=== PATIENT | male | born 1945 | race Caucasian/White ===

== ENCOUNTER 2020-07-06 07:15 | Outpatient (REF) | payer MEDICARE, SELFPAY | END 2020-07-06 07:16 | disposition home or self-care (01) | LOC: HO.LAB 07:15 | PROVIDERS: PCP Internal Medicine; Visit Provider Internal Medicine | DX: Z20.828 Contact with and (suspected) exposure to other viral communicable diseases (principal) | CPT/HCPCS: C9803; U0003 ==

== ENCOUNTER 2020-07-09 09:22 | Outpatient (REF) | payer MEDICARE, SELFPAY ==
[2020-07-09 11:37] LABS: Anion Gap 11 (12-20); Blood Urea Nitrogen 18 mg/dL (9-16); Calcium 8.5 mg/dL (8.4-10.2); Carbon Dioxide 31 mmol/L (22-29); Chloride 104 mmol/L (96-108); Estimated Glomerular Filt Rate > 60; Phosphorus 3.4 mg/dL (2.7-4.5); Potassium 4.4 mmol/l (3.3-5.1); Sodium 142 mmol/L (135-145)
[2020-07-09 11:44] LABS: Protein/Creatinine Ratio, Ur 0.06 (<0.2); Total Protein Urine Random 12 mg/dL (<12)
[2020-07-09 11:46] LABS: Creatinine Urine 196.16 mg/dL
[2020-07-09 11:50] LABS: Renal w Reflex Lab Use Only Order verified
== END 2020-07-09 09:23 | disposition home or self-care (01) ==
LOC: HO.HMGCLDS 09:22
PROVIDERS: PCP Internal Medicine; Visit Provider Internal Medicine Nephrology
DX: I10 Essential (primary) hypertension (principal)
CPT/HCPCS: 80051; 82043; 82310; 82565; 84100; 84156; 84520

== ENCOUNTER 2020-07-31 06:59 | Outpatient (REF) | payer MEDICARE, SELFPAY | END 2020-07-31 07:00 | disposition home or self-care (01) | LOC: HO.LAB 06:59 | PROVIDERS: Visit Provider Internal Medicine | DX: Z20.822 Contact with and (suspected) exposure to COVID-19 (principal) | CPT/HCPCS: 36415; C9803; U0003 ==

== ENCOUNTER 2020-08-22 07:02 | Outpatient (REF) | payer MEDICARE, SELFPAY | END 2020-08-22 07:03 | disposition home or self-care (01) | LOC: HO.LAB 07:02 | PROVIDERS: Visit Provider Internal Medicine | DX: Z20.822 Contact with and (suspected) exposure to COVID-19 (principal) | CPT/HCPCS: 36415; C9803; U0003; U0005 ==

== ENCOUNTER 2020-09-15 09:40 | Outpatient (REF) | payer MEDICARE, SELFPAY ==
[2020-09-15 11:18] LABS: MANUAL DIFF FLAG NO
[2020-09-15 11:40] LABS: Basophils Percent Auto 0.4 % (0-2); Eosinophils Percent Auto 0.7 % (0-4); Hematocrit 37.2 % (42-52); Hemoglobin 11.7 g/dl (14.0-18.0); Imm Gran Abs Auto 0.01 X10*3/uL (0.00-0.03); Imm Gran Pct Auto 0.2 % (0.0-0.4); Lymphocytes Absolute Auto 2.2 X10*3/uL (1.2-4.9); Lymphocytes Percent Auto 40.2 % (20-40); Mean Corpuscular HGB Conc 31.5 g/dl (31.0-36.0); Mean Corpuscular Hemoglobin 29.1 pg (27.0-33.0); Mean Corpuscular Volume 92.5 fL (80-98); Mean Platelet Volume 9.2 fL (9.4-12.4); Monocytes Absolute Auto 0.3 X10*3/uL (0.1-1.2); Monocytes Percent Auto 6.3 % (2-11); Neutrophils Absolute Auto 2.8 X10*3/uL (2.0-8.3); Neutrophils Percent Auto 52.2 % (45-73); Platelet Count 133 X10*3/uL (160-400); Red Blood Count 4.02 X10*6/uL (4.60-5.80); Red Cell Distribution Width 13.7 % (11.0-16.0); White Blood Count 5.4 X10*3/uL (4.8-10.8)
[2020-09-15 11:56] LABS: Alanine Aminotransferase 11 U/L (0-40); Albumin Level 3.9 g/dL (3.5-5.0); Alkaline Phosphatase 73 U/L (39-117); Anion Gap 11 (12-20); Aspartate Amino Transferase 13 U/L (5-37); Bilirubin Total 0.8 mg/dL (0.0-1.0); Blood Urea Nitrogen 17 mg/dL (9-16); Calcium 8.2 mg/dL (8.4-10.2); Carbon Dioxide 29 mmol/L (22-29); Chloride 105 mmol/L (96-108); Cholesterol 130 mg/dL; Estimated Glomerular Filt Rate > 60; Glucose Fasting 106 mg/dL (60-99); HDL Cholesterol 30 mg/dL; LDL Cholesterol Calculated 78 mg/dl; Potassium 4.2 mmol/L (3.3-5.1); Sodium 141 mmol/L (135-145); Total Protein 6.5 g/dL (6.5-8.0); Triglycerides 111 mg/dL
[2020-09-15 12:19] LABS: Creatinine Urine 154.57 mg/dL; Microalbum/Creatinine Ratio Ur 4.5 ug/mg cr; T4 Thyroxine 6.6 ug/dL (4.5-12.0); Thyroid Stimulating Hormone 2.42 uIU/mL (0.32-4.0)
[2020-09-15 12:45] LABS: Folate 17.7 ng/mL (> or = 4.0); Vitamin B12 342 pg/mL (200-900)
== END 2020-09-15 09:41 | disposition home or self-care (01) ==
LOC: HO.HMGCLDS 09:40
PROVIDERS: PCP Internal Medicine; Visit Provider Internal Medicine
DX: E11.65 Type 2 diabetes mellitus with hyperglycemia (principal); E66.9 Obesity, unspecified; J45.909 Unspecified asthma, uncomplicated; I10 Essential (primary) hypertension; K21.9 Gastro-esophageal reflux disease without esophagitis; M19.90 Unspecified osteoarthritis, unspecified site; N40.0 Benign prostatic hyperplasia without lower urinary tract symptoms; F41.9 Anxiety disorder, unspecified
CPT/HCPCS: 36415; 80053; 80061; 82043; 82607; 82746; 84436; 84443; 85025

== ENCOUNTER 2020-12-21 08:33 | Outpatient (REF) | payer MEDICARE, SELFPAY ==
[2020-12-21 11:29] LABS: MANUAL DIFF FLAG NO
[2020-12-21 11:37] LABS: Basophils Percent Auto 0.2 % (0-2); Eosinophils Percent Auto 0.8 % (0-4); Hematocrit 36.7 % (42-52); Hemoglobin 11.5 g/dl (14.0-18.0); Imm Gran Abs Auto 0.01 X10*3/uL (0.00-0.03); Imm Gran Pct Auto 0.2 % (0.0-0.4); Immature Retic Fraction 13.3 % (2.3-13.4); Lymphocytes Absolute Auto 2.3 X10*3/uL (1.2-4.9); Mean Corpuscular HGB Conc 31.3 g/dl (31.0-36.0); Mean Corpuscular Hemoglobin 29.6 pg (27.0-33.0); Mean Corpuscular Volume 94.3 fL (80-98); Mean Platelet Volume 9.4 fL (9.4-12.4); Monocytes Absolute Auto 0.4 X10*3/uL (0.1-1.2); Monocytes Percent Auto 7.2 % (2-11); Neutrophils Absolute Auto 2.3 X10*3/uL (2.0-8.3); Neutrophils Percent Auto 46.6 % (45-73); Platelet Count 153 X10*3/uL (160-400); Red Blood Count 3.89 X10*6/uL (4.60-5.80); Red Cell Distribution Width 14.1 % (11.0-16.0); Retic HGB Equivalent 30.5 pg (30.0-35.0); Reticulocyte Percent 1.7 % (0.5-1.8); Reticulocytes Absolute 0.066 X10*6/uL (0.026-0.095)
[2020-12-21 12:19] LABS: Ferritin 52 ng/mL (20-250); Prostate Specific Antigen Scr 0.69 ng/mL (<0.05-4.0)
[2020-12-21 12:25] LABS: Alanine Aminotransferase 12 U/L (0-40); Albumin Level 3.9 g/dL (3.5-5.0); Alkaline Phosphatase 71 U/L (39-117); Anion Gap 11 (12-20); Aspartate Amino Transferase 17 U/L (5-37); Bilirubin Total 0.8 mg/dL (0.0-1.0); Blood Urea Nitrogen 16 mg/dL (9-16); Calcium 8.5 mg/dL (8.4-10.2); Carbon Dioxide 28 mmol/L (22-29); Chloride 106 mmol/L (96-108); Estimated Glomerular Filt Rate > 60; Glucose Random 130 mg/dL (60-115); Iron 45 mcg/dL (45-160); Percent Iron Saturation 17 % (15-50); Potassium 4.2 mmol/L (3.3-5.1); Sodium 141 mmol/L (135-145); Total Iron Binding Capacity 260 mcg/dL (228-428); Total Protein 6.4 g/dL (6.5-8.0); Unsaturated Iron Binding 215 ug/dL
[2020-12-21 12:33] LABS: Folate > 20.0 ng/mL (> or = 4.0); Vitamin B12 375 pg/mL (200-900)
[2020-12-21 13:10] LABS: Estimated Average Glucose 114 mg/dL; Hemoglobin A1c % 5.6 %
== END 2020-12-21 08:34 | disposition home or self-care (01) ==
LOC: HO.HMGCLDS 08:33
PROVIDERS: PCP Internal Medicine; Visit Provider Internal Medicine
DX: E11.65 Type 2 diabetes mellitus with hyperglycemia (principal); N40.1 Benign prostatic hyperplasia with lower urinary tract symptoms; R35.0 Frequency of micturition; Z12.5 Encounter for screening for malignant neoplasm of prostate
CPT/HCPCS: 36415; 80053; 82607; 82728; 82746; 83036; 83540; 84153; 85025; 85045

== ENCOUNTER 2021-03-30 11:12 | Outpatient (REF) | payer MEDICARE, SELFPAY ==
[2021-03-30 14:33] LABS: Prostate Specific Antigen 0.88 ng/mL (<0.05-4.0)
== END 2021-03-30 11:13 | disposition home or self-care (01) ==
LOC: HO.HMGCLDS 11:12
PROVIDERS: PCP Internal Medicine; Visit Provider Nurse Practitioner Family
DX: Z12.5 Encounter for screening for malignant neoplasm of prostate (principal); N40.1 Benign prostatic hyperplasia with lower urinary tract symptoms
CPT/HCPCS: 36415; 84153

== ENCOUNTER 2021-06-28 09:29 | Outpatient (REF) | payer MEDICARE, SELFPAY ==
[2021-06-28 12:11] LABS: Creatinine Urine 184.72 mg/dL; Protein/Creatinine Ratio, Ur 0.08 (<0.2); Total Protein Urine Random 14 mg/dL (<12)
== END 2021-06-28 09:30 | disposition home or self-care (01) ==
LOC: HO.HMGCLDS 09:29
PROVIDERS: PCP Internal Medicine; Visit Provider Internal Medicine Nephrology
DX: I10 Essential (primary) hypertension (principal)
CPT/HCPCS: 84156

== ENCOUNTER 2021-07-02 13:51 | Outpatient (REF) | payer MEDICARE, SELFPAY ==
[2021-07-02 17:11] LABS: Anion Gap 13 (12-20); Blood Urea Nitrogen 17 mg/dL (9-16); Carbon Dioxide 27 mmol/L (22-29); Chloride 105 mmol/L (96-108); Estimated Glomerular Filt Rate > 60; Potassium 4.1 mmol/L (3.3-5.1); Sodium 141 mmol/L (135-145)
== END 2021-07-02 13:52 | disposition home or self-care (01) ==
LOC: HO.HMGCLDS 13:51
PROVIDERS: PCP Internal Medicine; Visit Provider Internal Medicine Nephrology
DX: I10 Essential (primary) hypertension (principal)
CPT/HCPCS: 36415; 80051; 82310; 82565; 84520

== ENCOUNTER 2021-09-21 10:14 | Outpatient (REF) | payer MEDICARE, SELFPAY ==
[2021-09-21 11:22] LABS: MANUAL DIFF FLAG NO
[2021-09-21 11:38] LABS: Basophils Percent Auto 0.6 % (0-2); Eosinophils Absolute Auto 0.1 X10*3/uL (0.0-0.4); Eosinophils Percent Auto 1.1 % (0-4); Hematocrit 38.5 % (42.0-52.0); Hemoglobin 12.3 g/dl (14.0-18.0); Imm Gran Abs Auto 0.02 X10*3/uL (0.00-0.03); Imm Gran Pct Auto 0.4 % (0.0-0.4); Lymphocytes Absolute Auto 2.5 X10*3/uL (1.2-4.9); Lymphocytes Percent Auto 47.7 % (20-40); Mean Corpuscular HGB Conc 31.9 g/dl (31.0-36.0); Mean Corpuscular Hemoglobin 29.3 pg (27.0-33.0); Mean Corpuscular Volume 91.7 fL (80.0-98.0); Mean Platelet Volume 9.6 fL (9.4-12.4); Monocytes Absolute Auto 0.4 X10*3/uL (0.1-1.2); Monocytes Percent Auto 7.5 % (2-11); Neutrophils Absolute Auto 2.2 x10*3/uL (2.0-8.3); Neutrophils Percent Auto 42.7 % (45-73); Platelet Count 135 X10*3/uL (160-400); Red Cell Distribution Width 14.2 % (11.0-16.0); White Blood Count 5.2 X10*3/uL (4.8-10.8)
[2021-09-21 12:25] LABS: Alanine Aminotransferase 14 U/L (0-40); Albumin Level 3.8 g/dL (3.5-5.0); Alkaline Phosphatase 74 U/L (39-117); Anion Gap 12 (12-20); Aspartate Amino Transferase 17 U/L (5-37); Bilirubin Total 0.6 mg/dL (0.0-1.0); Blood Urea Nitrogen 18 mg/dL (9-16); Calcium 8.8 mg/dL (8.4-10.2); Carbon Dioxide 30 mmol/L (22-29); Chloride 105 mmol/L (96-108); Cholesterol 136 mg/dL; Estimated Glomerular Filt Rate > 60; Glucose Random 114 mg/dL (60-115); HDL Cholesterol 29 mg/dL; LDL Cholesterol Calculated 80 mg/dl; Potassium 4.5 mmol/L (3.3-5.1); Sodium 142 mmol/L (135-145); Total Protein 6.6 g/dL (6.5-8.0); Triglycerides 138 mg/dL
[2021-09-21 12:32] LABS: Creatinine Urine 196.61 mg/dL
[2021-09-21 12:37] LABS: Uric Acid 6.2 mg/dL (3.4-7.0)
[2021-09-21 12:41] LABS: Free T4 (Free Thyroxine) 0.95 ng/dL (0.71-1.85); Prostate Specific Antigen Scr 0.79 ng/mL (<0.05-4.0); Thyroid Stimulating Hormone 2.65 uIU/mL (0.32-4.0)
[2021-09-21 12:43] LABS: Folate 17.1 ng/mL (> or = 4.0); Vitamin B12 479 pg/mL (200-900)
== END 2021-09-21 10:15 | disposition home or self-care (01) ==
LOC: HO.HMGCLDS 10:14
PROVIDERS: PCP Internal Medicine; Visit Provider Internal Medicine
DX: Z12.5 Encounter for screening for malignant neoplasm of prostate (principal); K21.9 Gastro-esophageal reflux disease without esophagitis; I10 Essential (primary) hypertension; E78.00 Pure hypercholesterolemia, unspecified; N40.1 Benign prostatic hyperplasia with lower urinary tract symptoms; R35.0 Frequency of micturition; E11.65 Type 2 diabetes mellitus with hyperglycemia
CPT/HCPCS: 36415; 80053; 80061; 82043; 82607; 82746; 84153; 84439; 84443; 84550; 85025

== ENCOUNTER 2021-11-02 12:21 | Outpatient (REF) | payer MEDICARE, SELFPAY ==
[2021-11-02 13:44] LABS: MANUAL DIFF FLAG NO
[2021-11-02 13:59] LABS: Basophils Percent Auto 0.4 % (0-2); Eosinophils Absolute Auto 0.1 X10*3/uL (0.0-0.4); Eosinophils Percent Auto 1.2 % (0-4); Hematocrit 36.5 % (42.0-52.0); Hemoglobin 11.7 g/dl (14.0-18.0); Imm Gran Abs Auto 0.01 X10*3/uL (0.00-0.03); Imm Gran Pct Auto 0.2 % (0.0-0.4); Lymphocytes Absolute Auto 2.2 X10*3/uL (1.2-4.9); Lymphocytes Percent Auto 42.2 % (20-40); Mean Corpuscular HGB Conc 32.1 g/dl (31.0-36.0); Mean Corpuscular Hemoglobin 29.3 pg (27.0-33.0); Mean Corpuscular Volume 91.5 fL (80.0-98.0); Mean Platelet Volume 9.7 fL (9.4-12.4); Monocytes Absolute Auto 0.3 X10*3/uL (0.1-1.2); Monocytes Percent Auto 5.4 % (2-11); Neutrophils Absolute Auto 2.6 x10*3/uL (2.0-8.3); Neutrophils Percent Auto 50.6 % (45-73); Platelet Count 155 X10*3/uL (160-400); Red Blood Count 3.99 X10*6/uL (4.60-5.80); Red Cell Distribution Width 13.8 % (11.0-16.0); White Blood Count 5.2 X10*3/uL (4.8-10.8)
[2021-11-02 14:06] LABS: Estimated Average Glucose 131 mg/dL; Hemoglobin A1c % 6.2 %
[2021-11-02 14:07] LABS: Alanine Aminotransferase 12 U/L (0-40); Albumin Level 3.8 g/dL (3.5-5.0); Alkaline Phosphatase 69 U/L (39-117); Anion Gap 14 (12-20); Aspartate Amino Transferase 17 U/L (5-37); Bilirubin Total 0.6 mg/dL (0.0-1.0); Blood Urea Nitrogen 17 mg/dL (9-16); Calcium 8.6 mg/dL (8.4-10.2); Carbon Dioxide 24 mmol/L (22-29); Chloride 105 mmol/L (96-108); Cholesterol 137 mg/dL; Estimated Glomerular Filt Rate > 60; Glucose Random 149 mg/dL (60-115); HDL Cholesterol 28 mg/dL; LDL Cholesterol Calculated 74 mg/dl; Potassium 4.3 mmol/L (3.3-5.1); Sodium 139 mmol/L (135-145); Total Protein 6.6 g/dL (6.5-8.0); Triglycerides 179 mg/dL
[2021-11-02 14:27] LABS: Creatinine Urine 146.52 mg/dL
[2021-11-02 14:31] LABS: Free T4 (Free Thyroxine) 0.94 ng/dL (0.71-1.85); Thyroid Stimulating Hormone 2.29 uIU/mL (0.32-4.0); Vitamin D 25-OH Total 46.4 ng/mL (>30)
[2021-11-02 14:52] LABS: Folate > 20.0 ng/mL (> or = 4.0); Vitamin B12 361 pg/mL (200-900)
== END 2021-11-02 12:22 | disposition home or self-care (01) ==
LOC: HO.HMGCLDS 12:21
PROVIDERS: PCP Internal Medicine; Visit Provider Internal Medicine
DX: E11.65 Type 2 diabetes mellitus with hyperglycemia (principal); E78.00 Pure hypercholesterolemia, unspecified
CPT/HCPCS: 36415; 80053; 80061; 82306; 82607; 82746; 83036; 84439; 84443; 85025

== ENCOUNTER → 2021-11-12 09:42 | Outpatient (REF) | payer MEDICARE, SELFPAY ==
--- NOTE | 2021-11-12 09:53 | ECG_ITS ---
Test Reason : PREOP Blood Pressure : / mmHG Vent. Rate : 067 BPM Atrial Rate : 067 BPM P-R Int : 186 ms QRS Dur : 096 ms QT Int : 412 ms P-R-T Axes : 064 018 038 degrees QTc Int : 435 ms Normal sinus rhythm Normal ECG When compared with ECG of 21-JAN-2011 07:58, Nonspecific T wave abnormality has replaced inverted T waves in Inferior leads Referred By: Belen Shaw Electronically Signed By:ARPITA WOODWARD
[2021-11-12 10:47] LABS: INTERNATIONAL NORM RATIO 1.1 (0.9-1.1); Prothrombin Time 12.4 SEC (9.9-13.0)
== END ==
LOC: HO.CARD 09:42
PROVIDERS: PCP Internal Medicine; Visit Provider Nurse Practitioner Family
DX: Z01.818 Encounter for other preprocedural examination (principal)
CPT/HCPCS: 36415; 85610; 93005

== ENCOUNTER 2022-05-06 10:02 | Outpatient (REF) | payer MEDICARE, SELFPAY ==
--- NOTE | ~2022-05-06 | US_ITS ---
EXAMINATION: US VENOUS ULTRASOUND WITH DOPPLER LOWER EXTREMITY, LEFT CLINICAL INFORMATION: Acute embolism. COMPARISON: None TECHNIQUE: Ultrasound of the deep veins is performed from the hip to the calf with compression sonography and color and pulse Doppler assessment. Spectral analysis with color-flow imaging is performed. FINDINGS: Limited evaluation of the peroneal and posterior tibial veins due to overlying bandage. There is normal venous compression and respiratory variation and augmented flow of the visualized left lower extremity deep veins. The visualized common femoral vein, superficial femoral vein, profunda femoral vein, popliteal vein, and the trifurcation region otherwise shows no evidence of deep venous thrombosis. No Kaiser's cyst is appreciated. US/US venous duplex LE LT IMPRESSION: No DVT demonstrated in the left lower extremity.
== END 2022-05-06 10:03 | disposition home or self-care (01) ==
LOC: HO.US 10:02
PROVIDERS: Visit Provider Nurse Practitioner Family
DX: I82.402 Acute embolism and thrombosis of unspecified deep veins of left lower extremity (principal)
CPT/HCPCS: 93971

== ENCOUNTER 2022-11-25 07:45 | Outpatient (REF) | payer MEDICARE, SELFPAY ==
[2022-11-25 11:22] LABS: MANUAL DIFF FLAG NO
[2022-11-25 11:31] LABS: Basophils Percent Auto 0.2 % (0-2); Eosinophils Absolute Auto 0.1 X10*3/uL (0.0-0.4); Eosinophils Percent Auto 1.1 % (0-4); Hematocrit 37.1 % (42.0-52.0); Hemoglobin 11.7 g/dl (14.0-18.0); Imm Gran Abs Auto 0.02 X10*3/uL (0.00-0.03); Imm Gran Pct Auto 0.4 % (0.0-0.4); Immature Retic Fraction 17.9 % (2.3-13.4); Lymphocytes Absolute Auto 1.6 X10*3/uL (1.2-4.9); Lymphocytes Percent Auto 35.5 % (20-40); Mean Corpuscular HGB Conc 31.5 g/dl (31.0-36.0); Mean Corpuscular Hemoglobin 29.1 pg (27.0-33.0); Mean Corpuscular Volume 92.3 fL (80.0-98.0); Mean Platelet Volume 9.9 fL (9.4-12.4); Monocytes Absolute Auto 0.3 X10*3/uL (0.1-1.2); Monocytes Percent Auto 6.3 % (2-11); Neutrophils Absolute Auto 2.6 x10*3/uL (2.0-8.3); Neutrophils Percent Auto 56.5 % (45-73); Platelet Count 148 X10*3/uL (160-400); Red Blood Count 4.02 X10*6/uL (4.60-5.80); Red Cell Distribution Width 14.7 % (11.0-16.0); Retic HGB Equivalent 32.3 pg (30.0-35.0); Reticulocyte Percent 1.6 % (0.5-1.8); Reticulocytes Absolute 0.066 X10*6/uL (0.026-0.095); White Blood Count 4.6 X10*3/uL (4.8-10.8)
[2022-11-25 11:47] LABS: Estimated Average Glucose 134 mg/dL; Hemoglobin A1c % 6.3 %
[2022-11-25 11:54] LABS: Creatinine Urine 176.43 mg/dL; Microalbum/Creatinine Ratio Ur 3.4 ug/mg cr
[2022-11-25 12:14] LABS: Alanine Aminotransferase 9 U/L (0-40); Albumin Level 3.9 g/dL (3.5-5.0); Alkaline Phosphatase 76 U/L (39-117); Anion Gap 9 (12-20); Aspartate Amino Transferase 18 U/L (5-37); Bilirubin Total 0.7 mg/dL (0.0-1.0); Blood Urea Nitrogen 17 mg/dL (9-16); Calcium 8.7 mg/dL (8.4-10.2); Carbon Dioxide 28 mmol/L (22-29); Chloride 107 mmol/L (96-108); Cholesterol 127 mg/dL; Estimated Glomerular Filt Rate > 60; Glucose Random 168 mg/dL (60-115); HDL Cholesterol 28 mg/dL; Iron 54 mcg/dL (45-160); LDL Cholesterol Calculated 72 mg/dl; Percent Iron Saturation 24 % (15-50); Potassium 4.3 mmol/L (3.3-5.1); Sodium 140 mmol/L (135-145); Total Iron Binding Capacity 221 mcg/dL (228-428); Total Protein 6.6 g/dL (6.5-8.0); Triglycerides 135 mg/dL; Unsaturated Iron Binding 167 ug/dL
[2022-11-25 12:34] LABS: Ferritin 41 ng/mL (20-250); Folate 19.4 ng/mL (> or = 4.0); Thyroid Stimulating Hormone 2.02 uIU/mL (0.32-4.0); Vitamin B12 546 pg/mL (200-900)
== END 2022-11-25 07:46 | disposition home or self-care (01) ==
LOC: HO.HMGCLDS 07:45
PROVIDERS: PCP Internal Medicine; Visit Provider Internal Medicine
DX: E11.65 Type 2 diabetes mellitus with hyperglycemia (principal); E78.00 Pure hypercholesterolemia, unspecified
CPT/HCPCS: 36415; 80053; 80061; 82043; 82607; 82728; 82746; 83036; 83540; 84439; 84443; 85025; 85045

== ENCOUNTER 2023-02-20 07:03 | Outpatient (REF) | payer MEDICARE, SELFPAY ==
[2023-02-20 12:23] LABS: Anion Gap 14 (12-20); Blood Urea Nitrogen 16 mg/dL (9-16); Carbon Dioxide 23 mmol/L (22-29); Chloride 108 mmol/L (96-108); Estimated Glomerular Filt Rate > 60; Glucose Random 141 mg/dL (60-115); Potassium 4.1 mmol/L (3.3-5.1); Sodium 141 mmol/L (135-145)
[2023-02-20 12:42] LABS: Creatinine Urine 169.04 mg/dL; Protein/Creatinine Ratio, Ur 0.05 (<0.2); Total Protein Urine Random 9 mg/dL (<12)
[2023-02-20 12:43] LABS: Creatinine Urine 167.94 mg/dL
== END 2023-02-20 07:04 | disposition home or self-care (01) ==
LOC: HO.HMGCLDS 07:03
PROVIDERS: Absent Provider Nurse Practitioner Family; PCP Internal Medicine; Referring Provider Internal Medicine Nephrology; Visit Provider Internal Medicine
DX: E11.65 Type 2 diabetes mellitus with hyperglycemia (principal); I10 Essential (primary) hypertension
CPT/HCPCS: 36415; 80051; 82565; 82947; 84156; 84520

== ENCOUNTER 2023-06-06 08:15 | Outpatient (AMB) | payer MEDICARE, SELFPAY ==
[2023-06-06 08:27] VITALS: BP 148/88; PULSE 83; O2SAT 98; BMI 34.4
--- NOTE | 2023-06-06 08:27 | A.OFFPC_ITS ---
Vital Signs 06/06/23 08:27 Height 5 ft 8 in Weight 226 lb BMI 34.4 BP 148/88 H Blood Pressure Location Lt brachial Position Sitting Pulse 83 Pulse Source Pulse Oximeter Pulse Oximetry (%) 98 Oxygen Delivery Method Room Air Intake Visit Reasons: DM Allergies No Known Allergies Allergy (Verified 06/06/23 08:29) Medication List - Last Reconciled 06/06/23 by Lacho Araujo MD albuterol sulfate 90 mcg/actuation (ProAir HFA) 2 puffs inhalation Q4-6H PRN cholecalciferol (vitamin D3) 25 mcg PO DAILY doxazosin 8 mg PO DAILY dutasteride 0.5 mg PO DAILY 90 days [L wrist splint As directed] losartan 50 mg PO DAILY 90 days metoprolol succinate ER 25 mg PO DAILY metoprolol succinate ER 50 mg PO DAILY omeprazole 20 mg PO DAILY spironolactone 50 mg PO DAILY venlafaxine 75 mg PO DAILY Tobacco use date assessed: 08/19/22 Fall risk assessment: No Falls in past year Last assessed Fall Risk: 06/06/23 Dental Screening Dental Screen Date: 06/06/23 Did you have a dental visit in the last 12 months?: Yes Did you have a dental problem in the last 6 months where you did not have access to dental care?: No Was dental information given to patient?: Patient has dentist HPI DM HPI Details 78-year-old obese male with a history of controlled diabetes mellitus asthma hypertension GERD BPH generalized anxiety disorder coming in for follow- up. Last seen in November 2022. Patient has colonoscopy is up-to-date September 2018. Patient follows up with Nephrology for the blood pressure presently at goal with metoprolol 50 mg in the morning 25 in the evening spironolactone 25 mg and losartan 50 mg in the morning and doxazosin 8 mg at night stable renal functions [facility] Medical History (Updated 06/06/23 @ 08:33 by Lacho Araujo MD) Puncture wound of foot, right Cellulitis of left lower extremity Preoperative clearance Allergic contact dermatitis Cataract Retinal detachment Restless leg syndrome Type 2 diabetes mellitus with hyperglycemia BPH (benign prostatic hyperplasia) GERD (gastroesophageal reflux disease) Anemia Anxiety and depression Obesity (BMI 30-39.9) Asthma Hypertension Tubular adenoma of colon Surgical History History of colonoscopy History of arthroplasty of left knee Hx of tonsillectomy H/O vitrectomy Melanoma Family History (Updated 12/02/22 @ 08:28 by Oksana Schafer [facility]) Mother No problems noted. Father Prostate cancer Social History Housing: House Alcohol intake: never Patient Tobacco Use Status: Former Tobacco user Tobacco use type: Cigarette e-Cigarette/Vaping Use: Never Used Second Hand Smoke Exposure: No service: No Current occupational status: retired Cognitive needs: Yes Hearing needs: No Vision needs: Yes Questionnaire PHQ-9 Over the last 2 weeks, how often have you been bothered by any of the following problems? 1. Little interest or pleasure in doing things: not at all 2. Feeling down, depressed, or hopeless: not at all 3. Trouble falling or staying asleep, or sleeping too much: not at all 4. Feeling tired or having little energy: not at all 5. Poor appetite or overeating: not at all 6. Feeling bad about yourself - or that you are a failure or have let yourself or your family down: not at all 7. Trouble concentrating on things, such as reading the newspaper or watching television: not at all 8. Moving or speaking so slowly that other people could have noticed. Or the opposite - being so fidgety or restless that you have been moving around a lot more than usual: not at all 9. Thoughts that you would be better off or of hurting yourself in some way: not at all Total score: 0 Depression Screening Interpretation: Negative Depression Screening Done: Yes Source: Developed by Drs. Nikos Ware, Jennifer Banegas, Daniel Chavez and colleagues, with an educational claritza from [employer]. Thrive Questionnaire Date Thrive assessed: 08/19/22 AUDIT C Alcohol Use Questionnaire (AUDIT-C) 1. How often do you have a drink containing alcohol?: Never 3. How often do you have six or more drinks on one occasion?: Never Total Score: 0 Score Reviewed/Action Taken: No PRETTY-7 AMB Questionnaire PRETTY-7 Date PRETTY - 7 assessed: 08/19/22 Source: Developed by Drs. Nikos Ware, Daniel Pollard and colleagues, with an educational claritza from [employer]. Physical exam (Primary Care) Vital Signs: Last Vital Signs Pulse 83 06/06/23 08:27 BP 148/88 H 06/06/23 08:27 Pulse Ox 98 06/06/23 08:27 Oxygen Delivery Method Room Air 06/06/23 08:27 BMI result Body Mass Index 34.4 Tobacco/Smoking Status: Tobacco use Status Tobacco use date assessed 08/19/22 06/06/23 08:29 Patient Tobacco Use Status Former Tobacco user 06/06/23 08:29 Tobacco use type Cigarette 06/06/23 08:29 e-Cigarette/Vaping Use Never Used 06/06/23 08:29 PHQ-9: PHQ-9 Score PHQ-9: Total score 0 06/06/23 08:35 Depression Screening Interpretation: Negative Thrive Assessment: Date of Thrive Assessment Date Thrive assessed 08/19/22 06/06/23 08:29 Const General: alert; No acute distress Eyes Conjunctivae: conjunctivae normal Resp Auscultation: clear to auscultation bilaterally Cardio Rate: regular rate Rhythm: regular rhythm GI Inspection: Yes normal to inspection Extrem General: Yes normal to inspection and No edema Results AMB Hemoglobin A1c AMB Hemoglobin A1c 6.3 % Last Edit by Oksana Schafer CMA on 06/06/23 08 :42 Assessment and Plan Assessment & Plan (1) Type 2 diabetes mellitus with hyperglycemia: Comment: Dr. 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 Hemoglobin A1c goal of less than 7.0. Patient is on diet control (2) Hypertension: Code(s): I10 - Essential (primary) hypertension Qualifiers: Hypertension type: essential hypertension Qualified Code(s): I10 - Essential (primary) hypertension Plan: Continue with blood pressure medication. Decrease salt intake and exercise continue with doxazosin 8 mg once a day losartan 50 mg once a day metoprolol 50 mg in the morning 25 mg in the evening spironolactone at 50 mg once a day (3) Asthma: Code(s): J45.909 - Unspecified asthma, uncomplicated Plan: Continue with inhaler albuterol as needed (4) Obesity (BMI 30-39.9): Code(s): E66.9 - Obesity, unspecified Plan: Diet and exercise (5) GERD (gastroesophageal reflux disease): Code(s): K21.9 - Gastro-esophageal reflux disease without esophagitis Plan: Avoid the foods that causes that usually spicy foods, tomato products, juices, coffee, soda and foods that your sensitive to. After eating do not lie down, allow 3-4 hours before in lie down. And keep the head of bed above 30 degrees to avoid the acid from going up. Continue with omeprazole (6) BPH (benign prostatic hyperplasia): Comment: Dr. Waite Code(s): N40.0 - Benign prostatic hyperplasia without lower urinary tract symptoms Qualifiers: Lower urinary tract symptom presence: symptoms present Lower urinary tract symptom detail: urinary frequency Qualified Code(s): N40.1 - Benign prostatic hyperplasia with lower urinary tract symptoms; R35.0 - Frequency of micturition Plan: Continue with dutasteride and doxazosin (7) Generalized anxiety disorder: Comment: Decline any referral for counseling Code(s): F41.1 - Generalized anxiety disorder Plan: Continue with venlafaxine. Orders: Orders Complete Blood Count Auto Diff 6 Months E11.65 - Type 2 diabetes mellitus with hyperglycemia Comprehensive Met. Panel 6 Months E11. - Type 2 diabetes mellitus with hyperglycemia Hemoglobin A1c 6 Months E11. - Type 2 diabetes mellitus with hyperglycemia Lipid Panel 6 Months E11.65 - Type 2 diabetes mellitus with hyperglycemia, E7 8.00 - Pure hypercholesterolemia, unspecified Vitamin B12 and Folate 6 Months E11.65 - Type 2 diabetes mellitus with hyperglycemia IRON PROFILE 6 Months E11.65 - Type 2 diabetes mellitus with hyperglycemia AMB Hemoglobin A1c Today Z13.9 - Encounter for screening, unspecified Thyroid Stimulating Hormone 6 Months E11.65 - Type 2 diabetes mellitus with hyperglycemia Free T4 (Free Thyroxine) 6 Months E11.65 - Type 2 diabetes mellitus with hyperglycemia Ferritin 6 Months E11.65 - Type 2 diabetes mellitus with hyperglycemia Reticulocyte Count 6 Months E11.65 - Type 2 diabetes mellitus with hyperglycemia Microalbumin, Random (w Creat) 6 Months E11.65 - Type 2 diabetes mellitus with hyperglycemia Creatinine Urine 6 Months E11.65 - Type 2 diabetes mellitus with hyperglycemia Medications: Refilled albuterol sulfate 90 mcg/actuation (ProAir HFA) 2 puffs inhalation Q4-6H PRN 8.5 grams 0RF shortness of breath or wheezing J45.909 - Unspecified asthma, uncomplicated Coding Level of Care Code Est Pt Level 4 (62941) Diagnoses Type 2 diabetes mellitus with hyperglycemia, without long-term current use of insulin E11.65 Diabetes mellitus group home insulin use: 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
== END 2023-06-06 08:59 | disposition home or self-care (01) ==
PROVIDERS: Visit Provider Internal Medicine
DX: E11.65 Type 2 diabetes mellitus with hyperglycemia (principal)
CPT/HCPCS: 83036; 99214

== ENCOUNTER 2023-08-02 09:21 | Outpatient (REF) | payer MEDICARE, SELFPAY ==
[2023-08-02 14:16] LABS: Creatinine Urine 206.46 mg/dL; Protein/Creatinine Ratio, Ur 0.05 (<0.2); Total Protein Urine Random 11 mg/dL (<12)
[2023-08-02 14:18] LABS: Anion Gap 11 (12-20); Blood Urea Nitrogen 17 mg/dL (9-16); Carbon Dioxide 27 mmol/L (22-29); Chloride 106 mmol/L (96-108); Estimated Glomerular Filt Rate > 60; Potassium 4.1 mmol/L (3.3-5.1); Sodium 140 mmol/L (135-145)
== END 2023-08-02 09:22 | disposition home or self-care (01) ==
LOC: HO.HMGCLDS 09:21
PROVIDERS: PCP Internal Medicine; Visit Provider Internal Medicine Nephrology
DX: I10 Essential (primary) hypertension (principal)
CPT/HCPCS: 36415; 80051; 82565; 82570; 84156; 84520; 99212

== ENCOUNTER 2023-08-02 09:21 | Outpatient (AMB) | payer MEDICARE, SELFPAY ==
[2023-08-02 09:30] VITALS: BP 140/80; PULSE 75; O2SAT 100; BMI 34.7
--- NOTE | 2023-08-02 09:30 | HO.NEPHOV ---
HPI HPI Comments History of Present Illness Details I had the delight of seeing Sunny in follow-up of his hypertension. He has been on metoprolol 50 mg in the morning 25mg in the evening along with spironolactone 100 mg and losartan 50 mg in the morning and doxazosin 8 mg at night stable renal functions. He is not known to have any orthostatic symptoms or proteinuria. He follows up with Urology for his prostate issues. He is compliant with his medications. He denies chest pain, shortness of breath, proximal nocturnal dyspnea, orthopnea, pedal edema. His hemoglobin A1c has been over 6. He had surgery for veins with Dr Snyder. He feels well otherwise. [facility] Medical History (Updated 06/06/23 @ 08:33 by Lacho Araujo MD) Puncture wound of foot, right Cellulitis of left lower extremity Preoperative clearance Allergic contact dermatitis Cataract Retinal detachment Restless leg syndrome Type 2 diabetes mellitus with hyperglycemia BPH (benign prostatic hyperplasia) GERD (gastroesophageal reflux disease) Anemia Anxiety and depression Obesity (BMI 30-39.9) Asthma Hypertension Tubular adenoma of colon Surgical History History of colonoscopy History of arthroplasty of left knee Hx of tonsillectomy H/O vitrectomy Melanoma Family History Mother No problems noted. Father Prostate cancer Social History Housing: House Alcohol intake: never Patient Tobacco Use Status: Former Tobacco user Tobacco use type: Cigarette e-Cigarette/Vaping Use: Never Used Second Hand Smoke Exposure: No service: No Current occupational status: retired Cognitive needs: Yes Hearing needs: No Vision needs: Yes Vital Signs 08/02/23 09:30 08/02/23 10:02 Height 5 ft 8 in Weight 228 lb 2 oz BMI 34.7 BP 140/80 H 120/80 Blood Pressure Location Lt brachial Position Sitting Pulse 75 Pulse Source Pulse Oximeter Pulse Oximetry (%) 100 Oxygen Delivery Method Room Air Physical Exam Vital Signs: Last Vital Signs Pulse 75 08/02/23 09:30 BP 140/80 H 08/02/23 09:30 Pulse Ox 100 08/02/23 09:30 Oxygen Delivery Method Room Air 08/02/23 09:30 BMI result Body Mass Index 34.7 Const General: comfortable and no acute distress Orientation/consciousness: patient oriented x3 HEENT Head: Yes normocephalic Mouth: Normal oral and palatal mucosa present Eyes EOM: EOMs intact bilaterally Neck Neck: Yes supple Resp Auscultation: clear to auscultation bilaterally Cardio Jugular venous distension: no JVD Rate: regular rate GI Palpation (GI): Soft to palpation Auscultation: normal bowel sounds General: Yes no CVA tenderness Back/Spine/Pelvis Back: no CVA tenderness Skin General skin exam: no rashes or lesions noted Neuro General: patient oriented x3 and moves all extremities Extrem General: Yes no pedal edema Assessment & Plan Assessment & Plan (1) Hypertension: Code(s): I10 - Essential (primary) hypertension Qualifiers: Hypertension type: essential hypertension Qualified Code(s): I10 - Essential (primary) hypertension Plan Sunny has longstanding hypertension. Ever since his medications have been adjusted his blood pressure has been at goal. He should continue his current medication regimen. He does not have any hyperkalemia, proteinuria and has normal renal function. He denies any orthostatic symptoms. He avoids nonsteroidal anti-inflammatories and maintain good hydration. He has not had any recent blood work which I ordered . I did not make any medication changes today. I answered all his questions. Follow-up given. Orders: Orders Blood Urea Nitrogen Today I10 - Essential (primary) hypertension Electrolytes Today I10 - Essential (primary) hypertension Protein Creatinine Ratio, Ur Today I10 - Essential (primary) hypertension Creatinine Today I10 - Essential (primary) hypertension Coding Level of Care Code Est Pt Level 3 (26094) Diagnoses Essential hypertension I10 Hypertension type: essential hypertension Results Reviewed Nephrology Results: Hgb 11.7 g/dl (14.0-18.0) L 11/25/22 WBC 4.6 X10*3/uL (4.8-10.8) L 11/25/22 Plt Count 148 X10*3/uL (160-400) L 11/25/22 Sodium 141 mmol/L (135-145) 02/20/23 Potassium 4.1 mmol/L (3.3-5.1) 02/20/23 Chloride 108 mmol/L (96-108) 02/20/23 Carbon Dioxide 23 mmol/L (22-29) 02/20/23 BUN 16 mg/dL (9-16) 02/20/23 Creatinine 0.82 mg/dL (0.5-1.4) 02/20/23 Calcium 8.7 mg/dL (8.4-10.2) 11/25/22 Urine Creatinine 167.94 mg/dL 02/20/23 Protein/Creatinin Ratio 0.05 (<0.2) 02/20/23
[2023-08-02 10:02] VITALS: BP 120/80
== END 2023-08-02 10:06 | disposition home or self-care (01) ==
PROVIDERS: PCP Internal Medicine; Visit Provider Internal Medicine Nephrology
DX: I10 Essential (primary) hypertension (principal)
CPT/HCPCS: 99213

== ENCOUNTER 2023-11-30 06:55 | Outpatient (REF) | payer MEDICARE, SELFPAY ==
[2023-11-30 10:09] LABS: MANUAL DIFF FLAG NO
[2023-11-30 10:23] LABS: Basophils Percent Auto 0.2 % (0-2); Eosinophils Percent Auto 0.9 % (0-4); Hematocrit 35.6 % (42.0-52.0); Hemoglobin 11.4 g/dl (14.0-18.0); Imm Gran Abs Auto 0.02 X10*3/uL (0.00-0.03); Imm Gran Pct Auto 0.4 % (0.0-0.4); Immature Retic Fraction 24.4 % (2.3-13.4); Lymphocytes Percent Auto 42.8 % (20-40); Mean Corpuscular Hemoglobin 29.2 pg (27.0-33.0); Mean Corpuscular Volume 91.3 fL (80.0-98.0); Mean Platelet Volume 10.1 fL (9.4-12.4); Monocytes Absolute Auto 0.3 X10*3/uL (0.1-1.2); Monocytes Percent Auto 7.2 % (2-11); Neutrophils Absolute Auto 2.2 x10*3/uL (2.0-8.3); Neutrophils Percent Auto 48.5 % (45-73); Platelet Count 125 X10*3/uL (160-400); Red Cell Distribution Width 14.6 % (11.0-16.0); Retic HGB Equivalent 30.5 pg (30.0-35.0); Reticulocyte Percent 1.8 % (0.5-1.8); Reticulocytes Absolute 0.071 X10*6/uL (0.026-0.095); White Blood Count 4.6 X10*3/uL (4.8-10.8)
[2023-11-30 10:57] LABS: Alanine Aminotransferase 15 U/L (0-40); Albumin Level 3.8 g/dL (3.5-5.0); Alkaline Phosphatase 65 U/L (39-117); Anion Gap 12 (12-20); Aspartate Amino Transferase 18 U/L (5-37); Bilirubin Total 0.4 mg/dL (0.0-1.0); Blood Urea Nitrogen 17 mg/dL (9-16); Calcium 9.1 mg/dL (8.4-10.2); Carbon Dioxide 24 mmol/L (22-29); Chloride 109 mmol/L (96-108); Cholesterol 110 mg/dL (<200); Estimated Glomerular Filt Rate > 60; Ferritin 46 ng/mL (20-250); Free T4 (Free Thyroxine) 0.85 ng/dL (0.71-1.85); Glucose Random 132 mg/dL (60-115); HDL Cholesterol 26 mg/dL (>40); Iron 47 mcg/dL (45-160); LDL Cholesterol Calculated 52 mg/dL (<100); Percent Iron Saturation 22 % (15-50); Potassium 4.4 mmol/L (3.3-5.1); Sodium 141 mmol/L (135-145); Thyroid Stimulating Hormone 2.81 uIU/mL (0.32-4.0); Total Iron Binding Capacity 214 mcg/dL (228-428); Total Protein 6.9 g/dL (6.5-8.0); Triglycerides 164 mg/dL (<150); Unsaturated Iron Binding 167 ug/dL
[2023-11-30 11:06] LABS: Estimated Average Glucose 137 mg/dL; Hemoglobin A1c % 6.4 % (<6.0)
[2023-11-30 11:19] LABS: Folate 12.2 ng/mL (> or = 4.0); Vitamin B12 481 pg/mL (200-900)
[2023-11-30 11:21] LABS: Creatinine Urine 161.01 mg/dL; Microalbum/Creatinine Ratio Ur 3.7 ug/mg cr (<30)
== END 2023-11-30 06:56 | disposition home or self-care (01) ==
LOC: HO.HMGCLDS 06:55
PROVIDERS: PCP Internal Medicine; Visit Provider Internal Medicine
DX: E11.65 Type 2 diabetes mellitus with hyperglycemia (principal); E78.00 Pure hypercholesterolemia, unspecified
CPT/HCPCS: 36415; 80053; 80061; 82043; 82570; 82607; 82728; 82746; 83036; 83540; 84439; 84443; 85025; 85045

== ENCOUNTER 2023-12-06 09:20 | Outpatient (AMB) | payer MEDICARE, SELFPAY ==
--- NOTE | 2023-12-06 09:33 | HO.NEPHOV ---
Vital Signs 12/06/23 09:35 Height 5 ft 8 in Weight 229 lb BMI 34.8 BP 130/70 Blood Pressure Location Lt brachial Position Sitting Pulse 66 Pulse Source Pulse Oximeter Pulse Oximetry (%) 96 Oxygen Delivery Method Room Air Intake Visit Reasons: HTN May FU/ Conf Ux Visual Designer Required: No Accompanied by: Self / Same As Patient Allergies No Known Allergies Allergy (Verified 12/06/23 09:37) HPI Comments Details: I had the delight of seeing Sunny in follow-up of his hypertension. He has been on metoprolol 50 mg in the morning 25mg in the evening along with spironolactone 100 mg and losartan 50 mg in the morning and doxazosin 8 mg at night stable renal functions. He is not known to have any orthostatic symptoms or proteinuria. He follows up with Urology for his prostate issues. He is compliant with his medications. He denies chest pain, shortness of breath, proximal nocturnal dyspnea, orthopnea, pedal edema. His hemoglobin A1c has been over 6. He has been having carpal tunnel symptoms. He feels well otherwise. [facility] Medical History (Updated 06/06/23 @ 08:33 by Lacho Araujo MD) Puncture wound of foot, right Cellulitis of left lower extremity Preoperative clearance Allergic contact dermatitis Cataract Retinal detachment Restless leg syndrome Type 2 diabetes mellitus with hyperglycemia BPH (benign prostatic hyperplasia) GERD (gastroesophageal reflux disease) Anemia Anxiety and depression Obesity (BMI 30-39.9) Asthma Hypertension Tubular adenoma of colon Surgical History History of colonoscopy History of arthroplasty of left knee Hx of tonsillectomy H/O vitrectomy Melanoma Family History Mother No problems noted. Father Prostate cancer Social History Housing: House Alcohol intake: never Patient Tobacco Use Status: Former Tobacco user Tobacco use type: Cigarette e-Cigarette/Vaping Use: Never Used Second Hand Smoke Exposure: No service: No Current occupational status: retired Cognitive needs: Yes Hearing needs: No Vision needs: Yes Physical Exam Vital Signs: Last Vital Signs Pulse 66 12/06/23 09:35 BP 132/70 12/06/23 09:35 Pulse Ox 96 12/06/23 09:35 Oxygen Delivery Method Room Air 12/06/23 09:35 BMI result Body Mass Index 34.8 Const General: comfortable and no acute distress Orientation/consciousness: patient oriented x3 HEENT Head: Yes normocephalic Mouth: Normal oral and palatal mucosa present Eyes EOM: EOMs intact bilaterally Neck Neck: Yes supple Resp Auscultation: clear to auscultation bilaterally Cardio Jugular venous distension: no JVD Rate: regular rate GI Palpation (GI): Soft to palpation Auscultation: normal bowel sounds General: Yes no CVA tenderness Back/Spine/Pelvis Back: no CVA tenderness Skin General skin exam: no rashes or lesions noted Neuro General: patient oriented x3 and moves all extremities Extrem General: Yes no pedal edema Results Reviewed Nephrology Results: Hgb 11.4 g/dl (14.0-18.0) L 11/30/23 WBC 4.6 X10*3/uL (4.8-10.8) L 11/30/23 Plt Count 125 X10*3/uL (160-400) L 11/30/23 Sodium 141 mmol/L (135-145) 11/30/23 Potassium 4.4 mmol/L (3.3-5.1) 11/30/23 Chloride 109 mmol/L (96-108) H 11/30/23 Carbon Dioxide 24 mmol/L (22-29) 11/30/23 BUN 17 mg/dL (9-16) H 11/30/23 Creatinine 0.99 mg/dL (0.5-1.4) 11/30/23 Calcium 9.1 mg/dL (8.4-10.2) 11/30/23 Urine Creatinine 161.01 mg/dL 11/30/23 Protein/Creatinin Ratio 0.05 (<0.2) 08/02/23 Assessment & Plan Assessment & Plan (1) Hypertension: Code(s): I10 - Essential (primary) hypertension Category: Medical Qualifiers: Hypertension type: essential hypertension Qualified Code(s): I10 - Essential (primary) hypertension Plan Sunny has longstanding hypertension. Ever since his medications have been adjusted his blood pressure has been at goal. He should continue his current medication regimen. He does not have any hyperkalemia, proteinuria and has normal renal function. He denies any orthostatic symptoms. He avoids nonsteroidal anti-inflammatories and maintain good hydration. I did not make any medication changes today. I answered all his questions. Follow-up given. Orders: Orders Creatinine Today I10 - Essential (primary) hypertension Blood Urea Nitrogen Today I10 - Essential (primary) hypertension Electrolytes Today I10 - Essential (primary) hypertension Coding Level of Care Code Est Pt Level 4 (82092) Diagnoses Essential hypertension I10 Hypertension type: essential hypertension
[2023-12-06 09:35] VITALS: BP 130/70; PULSE 66; O2SAT 96; BMI 34.8
== END 2023-12-06 09:54 | disposition home or self-care (01) ==
PROVIDERS: PCP Internal Medicine; Visit Provider Internal Medicine Nephrology
DX: I10 Essential (primary) hypertension (principal)
CPT/HCPCS: 99214

== ENCOUNTER → 2023-12-06 09:20 | Outpatient (BNVA) | payer MEDICARE, SELFPAY | PROVIDERS: PCP Internal Medicine; Visit Provider Internal Medicine Nephrology | DX: I10 Essential (primary) hypertension (principal) | CPT/HCPCS: 99212 ==

== ENCOUNTER 2023-12-07 08:56 | Outpatient (AMB) | payer MEDICARE, SELFPAY ==
[2023-12-07 08:58] VITALS: BP 140/78; PULSE 81; O2SAT 98; BMI 35.0
--- NOTE | 2023-12-07 08:58 | AM.OFFVISMDC ---
Intake Vital Signs 12/07/23 08:58 Height 5 ft 8 in Weight 230 lb BMI 35.0 BP 140/78 H Blood Pressure Location Lt brachial Position Sitting Pulse 81 Pulse Source Pulse Oximeter Pulse Oximetry (%) 98 Oxygen Delivery Method Room Air Intake Visit Reasons: SWV, DM Allergies No Known Allergies Allergy (Verified 12/07/23 08:58) Medication List - Last Reconciled 12/07/23 by Lacho Araujo MD albuterol sulfate 90 mcg/actuation (ProAir HFA) 2 puffs inhalation Q4-6H PRN cholecalciferol (vitamin D3) 25 mcg PO DAILY docosahexaenoic acid-epa 120-180 mg (Fish Oil) 1 cap PO DAILY doxazosin 8 mg PO DAILY dutasteride 0.5 mg PO DAILY 90 days [L wrist splint As directed] losartan 50 mg PO DAILY 90 days metoprolol succinate ER 75 mg PO DAILY multivitamin 1 tab PO DAILY omeprazole 20 mg PO DAILY spironolactone 50 mg PO DAILY 90 days venlafaxine 75 mg PO DAILY HPI SWV, DM HPI Details 78-year-old obese male with controlled diabetes mellitus hypertension asthma, GERD BPH and generalized anxiety disorder last seen in May 2023. Patient is due for colonoscopy September 2018 having tubular adenoma with elevated blood pressure patient follows up with Nephrology continuing with metoprolol 50 mg in the morning 25 mg in the evening with spironolactone 100 mg once a day doxazosin 8 mg at night and losartan 50 mg once a day. Patient is here for annual well visit. [facility] Medical History (Updated 12/07/23 @ 19:23 by Lacho Araujo MD) Puncture wound of foot, right Cellulitis of left lower extremity Preoperative clearance Allergic contact dermatitis Cataract Retinal detachment Restless leg syndrome Type 2 diabetes mellitus with hyperglycemia BPH (benign prostatic hyperplasia) GERD (gastroesophageal reflux disease) Anemia Anxiety and depression Obesity (BMI 30-39.9) Asthma Hypertension Tubular adenoma of colon Surgical History History of colonoscopy History of arthroplasty of left knee Hx of tonsillectomy H/O vitrectomy Melanoma Family History Mother No problems noted. Father Prostate cancer Social History (Updated 12/07/23 @ 09:25 by Lacho Araujo MD) Housing: House Alcohol intake: never Patient Tobacco Use Status: Former Tobacco user Tobacco use type: Cigarette Years Smoked: 1970 quit e-Cigarette/Vaping Use: Never Used Second Hand Smoke Exposure: No service: No Current occupational status: retired Cognitive needs: Yes Hearing needs: No Vision needs: Yes Questionnaire Medicare Wellness Checkup [age] What gender do you identify with?: male During the past 4 weeks, how much have you been bothered by emotional problems such as feeling anxious, depressed, irritable, sad or downhearted, and blue?: not at all During the past 4 weeks, has your physical & emotional health limited your social activities with family, friends, neighbors, or groups?: not at all During the past 4 weeks, how much bodily pain have you generally had?: very mild pain During the past 4 weeks, was someone available to help you if you needed & wanted help?: yes, some During the past 4 weeks, what was the hardest physical activity you could do for at least 2 minutes?: very heavy Can you get to places out of walking distance without help? (For eg., can you travel alone on buses, taxis or drive your car?): Yes Can you go shopping for groceries or clothes without someone's help?: Yes Can you prepare your own meals?: Yes Can you do your housework without help?: Yes Because of any health problems, do you need the help of another person with your personal care needs such as eating, bathing, dressing or getting around the house?: No Can you handle your own money without help?: Yes During the past 4 weeks, how would you rate your health in general?: very good During the past 4 weeks how have things been going for you?: pretty well Are you having difficulties driving your car?: no Do you always fasten your seat belt when you are in a car?: yes, usually During past 4 weeks, have you been bothered by the following: never: Falling or dizzy when standing up, Sexual problems?, Trouble eating well? and Problems using the telephone? and sometimes: Teeth or denture problems? and Tiredness or fatigue? Have you fallen 2 or more times in the past year?: No Are you afraid of falling?: No Are you a smoker?: no During the past 4 weeks, how many drinks of wine, beer, or other alcoholic beverages did you have?: no alcohol at all Do you exercise for about 20 minutes 3 or more times a week?: yes, some of the time Have you been given information to help with the following?: yes: Keeping track of your medications? and no: Hazards in your house that might hurt you? How often do you have trouble taking medicines the way you have been told to take them?: I always take medicine as prescribed How confident are you that you can control & manage most of your health problems?: very confident What is your race?: White PHQ-9 Over the last 2 weeks, how often have you been bothered by any of the following problems? 1. Little interest or pleasure in doing things: not at all 2. Feeling down, depressed, or hopeless: not at all 3. Trouble falling or staying asleep, or sleeping too much: not at all 4. Feeling tired or having little energy: not at all 5. Poor appetite or overeating: not at all 6. Feeling bad about yourself - or that you are a failure or have let yourself or your family down: not at all 7. Trouble concentrating on things, such as reading the newspaper or watching television: not at all 8. Moving or speaking so slowly that other people could have noticed. Or the opposite - being so fidgety or restless that you have been moving around a lot more than usual: not at all 9. Thoughts that you would be better off or of hurting yourself in some way: not at all Total score: 0 Depression Screening Interpretation: Negative Depression Screening Done: Yes Source: Developed by Drs. Nikos Ware, Jennifer Banegas, Daniel Chavez and colleagues, with an educational claritza from [employer]. Thrive Questionnaire Date Thrive assessed: 12/07/23 I am a: Patient What is your living situation today?: I have a steady place to live Within the past 12 months, did the food you bought not last and you didn't have the money to get more?: Never true Within the past 12 months, did you worry whether your food would run out before you got money to buy more?: Never true Do you have trouble paying for medicines?: No Do you have trouble getting transportation to medical appointments?: No Do you have trouble paying your heating and electricity bill?: No Do you have trouble taking care of your child, family member or friend?: No Do you have trouble with day-to-day activities such as bathing, preparing meals, shopping, managing finances, etc.?: No Are you currently unemployed and looking for a job?: No Are you interested in more education?: No Currently or been in a relationship where the following occur: no concerns reported THRIVE Score: 0 PRETTY-7 AMB Questionnaire PRETTY-7 Date PRETTY - 7 assessed: 12/07/23 Feeling nervous, anxious, or on edge: 0 = Not at all Not being able to stop or control worryin = Not at all Worrying too much about different things: 0 = Not at all Trouble relaxin = Not at all Being so restless that it is hard to sit still: 0 = Not at all Becoming easily annoyed or irritable: 0 = Not at all Feeling afraid as if something awful might happen: 0 = Not at all Total PRETTY-7 score (0-4 normal; 5-9 mild; 10-14 moderate; 15-21 severe): 0 Source: Developed by Drs. Nikos Ware, Jennifer Banegas, Daniel Chavez and colleagues, with an educational claritza from [employer]. Review of Systems Const Denies poor appetite and Denies weakness Eyes Denies no additional complaints ENT Reports Normal hearing present, Denies dizziness, Denies nasal congestion, Denies tinnitus and Denies sore throat Card Denies chest pain, Denies syncope, Denies rapid heart rate and Denies dyspnea Resp Denies cough and Denies dyspnea GI Denies change in stool character, Reports constipation, Denies diarrhea, Denies nausea and Denies vomiting Denies dysuria and Denies urinary frequency Neuro Reports Normal hearing present, Denies confusion, Denies dizziness, Denies syncope and Denies weakness Psych Denies confusion Physical Exam Vital Signs: Last Vital Signs Pulse 81 12/07/23 08:58 BP 140/78 H 12/07/23 08:58 Pulse Ox 98 12/07/23 08:58 Oxygen Delivery Method Room Air 12/07/23 08:58 BMI result Body Mass Index 35.0 Const General: No confusion Orientation/consciousness: No confusion HEENT Head: Yes normocephalic Ears: external ears normal and TM's normal bilaterally Face and sinus: Yes normal facial exam Mouth: moist mucous membranes Throat: Yes tonsils normal Eyes Conjunctivae: conjunctivae normal Pupils: Equal, round and reactive pupils present and Pupil accommodation reflex normal Direct Ophthalmoscopy: normal light reflex Neck Neck: No lymphadenopathy Thyroid: Thyroid normal Chest Chest palpation & inspection: normal inspection of the chest Resp Effort & Inspection: normal respiratory effort and no audible wheezes Auscultation: clear to auscultation bilaterally, no crackles, no wheezes and lung sounds not diminished Cardio Rate: regular rate Rhythm: regular rhythm Peripheral pulses: radial pulses present and dorsalis pedis present GI Other: colon test 02/2024 Palpation (GI): no masses Auscultation: normal bowel sounds and normoactive bowel sounds Rectal Exam - Male: Yes deferred Skin General skin exam: no rashes or lesions noted Rashes: no rashes Neuro Other: pedal puolses weak but pin prick good General: No confusion Cranial nerves: Yes Equal, round and reactive pupils present and Yes Normal hearing present Cognition (Neuro): normal cognition Gait exam (Neuro): Normal gait present Motor exam (neuro): 5/5 motor strength present throughout Deep tendon reflexes (DTR's): Right brachioradialis reflex intensity grade: 2+, Left brachioradialis reflex intensity grade: 2+, Right patellar reflex intensity grade: 2+ and Left patellar reflex intensity grade: 2+ Extrem Other: 2+ edema General: Yes edema Assessment & Plan Assessment & Plan (1) Medicare annual wellness visit, subsequent: Code(s): Z00.00 - Encounter for general adult medical examination without abnormal findings Plan: Patient is advised to eat healthy, keep well hydrated, keep active and have adequate sleep. (2) Type 2 diabetes mellitus with hyperglycemia: Comment: Dr. Vargas Code(s): E11.65 - Type 2 diabetes mellitus with hyperglycemia Qualifiers: Diabetes mellitus concessions manager insulin use: without long-term use Qualified Code(s): E11.65 - Type 2 diabetes mellitus with hyperglycemia Plan: Decrease the amount of carbohydrate intake, pasta, bread, rice and potatoes are all sugar and that is aside from all the sweet stuff, remember that fruits are good but they are Sweet also. Hemoglobin A1c goal of less than 7.0 patient has diet control (3) Hypertension: Code(s): I10 - Essential (primary) hypertension Qualifiers: Hypertension type: essential hypertension Qualified Code(s): I10 - Essential (primary) hypertension Plan: Continue with blood pressure medication. Decrease salt intake and exercise losartan 50 mg once a day metoprolol 75 mg daily doxazosin 8 mg once a day and spironolactone 50 mg once a day (4) Obesity (BMI 30-39.9): Code(s): E66.9 - Obesity, unspecified Plan: Diet and exercise (5) Asthma: Code(s): J45.909 - Unspecified asthma, uncomplicated Qualifiers: Asthma severity: mild Asthma persistence: intermittent Asthma complication type: uncomplicated Qualified Code(s): J45.20 - Mild intermittent asthma, uncomplicated Plan: Continue with albuterol as needed (6) GERD (gastroesophageal reflux disease): Code(s): K21.9 - Gastro-esophageal reflux disease without esophagitis Qualifiers: Esophagitis presence: without esophagitis Qualified Code(s): K21.9 - Gastro-esophageal reflux disease without esophagitis Plan: Avoid the foods that causes that usually spicy foods, tomato products, juices, coffee, soda and foods that your sensitive to. After eating do not lie down, allow 3-4 hours before in lie down. And keep the head of bed above 30 degrees to avoid the acid from going up. (7) BPH (benign prostatic hyperplasia): Comment: Dr. Waite Code(s): N40.0 - Benign prostatic hyperplasia without lower urinary tract symptoms Qualifiers: Lower urinary tract symptom detail: urinary frequency Lower urinary tract symptom presence: symptoms present Qualified Code(s): N40.1 - Benign prostatic hyperplasia with lower urinary tract symptoms; R35.0 - Frequency of micturition Plan: Continue with doxazosin and dutasteride (8) Generalized anxiety disorder: Comment: Decline any referral for counseling Code(s): F41.1 - Generalized anxiety disorder Plan: Continue with venlafaxine 75 mg once a day (9) Anemia: Code(s): D64.9 - Anemia, unspecified Qualifiers: Anemia type: other cause Other causes of anemia: chronic disease, other Qualified Code(s): D63.8 - Anemia in other chronic diseases classified elsewhere Plan: Patient will be advised to take iron and vitamin-C (10) Tubular adenoma of colon: Comment: September 2018 Code(s): D12.6 - Benign neoplasm of colon, unspecified Plan: Patient is reminded about colonoscopy (11) Numbness of left hand: Code(s): R20.0 - Anesthesia of skin Plan: Advised to wear wrist splints at night and nerve conduction test requested Orders: Orders NE electromyogram (EMG) Today R20.0 - Anesthesia of skin NE nerve conduction velocity Today R20.0 - Anesthesia of skin Medications: New ferrous sulfate (Feosol) 325 mg PO DAILY 90 tabs 2RF D64.9 - Anemia, unspecified ascorbate calcium (vitamin C) 500 mg PO DAILY 30 tabs 4RF D50.9 - Iron deficiency anemia, unspecified, D64.9 - Anemia, unspecified Quality Reporting (2019) Depression/Bipolar (159/160/161/177) PHQ-9: Total score: 0 Coding Level of Care Code Medicare Subsequent (G0439) Diagnoses Medicare annual wellness visit, subsequent Z00.00 Type 2 diabetes mellitus with hyperglycemia, without long-term current use of insulin E11.65 Diabetes mellitus concessions manager insulin use: without concessions manager use Essential hypertension I10 Hypertension type: essential hypertension Obesity (BMI 30-39.9) E66.9 Mild intermittent asthma without complication J45.20 Asthma severity: mild Asthma persistence: intermittent Asthma complication type: uncomplicated Gastroesophageal reflux disease without esophagitis K21.9 Esophagitis presence: without esophagitis Benign prostatic hyperplasia with urinary frequency N40.1; R35.0 Lower urinary tract symptom detail: urinary frequency Lower urinary tract symptom presence: symptoms present Generalized anxiety disorder F41.1 Anemia in other chronic diseases classified elsewhere D63.8 Anemia type: other cause Other causes of anemia: chronic disease, other Tubular adenoma of colon D12.6 Numbness of left hand R20.0
== END 2023-12-07 09:52 | disposition home or self-care (01) ==
PROVIDERS: PCP Internal Medicine; Visit Provider Internal Medicine
DX: Z00.00 Encounter for general adult medical examination without abnormal findings (principal); E11.65 Type 2 diabetes mellitus with hyperglycemia; I10 Essential (primary) hypertension; J45.20 Mild intermittent asthma, uncomplicated; K21.9 Gastro-esophageal reflux disease without esophagitis; N40.1 Benign prostatic hyperplasia with lower urinary tract symptoms; R35.0 Frequency of micturition; F41.1 Generalized anxiety disorder; D63.8 Anemia in other chronic diseases classified elsewhere; D12.6 Benign neoplasm of colon, unspecified; R20.0 Anesthesia of skin
CPT/HCPCS: G0439

== ENCOUNTER 2023-12-22 09:06 | Outpatient (REF) | payer MEDICARE, SELFPAY ==
--- NOTE | 2023-12-22 09:14 | EMG_ITS ---
Chief complaint: Left hand numbness Reason for referral: Evaluate for Carpal Tunnel Syndrome Referred by: Dr. Araujo Procedure done: Left upper extremity NCS/EMG Precautions and/or limitations: None The limb temperature was monitored continuously and remained between 32-36 degrees C during the performance of the NCS. Nerve Conduction Studies Anti Sensory Summary Table ?Stim Site NR Onset (ms) Norm Onset (ms) Peak (ms) Norm Peak (ms) O-P Amp (?V) Norm O-P Amp Site1 Site2 Delta-0 (ms) Dist (cm) Art (m/s) Norm Art (m/s) Left Median Anti Sensory (2nd Digit) Wrist ? 6.1 9.0 <3.6 16.5 >10 Wrist 2nd Digit 6.1 14.0 23 Left Radial Anti Sensory (Thumb) Forearm ? 0.9 2.4 <3.1 22.9 Forearm Thumb 0.9 0.0 Left Ulnar Anti Sensory (5th Digit) Wrist ? 0.8 3.4 <3.7 16.6 >15.0 Wrist 5th Digit 0.8 14.0 175 Motor Summary Table ?Stim Site NR Onset (ms) Norm Onset (ms) O-P Amp (mV) Norm O-P Amp iAmp (mV) Amp (1st) (%) Site1 Site2 Delta-0 (ms) Dist (cm) Art (m/s) Norm Art (m/s) Left Median Motor (Abd Poll Brev) Wrist ? 6.1 <3.9 7.0 >4.5 8.8 100.0 Elbow Wrist 5.3 22.5 42 >45 Elbow ? 11.4 5.5 6.9 78.6 Left Ulnar Motor (Abd Dig Minimi) Wrist ? 3.0 <3.0 7.6 >5 9.3 100.0 B Elbow Wrist 4.0 21.5 54 >45 B Elbow ? 7.0 5.8 7.3 76.3 A Elbow B Elbow 1.7 10.0 59 >45 A Elbow ? 8.7 6.0 7.7 78.9 EMG ?Side Muscle Nerve Root Ins Act Fibs Psw Amp Dur Poly Recrt Int Pat Comment Left 1stDorInt Ulnar C8-T1 Nml Nml Nml Nml Nml 0 Nml Complete Left FlexCarRad Median C6-7 Nml Nml Nml Nml Nml 0 Nml Complete Left Biceps Musculocut C5-6 Nml Nml Nml Nml Nml 0 Nml Complete Left Triceps Radial C6-7-8 Nml Nml Nml Nml Nml 0 Nml Complete Left Deltoid Axillary C5-6 Nml Nml Nml Nml Nml 0 Nml Complete FINDINGS: Left median motor nerve showed prolonged distal latency, normal amplitude and slowconduction velocity. Left median sensory nerve showed prolonged peak latency. All other nerves tested were within normal. Concentric needle EMG was performed in selected muscles of the left upper extremity. Study did not reveal signs of electric abnormalities as shown in the table below. IMPRESSION: 1. This is an abnormal study. 2. There is electrodiagnostic evidence for left moderate-severe median neuropathy at the wrist, consistent with carpal tunnel syndrome. 3. There is no electrodiagnostic evidence for ulnar neuropathy, brachial plexopathy, or cervical radiculopathy. Thank you for your kind referral. Vanessa Couch MD, JITENDRA Board Certified, [place] Board [employer] and Rehabilitation (ABPMR) Board Certified, [place] Board of Electrodiagnostic Medicine (ABEM) [place] [id number] [facility]
== END 2023-12-22 09:07 | disposition home or self-care (01) ==
LOC: HO.NEURO 09:06
PROVIDERS: PCP Internal Medicine; Visit Provider Internal Medicine
DX: R20.0 Anesthesia of skin (principal)
CPT/HCPCS: 95886; 95909

== ENCOUNTER → 2023-12-22 09:14 | Outpatient (BNV) | payer MEDICARE, SELFPAY | PROVIDERS: PCP Internal Medicine; Visit Provider Physical Medicine & Rehabilitation | DX: G56.02 Carpal tunnel syndrome, left upper limb (principal) | CPT/HCPCS: 95886; 95909 ==

== ENCOUNTER 2024-01-19 11:16 | Outpatient (AMB) | payer MEDICARE, SELFPAY ==
--- NOTE | 2024-01-19 11:32 | MHC.OFFVIS ---
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 Intake Note: Sunny is a 78 year old right hand dominant male who presents today as a new patient for a evaluation of his left hand numbness and tingling. EMG done 12/22/23. He states having ongoing numbness and tingling 3 - 4 months. Patient is considering surgery. 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 : Details: Patient is a 78-year-old [id number] male who presents for evaluation of numbness and tingling in the median nerve distribution of the left hand, ongoing for 3-4 months. Patient reports that he is densely numb this area. Patient does not currently experience pain. EMG was previously ordered by Dr. Araujo, and revealed moderate to severe carpal tunnel on the left side. Patient inquires about surgery as a definitive treatment for this issue. [facility] Medical History (Updated 12/22/23 @ 18:30 by Lacho Araujo MD) Numbness of left hand Puncture wound of foot, right Cellulitis of left lower extremity Preoperative clearance Allergic contact dermatitis Cataract Retinal detachment Restless leg syndrome Type 2 diabetes mellitus with hyperglycemia BPH (benign prostatic hyperplasia) GERD (gastroesophageal reflux disease) Anemia Anxiety and depression Obesity (BMI 30-39.9) Asthma Hypertension Tubular adenoma of colon Surgical History History of colonoscopy History of arthroplasty of left knee Hx of tonsillectomy H/O vitrectomy Melanoma Family History Mother No problems noted. Father Prostate cancer Social History (Updated 01/19/24 @ 11:39 by Lori Amin) Housing: House Alcohol intake: never Patient Tobacco Use Status: Former Tobacco user Tobacco use type: Cigarette Years Smoked: 1970 quit e-Cigarette/Vaping Use: Never Used Second Hand Smoke Exposure: No service: No Current occupational status: retired Current occupation: right hand dominant Cognitive needs: Yes Hearing needs: No Vision needs: Yes Review of Systems Const All systems reviewed & are unremarkable except as noted in HPI and below Physical Exam Const Other: Patient is alert, oriented, cooperative, and in no acute distress HEENT Head: Yes normocephalic and Yes atraumatic Resp Effort & Inspection: normal respiratory effort and able to speak in complete sentences Cardio Jugular venous distension: no JVD Neuro General: gait normal Cognition (Neuro): normal cognition Extrem Other: Neuro: Decreased sensation in the median nerve distribution of the left hand. Normal sensation to all other digits in the left hand today. Normal sensation in the tips of all digits of the right hand today. No thenar or intrinsic wasting. Good APB muscle firing and good finger cross. Vascular: Capillary refill brisk. ROM: Patient can make a fist and extend all their digits. Skin: No lacerations or abrasions noted. General: No ecchymosis. No erythema or evidence of infection. Positive Tinel's test at the left wrist Psych Appearance: grossly normal Mental Status: mental status grossly normal Results Reviewed Results Reviewed: Nerve conduction study, per Dr. Horton: IMPRESSION: 1. This is an abnormal study. 2. There is electrodiagnostic evidence for left moderate-severe median neuropathy at the wrist, consistent with carpal tunnel syndrome. 3. There is no electrodiagnostic evidence for ulnar neuropathy, brachial plexopathy, or cervical radiculopathy. Assessment & Plan Assessment & Plan (1) Carpal tunnel syndrome of left wrist: Comment: 01/04/2024his is an abnormal study. 2. There is electrodiagnostic evidence for left moderate-severe median neuropathy at the wrist, consistent with carpal tunnel syndrome. 3. There is no electrodiagnostic evidence for ulnar neuropathy, brachial plexopathy, or cervical radiculopathy. Code(s): G56.02 - Carpal tunnel syndrome, left upper limb Category: Medical Plan 1. Carpal tunnel syndrome, left Patient reports dense numbness I educated the patient about the condition. I discussed both operative and nonoperative treatment options. The patient would like to proceed with surgery. Patient is educated that, due to the dense nature of his symptoms, there is a chance that he will not regain normal sensation median nerve distribution of the left hand, but we will still perform surgery in order to prevent thenar muscle mass wasting. The risks and benefits of operative treatment were discussed with the patient and the patient wishes to proceed with surgery. These risks include, but are not limited to, risk of damage to blood vessels, nerves, tendons, infection, recurrence, incomplete relief of preoperative symptoms, persistent pain, possible need for further surgery, and the risks associated with regional blocks and/or anesthesia. Plan is to take the patient to the operating room at some point in the next few weeks for the following procedures: 1. Left carpal tunnel release under local anesthesia All of the preoperative paperwork including the consent was discussed today. All of the patient's questions were answered in the clinic today. The patient understands that they will be in contact with our nursing surgical services director to discuss scheduling their procedure. Patient expresses concern about local anesthesia versus general anesthesia, but when patient is educated on risks and benefits of local versus general anesthesia, patient is amenable to having the procedure done under local. Patient reports diabetes, but last A1c done in November of 2023 is 6.4. Denies blood thinners, asthma, heart issues, lung issues, kidney issues, or current smoking. Coding Level of Care Code New Pt Level 4 (25880) Diagnoses Carpal tunnel syndrome of left wrist G56.02 Time Spent (min) 25
== END 2024-01-19 12:10 | disposition home or self-care (01) ==
LOC: HO.HOS 11:16
PROVIDERS: PCP Internal Medicine
DX: G56.02 Carpal tunnel syndrome, left upper limb (principal)
CPT/HCPCS: 99204

== ENCOUNTER → 2024-01-19 11:16 | Outpatient (BNVA) | payer MEDICARE, SELFPAY | PROVIDERS: PCP Internal Medicine | DX: G56.02 Carpal tunnel syndrome, left upper limb (principal) | CPT/HCPCS: 99202 ==

== ENCOUNTER 2024-03-15 08:17 | Day surgery (SDC) | payer MEDICARE, SELFPAY ==
--- NOTE | 2024-03-13 14:11 | P.CONAN_ITS ---
Documented by User: Ca Logan NP 03/13/24 14:12 HPI - Anesthesia Eval Consult details Narrative: 79yo M for Colonoscopy PMFSH Active Problems Active Problems: All Active Problems Tubular adenoma of colon (Acute) Anemia (Acute) Medicare annual wellness visit, subsequent (Acute) Carpal tunnel syndrome of left wrist (Acute) Venous stasis dermatitis (Acute) Peripheral vascular disease (Acute) Osteoarthritis (Acute) Generalized anxiety disorder (Acute) Type 2 diabetes mellitus with hyperglycemia (Acute) BPH (benign prostatic hyperplasia) (Acute) GERD (gastroesophageal reflux disease) (Acute) Obesity (BMI 30-39.9) (Acute) Asthma (Acute) Hypertension (Acute) Past Medical History Medical History Bronchitis Numbness of left hand Puncture wound of foot, right Cellulitis of left lower extremity Preoperative clearance Allergic contact dermatitis Cataract Retinal detachment Restless leg syndrome Type 2 diabetes mellitus with hyperglycemia BPH (benign prostatic hyperplasia) GERD (gastroesophageal reflux disease) Anemia Anxiety and depression Obesity (BMI 30-39.9) Asthma Hypertension Tubular adenoma of colon Family History Family History Mother No problems noted. Father Prostate cancer Surgical History Surgical History History of bilateral knee replacement Hx of eye surgery Hx of detached retina repair History of colonoscopy History of arthroplasty of left knee Hx of tonsillectomy H/O vitrectomy Melanoma Social History Social History Housing: House Alcohol intake: never Patient Tobacco Use Status: Former Tobacco user Tobacco use type: Cigarette Years Smoked: 1969 quit e-Cigarette/Vaping Use: Never Used Second Hand Smoke Exposure: No Use of substances other than those prescribed or required for medical reasons: No Have you been hit, kicked, punched, or otherwise hurt by someone within the past year? If so, by whom?: No Are you DNR?: No Advance Directives: No Advance Directives Information Provided: Yes Recently lost weight without trying: No Nutrition Risks: No Nutritional Risk Poor oral hygiene: No service: No Current occupational status: retired Current occupation: right hand dominant Cognitive needs: Yes Hearing needs: No Vision needs: Yes Meds Allergies Allergy/AdvReac Type Severity Reaction Status Date / Time No Known Allergies Allergy Verified 01/19/24 11:38 Home Medications ?Medication ?Instructions ?Recorded ?Confirmed ?Last Taken ?Type cholecalciferol (vitamin D3) 25 25 mcg PO DAILY 09/24/20 03/14/24 Unknown History mcg (1,000 unit) capsule metoprolol succinate 50 mg 75 mg PO DAILY 08/02/23 03/14/24 03/15/24 History tablet,extended release 24 hr calcium carbonate 600 mg-vitamin 1 tab PO DAILY 03/14/24 03/14/24 Unknown History D3 5 mcg (200 unit) tablet Exam Pertinent Lab Results Pertinent Lab Results: Laboratory Tests 11/30/23 07:00 WBC 4.6 L Hgb 11.4 L Hct 35.6 L Plt Count 125 L Sodium 141 Potassium 4.4 Chloride 109 H Carbon Dioxide 24 BUN 17 H Creatinine 0.99 Assessment and Plan Assessment Anesthesia Assessment: Chart Reviewed Documented by User: Ester Van MD 03/15/24 09:24 [facility] Past Medical History Medical History Bronchitis Numbness of left hand Puncture wound of foot, right Cellulitis of left lower extremity Preoperative clearance Allergic contact dermatitis Cataract Retinal detachment Restless leg syndrome Type 2 diabetes mellitus with hyperglycemia BPH (benign prostatic hyperplasia) GERD (gastroesophageal reflux disease) Anemia Anxiety and depression Obesity (BMI 30-39.9) Asthma Hypertension Tubular adenoma of colon Family History Family History Mother No problems noted. Father Prostate cancer Family history of problems with anesthesia: No Surgical History Surgical History History of bilateral knee replacement Hx of eye surgery Hx of detached retina repair History of colonoscopy History of arthroplasty of left knee Hx of tonsillectomy H/O vitrectomy Melanoma History of Problems with Anesthesia: No Social History Social History Housing: House Alcohol intake: never Patient Tobacco Use Status: Former Tobacco user Tobacco use type: Cigarette Years Smoked: 1969 quit e-Cigarette/Vaping Use: Never Used Second Hand Smoke Exposure: No Use of substances other than those prescribed or required for medical reasons: No Have you been hit, kicked, punched, or otherwise hurt by someone within the past year? If so, by whom?: No Are you DNR?: No Advance Directives: No Advance Directives Information Provided: Yes Recently lost weight without trying: No Nutrition Risks: No Nutritional Risk Poor oral hygiene: No service: No Current occupational status: retired Current occupation: right hand dominant Cognitive needs: Yes Hearing needs: No Vision needs: Yes Meds Allergies Allergy/AdvReac Type Severity Reaction Status Date / Time No Known Allergies Allergy Verified 01/19/24 11:38 Home Medications ?Medication ?Instructions ?Recorded ?Confirmed ?Last Taken ?Type cholecalciferol (vitamin D3) 25 25 mcg PO DAILY 09/24/20 03/14/24 Unknown History mcg (1,000 unit) capsule metoprolol succinate 50 mg 75 mg PO DAILY 08/02/23 03/14/24 03/15/24 History tablet,extended release 24 hr calcium carbonate 600 mg-vitamin 1 tab PO DAILY 03/14/24 03/14/24 Unknown History D3 5 mcg (200 unit) tablet Exam Airway Mallampati Class: II TM Dist: >3cm Neck ROM: Full Heart: rrr Lungs: cta Assessment and Plan Assessment Anesthesia Assessment: Anesthesia Plan Discussed Final Anesthetic Review Family History of Problems with Anesthesia: No History of Problems with Anesthesia: No NPO: Yes ASA Class: III Final Preanesthetic Review: No Changes in Pt Med Stat, Meds/Allgs Chart Reviewed, Consent Obtained/Reviewed and Anes Risks/Benef Reviewed Patient Risk: Intermediate Procedure Risk: Low Anesthetic Plan Anesthetic Plan: MAC: Disposition: Standard PACU
[2024-03-14 07:09] VITALS: BMI 36.5
[2024-03-15 09:10] VITALS: BMI 30.4
[2024-03-15 09:31] VITALS: BP 155/85; PULSE 86; RESP 16; TEMP 36.1; O2SAT 98
[2024-03-15] MEDS: Lactated Ringers 1,000 ML 100 ML IVCONT (09:34)
[2024-03-15 10:38] VITALS: BP 101/60; PULSE 66; RESP 16; TEMP 36.1; O2SAT 97
--- NOTE | 2024-03-15 10:40 | P.BOP_ITS ---
Brief Operative Note Date of Service: 03/15/24 Pre-op diagnosis: Screening Post-op diagnosis: other (Polyps) Procedure: Colonoscopy to the cecum and TI with hot snare polypectomy at 50cm, and bx/removal of polyps Surgeon: Nikos Gordon MD Anesthesia: MAC Was an Rn Outpatient Surgery used for this Procedure?: No Estimated blood loss (mL): 2.0 Pathology: other (A. Polyp at 60cm B. Polyp at 50cm C. Rectal polyp) Condition: stable Disposition: PACU
--- NOTE | 2024-03-15 10:52 | OP_ITS ---
DATE OF SERVICE: 03/15/2024 SURGEON: Nikos Gordon MD INDICATIONS: The patient presents for evaluation of colorectal cancer screening and personal history of tubular adenoma of the colon. Full consent has been obtained from him for this, including risks of bleeding and perforation. PREOPERATIVE DIAGNOSIS: POSTOPERATIVE DIAGNOSIS: PROCEDURE PERFORMED: Colonoscopy to the cecum and terminal ileum with hot snare polypectomy x1, and biopsy and removal of polyps. ESTIMATED BLOOD LOSS: COMPLICATIONS: ANESTHESIA: Monitored anesthesia care. ASSISTANTS: SPECIMENS: PREOPERATIVE DIAGNOSES: Colorectal cancer screening and personal history of tubular adenoma of the colon. POSTOPERATIVE DIAGNOSES: Colorectal cancer screening, personal history of tubular adenoma of the colon, colon polyps, diverticulosis, and internal hemorrhoids. DESCRIPTION OF PROCEDURE: The patient was placed in the left lateral decubitus position. The digital rectal exam revealed no abnormalities. The [employer] video pediatric colonoscope was then entered into the rectum and advanced to the cecum with the assistance of abdominal wall pressure. Once in the cecum, I did visualize a normal-appearing cecal pouch with appendiceal orifice and a normal-appearing ileocecal valve. The terminal ileum was cannulated and appeared normal. Scope was withdrawn back in the colon. The entire cecum and ileocecal valve appeared normal. The scope was then slowly withdrawn assessing all mucosal surfaces carefully. Preparation was excellent. At 60 cm, was an approximately 4 mm polyp, which was biopsied and completely removed with the cold biopsy forceps. At 50 cm, was an approximately 10 mm polyp, which was removed by hot snare polypectomy and recovered by suction. The polypectomy site appeared clean, without any sign of residual polyp nor bleeding. In the rectum, was an approximately 4 mm polyp, which was biopsied and completely removed with the cold biopsy forceps. I did not visualize any other polyps, colitis, or angiodysplasias. There was a moderate amount of sigmoid diverticulosis and some scattered diverticula in the ascending colon. In the rectum, scope was retroflexed, visualizing internal hemorrhoids, but no other pathology. The rectal mucosa appeared normal. The scope was straightened and withdrawn from the patient. He tolerated the procedure well and was returned to the recovery area in stable condition. IMPRESSION: 1. Colon polyps. 2. Diverticulosis. 3. Internal hemorrhoids. PLAN: The results of the pathology will be checked. Given his age and relatively minimal findings, I advised him that I do not think he will need any further screening colonoscopies. He was advised not to use any aspirin and NSAIDs for 1 week. He will see me on a p.r.n. basis. MD KARAN Watson/MARCO / [phone]
[2024-03-15 10:53] VITALS: BP 124/74; PULSE 72; RESP 16; TEMP 36.1; O2SAT 95
== END 2024-03-15 11:45 | disposition home or self-care (01) ==
PROVIDERS: PCP Internal Medicine; Visit Provider Internal Medicine
PROC: 0DJD8ZZ Inspection of Lower Intestinal Tract, Via Natural or Artificial Opening Endoscopic (ICD-10-PCS; CPT 45378; principal; 2024-03-15 09:30)
DX: Z12.11 Encounter for screening for malignant neoplasm of colon (principal); Z86.010 Personal history of colon polyps; D12.4 Benign neoplasm of descending colon; D12.5 Benign neoplasm of sigmoid colon; K62.1 Rectal polyp; K57.30 Diverticulosis of large intestine without perforation or abscess without bleeding; K64.8 Other hemorrhoids; I10 Essential (primary) hypertension; E11.9 Type 2 diabetes mellitus without complications; Z79.899 Other long term (current) drug therapy; Z87.891 Personal history of nicotine dependence
CPT/HCPCS: 45385; 45380; 88305; J2704

== ENCOUNTER 2024-04-01 10:46 | Day surgery (SDC) | payer MEDICARE, SELFPAY ==
--- NOTE | 2024-04-01 11:03 | P.OP_ITS ---
Operative Note Operative Note Date of Service: 04/17/24 Narrative: Preop diagnosis: 1. Left Carpal tunnel syndrome Postop diagnosis: same Procedure: 1. Left Carpal tunnel release Surgeon: Alexandra St MD Release Of Information Specialist: None Anesthesia: local block using 1% lidocaine with epinephrine Findings: Thickened transverse carpal ligament. EBL: Less than 5 mL Specimens: None Complications: None Disposition: Brought to recovery room in stable condition Plan: Follow-up for 10-14 days for wound check and suture removal Indications: The patient is 79 years old, with left carpal tunnel syndrome that has been unresponsive to nonoperative management. The risks and benefits of operative treatment including but not limited to risk of damage to blood vessels, nerves, tendons, infection, persistent pain, persistent symptoms, or possible need for additional surgery were discussed with the patient and the patient wishes to proceed with surgery. Procedure: Once consent was obtained a local block was performed using a combination of 1% lidocaine with epinephrine. The patient was then brought back to the operating suite and placed on the operative table in supine position. The left upper extremity was prepped and draped in a standard surgical fashion. Once assured that we had a good block, a 2.0 cm longitudinal incision was made centered over the carpal tunnel. The incision was made through the skin to the subcutaneous tissues using a #15 blade. Dissection was made down to the level of the transverse carpal ligament with care being taken to protect the palmar cutaneous nerve. Once the transverse carpal ligament was clearly visualized, a longitudinal incision was made in the transverse carpal ligament 1st using a #15 blade, then using tenotomy scissors under direct visualization. Care was taken to look for and protect the motor branch of the median nerve when seen in this area. Once satisfied with our carpal tunnel release the wound was copiously irrigated with normal saline and hemostasis was obtained with a brief period of local pressure. The skin edges were reapproximated with some 5.0 nylon suture material and a sterile dressing was applied. The patient appears to have tolerated the procedure well and with no complicatio ns. All digits were well vascularized at the conclusion of the case.
[2024-04-01 11:46] VITALS: BP 148/83; PULSE 67; RESP 16; TEMP 36.1; O2SAT 98
[2024-04-01 11:47] VITALS: BMI 33.4
--- NOTE | 2024-04-01 13:27 | MHC.SHP ---
Pre-Procedural Eval Section A - 24 Hr Update-Section A only Date of Service: 04/01/24 The patient is an INPATIENT: No Changes since office visit: No Cold of Flu in the past 2 weeks, No New Medical Problems, No Changes in Medication and No Patient answered all questions The patient has been examined within 24 hours of the surgical procedure. The History & Physical has been completed within 30 days and I have reviewed it.: Yes Section B - Complete if H&P > 30 days Chief Complaint: Carpal tunnel syndrome, left upper limb Allergies: Allergies Allergy/AdvReac Type Severity Reaction Status Date / Time No Known Allergies Allergy Verified 04/01/24 11:06 Plan Diagnosis/Plan: Unchanged I have reviewed the history and physical and performed a pertinent physical examination on my patient. No changes have occurred unless specified. Time Spent With Patient Time: Total time managing care of this patient today ____ minutes.
[2024-04-01 14:48] VITALS: BP 130/62; PULSE 60; RESP 16; O2SAT 98
== END 2024-04-01 14:49 | disposition home or self-care (01) ==
PROVIDERS: PCP Internal Medicine; Visit Provider Orthopaedic Surgery
PROC: (CPT 64721; principal; 2024-04-01 12:00)
DX: G56.02 Carpal tunnel syndrome, left upper limb (principal); R20.0 Anesthesia of skin; R20.2 Paresthesia of skin; I10 Essential (primary) hypertension; E11.65 Type 2 diabetes mellitus with hyperglycemia; D64.9 Anemia, unspecified; J45.909 Unspecified asthma, uncomplicated; F41.8 Other specified anxiety disorders; K21.9 Gastro-esophageal reflux disease without esophagitis; Z85.820 Personal history of malignant melanoma of skin; Z87.891 Personal history of nicotine dependence; Z98.890 Other specified postprocedural states
CPT/HCPCS: 64721; J0171

== ENCOUNTER → 2024-04-01 10:46 | Outpatient (BNV) | payer MEDICARE, SELFPAY | PROVIDERS: PCP Internal Medicine; Visit Provider Orthopaedic Surgery | DX: G56.02 Carpal tunnel syndrome, left upper limb (principal) | CPT/HCPCS: 64721 ==

== ENCOUNTER 2024-04-16 10:31 | Outpatient (AMB) | payer MEDICARE, SELFPAY ==
[2024-04-16 10:32] VITALS: BMI 33.4
--- NOTE | 2024-04-16 10:32 | A.OFFVIS_ITS ---
Vital Signs 04/16/24 10:32 Height 5 ft 8 in Weight 220 lb BMI 33.4 Intake Visit Reasons: Lt CTR 04/01/24 Intake Note: Sunny is a 79 yo right hand dominant male who presents today post operatively s/p left CTR done 04/01/[address] Patient reports left thumb, index finger, and middle finger numbness and tingling. Denies finger locking. Patient stated he removed his stitched on his own or Monday last week. Allergies No Known Allergies Allergy (Verified 04/16/24 10:33) HPI HPI Lt CTR 04/01/24: Details: Sunny is a 79 year old right hand dominant man who returns S/P left carpal tunnel release, DOS: 04/01/24. He says he is doing okay, and his sensation has improved somewhat in the thumb & ring fingers, but he continues to have dense numbness in the index & middle fingers. He says he removed his own sutures ~5 days ago at home. He reports intermittent numbness in his right hand. He says he is unsure exactly how frequently it goes numb, but the numbness is not constant. [facility] Medical History Bronchitis Numbness of left hand Puncture wound of foot, right Cellulitis of left lower extremity Preoperative clearance Allergic contact dermatitis Cataract Retinal detachment Restless leg syndrome Type 2 diabetes mellitus with hyperglycemia BPH (benign prostatic hyperplasia) GERD (gastroesophageal reflux disease) Anemia Anxiety and depression Obesity (BMI 30-39.9) Asthma Hypertension Tubular adenoma of colon Surgical History History of bilateral knee replacement Hx of eye surgery Hx of detached retina repair History of colonoscopy History of arthroplasty of left knee Hx of tonsillectomy H/O vitrectomy Melanoma Family History Mother No problems noted. Father Prostate cancer Social History Housing: House Alcohol intake: never Patient Tobacco Use Status: Former Tobacco user Tobacco use type: Cigarette Years Smoked: 1970 quit e-Cigarette/Vaping Use: Never Used Second Hand Smoke Exposure: No service: No Current occupational status: retired Current occupation: right hand dominant Cognitive needs: Yes Hearing needs: No Vision needs: Yes Review of Systems Const All systems reviewed & are unremarkable except as noted in HPI and below Physical Exam Vital Signs: BMI result Body Mass Index 33.4 Const General: no acute distress and alert Orientation/consciousness: patient oriented x3 Neuro General: patient oriented x3 Extrem Other: The patient was alert oriented and in no acute distress The incision is healing well with no erythema drainage or evidence of infection. There is an area of dryness ~2cm in diameter, the skin is somewhat pink & there is a scab in the middle, over his incision site. No drainage. He can make a fist and extend all his digits Sensation is improved somewhat to the thumb & ring finger, but still with dense numbness in the index & middle finger Cap refill is brisk Nerve Conduction study: Left-side only IMPRESSION: 1. This is an abnormal study. 2. There is electrodiagnostic evidence for left moderate-severe median neuropa thy at the wrist, consistent with carpal tunnel syndrome. 3. There is no electrodiagnostic evidence for ulnar neuropathy, brachial plexopathy, or cervical radiculopathy. Vanessa Couch MD, JITENDRA 12/22/23 Psych Appearance: grossly normal Affect: normal affect Attitude: cooperative Assessment & Plan Assessment & Plan (1) Carpal tunnel syndrome of left wrist: Comment: 01/04/2024his is an abnormal study. 2. There is electrodiagnostic evidence for left moderate-severe median neuropathy at the wrist, consistent with carpal tunnel syndrome. 3. There is no electrodiagnostic evidence for ulnar neuropathy, brachial plexopathy, or cervical radiculopathy. Code(s): G56.02 - Carpal tunnel syndrome, left upper limb Category: Medical (2) Type 2 diabetes mellitus with hyperglycemia: Comment: Dr. 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 Left carpal tunnel syndrome, S/P release DOS: 04/01/24 Pre-operatively with dense numbness Now with improved sensation to the thumb & ring finger, but still with dense numbness in the index & middle finger The patient appears to be doing well post-operatively I educated him about the post-operative course I explained that it may take up to 9 months post-operatively for any sensation to return. I explained the signs and symptoms of infection, if the patient develops any new or worsening erythema, drainage, pain, or warmth they should contact the clinic or attend the ED. I discussed activity modifications, he is to lift nothing heavier than a cellphone for the next two weeks He will perform gentle ROM exercises at home He should avoid any underwater activities for the next 5 days I talked to him about wound care. Sometime next week he should start gently massaging about the incision site to reduce the risk of hypersensitivity 2. Right hand numbness Symptoms intermittent, but daily I ordered a NCS to assess for peripheral nerve compression He will follow up when completed for review. Scribed for Alexandra St MD by Malcolm Gore, emergency medical technician, on 04/16/24 at 11:10 AM, EST. Orders: Orders NE nerve conduction velocity Today R20.0 - Anesthesia of skin, R20.2 - Paresthesia of skin Coding Level of Care Code Global (53327) Diagnoses Carpal tunnel syndrome of left wrist G56.02 Type 2 diabetes mellitus with hyperglycemia, without long-term current use of insulin E11.65 Diabetes mellitus chcf insulin use: without chcf use Numbness and tingling in right hand R20.0; R20.2
== END 2024-04-16 11:18 | disposition home or self-care (01) ==
PROVIDERS: PCP Internal Medicine; Visit Provider Orthopaedic Surgery
DX: G56.02 Carpal tunnel syndrome, left upper limb (principal); E11.65 Type 2 diabetes mellitus with hyperglycemia; R20.0 Anesthesia of skin; R20.2 Paresthesia of skin
CPT/HCPCS: 99024

== ENCOUNTER → 2024-04-16 10:31 | Outpatient (BNVA) | payer MEDICARE, SELFPAY | PROVIDERS: PCP Internal Medicine; Visit Provider Orthopaedic Surgery | DX: R20.0 Anesthesia of skin (principal); R20.2 Paresthesia of skin; E11.65 Type 2 diabetes mellitus with hyperglycemia; Z48.811 Encounter for surgical aftercare following surgery on the nervous system; Z98.890 Other specified postprocedural states; Z86.69 Personal history of other diseases of the nervous system and sense organs | CPT/HCPCS: 99212 ==

== ENCOUNTER 2024-05-03 10:49 | Outpatient (REF) | payer MEDICARE, SELFPAY ==
--- NOTE | 2024-05-03 10:52 | EMG_ITS ---
Chief complaint: Right hand numbness EMG of left upper extremity last December showed Carpal Tunnel Syndrome, status post CTR March. Reason for referral: Evaluate for Carpal Tunnel Syndrome Referred by: Dr. St Procedure done: Right upper extremity NCS/EMG Precautions and/or limitations: None The limb temperature was monitored continuously and remained between 32-36 degrees C during the performance of the NCS. Ulnar motor NCS was performed with moderate elbow flexion between 70-90 degrees, with across-elbow distance of 10 cm. Nerve Conduction Studies Anti Sensory Summary Table ?Stim Site NR Onset (ms) Norm Onset (ms) Peak (ms) Norm Peak (ms) O-P Amp (?V) Norm O-P Amp Site1 Site2 Delta-0 (ms) Dist (cm) Art (m/s) Norm Art (m/s) Right Median Anti Sensory (2nd Digit) Wrist ? 5.3 5.9 <3.6 2.1 >10 Wrist 2nd Digit 5.3 14.0 26 Right Radial Anti Sensory (Thumb) Forearm ? 1.3 2.3 <3.1 21.2 Forearm Thumb 1.3 0.0 Right Ulnar Anti Sensory (5th Digit) Wrist ? 1.9 2.8 <3.7 2.9 >15.0 Wrist 5th Digit 1.9 14.0 74 Motor Summary Table ?Stim Site NR Onset (ms) Norm Onset (ms) O-P Amp (mV) Norm O-P Amp iAmp (mV) Amp (1st) (%) Site1 Site2 Delta-0 (ms) Dist (cm) Art (m/s) Norm Art (m/s) Right Median Motor (Abd Poll Brev) Wrist ? 6.7 <3.9 4.9 >4.5 6.1 100.0 Elbow Wrist 4.8 21.0 44 >45 Elbow ? 11.5 4.2 5.3 85.7 Right Ulnar Motor (Abd Dig Minimi) Wrist ? 2.6 <3.0 8.1 >5 12.5 100.0 B Elbow Wrist 4.4 21.0 48 >45 B Elbow ? 7.0 6.4 10.5 79.0 A Elbow B Elbow 0.8 10.0 125 >45 A Elbow ? 7.8 7.2 11.9 88.9 EMG ?Side Muscle Nerve Root Ins Act Fibs Psw Amp Dur Poly Recrt Int Pat Comment Right 1stDorInt Ulnar C8-T1 Nml Nml Nml Nml Nml 0 Nml Complete Right FlexCarRad Median C6-7 Nml Nml Nml Nml Nml 0 Nml Complete Right Biceps Musculocut C5-6 Nml Nml Nml Nml Nml 0 Nml Complete Right Triceps Radial C6-7-8 Nml Nml Nml Nml Nml 0 Nml Complete Right Deltoid Axillary C5-6 Nml Nml Nml Nml Nml 0 Nml Complete FINDINGS: Right median motor nerve showed prolonged distal latency, normal amplitude and normal conduction velocity. Right median sensory nerve showed prolonged peak latencies and small amplitude. Note small amplitude on right ulnar sensory nerve, but ulnar motor nerve within normal. All other nerves tested were within normal. Concentric needle EMG was performed in selected muscles of the right upper extremity. Study did not reveal signs of electric abnormalities as shown in the table above. IMPRESSION: 1. This is an abnormal study. 2. There is electrodiagnostic evidence for right moderate-severe median neuropathy at the wrist, consistent with carpal tunnel syndrome. 3. Note small amplitude on right ulnar sensory nerve, but ulnar motor nerve within normal. Cannot completely rule out a chronic ulnar neuropathy. 4. There is no electrodiagnostic evidence for brachial plexopathy, or cervical radiculopathy. Thank you for your kind referral. Vanessa Couch MD, JITENDRA Board Certified, [employer] Board [employer] and Rehabilitation (ABPMR) Board Certified, [employer] Board of Electrodiagnostic Medicine (ABEM) CODIN 19759 MTDD
== END 2024-05-03 10:50 | disposition home or self-care (01) ==
LOC: HO.NEURO 10:49
PROVIDERS: PCP Internal Medicine; Visit Provider Orthopaedic Surgery
DX: R20.0 Anesthesia of skin (principal); R20.2 Paresthesia of skin
CPT/HCPCS: 95886; 95909

== ENCOUNTER → 2024-05-03 10:52 | Outpatient (BNV) | payer MEDICARE, SELFPAY | PROVIDERS: PCP Internal Medicine; Visit Provider Physical Medicine & Rehabilitation | DX: G56.01 Carpal tunnel syndrome, right upper limb (principal) | CPT/HCPCS: 95886; 95909 ==

== ENCOUNTER 2024-06-03 07:29 | Outpatient (REF) | payer MEDICARE, SELFPAY ==
[2024-06-03 10:30] LABS: Anion Gap 12 (12-20); Blood Urea Nitrogen 18 mg/dL (9-16); Carbon Dioxide 25 mmol/L (22-29); Chloride 107 mmol/L (96-108); Estimated Glomerular Filt Rate > 60; Potassium 4.7 mmol/L (3.3-5.1); Sodium 139 mmol/L (135-145)
[2024-06-03 11:06] LABS: Creatinine Urine 79.73 mg/dL
== END 2024-06-03 07:30 | disposition home or self-care (01) ==
LOC: HO.HMGCLDS 07:29
PROVIDERS: PCP Internal Medicine; Visit Provider Internal Medicine Nephrology
DX: E11.65 Type 2 diabetes mellitus with hyperglycemia (principal); I10 Essential (primary) hypertension
CPT/HCPCS: 36415; 80051; 82565; 82570; 84520

== ENCOUNTER 2024-06-04 09:35 | Outpatient (AMB) | payer MEDICARE, SELFPAY ==
[2024-06-04 09:47] VITALS: BMI 33.4
--- NOTE | 2024-06-04 09:47 | A.OFFVIS_ITS ---
Vital Signs 06/04/24 09:47 Height 5 ft 8 in Weight 220 lb BMI 33.4 Intake Visit Reasons: OV- Right hand EMG review Intake Note: Sunny is a 79 yo right hand dominant male who presents today to review EMG results for the right hand. Patient reports numbness and tingling that occurs some days, on and off, making it difficult to benefit specialist and squeeze. Denies finger locking. Denies any prior injuries or surgeries to the RIGHT hand. S/P left CTR done 04/01/[address] Allergies No Known Allergies Allergy (Verified 04/16/24 10:33) HPI HPI OV- Right hand EMG review: Details: Sunny is a 79 year old right hand dominant man who returns for a NCS review of his right hand numbness. He is S/P left carpal tunnel release, DOS: 04/01/24. He complains of numbness in his right thumb, index, and middle fingers. Symptoms intermittent and occasional throughout the week. He also complains of weakness in benefit specialist strength and says he occasionally drops objects. In regards to his left hand; he says his sensation has improved somewhat in the thumb & ring fingers, but he continues to have dense numbness in the index & middle fingers. [facility] Medical History Bronchitis Numbness of left hand Puncture wound of foot, right Cellulitis of left lower extremity Preoperative clearance Allergic contact dermatitis Cataract Retinal detachment Restless leg syndrome Type 2 diabetes mellitus with hyperglycemia BPH (benign prostatic hyperplasia) GERD (gastroesophageal reflux disease) Anemia Anxiety and depression Obesity (BMI 30-39.9) Asthma Hypertension Tubular adenoma of colon Surgical History History of bilateral knee replacement Hx of eye surgery Hx of detached retina repair History of colonoscopy History of arthroplasty of left knee Hx of tonsillectomy H/O vitrectomy Melanoma Family History Mother No problems noted. Father Prostate cancer Social History Housing: House Alcohol intake: never Patient Tobacco Use Status: Former Tobacco user Tobacco use type: Cigarette Years Smoked: 1970 quit e-Cigarette/Vaping Use: Never Used Second Hand Smoke Exposure: No service: No Current occupational status: retired Current occupation: right hand dominant Cognitive needs: Yes Hearing needs: No Vision needs: Yes Review of Systems Const All systems reviewed & are unremarkable except as noted in HPI and below Physical Exam Vital Signs: BMI result Body Mass Index 33.4 Const General: no acute distress and alert Orientation/consciousness: patient oriented x3 Neuro General: patient oriented x3 Extrem Other: Evaluation of Right Upper Extremity: The patient is alert, oriented, and in no acute distress Neuro: Median, Ulnar, Radial nerves motor and sensory intact and sensation is normal to the tips of all digits today in clinic No thenar or intrinsic wasting Good APB muscle belly firing and good finger cross Left hand: dense numbness in the index & middle fingers, normal sensation to all other digits Vascular: Cap refill brisk ROM: He can make a fist and extend all his digits No locking or catching Some generalized arthritic changes to the IP joints of both hands Nerve Conduction Study: IMPRESSION: 1. This is an abnormal study. 2. There is electrodiagnostic evidence for right moderate-severe median neuropathy at the wrist, consistent with carpal tunnel syndrome. 3. Note small amplitude on right ulnar sensory nerve, but ulnar motor nerve within normal. Cannot completely rule out a chronic ulnar neuropathy. 4. There is no electrodiagnostic evidence for brachial plexopathy, or cervical radiculopathy. Vanessa Couch MD, JITENDRA 05/03/24 Psych Appearance: grossly normal Affect: normal affect Attitude: cooperative Assessment & Plan Assessment & Plan (1) Carpal tunnel syndrome of right wrist: Code(s): G56.01 - Carpal tunnel syndrome, right upper limb Category: Medical (2) Type 2 diabetes mellitus with hyperglycemia: Comment: Dr. Vargas Code(s): E11.65 - Type 2 diabetes mellitus with hyperglycemia Category: Medical Qualifiers: Diabetes mellitus [facility] insulin use: without buttermaker continuous churn use Qualifi ed Code(s): E11.65 - Type 2 diabetes mellitus with hyperglycemia Plan Assessment & Plan: 1. Right carpal tunnel syndrome, moderate-severe Symptoms intermittent and occasional, worse at night I educated him about this condition I discussed operative and non-operative treatment options The patient would like to proceed with surgery The risks and benefits of operative treatment were discussed with the patient and the patient wishes to proceed with surgery. These risks include, but are not limited to risk of damage to blood vessels, nerves, tendons, infection, recurrence, incomplete relief of preoperative symptoms, persistent pain, possible need for further surgery and the risks associated with regional blocks and anesthesia. The plan is to take the patient to the operating room sometime in the next few weeks for the following procedures: 1. Right carpal tunnel release, under local All of the preoperative paperwork including the consent was reviewed today. All the patient's questions were answered. The patient understands that they will be contacted by our oral surgery technician soon to schedule this procedure He denies blood thinners, asthma, heart, lung, kidney issues He is a Diabetic, and says this is well-controlled They will need an updated HgA1c that is <8.1% in order to proceed with surgery, and they expressed understanding 2. Left carpal tunnel syndrome, S/P release DOS: 04/01/24 Pre-operatively with dense numbness Now with improved sensation to the thumb & ring finger, but still with dense numbness in the index & middle finger I explained that it may take up to 9 months post-operatively for any sensation to return, and he expressed understanding Scribed for Alexandra St MD by viridiana Sutton scribe, on 06/04/24 at 10:10 AM, EST. Scribe Plan - Not visible on output: Scribed for Alexandra St MD by Malcolm Gore medical reimbursement specialist, on [ ] at [ ], EST. Coding Level of Care Code Est Pt Level 4 (16845) Diagnoses Carpal tunnel syndrome of right wrist G56.01 Type 2 diabetes mellitus with hyperglycemia, without long-term current use of insulin E11.65 Diabetes mellitus [facility] insulin use: without [facility] use
== END 2024-06-04 10:17 | disposition home or self-care (01) ==
PROVIDERS: PCP Internal Medicine; Visit Provider Orthopaedic Surgery
DX: G56.01 Carpal tunnel syndrome, right upper limb (principal); E11.65 Type 2 diabetes mellitus with hyperglycemia
CPT/HCPCS: 99214

== ENCOUNTER → 2024-06-04 09:35 | Outpatient (BNVA) | payer MEDICARE, SELFPAY | PROVIDERS: PCP Internal Medicine; Visit Provider Orthopaedic Surgery | DX: G56.01 Carpal tunnel syndrome, right upper limb (principal); E11.65 Type 2 diabetes mellitus with hyperglycemia | CPT/HCPCS: 99212 ==

== ENCOUNTER 2024-06-05 09:23 | Outpatient (AMB) | payer MEDICARE, SELFPAY ==
[2024-06-05 09:41] VITALS: BP 126/70; PULSE 60; O2SAT 97; BMI 33.6
--- NOTE | 2024-06-05 09:41 | HO.NEPHOV_ITS ---
Vital Signs 06/05/24 09:41 Height 5 ft 8 in Weight 221 lb BMI 33.6 BP 126/70 Blood Pressure Location Lt brachial Position Sitting Pulse 60 Pulse Source Pulse Oximeter Pulse Oximetry (%) 97 Oxygen Delivery Method Room Air Intake Visit Reasons: HTN / 6 MO FU-LVM Science Intern Required: No Accompanied by: Self / Same As Patient Allergies No Known Allergies Allergy (Verified 06/05/24 09:46) HPI Comments Details: Sunny was seen in follow-up of his hypertension. He has been on metoprolol 50 mg in the morning 25mg in the evening along with spironolactone 100 mg and losartan 50 mg in the morning and doxazosin 8 mg at night stable renal functions. He is not known to have any orthostatic symptoms or proteinuria. He follows up with Urology for his prostate issues. He is compliant with his medications. He denies chest pain, shortness of breath, proximal nocturnal dys pnea, orthopnea, pedal edema. His hemoglobin A1c has been over 6. He has been having carpal tunnel symptoms. He feels well otherwise. [facility] Medical History Bronchitis Numbness of left hand Puncture wound of foot, right Cellulitis of left lower extremity Preoperative clearance Allergic contact dermatitis Cataract Retinal detachment Restless leg syndrome Type 2 diabetes mellitus with hyperglycemia BPH (benign prostatic hyperplasia) GERD (gastroesophageal reflux disease) Anemia Anxiety and depression Obesity (BMI 30-39.9) Asthma Hypertension Tubular adenoma of colon Surgical History History of bilateral knee replacement Hx of eye surgery Hx of detached retina repair History of colonoscopy History of arthroplasty of left knee Hx of tonsillectomy H/O vitrectomy Melanoma Family History Mother No problems noted. Father Prostate cancer Social History Housing: House Alcohol intake: never Patient Tobacco Use Status: Former Tobacco user Tobacco use type: Cigarette Years Smoked: 1969 quit e-Cigarette/Vaping Use: Never Used Second Hand Smoke Exposure: No service: No Current occupational status: retired Current occupation: right hand dominant Cognitive needs: Yes Hearing needs: No Vision needs: Yes Review of Systems Const All systems reviewed & are unremarkable except as noted in HPI and below Physical Exam Vital Signs: Last Vital Signs Pulse 60 06/05/24 09:41 BP 126/70 06/05/24 09:41 Pulse Ox 97 06/05/24 09:41 Oxygen Delivery Method Room Air 06/05/24 09:41 BMI result Body Mass Index 33.6 Const General: comfortable and no acute distress Orientation/consciousness: patient oriented x3 HEENT Head: Yes normocephalic Mouth: Normal oral and palatal mucosa present Eyes EOM: EOMs intact bilaterally Neck Neck: Yes supple Resp Auscultation: clear to auscultation bilaterally Cardio Jugular venous distension: no JVD Rate: regular rate GI Palpation (GI): Soft to palpation Auscultation: normal bowel sounds General: Yes no CVA tenderness Back/Spine/Pelvis Back: no CVA tenderness Skin General skin exam: no rashes or lesions noted Neuro General: patient oriented x3 and moves all extremities Extrem General: Yes no pedal edema Results Reviewed Nephrology Results: Sodium 139 mmol/L (135-145) 06/03/24 Potassium 4.7 mmol/L (3.3-5.1) 06/03/24 Chloride 107 mmol/L (96-108) 06/03/24 Carbon Dioxide 25 mmol/L (22-29) 06/03/24 BUN 18 mg/dL (9-16) H 06/03/24 Creatinine 0.94 mg/dL (0.5-1.4) 06/03/24 Urine Creatinine 79.73 mg/dL 06/03/24 Assessment & Plan Assessment & Plan (1) Hypertension: Code(s): I10 - Essential (primary) hypertension Category: Medical Qualifiers: Hypertension type: essential hypertension Qualified Code(s): I10 - Essential (primary) hypertension Plan Sunny has longstanding hypertension. Ever since his medications have been adjusted his blood pressure has been at goal. He should continue his current medication regimen. He does not have any hyperkalemia, proteinuria and has normal renal function. He denies any orthostatic symptoms. He avoids nonsteroidal anti-inflammatories and maintain good hydration. I did not make any medication changes today. I answered all his questions. Follow-up given. Orders: Orders Creatinine 6 Months I10 - Essential (primary) hypertension Protein Creatinine Ratio, Ur 6 Months I10 - Essential (primary) hypertension Blood Urea Nitrogen 6 Months I10 - Essential (primary) hypertension Electrolytes 6 Months I10 - Essential (primary) hypertension Coding Level of Care Code Est Pt Level 4 (96733) Diagnoses Essential hypertension I10 Hypertension type: essential hypertension
== END 2024-06-05 10:05 | disposition home or self-care (01) ==
PROVIDERS: PCP Internal Medicine; Visit Provider Internal Medicine Nephrology
DX: I10 Essential (primary) hypertension (principal)
CPT/HCPCS: 99214

== ENCOUNTER → 2024-06-05 09:23 | Outpatient (BNVA) | payer MEDICARE, SELFPAY | PROVIDERS: PCP Internal Medicine; Visit Provider Internal Medicine Nephrology | DX: I10 Essential (primary) hypertension (principal) | CPT/HCPCS: 99212 ==

== ENCOUNTER 2024-06-11 08:16 | Outpatient (AMB) | payer MEDICARE, SELFPAY ==
[2024-06-11 08:22] VITALS: BP 128/62; PULSE 69; O2SAT 98; BMI 33.8
--- NOTE | 2024-06-11 08:22 | MHC.PC.OV ---
Vital Signs 06/11/24 08:22 Height 5 ft 8 in Weight 222 lb BMI 33.8 BP 128/62 Blood Pressure Location Lt brachial Position Sitting Pulse 69 Pulse Source Pulse Oximeter Pulse Oximetry (%) 98 Oxygen Delivery Method Room Air Intake Visit Reasons: dm,thyroid,chf Allergies No Known Allergies Allergy (Verified 06/11/24 08:22) Tobacco use date assessed: 06/11/24 Fall risk assessment: No Falls in past year Last assessed Fall Risk: 06/11/24 Dental Screening Dental Screen Date: 06/11/24 Did you have a dental visit in the last 12 months?: No Did you have a dental problem in the last 6 months where you did not have access to dental care?: No Was dental information given to patient?: No HPI dm,thyroid,chf HPI Details 79-year-old obese male with diabetes mellitus hypertension asthma GERD BPH generalized anxiety disorder coming in for follow-up. Last seen in November 2023. Patient did have colonoscopy done in February 2024 revealing tubular adenoma. Review of the notes patient has seen Nephrology June 05 for the blood pressure. This has been controlled with present medication. Patient was also sent to orthopedics June 04 for the bilateral carpal tunnel syndrome with left carpal tunnel syndrome release March 2024 and a right pending. [facility] Medical History (Updated 06/11/24 @ 08:40 by Lacho Araujo MD) Bronchitis Numbness of left hand Puncture wound of foot, right Cellulitis of left lower extremity Preoperative clearance Allergic contact dermatitis Cataract Retinal detachment Restless leg syndrome Type 2 diabetes mellitus with hyperglycemia BPH (benign prostatic hyperplasia) GERD (gastroesophageal reflux disease) Anemia Anxiety and depression Obesity (BMI 30-39.9) Asthma Hypertension Tubular adenoma of colon Surgical History History of bilateral knee replacement Hx of eye surgery Hx of detached retina repair History of colonoscopy History of arthroplasty of left knee Hx of tonsillectomy H/O vitrectomy Melanoma Family History Mother No problems noted. Father Prostate cancer Social History Housing: House Alcohol intake: never Patient Tobacco Use Status: Former Tobacco user Tobacco use type: Cigarette Years Smoked: 1970 quit e-Cigarette/Vaping Use: Never Used Second Hand Smoke Exposure: No service: No Current occupational status: retired Current occupation: right hand dominant Cognitive needs: Yes Hearing needs: No Vision needs: Yes Questionnaire PHQ-9 Over the last 2 weeks, how often have you been bothered by any of the following problems? 1. Little interest or pleasure in doing things: not at all 2. Feeling down, depressed, or hopeless: not at all 3. Trouble falling or staying asleep, or sleeping too much: not at all 4. Feeling tired or having little energy: not at all 5. Poor appetite or overeating: not at all 6. Feeling bad about yourself - or that you are a failure or have let yourself or your family down: not at all 7. Trouble concentrating on things, such as reading the newspaper or watching television: not at all 8. Moving or speaking so slowly that other people could have noticed. Or the opposite - being so fidgety or restless that you have been moving around a lot more than usual: not at all 9. Thoughts that you would be better off or of hurting yourself in some way: not at all Total score: 0 Depression Screening Interpretation: Negative Depression Screening Done: Yes Source: Developed by Drs. Nikos Ware, Daniel Pollard and colleagues, with an educational claritza from [employer]. Thrive Questionnaire Date Thrive assessed: 12/07/23 AUDIT C Alcohol Use Questionnaire (AUDIT-C) 1. How often do you have a drink containing alcohol?: Never 3. How often do you have six or more drinks on one occasion?: Never Total Score: 0 Score Reviewed/Action Taken: No PRETTY-7 AMB Questionnaire PRETTY-7 Date PRETTY - 7 assessed: 12/07/23 Source: Developed by Drs. Nikos Ware, Daniel Pollard and colleagues, with an educational claritza from [employer]. Physical exam (Primary Care) Vital Signs: Last Vital Signs Pulse 69 06/11/24 08:22 BP 128/62 06/11/24 08:22 Pulse Ox 98 06/11/24 08:22 Oxygen Delivery Method Room Air 06/11/24 08:22 BMI result Body Mass Index 33.8 Tobacco/Smoking Status: Tobacco use Status Tobacco use date assessed 06/11/24 06/11/24 08:23 Patient Tobacco Use Status Former Tobacco user 06/11/24 08:23 Tobacco use type Cigarette 06/11/24 08:23 e-Cigarette/Vaping Use Never Used 06/11/24 08:23 PHQ-9: PHQ-9 Score PHQ-9: Total score 0 06/11/24 08:38 Depression Screening Interpretation: Negative Thrive Assessment: Date of Thrive Assessment Date Thrive assessed 12/07/23 06/11/24 08:23 Const General: alert; No acute distress Eyes Conjunctivae: conjunctivae normal Resp Auscultation: clear to auscultation bilaterally Cardio Rate: regular rate Rhythm: regular rhythm GI Inspection: Yes normal to inspection Extrem General: Yes normal to inspection and No edema Results AMB Hemoglobin A1c AMB Hemoglobin A1c 6.5 % Last Edit by Oksana Schafer CMA on 06/11/24 08:39 Results Reviewed Results Reviewed: Laboratory Last Values Hgb A1c (Clinic) 6.5 % (4.0-6.0) H 06/11/24 08:24 Coding Level of Care Code Est Pt Level 4 (81491) Complex EM visit Add On G2211 Diagnoses Carpal tunnel syndrome of right wrist G56.01 Carpal tunnel syndrome of left wrist G56.02 Type 2 diabetes mellitus with hyperglycemia, without long-term current use of insulin E11.65 Diabetes mellitus intermediate insulin use: without intermediate use Essential hypertension I10 Hypertension type: essential hypertension Mild intermittent asthma without complication J45.20 Asthma complication type: uncomplicated Asthma persistence: intermittent Asthma severity: mild Obesity (BMI 30-39.9) E66.9 Gastroesophageal reflux disease without esophagitis K21.9 Esophagitis presence: without esophagitis Benign prostatic hyperplasia with urinary frequency N40.1; R35.0 Lower urinary tract symptom detail: urinary frequency Lower urinary tract symptom presence: symptoms present Generalized anxiety disorder F41.1 Assessment & Plan Assessment & Plan (1) Carpal tunnel syndrome of right wrist: Code(s): G56.01 - Carpal tunnel syndrome, right upper limb Category: Medical Plan: Patient has a planned carpal tunnel release with orthopedics. (2) Carpal tunnel syndrome of left wrist: Comment: 01/04/2024his is an abnormal study. 2. There is electrodiagnostic evidence for left moderate-severe median neuropathy at the wrist, consistent with carpal tunnel syndrome. 3. There is no electrodiagnostic evidence for ulnar neuropathy, brachial plexopathy, or cervical radiculopathy. Status post repair left carpal tunnel syndrome March 2024 Code(s): G56.02 - Carpal tunnel syndrome, left upper limb Category: Medical Plan: Status post release March 2024 (3) Type 2 diabetes mellitus with hyperglycemia: Comment: Dr. Vargas Code(s): E11.65 - Type 2 diabetes mellitus with hyperglycemia Category: Medical Qualifiers: Diabetes mellitus intermediate insulin use: without long term care pharmacist use Qualified Code(s): E11.65 - Type 2 diabetes mellitus with hyperglycemia Plan: Decrease the amount of carbohydrate intake, pasta, bread, rice and potatoes are all sugar and that is aside from all the sweet stuff, remember that fruits are good but they are Sweet also. Hemoglobin A1c goal of less than 7.0 presently diet controlled (4) Hypertension: Code(s): I10 - Essential (primary) hypertension Category: Medical Qualifiers: Hypertension type: essential hypertension Qualified Code(s): I10 - Essential (primary) hypertension Plan: Continue with blood pressure medication. Decrease salt intake and exercise patient follows up with Nephrology on spironolactone, metoprolol, losartan (5) Asthma: Code(s): J45.909 - Unspecified asthma, uncomplicated Category: Medical Qualifiers: Asthma complication type: uncomplicated Asthma persistence: intermittent Asthma severity: mild Qualified Code(s): J45.20 - Mild intermittent asthma, uncomplicated Plan: Continuing with albuterol only as needed. (6) Obesity (BMI 30-39.9): Code(s): E66.9 - Obesity, unspecified Category: Medical Plan: Diet and exercise (7) GERD (gastroesophageal reflux disease): Code(s): K21.9 - Gastro-esophageal reflux disease without esophagitis Category: Medical Qualifiers: Esophagitis presence: without esophagitis Qualified Code(s): K21.9 - Gastro-esophageal reflux disease without esophagitis Plan: Avoid the foods that causes that usually spicy foods, tomato products, juices, coffee, soda and foods that your sensitive to. After eating do not lie down, allow 3-4 hours before in lie down. And keep the head of bed above 30 degrees to avoid the acid from going up. (8) BPH (benign prostatic hyperplasia): Comment: Dr. Waite Code(s): N40.0 - Benign prostatic hyperplasia without lower urinary tract symptoms Category: Medical Qualifiers: Lower urinary tract symptom detail: urinary frequency Lower urinary tract symptom presence: symptoms present Qualified Code(s): N40.1 - Benign prostatic hyperplasia with lower urinary tract symptoms; R35.0 - Frequency of micturition Plan: Patient on doxazosin and dutasteride. (9) Generalized anxiety disorder: Comment: Decline any referral for counseling Code(s): F41.1 - Generalized anxiety disorder Category: Medical Plan: Continuing with venlafaxine Orders: Orders AMB Hemoglobin A1c Today Z13.9 - Encounter for screening, unspecified Complete Blood Count Auto Diff 5 Months E11.65 - Type 2 diabetes mellitus with hyperglycemia Hemoglobin A1c 5 Months E11.65 - Type 2 diabetes mellitus with hyperglycemia Free T4 (Free Thyroxine) 5 Months E11.65 - Type 2 diabetes mellitus with hyperglycemia Vitamin B12 and Folate 5 Months E11.65 - Type 2 diabetes mellitus with hyperglycemia Reticulocyte Count 5 Months E11.65 - Type 2 diabetes mellitus with hyperglycemia Creatinine Urine 5 Months E11.65 - Type 2 diabetes mellitus with hyperglycemia Microalbumin, Random (w Creat) 5 Months E11.65 - Type 2 diabetes mellitus with hyperglycemia Prostate Specific Antigen Scr 5 Months E11.65 - Type 2 diabetes mellitus with hyperglycemia Comprehensive Met. Panel 5 Months E11.65 - Type 2 diabetes mellitus with hyperglycemia Thyroid Stimulating Hormone 5 Months E11.65 - Type 2 diabetes mellitus with hyperglycemia Lipid Panel 5 Months E11.65 - Type 2 diabetes mellitus with hyperglycemia, E78.00 - Pure hypercholesterolemia, unspecified Ferritin 5 Months E11.65 - Type 2 diabetes mellitus with hyperglycemia IRON PROFILE 5 Months E11.65 - Type 2 diabetes mellitus with hyperglycemia
== END 2024-06-11 09:01 | disposition home or self-care (01) ==
PROVIDERS: PCP Internal Medicine; Visit Provider Internal Medicine
DX: G56.03 Carpal tunnel syndrome, bilateral upper limbs (principal); E11.65 Type 2 diabetes mellitus with hyperglycemia; I10 Essential (primary) hypertension; J45.20 Mild intermittent asthma, uncomplicated; E66.9 Obesity, unspecified; K21.9 Gastro-esophageal reflux disease without esophagitis; N40.1 Benign prostatic hyperplasia with lower urinary tract symptoms; R35.0 Frequency of micturition; F41.1 Generalized anxiety disorder; Z13.9 Encounter for screening, unspecified

== ENCOUNTER → 2024-06-11 08:16 | Outpatient (BNVA) | payer MEDICARE, SELFPAY | PROVIDERS: PCP Internal Medicine; Visit Provider Internal Medicine | DX: G56.03 Carpal tunnel syndrome, bilateral upper limbs (principal); E11.65 Type 2 diabetes mellitus with hyperglycemia; I10 Essential (primary) hypertension; J45.20 Mild intermittent asthma, uncomplicated; E66.9 Obesity, unspecified; K21.9 Gastro-esophageal reflux disease without esophagitis; N40.1 Benign prostatic hyperplasia with lower urinary tract symptoms; R35.0 Frequency of micturition; F41.1 Generalized anxiety disorder | CPT/HCPCS: 83036; 96127; 99212 ==

== ENCOUNTER → 2024-07-25 11:22 | Day surgery (SDC) | payer MEDICARE, SELFPAY ==
[2024-07-25 11:40] VITALS: BMI 33.8
[2024-07-25 11:42] VITALS: BP 131/74; PULSE 73; RESP 18; TEMP 36.8; O2SAT 96
--- OUTSIDE RECORDS SUMMARY | 2024-07-25 12:12 | XMS_ITS | Data Portability ---
Author Organization [facility], [address] Address [address] [place] [address] Assessment No assessment recorded. Plan of Treatment Reminders Order Date Submit Date Provider Last Modified By Organization Details Last Modified Time Details Appointments None recorded. Lab None recorded. Referral None recorded. Procedures None recorded. Surgeries None recorded. Imaging None recorded. Medication Orders cephalexin 500 mg capsule 2022 023 [facility][id number], [address], [place], [id number], 3 09:31:11 triamcinolo ne acetonide 0.1 % topical cream 2022 023 [facility] #[id number], [address], [place], [id number], 3 09:31:11 Patient TargetsNo targets recorded. Patient Instructions Encounter Date Encounter Id Patient Instructions Last Modified By Organization Details Last Modified Time 02/07/2023 [id number] insect stings an d bites: care instructions [email or web address] Not available 02/07/2023 09:31:41 Reason for Referral None Reported. Problems Name Problem SNOMED Code Status Onset Date Resolution Date Notes Provider Name and Address Organization Details Recorded Time Hypertensiv e disorder 84501192 Active 2022 [facility] 3 14:23:10 Diabetes mellitus 52535621 Active 2022 [facility] 3 14:23:20 History of hay fever 873970397 Completed 202211/23/2022 Dottie sandoval [facility] 3 14:23:35 Retinal detachment 22709167 Completed 202211/23/2022 Dottie sandoval [facility] 3 14:24:59 Problem Notes None recorded. Procedures Surgical History Date Name Laterality Status Provider Name and Address Organization Details Recorded Time total knee replacement completed Dottie Salmon [facility] 11/23/2022 14:23:50 Imaging Results None recorded. Procedure Notes None recorded. Medical Equipment None Reported. Allergies Allergen ID Allergen Name Allergen Category Reaction Reaction Severity Criticality Documentation Date Start Date Code Code System Note Provider Name and Address Organization Details Recorded Time 081437 grass pollen environme nt,medica tion Not available Not available Not available 11/23/2022 Dottie sandoval [facility] MD [facility] 3 08:56:00 Medications Name Sig Start Date Stop Date Status Note LastModified by Organization Details LastModified Time losartan 50 mg tablet active Not Available Not Available No t Available venlafaxine 75 mg tablet active Not Available Not Available Not Available metoprolol succinate ER 50 mg tablet,exte nded release 24 hr active Not Available Not Available Not Available betamethaso ne, augmented 0.05 % topical cream 02/07 completed Not Available Not Available Not Available triamcinolo ne acetonide 0.1 % topical cream Apply 1 applicati on twice a day by topical route for 7 days. 2022 active Not Available Not Available Not Avai lable ketorolac 0.5 % eye drops INSTILL 1 DROP IN LEFT EYE DAILY 02/07 completed Not Available Not Available Not Available doxazosin 8 mg tablet active Not Available Not Available No t Available prednisolon e acetate 1 % eye drops,suspe nsion INSTILL 1 DROP TO THE LEFT EYE DAILY 02/07 completed Not Available Not Available Not Available doxycycline monohydrate 100 mg capsule 02/07 completed Not Available Not Available Not Available cephalexin 500 mg capsule Take 1 capsule 3 times a day by oral route for 7 days. 2022 active Not Available Not Available Not Avai lable dexamethaso ne 0.75 mg tablet 02/07 completed Not Available Not Available Not Available omeprazole 20 mg capsule,del ayed release active Not Available Not Available Not Available metoprolol succinate ER 25 mg tablet,exte nded release 24 hr active Not Available Not Available Not Available lorazepam 1 mg tablet TAKE 1 TABLET BY MOUTH 2 HOURS PRIOR TO PROCEDURE active Not Available Not Available No t Available spironolact one 50 mg tablet active Not Available Not Available Not Available amoxicillin 875 mg-potassiu m clavulanate 125 mg tablet TAKE 1 TABLET BY MOUTH TWICE DAILY 02/07 completed Not Available Not Available Not Available amoxicillin 500 mg-potassiu m clavulanate 125 mg tablet TAKE 1 TABLET BY MOUTH TWICE DAILY 02/07 completed Not Available Not Available Not Available dutasteride 0.5 mg capsule active Not Available Not Available Not Available magnesium 02/07 completed Not Available Not Available Not Available clonidine active Not Available Not Gladys ilable Not Available doxazosin 02/07 completed Not Available Not Available Not Available omeprazole 02/07 completed Not Available Not Available Not Available Fish Oil active Not Available Not Avai lable Not Available venlafaxine active Not Available Not A vailable Not Available spironolact one 02/07 completed Not Available Not Available Not Available losartan 02/07 completed Not Available Not Available Not Available metoprolol succinate 02/07 completed Not Available Not Available Not Available Vitamin D3 active Not Available Not Av ailable Not Available dutasteride 02/07 completed Not Available Not Available Not Available Caltrate active Not Available Not Avai lable Not Available Vitals Date Recorded Body height Body mass index (BMI) Body weight Oxygen saturation Oxygen saturation in Arterial blood by Pulse oximetry Heart rate Respiratory rate Body temperature Systolic blood pressure Diastolic blood pressure Provider Name and Address Organization Details Last Updated DateTime 3 172.72 cm 35 kg/m2 978180. 25 g 98 % 98 % 81 /min 18 /min 98.4 [degF] 147 mm[Hg] 99 mm[Hg] Dottie BETANCOURT - [facility] 3 14:28:04 Date Recorded Body height Body mass index (BMI) Body weight Respiratory rate Oxygen saturation Oxygen saturation in Arterial blood by Pulse oximetry Heart rate Body temperature Systolic blood pressure Diastolic blood pressure Provider Name and Address Organization Details Last Updated DateTime 3 172.72 cm 33.5 kg/m2 95551.3 2 g 18 /min 97 % 97 % 70 /min 97.5 [degF] 130 mm[Hg] 77 mm[Hg] Dottie Salmon PA - [facility] 3 09:02:24 Social History Question Answer Notes LastModified by Organizat ion Details LastModified Time Tobacco Smoking Status Former Smoker Dottie sandoval PA - [facility] 11/23/2022 14:25:34 What Is Your Level Of Alcohol Consumption? None Information not available 11/23/2022 When Did You Quit Smoking? 16+yearssin celolga sotote Information not available 11/23/2022 Do You Use Any Illicit Or Recreational Drugs? No Information not available 11/23/2022 Have You Recently Traveled Abroad? No Information not available 11/23/2022 Do You Or Have You Ever Used Any Other Forms Of Tobacco Or Nicotine? No Information not available 11/23/2022 Sex: Unknown Functional Status None recorded. Mental Status None recorded. Family History Relationship Description Onset Age of this Age Resolved Age Notes LastModified by Organization Details LastModified Time Sister Alzheimer's disease [email or web address] Not available 2022 14:25:15 Medical History No medical history recorded. Immunizations Vaccine Type Date Status Note Provider Nam e and Address Organization Details Recorded Time Influenza, adjuvanted, trivalent, PF 7 completed Dottie sandoval PA - [facility] 11/23/2022 14:19:22 Influenza, adjuvanted, trivalent, PF 6 completed Dottie sandoval PA - [facility] 11/23/2022 14:19:22 Influenza, high-dose, quadrivalent, PF 1 completed Dottie sandoval PA - [facility] 11/23/2022 14:19:22 COVID-19, mRNA, LNP-S, PF, 30 mcg/0.3 mL dose 1 completed Dottie Monfette null, PA - [facility] 11/23/2022 14:19:22 COVID-19, mRNA, LNP-S, PF, 30 mcg/0.3 mL dose 1 completed Dottie Monfette null, PA - [facility] 11/23/2022 14:19:22 COVID-19, mRNA, LNP-S, PF, 30 mcg/0.3 mL dose 1 completed Dottie Monfette null, PA - [facility] 11/23/2022 14:19:22 COVID-19, mRNA, LNP-S, PF, 30 mcg/0.3 mL dose, elham-sucrose 2 completed Dottie Suazofette null, PA - [facility] 11/23/2022 14:19:22 COVID-19, mRNA, LNP-S, bivalent, PF, 30 mcg/0.3 mL dose 2 completed Dottie Suazofette null, PA - [facility] 11/23/2022 14:19:22 pneumococcal polysaccharide PPV23 7 completed Dottie Monfette null, PA - [facility] 11/23/2022 14:19:22 pneumococcal polysaccharide PPV23 7 completed Dottie Monfette null, PA - [facility] 11/23/2022 14:19:22 Pneumococcal conjugate PCV 13 6 completed Dottie Suazofette null, PA - [facility] 11/23/2022 14:19:22 Pneumococcal conjugate PCV 13 5 completed Dottie Suazofette null, PA - [facility] 11/23/2022 14:19:22 zoster live 3 completed Dottie Griffine null, PA - [facility] 11/23/2022 14:19:22 zoster live 5 completed Dottie Suazofette null, PA - [facility] 11/23/2022 14:19:22 Influenza, high-dose, trivalent, PF 8 completed Dottie Suazofette null, PA - [facility] 11/23/2022 14:19:22 Influenza, high-dose, trivalent, PF 5 completed Dottie Wilsontte null, PA - [facility] 11/23/2022 14:19:22 Influenza, high-dose, trivalent, PF 9 completed Dottie Gabrielefette null, PA - [facility] 11/23/2022 14:19:22 Influenza, split virus, quadrivalent, PF 2 completed Dottie Monfette null, PA - [facility] 11/23/2022 14:19:22 Tdap 3 completed Dottie Monfette null, PA - [facility] 02/07/2023 08:55:48 Past Encounters Encounter ID Performer Location Encounter Start Date Encounter Closed Date Diagnosis/Indication Diagnosis SNOMED-CT Code Diagnosis ICD10 Code Diagnosis Note [id number] [facility] [address] [place] [phone] 0 02/04/2017 10:29:09 02/04/2017 11:14:31 [id number] [facility] [address] [place] [address] 0 09/26/2015 08:41:39 09/26/2015 09:38:27 [id number] [facility] [address] [place] [phone] 0 12/12/2016 10:43:48 12/12/2016 11:26:08 [id number] [place]os [place] [facility] Tricia riaAnastasiyar [address] [place] [phone] 0 11/23/2022 13:44:59 11/23/2022 14:47:01 Left without being seen [id number] 9102 Z53.21 Patient brought to room but I never saw patient. He didn't want to wait and left prior to my Assessment [id number] [place] Ceballos [place] [facility] T[facility] Lir [address] [place] [address] [id number] 0 02/07/2023 08:37:54 02/07/2023 09:32:27 Infected insect bite 880290765 L08.9 Bite of insect 702268836 W57.XXXA Apply Cool compresses .Can take a Non-drowsy Antihistam ine such as Claritin Please follow up with PCP or Urgent Care in 3-5 days if no improvemen t or if any new symptoms occur that are concerning .Call 911 or go to nearest ER if you develop any shortness of breath, chest pain, severe headache, dizziness, or other concerning symptoms Health Concerns Section Related Observation LastModified by Organization Detai ls LastModified Time None Recorded Concern Status LastModified by Organization Details LastModified Time None Recorded Advance Directives Directive None Recorded Payers Encounter Date Sequence Insurance Name Policy Number Policy Vance Covered Member ID Vance Member ID Guarantor Name 09/26/2015 1 [place] [employer] [place] Sunny Mccloud [id number] Sunny Mccloud 09/26/2015 2 [place] [id number] Sunny Mccloud [id number] Sunny Mccloud 12/12/2016 1 [place] Sunny Mccloud [id number] Sunny Mccloud 12/12/2016 2 [place] [id number] Sunny Mccloud [id number] Sunny Mccloud 02/04/2017 1 [place] Sunny Mccloud [id number] Sunny Mccloud 02/04/2017 2 [place] [id number] Sunny Mccloud [id number] Sunny Mccloud 11/23/2022 1 [place] Sunny Mccloud [id number] Sunny Mccloud 11/23/2022 2 [place] [id number] Sunny Mccloud [id number] Sunny Mccloud 02/07/2023 1 [place] Sunny Mccloud [id number] Sunny Mccloud 02/07/2023 2 [place] [id number] Sunny Mccloud [id number] Sunny Cline Rogers Notes Date Note Type Note Provider Name and Address Organization Details Recorded Time 02/07/2023 text/html Rash / Skin LesionReported bypatient.Location:[facility]; hands Quality:itchy;painfu l;red;swollen Severity:mild Duration:2 days Alleviating Factors:nothing gives relief Associated Symptoms:no fever; no fatigueNotes:swellin g has increased today which is day 3 Glenis Ceballos MD [address] [place], [place] [address], [address], PA - [facility] 02/07/2023 17:23:06
--- OUTSIDE RECORDS SUMMARY | 2024-07-25 12:12 | XMS_ITS ---
Author Organization [facility] Address [address] [place] [address] Care Team Providers Care Credit Relationship Manager Name Role Phone Lacho Araujo MD Primary Care Provider Nikos Payne [phone] ALLERGIES No Known Allergies REASON FOR VISIT Patient presents today for a screening colon MEDICATIONS Medication SIG (Take, Route, Frequency, Duration) Notes Start Date End Date Status Fish Oil 500 MG 1 capsule Orally Twi ce a day for 30 day(s) Active Calcium + D 600-200 MG-UNIT 1 tablet Orally once a day Active Losartan Potassium 50 MG 1 tablet Orally Once a day for 30 day(s) Active ProAir HFA 108 (90 Base) MCG/ACT 2 puffs as needed Inhalation every 6 hrs Not-Tenzin cardenas Vitamin D (Cholecalciferol) 1000 UNIT 1 capsule Orally Once a day Active Dutasteride 0.5 MG 1 capsule Orally Onc e a day for 30 day(s) Active Spironolactone 50 MG 1 tablet with food Orally Once a day for 30 day(s) Active Omeprazole 20 MG 1 capsule Orally Onc e a day for 30 day(s) Active Metoprolol Succinate 50 MG 1 1/2 capsule Orally daily Active Venlafaxine HCl 75 MG 1 tablet with food Orally Once a day Active Doxazosin Mesylate 8 MG 1 tablet Orally Once a day for 30 day(s) Active VITAL SIGNS BMI 36.49 kg/m2 11/30/2023 Blood pressure systolic 00 mm Hg 11/30/19 24 Blood pressure diastolic 00 mm Hg 024 Height 67 in 11/30/2023 Weight 233 lbs 11/30/2023 Encounters Encounter Location Date Provider Diagnosis [facility] [address] [place] [address] 11/30/2023 Nikos Gordon History of adenomato us polyp of colon Z86.010 ; Gastroesophageal reflux disease, esophagitis presence not specified K21.9 ; Encounter for screening for malignant neoplasm of colon Z12.11 and Preprocedural examination Z01.818 ASSESSMENTS Encounter Date Diagnosis Assessment Notes Treatment Notes Treatment Clinical Notes 11/30/2023 History of adenomato us polyp of colon (ICD-10 - Z86.010) Stop fish oil for 1 week before the colonoscopy Do not use the Aldactone(Spirono lactone) the day before nor on the day of the colonoscopy 11/30/2023 Gastroesophageal reflux disease, esophagitis presence not specified (ICD-10 - K21.9) 11/30/2023 Encounter for screening for malignant neoplasm of colon (ICD-10 - Z12.11) 11/30/2023 Preprocedural examination (ICD-10 - Z01.818) PLAN OF TREATMENT Treatment Notes Assessment Notes History of adenomatous polyp of colon Stop fish oil for 1 week before the colonoscopy Do not use the Aldactone(Spironolactone) the day before nor on the day of the colonoscopy Future Test Test Name Order Date COLONOSCOPY 11/30/2023 Next Appt Details Follow Up: prn, Reason: Progress Notes * Examination Category Sub-Category Detail Notes General Examination GENERAL APPEARANCE: pleasant , well nourished, well developed, in no acute distress EYES: sclera non-icteric NECK/THYROID: no cervical lymphade nopathy, neck supple HEART: S1, S2 normal LUNGS: clear to auscultatio n bilaterally ABDOMEN: normal bowel sounds, no guarding or rigidity, no hepatosplenomegaly, no masses palpable, soft, nontender, nondistended. NEUROLOGIC: alert and oriented SKIN: nonjaundiced, no spi juan david angiomata. EXTREMITIES: no edema ORAL CAVITY: mucosa moist
--- OUTSIDE RECORDS SUMMARY | 2024-07-25 12:12 | XMS_ITS ---
Author Organization [facility] Address [address] [place] [address] Care Team Providers Care Cycle Director Name Role Phone Po Lacho SANDRA Primary Care Provider Nikos Payne [phone] REASON FOR VISIT screening colon PROBLEMS Problem Type ICD Code Onset Dates Problem Status W/U Status Risk SNOMED Code Notes Problem Diverticulosis of large intestine without perforation or abscess without bleeding (K57.30) Active confirmed Diverticul ar disease of colon (235687171) Encounters Encounter Location Date Provider Diagnosis [facility] [place] Outpatient [address] [place] [id number] 03/15/2024 Nikos Gordon Encounter for scre ening colonoscopy Z12.11 ; Colon polyps K63.5 ; Diverticulosis of large intestine without perforation or abscess without bleeding K57.30 and Other hemorrhoids K64.8 ASSESSMENTS Encounter Date Diagnosis Assessment Notes Treatment Notes Treatment Clinical Notes 03/15/2024 Encounter for screening colonoscopy (ICD-10 - Z12.11) 03/15/2024 Colon polyps (ICD-10 - K63.5) 03/15/2024 Diverticulosis of large intestine without perforation or abscess without bleeding (ICD-10 - K57.30) 03/15/2024 Other hemorrhoids (ICD-10 - K64.8) PLAN OF TREATMENT No Information
--- OUTSIDE RECORDS SUMMARY | 2024-07-25 12:12 | XMS_ITS | Data Portability ---
Author Organization [place] [facility] James Duarte AONE [place] Address [address] [place] [address] Care Team Providers Care Labor Relations Worker Name Role Phone ANITADANIEL Primary Care Provider Assessment No assessment recorded. Plan of Treatment Reminders Order Date Submit Date Provider Last Modified By Organization Details Last Modified Time Details Appointments None record ed. Lab None record ed. Referral None record ed. Procedures None record ed. Surgeries None record ed. Imaging XR, knee, 3 view 023 11/05/19 23 [email or web address] [facility], [address], [place], [address], 3 12:02:05 Medication Orders None record ed. Patient TargetsNo targets recorded. Patient Instructions Encounter Date Encounter Id Patient Instructions Last Modified By Organization Details Last Modified Time 11/04/2022 [id number] AP, lateral, and patellar views of the right knee taken today demonstrate satisfactory position and alignment of components following right total knee replacement. [email or web address] Not available 11/04/2022 08:46:01 Reason for Referral None Reported. Medical Equipment None Reported. Medications Name Sig Start Date Stop Date Status Note LastModified by Organization Details LastModified Time losartan 50 mg tablet active Not Available Not Available No t Available venlafaxine 75 mg tablet active Not Available Not Available Not Available metoprolol succinate ER 50 mg tablet,extend ed release 24 hr active Not Available Not Available Not Available meloxicam 15 mg tablet active Not Available Not Available No t Available betamethasone , augmented 0.05 % topical cream active Not Available Not Availabl e Not Available sulfamethoxaz ole 800 mg-trimethopr im 160 mg tablet TAKE 1 TABLET BY MOUTH TWICE DAILY FOR 10 DAYS active Not Available Not Available No t Available acetaminophen 500 mg tablet active Not Available Not Availabl e Not Available ondansetron 8 mg disintegratin g tablet active Not Available Not Available Not Available ketorolac 0.5 % eye drops INSTILL 1 DROP IN LEFT EYE DAILY active Not Available Not Available No t Available doxazosin 8 mg tablet active Not Available Not Available No t Available prednisolone acetate 1 % eye drops,suspens ion INSTILL 1 DROP TO THE LEFT EYE DAILY active Not Available Not Available No t Available methocarbamol 750 mg tablet active Not Available Not Availabl e Not Available pantoprazole 40 mg tablet,delaye d release active Not Available Not Available No t Available dexamethasone 0.75 mg tablet active Not Available Not Available Not Available betamethasone , augmented 0.05 % topical ointment active Not Available Not Available Not Available omeprazole 20 mg capsule,delay ed release active Not Available Not Available N ot Available metoprolol succinate ER 25 mg tablet,extend ed release 24 hr active Not Available Not Available Not Available triamcinolone acetonide 0.1 % lotion APPLY SPARINGLY TOPICALLY TO ITCHY RASH TWICE DAILY NEEDED active Not Available Not Available No t Available albuterol sulfate HFA 90 mcg/actuation aerosol inhaler INHALE 2 PUFFS BY MOUTH EVERY 4 TO 6 HOURS NEEDED FOR SHORTNESS OF BREATH OR WHEEZING active Not Available Not Available No t Available spironolacton e 50 mg tablet active Not Available Not Available Not Available amoxicillin 875 mg-potassium clavulanate 125 mg tablet TAKE 1 TABLET BY MOUTH TWICE DAILY active Not Available Not Available No t Available oxycodone 5 mg tablet active Not Available Not Available No t Available dutasteride 0.5 mg capsule active Not Available Not Available Not Available [place] Aspirin 81 mg tablet,delaye d release active Not Available Not Available No t Available Vitals None Recorded Social History None recorded. Functional Status None recorded. Mental Status None recorded. Family History Nothing Reported. Medical History No medical history recorded. Past Encounters Encounter ID Performer Location Encounter Start Date Encounter Closed Date Diagnosis/Indication Diagnosis SNOMED-CT Code Diagnosis ICD10 Code Diagnosis Note [id number] MD MARCELA Diop [address] [address] 11/04/2022 08:17:03 11/04/2022 08:46:10 History of right total knee replacement 6121233943 124730 Z96.651 Aftercare [id number] Z47. 1 Health Concerns Section Related Observation LastModified by Organization Detai ls LastModified Time None Recorded Concern Status LastModified by Organization Details LastModified Time None Recorded Advance Directives Directive None Recorded Payers Encounter Date Sequence Insurance Name Policy Number Policy Vance Covered Member ID Vance Member ID Guarantor Name 11/04/2022 1 [place] [employer] Sunny Mccloud [id number] Sunny Mccloud 11/04/2022 2 [place] [id number] Sunny Mccloud [id number] Sunny Mccloud Notes Date Note Type Note Provider Name and Address Organization Details Recorded Time 11/04/2022 text/html HPI: Patient is here for {{1* 2 3 4 6 8 12}} {{week(s) month(s) year*}} follow-up for a {{LEFT RIGHT* BILAT ERAL}} total knee replacement.? ? he is recovering very well. He walks without an assistive device. He has minimal pain at baseline. He is back to all his activities. He does not kneel, but otherwise he feels like he has good function with it. He has a history of a left total knee replacement in 2013, and he states that his right knee functions better. Overall, patient reports good pain relief in the knee and satisfactory denominational of function in terms of activities of daily living. Physical Exam: Patient is well nourished, well-developed, in no acute distress, with appropriate mood and affect. The patient is oriented to time, place, and person. Respirations are even and unlabored. There is no inguinal adenopathy. Examination of the contralateral knee shows normal range of motion, strength, no tenderness, and well-healed skin incision The affected limb is well-perfused, with well healed skin incision. The patient demonstrates good knee motion, stability, and strength. The knee moves from 0-125{{}} degrees. The alignment of the knee is {{varus valgus neut ral*}}. Muscle strength is normal. Pedal pulses are palpable. Hip examination, including flexion and internal rotation, was negative in that groin pain was not produced. Assessment/Plan: This patient is functioning well {{1* 2 3 4 6 8 12}} {{week(s) month(s) year*}} after {{LEFT RIGHT* BILAT ERAL}} total knee arthroplasty. Continue knee conditioning exercises. Lyui-mdu-pvgemsd medications as needed. Ultimate failure may occur due to mechanical wear, loosening or breakage. Follow-up is recommended to assess for the possibility of failure. Patient will follow-up at 1 year from surgery unless there are issues before then. Chad Donnelly MD [address] [place] [address], [id number], [place] [facility], P 11/04/2022 08:46:18
--- OUTSIDE RECORDS SUMMARY | 2024-07-25 12:12 | XMS_ITS | Patient Health Record ---
Author Organization [facility] Address [address] [place] [address] Care Team Providers Care Building Components Designer Name Role Phone Lacho Araujo MD Primary Care Provider Nikos Payne [phone] ALLERGIES No Known Allergies RESULTS Component Value Reference Range Notes Pathology (Not yet reviewed by provider) Interpretation: Performing Lab:[facility], [address] [place] [id number] Notes/Report: REASON FOR REFERRAL No Information MEDICATIONS Medication SIG (Take, Route, Frequency, Duration) Notes Start Date End Date Status Losartan Potassium 50 MG 1 tablet Orally Once a day for 30 day(s) Active Omeprazole 20 MG 1 capsule Orally Onc e a day for 30 day(s) Active Metoprolol Succinate 50 MG 1 1/2 capsule Orally daily Active Venlafaxine HCl 75 MG 1 tablet with food Orally Once a day Active Fish Oil 500 MG 1 capsule Orally Twi ce a day for 30 day(s) Active ProAir HFA 108 (90 Base) MCG/ACT 2 puffs as needed Inhalation every 6 hrs Not-Tenzin g Vitamin D (Cholecalciferol) 1000 UNIT 1 capsule Orally Once a day Active Dutasteride 0.5 MG 1 capsule Orally Onc e a day for 30 day(s) Active Spironolactone 50 MG 1 tablet with food Orally Once a day for 30 day(s) Active Doxazosin Mesylate 8 MG 1 tablet Orally Once a day for 30 day(s) Active Calcium + D 600-200 MG-UNIT 1 tablet Orally once a day Active IMMUNIZATIONS Vaccine Route Administration Date Status Comme nts Influenza Unknown 03/17/2018 Administered SOCIAL HISTORY Sex Assigned At : Social History Observation Description Sex Assigned At Unknown PROBLEMS Problem Type ICD Code Onset Dates Problem Status W/U Status Risk SNOMED Code Notes Problem Encounter for screening for malignant neoplasm of colon (Z12.11) Active confirmed 187317772 Problem History of adenomatous polyp of colon (Z86.010) Active confirmed 911195697 Problem Diverticulosis of large intestine without perforation or abscess without bleeding (K57.30) Active confirmed Diverticul ar disease of colon (295526173) Problem Preprocedural examination (Z01.818) Active confirmed 193226599461762 Problem Gastroesophageal reflux disease, esophagitis presence not specified (K21.9) Active confirmed 934553985 Problem Long-term use of aspirin therapy (Z79.82) Active confirmed 182102250 VITAL SIGNS Blood pressure diastolic 00 mm Hg 11/30/2023 Height 67 in 11/30/2023 Blood pressure systolic 00 mm Hg 11/30/2023 Weight 233 lbs 11/30/2023 BMI 36.49 kg/m2 11/30/2023 Encounters Encounter Location Date Provider Diagnosis [facility] Outpatient [address] [place] [address] [id number] 03/15/2024 Nikos Gordon Encounter for screen ing colonoscopy Z12.11 ; Colon polyps K63.5 ; Diverticulosis of large intestine without perforation or abscess without bleeding K57.30 and Other hemorrhoids K64.8 [facility] [address] [place] [address] 11/30/2023 Nikos Gordon History of adenomato us polyp of colon Z86.010 ; Gastroesophageal reflux disease, esophagitis presence not specified K21.9 ; Encounter for screening for malignant neoplasm of colon Z12.11 and Preprocedural examination Z01.818 ASSESSMENTS Encounter Date Diagnosis Assessment Notes Treatment Notes Treatment Clinical Notes 03/15/2024 Encounter for screening colonoscopy (ICD-10 - Z12.11) 03/15/2024 Colon polyps (ICD-10 - K63.5) 11/30/2023 History of adenomato us polyp of colon (ICD-10 - Z86.010) Stop fish oil for 1 week before the colonoscopy Do not use the Aldactone(Spirono lactone) the day before nor on the day of the colonoscopy 11/30/2023 Gastroesophageal reflux disease, esophagitis presence not specified (ICD-10 - K21.9) 03/15/2024 Diverticulosis of large intestine without perforation or abscess without bleeding (ICD-10 - K57.30) 11/30/2023 Encounter for screening for malignant neoplasm of colon (ICD-10 - Z12.11) 03/15/2024 Other hemorrhoids (ICD-10 - K64.8) 11/30/2023 Preprocedural examination (ICD-10 - Z01.818) PLAN OF TREATMENT Pending Test Test Name Order Date Pathology 03/15/2024 Future Test Test Name Order Date COLONOSCOPY 04/09/2013 COLONOSCOPY 08/10/2018 COLONOSCOPY 11/30/2023 Insurance Providers Payer Name Payer Address Payer Phone Subscriber Number Group Number Insured Name Patient Relationship to Insured Coverage Start Date Coverage End Date MEDICARE OF [place] [address] [place] [address] [phone] [id number] KALPESH KOHLI Self - patient is the insured MEDEX ATTN CLAIMS [address] [place] [phone] [id number] KALPESH KOHLI Self - patient is the insured MEDICAL (GENERAL) HISTORY Medical History History ICD Code > 1CM tubular adenoma remove d in 2003, a neg. colonoscopy in 11/2007, colonoscopy in 05/2013 with a small tubular adenoma removed Denies OR,CVA,renal disease HTN Diet-controlled diabetes Detached retina left eye-had laser surge ry Anxiety Hx of bronchitis/asthma GERD--started on omeprazole approx. 2016 Colonoscopy 09/2018 with one tubular tiffany elias removed Surgical History Surgery Date(Month/Year) Skin cancer on back Laser eye surgery-detached retina Left knee replacement--approx 2014 Right knee replacement -approx 2021
--- OUTSIDE RECORDS SUMMARY | 2024-07-25 12:12 | XMS_ITS | Continuity of Care Document ---
Author Organization [facility] Address [address] [place] [address] Phone Care Team Providers Care Plant Physiologist Name Role Phone Claudio SANDRA FACS RVT [...] Providers Copied on Encounter [facility], [address] [place] [address] Dr [address], [place], [id number], [place] tel:[phone] [facility] - [facility] No Information 3 Claudio SANDRA FACS T GUIDO [employer]. [address] [address], [place], [address], [place]. tel:[phone] Referring Provider: Lacho Araujo MD, [address] [place] [address] Dr [address] [facility] [place], [address]. tel:[phone] Office/Outpt E&M Established 15 Mins [facility], [address] [place] [address] Dr [address] [address]Sally [place], [id number], [place] tel:[phone] [facility] - [facility] Chronic venous htn w oth comp of bilateral low extrmLymphede ma, not elsewhere classified 3 Claudio SANDRA FACS RVT SONNY [facility]. [address] [address], [place], [address], [place]. tel:[phone] Referring Provider: Lacho Araujo MD, [address] [facility] [place], [address]. tel:[phone] [facility], [address] [place] [address] Dr [address] [address]ally [place], [id number], [place] tel:[phone] [facility] - [facility] Encntr for f/u exam aft trtmt for cond oth than malig neoplmVaricos e veins of right lower extremities with pain 3 Claudio Gilbert. [address] [place] [address], Suite [facility], [place], [address], [place]. [phone] Referring Provider: Lacho Araujo MD, [address] [place] [address] [place], [address]. tel:[phone] [facility], [address] [place] [address] Dr [address]ally [place], [id number], [place] tel:[phone] [facility] - [place] [facility] Chronic venous hypertension w inflammation of r low extrem 3 Claudio [facility]. [address] [place] [address], [address] [address], [place], [address], [place]. [phone] Referring Provider: Lacho Araujo MD, [address] [place] [address] [place], [address]. 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 [address] [place] [address], Suite [facility], [place], [address], [place]. [phone] Referring Provider: Lcaho Araujo MD, [address] [facility] [place], [address]. tel:[phone] [facility], [address] [place] [address] Dr [address]Sally [place], [id number], [place] tel:[phone] [facility] [place] [facility] Encntr for f/u exam aft trtmt for cond oth than malig neoplmChronic venous hypertension w oth comp of l low extrem 3 Claudio MD FACS RVT SONNY [facility]. [address], [address], [place], [address], [place]. tel:[phone] Referring Provider: Lacho Araujo MD, [address] [facility] [place], [address]. tel:[phone] [facility], [address] [place] [address] Dr [address]Sally [place], [id number], [place] tel:[phone] [facility] Varicose veins of left lower extremity with inflammation 3 Claudio SANDRA FACS RVT RPVI [facility]. [address] [facility], [address] [facility], [place], [address], [place]. tel:[phone] Referring Provider: Lacho Araujo MD, [address] [place] [address], [address]. tel:[phone] [facility], [address] [place] [address] Dr [address], [place], [id number], [place] tel:[phone] [facility] - [facility] Chronic venous hypertension w inflammation of l low extrem 3 Claudio SANDRA FACS RVT RPGUIDO [facility]. [address], [address], [place], [address], [place]. tel:[phone] Referring Provider: Lacho Araujo MD, [address] [place] [address], [address]. tel:[phone] [facility], [address] [place] [address] Dr [address]Sally [place], [id number], [place] tel:[phone] [facility] - [facility] No Information 3 Claudio SANDRA FACS RVT RPVI [facility]. [address] [facility], [address], [place], [address], [place]. tel:[phone] Referring Provider: Lacho Araujo MD, [address] [place] [address] [place], [address]. tel:[phone] Office/Outpt E&M Established 15 Mins [facility], [address] [place] [address] [address]Sally [place], [id number], [place] tel:[phone] CV[facility] - [place] [facility] Venous insufficiency (chronic) (peripheral) 3 Claudio SANDRA FACS T SONNY [facility]. [address] [place] [address], [place], [address], [place]. tel: [phone] Referring Provider: Lacho Araujo MD, [address] [place] [address], [address]. tel:[phone] Office/Outpt E&M Established 10 Mins [facility], [address] [place] [address] Dr [address]Sally [place], [id number], [place] tel:[phone] [facility] - [place] [facility] Xerosis cutisVenous insufficiency (chronic) (peripheral) 3 Claudio SANDRA FACS T SONNY [facility]. [address] [place] [address], [place], [address], [place]. tel: [phone] Referring Provider: Lacho Araujo MD, [address] [place] [address], [address]. tel:[phone] Office/Outpt E&M Established 25 Mins [facility], [address] [place] [address] [address] [place] Altamirano [place], [id number], [place] tel:[phone] [facility] - [place] [facility] Cellulitis of left lower limb 3 Claudio SANDRA FACS T SONNY [facility]. [address] [place] [address], [place], [address], [place]. tel:[phone] Referring Provider: Lacho Aarujo MD, [address] [place] [address], [address]. tel:[phone] Offic/outpt E&m Estab 5 Min Trial - Telemedicine [facility], [address] [place] [address] [address]Sally [place], [id number], [place] tel:[phone] [facility] - [facility] Chronic venous hypertension w/o comp of bilateral low extrm 3 Claudio SANDRA FACS Nicole [facility]. [address] [place] [address], [address], . tel:[phone] Referring Provider: Lacho Araujo MD, [address] [facility] [place], [address]. tel:[phone] Office/Outpt E&M Established 15 Mins [facility], [address] [place] [address] [address]Sally [place], [id number], [place] tel:[phone] [facility] Chronic venous hypertension w/o comp of bilateral low extrm 3 Claudio SANDRA FACS [facility]. [address] [place] [address], [address], [place]. tel:[phone] Referring Provider: Lacho Araujo MD, [address] [facility] [place], [address]. tel:[phone] [facility], [address] [place] [address] [address]Sally [place], [id number], [place] tel:[phone] [facility] (peripheral) Sep-3 3 Claudio SANDRA FACS Nicole [facility]. [address] [place] [address], [place], [address], [place]. tel:[phone] Referring Provider: Augustine Snyder MD, FACS Nicole [facility], [address] [place] [address], [address]. tel:[phone] Office/Oupt E&M New Pt 30 Mins [facility], [address] [place] [address] [address]Sally [place], [id number], [place] tel:[phone] [facility] - [facility] Chronic venous hypertension w/o comp of bilateral low extrmLocalize d edemaEssentia l (primary) hypertensionD isorder of pigmentation, unspecifiedFl ail joint, unspecified joint 3 Claudio SANDRA FACS RVT SONNY Gilbert. [address] [facility], [address], [place], [address], [place]. [phone] Referring Provider: Lacho Araujo MD, [address] [place] [address] [address] [facility], [place], [address]. tel:[phone] Family History Family Member Type Diagnosis Age At Onset No Information Payers Payer name Insurance type Covered libertarian ID Authoriza tion(s) Medicare ALEXEI ALONZO [id number] BCBS ALEXEI [id number] Social History Type Description Quantity Date Captured Comments Sex Male Smoking Status No Information Chief Complaint And Reason For Visit No Information Reason For Referral Reason For Referral No Information Plan Of Treatment Date Type Action Status Goal Tobacco cessation counseling completed Goal Tobacco cessation counseling completed Goal Tobacco cessation counseling completed Goal Tobacco cessation counseling completed Goal Diet education completed Goal Tobacco cessation counseling completed Referral Ordered: Weight management: Referral to physician timeframe: 3 Months (related to Body mass index (BMI) 36.0-36.9, adult) ordered History Of Present Illness Encounter Date Complaint History Of Prese nt Illness No Information Functional Status Date Functional Assessmen t No Information Instructions Date Instruction Additional Infor mation Patient education booklet given Related to Chrn Vns Hypertnsn w/o Compl; BILAT Diet education Related to Body mass index (BMI) 36.0-36.9, adult Giving Encouragement to exercise Related to Body mass index (BMI) 36.0-36.9, adult Lifestyle education Related to B kevin mass index (BMI) 36.0-36.9, adult Patient education booklet given Related to Chronic venous hypertension w/o comp of bilateral low extrm Compression stocking usage as conservative measure Related to Chronic venous hypertension w/o comp of bilateral low extrm Assessments Type Assessment Date No Information Patient Care Teams Name Effective Dates (start - stop) Status Members No Information
--- NOTE | 2024-07-25 12:16 | MHC.SHP ---
Pre-Procedural Eval Section A - 24 Hr Update-Section A only Date of Service: 07/25/24 The patient is an INPATIENT: No Changes since office visit: No Cold of Flu in the past 2 weeks, No New Medical Problems, No Changes in Medication and No Patient answered all questions The patient has been examined within 24 hours of the surgical procedure. The History & Physical has been completed within 30 days and I have reviewed it.: Yes Section B - Complete if H&P > 30 days Chief Complaint: Carpal tunnel syndrome, right upper limb Allergies: Allergies Allergy/AdvReac Type Severity Reaction Status Date / Time No Known Allergies Allergy Verified 07/25/24 11:45 Plan Diagnosis/Plan: Unchanged I have reviewed the history and physical and performed a pertinent physical examination on my patient. No changes have occurred unless specified. Time Spent With Patient Time: Total time managing care of this patient today ____ minutes.
--- NOTE | 2024-07-25 12:17 | P.OP_ITS ---
Operative Note Operative Note Date of Service: 07/25/24 Narrative: Preop diagnosis: 1. Right Carpal tunnel syndrome Postop diagnosis: same Procedure: 1. Right Carpal tunnel release Surgeon: Alexandra St MD Product Control And Logistics Analyst: Rodo BETANCOURT Anesthesia: local block using 1% lidocaine with epinephrine Findings: Thickened transverse carpal ligament. EBL: Less than 5 mL Specimens: None Complications: None Disposition: Brought to recovery room in stable condition Plan: Follow-up for 10-14 days for wound check and suture removal Indications: The patient is 79 years old, with right carpal tunnel syndrome that has been unresponsive to nonoperative management. The risks and benefits of operative treatment including but not limited to risk of damage to blood vessels, nerves, tendons, infection, persistent pain, persistent symptoms, or possible need for additional surgery were discussed with the patient and the patient wishes to proceed with surgery. Procedure: Once consent was obtained a local block was performed using a combination of 1% lidocaine with epinephrine. The patient was then brought back to the operating suite and placed on the operative table in supine position. The right upper extremity was prepped and draped in a standard surgical fashion. Once assured that we had a good block, a 2.0 cm longitudinal incision was made centered over the carpal tunnel. The incision was made through the skin to the subcutaneous tissues using a #15 blade. Dissection was made down to the level of the transverse carpal ligament with care being taken to protect the palmar cutaneous nerve. Once the transverse carpal ligament was clearly visualized, a longitudinal incision was made in the transverse carpal ligament 1st using a #15 blade, then using tenotomy scissors under direct visualization. Care was taken to look for and protect the motor branch of the median nerve when seen in this area. Once satisfied with our carpal tunnel release the wound was copiously irrigated with normal saline and hemostasis was obtained with a brief period of local pressure. The skin edges were reapproximated with some 5.0 nylon suture material and a sterile dressing was applied. The patient appears to have tolerated the procedure well and with no complications. All digits were well vascularized at the conclusion of the case.
--- NOTE | 2024-07-25 13:28 | PC.NURSE ---
Patient became agitated while waiting for turn to go into OR. Patient stated I waited two hours last time too, I am going to another hospital. Patient educated that he would be going into OR very soon and encouraged to wait and speak with Dr. St. Patient took all of his belongings and walked right out the door even though encouraged to stay with explanations.
--- NOTE | 2024-07-25 13:34 | PM.EVENT ---
Event Note Date of Service: 07/25/24 Event Note: The patient was anesthetized with 1% lidocaine with epinephrine in preop hold. He had been injected prior to the other patient next to him. Unfortunately, the 2nd patient was taken back to the OR 1st. When the OR staff went to take this patient to the OR they found out that he had decided to leave rather than have his surgery. Time Spent With Patient Time: Total time managing care of this patient today ____ minutes.
== END | disposition home or self-care (01) ==
PROVIDERS: PCP Internal Medicine; Visit Provider Orthopaedic Surgery
DX: G56.01 Carpal tunnel syndrome, right upper limb (principal); Z53.8 Procedure and treatment not carried out for other reasons
CPT/HCPCS: J0171; J2003

== ENCOUNTER 2024-09-27 09:10 | Outpatient (AMB) | payer MEDICARE, SELFPAY ==
[2024-09-27 09:14] VITALS: BP 122/84; PULSE 84; O2SAT 98; BMI 35.5
--- NOTE | 2024-09-27 09:14 | MHC.PC.OV ---
Vital Signs 09/27/24 09:14 Height 5 ft 8 in Weight 233 lb 4 oz BMI 35.5 BP 122/84 Blood Pressure Location Lt brachial Position Sitting Pulse 84 Pulse Source Pulse Oximeter Pulse Oximetry (%) 98 Oxygen Delivery Method Room Air Intake Visit Reasons: Preop right eye 10/21/24 Degreasing Wheel Operator Required: No Accompanied by: Self / Same As Patient Allergies No Known Allergies Allergy (Verified 09/27/24 09:31) Medication List - Last Reconciled 09/27/24 by Jackie Viramontes PA-C albuterol sulfate 90 mcg/actuation 2 puffs inhalation Q4-6H PRN calcium carbonate-vitamin D3 600 mg-5 mcg (200 unit) 1 tab PO DAILY cholecalciferol (vitamin D3) 25 mcg PO DAILY doxazosin 8 mg PO DAILY dutasteride 0.5 mg PO DAILY 90 days ferrous sulfate (Feosol) 325 mg PO DAILY [L wrist splint As directed] losartan 50 mg PO DAILY 90 days metoprolol succinate ER 50 mg PO DAILY omeprazole 20 mg PO DAILY oxycodone-acetaminophen 5-325 mg 1 tab PO Q6H PRN spironolactone 50 mg PO DAILY 90 days venlafaxine 75 mg PO DAILY Tobacco use date assessed: 09/27/24 Fall risk assessment: No Falls in past year Last assessed Fall Risk: 09/27/24 Dental Screening Dental Screen Date: 09/27/24 Did you have a dental visit in the last 12 months?: No Did you have a dental problem in the last 6 months where you did not have access to dental care?: No Was dental information given to patient?: No HPI Preop right eye 10/21/24 HPI Details 79-year-old male with past medical history of hypertension, asthma, obesity, GERD, BPH, diabetes mellitus, generalized anxiety disorder, peripheral vascular disease last seen 05/2024 coming in for preop.? Patient is scheduled to have right cataract surgery 10/21/[address] Hairston. hypertension: Well controlled 122/84 presently on metoprolol, losartan diabetes mellitus: Last A1c 6.4% not currently on medical management. Patient has had surgery in the past without complication. Patient has no history of HI, CVA or CHF. [facility] Medical History Bronchitis Numbness of left hand Puncture wound of foot, right Cellulitis of left lower extremity Preoperative clearance Allergic contact dermatitis Cataract Retinal detachment Restless leg syndrome Type 2 diabetes mellitus with hyperglycemia BPH (benign prostatic hyperplasia) GERD (gastroesophageal reflux disease) Anemia Anxiety and depression Obesity (BMI 30-39.9) Asthma Hypertension Tubular adenoma of colon Surgical History History of carpal tunnel release History of bilateral knee replacement Hx of eye surgery Hx of detached retina repair History of colonoscopy History of arthroplasty of left knee Hx of tonsillectomy H/O vitrectomy Melanoma Family History Mother No problems noted. Father Prostate cancer Social History Housing: House Housing Other:: duplex Are you a primary critical care transport nurse to a significant other at home: No Do you presently have visiting nurse or other home services: No Alcohol intake: never Patient Tobacco Use Status: Former Tobacco user Tobacco use type: Cigarette Years Smoked: 1969 quit e-Cigarette/Vaping Use: Never Used Second Hand Smoke Exposure: No service: No Current occupational status: retired Current occupation: right hand dominant Cognitive needs: Yes Hearing needs: No Vision needs: Yes Questionnaire PHQ-9 Over the last 2 weeks, how often have you been bothered by any of the following problems? 1. Little interest or pleasure in doing things: not at all 2. Feeling down, depressed, or hopeless: not at all 3. Trouble falling or staying asleep, or sleeping too much: not at all 4. Feeling tired or having little energy: not at all 5. Poor appetite or overeating: not at all 6. Feeling bad about yourself - or that you are a failure or have let yourself or your family down: not at all 7. Trouble concentrating on things, such as reading the newspaper or watching television: not at all 8. Moving or speaking so slowly that other people could have noticed. Or the opposite - being so fidgety or restless that you have been moving around a lot more than usual: not at all 9. Thoughts that you would be better off or of hurting yourself in some way: not at all Total score: 0 Depression Screening Interpretation: Negative Depression Screening Done: Yes Source: Developed by Drs. Nikos Ware, Jennifer Banegas, Daniel Chavez and colleagues, with an educational claritza from [employer]. Thrive Questionnaire Date Thrive assessed: 09/27/24 I am a: Patient What is your living situation today?: I have a steady place to live Within the past 12 months, did the food you bought not last and you didn't have the money to get more?: Never true Within the past 12 months, did you worry whether your food would run out before you got money to buy more?: Never true Do you have trouble paying for medicines?: No Do you have trouble getting transportation to medical appointments?: No Do you have trouble paying your heating and electricity bill?: No Do you have trouble taking care of your child, family member or friend?: No Do you have trouble with day-to-day activities such as bathing, preparing meals, shopping, managing finances, etc.?: No Are you currently unemployed and looking for a job?: No Are you interested in more education?: No Please select the resources that you would like help with: None Currently or been in a relationship where the following occur: No concerns reported THRIVE Score: 0 AUDIT C Alcohol Use Questionnaire (AUDIT-C) 1. How often do you have a drink containing alcohol?: Never 3. How often do you have six or more drinks on one occasion?: Never Total Score: 0 Score Reviewed/Action Taken: No PRETTY-7 AMB Questionnaire PRETTY-7 Date PRETTY - 7 assessed: 09/27/24 Feeling nervous, anxious, or on edge: 0 = Not at all Not being able to stop or control worryin = Not at all Worrying too much about different things: 0 = Not at all Trouble relaxin = Not at all Being so restless that it is hard to sit still: 0 = Not at all Becoming easily annoyed or irritable: 0 = Not at all Feeling afraid as if something awful might happen: 0 = Not at all Total PRETTY-7 score (0-4 normal; 5-9 mild; 10-14 moderate; 15-21 severe): 0 Source: Developed by Jennifer Castaneda, Daniel Chavez and colleagues, with an educational claritza from [employer]. Review of Systems Const Denies body aches, Denies chills, Denies fever(s), Denies headache(s) and Denies poor appetite Eyes Reports no additional complaints ENT Denies dizziness and Denies headache(s) Card Denies chest pain, Denies edema, Denies lightheadedness and Denies dyspnea Resp Denies cough and Denies dyspnea GI Denies abdominal pain, Denies constipation, Denies diarrhea, Denies nausea and Denies vomiting Reports no additional complaints Musc Reports no additional complaints and Denies abnormal gait Skin/Breast Reports system reviewed and no additional complaints, except as documented Neuro Denies abnormal gait, Denies dizziness and Denies headache(s) Psych Reports no additional complaints Physical exam (Primary Care) Vital Signs: Last Vital Signs Pulse 84 09/27/24 09:14 BP 122/84 09/27/24 09:14 Pulse Ox 98 09/27/24 09:14 Oxygen Delivery Method Room Air 09/27/24 09:14 BMI result Body Mass Index 35.5 Tobacco/Smoking Status: Tobacco use Status Tobacco use date assessed 09/27/24 09/27/24 09:19 Patient Tobacco Use Status Former Tobacco user 09/27/24 09:19 Tobacco use type Cigarette 09/27/24 09:19 e-Cigarette/Vaping Use Never Used 09/27/24 09:19 PHQ-9: PHQ-9 Score PHQ-9: Total score 0 09/27/24 09:19 Depression Screening Interpretation: Negative Thrive Assessment: Date of Thrive Assessment Date Thrive assessed 09/27/24 09/27/24 09:19 Currently or been in a relationship where the following occur: No concerns reported Const General: cooperative, healthy appearing, comfortable and no acute distress Orientation/consciousness: patient oriented x3 HENMT Head: Yes normocephalic Ears: hearing grossly normal bilaterally General nose exam: Normal external nose present Eyes General: appearance normal, both eyes and all related structures Conjunctivae: conjunctivae normal Neck Neck: Yes full ROM and Yes no lymphadenopathy Resp Effort & Inspection: normal respiratory effort Auscultation: clear to auscultation bilaterally, no crackles, no rales, no rhonchi and no wheezes Cardio Rate: regular rate Rhythm: regular rhythm Skin General skin exam: no rashes or lesions noted Neuro General: patient oriented x3 Gait exam (Neuro): Normal gait present Extrem General: Yes normal to inspection, Yes full ROM and No edema Psych Affect: normal affect Attitude: cooperative Insight: Good insight present (Psych) Judgement: Good judgement present (Psych) Coding Level of Care Code Est Pt Level 3 (55791) Diagnoses Pre-op exam Z01.818 Assessment & Plan Assessment & Plan (1) Pre-op exam: Code(s): Z01.818 - Encounter for other preprocedural examination Category: Medical Plan: Regarding preop clearance, the patient is at low risk for proposed surgery as comorbidities are well managed at this time. Reviewed with the patient that no surgery is completely free of risk and that this examination is to assist the surgeon in reviewing informed consent. No further workup needed at this time and may proceed with the contemplated procedure. Thank you very much for letting me participate in the care of this patient Plan This note was constructed using voice recognition software. While every effort has been made to ensure accuracy and pen ruler operator, still areas may have been included sometimes these areas may affect the content or meeting of the given symptoms. Total time spent caring for the patient today was 20 minutes. This includes time spent before the visit reviewing the chart, time spent during the visit, and time spent after the visit and documentation.
--- OUTSIDE RECORDS SUMMARY | 2024-09-27 09:53 | XMS_ITS | Clinical Summary ---
Author Organization [facility] Address [address] [place] [address] Phone Care Team Providers Care Slot Operations Manager Name Role Phone Lacho Araujo MD Primary Care Provider [phone] Allergies No known active allergies Medications calcium [...] patient's age to complete this topic Insurance [facility] Care Teams Slot Operations Manager Relationship Specialty Start Date End Date Lacho Araujo MD [address] [place], [place] PCP - General 07/27/20
--- OUTSIDE RECORDS SUMMARY | 2024-09-27 09:53 | XMS_ITS | Clinical Summary ---
Author Organization [facility] Address [address] [place] [address] Care Team Providers Care Heat And Frost Insulator Helper Name Role Phone Lacho Araujo MD Primary Care Provider [phone] Allergies No known active allergies Medications Medication [...] patient's age to complete this topic Insurance Payer Benefit Plan / Group Subscriber ID Effective Dates Phone Address [place] [id number] 2012-Pre sent [phone] [employer] [address] [facility] [place] [address] Medicare BLUE [employer]OSS BLUE SHIELD BLUE [place]OSS OUT OF STATE [id number] 01/15/2012-Pre sent [address] [place] [address] PPO Care Teams Heat And Frost Insulator Helper Relationship Specialty Start Date End Date Lacho Araujo MD [address] [place] [address] [address] [facility] ALEXEI Mcintosh [id number] PCP - General Internal Medicine 09/28/21
--- OUTSIDE RECORDS SUMMARY | 2024-09-27 09:54 | XMS_ITS | Data Portability ---
Author Organization [facility], [address] Address [address] [place] [address] Assessment No assessment recorded. Plan of Treatment Reminders Order Date Submit Date Provider Last Modified By Organization Details Last Modified Time Details Appointments None recorded. Lab None recorded. Referral None recorded. Procedures None recorded. Surgeries None recorded. Imaging None recorded. Medication Orders cephalexin 500 mg capsule 2022 023 [id number], [address], [place], [phone], 3 09:31:11 triamcinolo ne acetonide 0.1 % topical cream 2022 023 [facility], [address], [place], [phone], 3 09:31:11 Patient TargetsNo targets recorded. Patient Instructions Encounter Date Encounter Id Patient Instructions Last Modified By Organization Details Last Modified Time 02/07/2023 [id number] insect stings an d bites: care instructions [email or web address] Not available 02/07/2023 09:31:41 Reason for Referral None Reported. Problems Name Problem SNOMED Code Status Onset Date Resolution Date Notes Provider Name and Address Organization Details Recorded Time Hypertensiv e disorder 33744101 Active 2022 [facility] 3 14:23:10 Diabetes mellitus 78901399 Active 2022 [facility] 3 14:23:20 History of hay fever 845806500 Completed 202211/23/2022 Dottie sandoval [facility] 3 14:23:35 Retinal detachment 79500462 Completed 202211/23/2022 Dottie sandoval [facility] 3 14:24:59 Problem Notes None recorded. Procedures Surgical History Date Name Laterality Status Provider Name and Address Organization Details Recorded Time total knee replacement completed Dottie Salmon [facility] 11/23/2022 14:23:50 Imaging Results None recorded. Procedure Notes None recorded. Medical Equipment None Reported. Allergies Allergen ID Allergen Name Allergen Category Reaction Reaction Severity Criticality Documentation Date Start Date Code Code System Note Provider Name and Address Organization Details Recorded Time 942261 grass pollen environme nt,medica tion Not available Not available Not available 11/23/2022 58552 UNK Dottie sandoval [facility] 3 08:56:00 Medications Name Sig Start [...] Updated DateTime 3 172.72 cm 35 kg/m2 259741. 25 g 0 98 % 98 % [...] Updated DateTime 3 172.72 cm 33.5 kg/m2 03407.3 2 g 2 18 /min 97 % [...] SNOMED-CT Code Diagnosis ICD10 Code Diagnosis Note [id number] [address] [place] [address] 02/04/2017 10:29:09 02/04/2017 11:14:31 [id number] [address] [place] [address] 09/26/2015 08:41:39 09/26/2015 09:38:27 [id number] [facility] [address] [place] [address] 12/12/2016 10:43:48 12/12/2016 11:26:08 [id number] Glenis Ceballos MD [address] [place] [address] 11/23/2022 13:44:59 11/23/2022 14:47:01 Left without being seen [id number] 9102 Z53.21 Patient brought to room but I never saw patient. He didn't want to wait and left prior to my Assessment [id number] Glenis Ceballos MD [address] [place] [address] 02/07/2023 08:37:54 02/07/2023 09:32:27 Infected insect bite 442865109 L08.9 Bite of insect 675398462 W57.XXXA Apply Cool compresses .Can take a [...] [place] Sunny Mccloud [id number] Sunny Mccloud 09/26/2015 2 [place] [id number] Sunny Mccloud [id number] Sunny Mccloud 12/12/2016 1 [place] Sunny Mccloud [id number] Sunny Mccloud 12/12/2016 2 [place] [id number] Sunny Mccloud [id number] Sunny Mccloud 02/04/2017 1 [place] Sunny Mccloud [id number] Sunny Mccloud 02/04/2017 2 [place] [id number] Sunny Mccloud [id number] Sunny Mccloud 11/23/2022 1 [place] Sunny Mccloud [id number] Sunny Mccloud 11/23/2022 2 [place] [id number] Sunny Mccloud [id number] Sunny Mccloud 02/07/2023 1 [place] Sunny Mccloud [id number] Sunny Mccloud 02/07/2023 2 [place] [id number] Sunny Mccloud [id number] Sunny Mccloud Notes Date Note Type Note Provider Name and Address Organization Details Recorded Time 02/07/2023 text/html Rash / Skin LesionReported bypatient.Location:[facility]; hands Quality:itchy;painfu l;red;swollen Severity:mild Duration:2 days Alleviating Factors:nothing gives relief Associated Symptoms:no fever; no fatigueNotes:swellin g has increased today which is day 3 Glenis Ceballos MD [facility] [place], [address], [place] - [facility] 02/07/2023 17:23:06
--- OUTSIDE RECORDS SUMMARY | 2024-09-27 09:54 | XMS_ITS | Patient Health Record ---
Author Organization [facility] Address [address] [place] [address] Care Team Providers Care Coding Consultant Name Role Phone Lacho Araujo MD Primary Care Provider Nikos Payne [phone] Allergies No Known Allergies Results Component Value Reference Range Notes Pathology (Not yet reviewed by provider) Interpretation: Performing Lab:[facility], [address] [place] [id number] Notes/Report: Name: Kalpesh Kohli Age/Sex: 79/M : 1945 Unit#: [id number] Attend Dr: Nikos Gordon MD Re03/15/24 Status : [facility] Location: [facility] Disch: SPEC : [id number] RECD : 08/30/24-1040 STATUS: JACKIE JOSHI NUM: [id number] JENNIFER: 03/15/24 [facility] DR: Nikos Gordon MD ENTERED: 03/15/24 58 SP TYPE: Surgical OTHR DR: Lacho Araujo MD ORDERED: HE Stain/9, Gross Micro L4/3 Diagnosis A. Colon, 60 cm, katina ypectomy: Fragments of tubular adenoma; negative for high-grade dysplasia or carcinoma. B. Colon, 50 cm, katina ypectomy: Tubular adenoma; negative for high-grade dysplasia or carcinoma. C. Rectum, polypecto my: Hyperplastic mucosal polyp. Clinical History Pre-Op Dx: Encounter for screening for malignant neoplasm Post-Op Dx: Colon po lyps; diverticulosis; hemorrhoids Microscopic Description A-C. Microscopic sec tions reviewed. Material Received A. Polyp at 60 cm B. Polyp at 50 cm C. Rectal polyp Gross Description Received in 3 parts. A. Received in forma ag labeled ?polyp at 60? are 2 fragments of lockett soft tissue measuring 0.3 and 0.5 cm in gr eatest dimension which are entirely submitted for microscopic examination, 2 piece s in cassette A. B. Received in forma ag labeled ?polyp at 50? is a rounded, polypoid portion of red-lockett soft tissue measuring 0.5 cm in diameter. The outer surface is smooth and glistening. The underside is lockett-whi te. The underside is inked blue. The specimen is bisected and entirely submitted for micros copic examination, 2 pieces in cassette B C. Received in forma ag labeled ?rectal polyp? is a fragment of lockett-white soft tissue measuring 0.3 cm in greatest dimension which is entirely submitted for microscopic examination, 1 piece in cassette C. [facility] CONTINUED ON NEXT PAGE Name: RogersKalpesh Marlyn Age/Sex: 79/M : 1945 Unit#: [id number] Attend Dr: Nikos Gordon MD Re03/15/24 Statu s: [facility] Location: [facility] Disch: SPEC : [id number] RECD : 03/15/24 STATUS: JACKIE JOSHI NUM: [id number] JENNIFER: 03/15/24-1014 [facility] DR: Nikos Gordon MD ENTERED: 03/15/24- 58 SP TYPE: Surgical OTHR DR: Lacho Araujo MD ORDERED: FINA Stain/9, Janie Carlos L4/3 Copies To: Lacho Araujo MD [facility] Primary Care,[address] [place] [address] Nikos Gordon MD [facility] [address] [place] [address] Signed (si gnature on file) Volodymyr Haque MD 03/20/24 1531 END OF REPORT Reason For Referral No Information Medications Medication SIG (Take, Route, Frequency, Duration) Notes [...] puffs as needed Inhalation every 6 hrs Not-Takin g Vitamin D (Cholecalciferol) 1000 UNIT 1 [...] 1 tablet Orally once a day Active Immunizations Vaccine Route Administration Date Status Comme nts Influenza Unknown 03/17/2018 Administered Problems Problem Type SNOMED Code ICD Code Onset Dates Problem Status W/U Status Risk Notes Problem 516182396 Encounter for screening for malignant neoplasm of colon (Z12.11) Active confirmed Problem 680038592 History of adenomatous polyp of colon (Z86.010) Active confirmed Problem Diverticular disease of colon (278355020) Diverticulosis of large intestine without perforation or abscess without bleeding (K57.30) Active confirmed Problem 217436062916217 Preprocedural examination (Z01.818) Active confirmed Problem 307571179 Gastroesophageal reflux disease, esophagitis presence not specified (K21.9) Active confirmed Problem 198312865 Long-term use of aspirin therapy (Z79.82) Active confirmed Vital Signs Blood pressure diastolic 00 mm Hg 11/30/2023 Height 67 in 11/30/2023 Blood pressure systolic 00 mm Hg 11/30/2023 Weight 233 lbs 11/30/2023 BMI 36.49 kg/m2 11/30/2023 Encounters Encounter Location Date Provider Diagnosis [facility] [address] [place] [id number] 03/15/2024 Nikos Gordon Encounter for screen ing colonoscopy Z12.11 ; Colon polyps K63.5 ; Diverticulosis of large intestine without perforation or abscess without bleeding K57.30 and Other hemorrhoids K64.8 [facility] [address] [place] [address] 11/30/2023 Nikos Gordon History of adenomato us polyp of colon Z86.010 ; Gastroesophageal reflux disease, esophagitis presence not specified K21.9 ; Encounter for screening for malignant neoplasm of colon Z12.11 and Preprocedural examination Z01.818 Assessments Encounter Date Diagnosis (ICD Code) Assessment Notes Treatment Notes Treatment Clinical Notes Section Notes 03/15/2024 Encounter for screening colonoscopy (ICD-10 - Z12.11) 03/15/2024 Colon polyps (ICD-10 - K63.5) 11/30/2023 History of adenomatous polyp of colon (ICD-10 - Z86.010) Stop fish oil for 1 week before the colonoscopy Do not use the Aldactone(Spir onolactone) the day before nor on the day of the colonoscopy Overall, Kalpesh appears quite well. His reflux seems to be very stable on his regimen of omeprazole. He is not having a new or worrisome upper GI complaints at this time. As such, I advised him to continue omeprazole and I don't think any further evaluation such as an upper endoscopy is required. Given his history of tubular adenomas and his last colonoscopy being over 5 years ago, I did recommend a followup colonoscopy for further screening purposes. We did review the rationale for that in regard to colon cancer prevention. Full consent is obtained for this, including risks of bleeding and perforation. The procedure will be done with monitored anesthesia care. He was given the below instructions regarding adjustment of his medications for the procedure. Kalpesh was comfortable with this plan. Thank you again for allowing me to participate in Kalpesh's care. I shall continue to keep you advised of his progress. 11/30/2023 Gastroesophageal reflux disease, esophagitis presence not specified (ICD-10 - K21.9) Overall, Kalpesh appears quite well. His reflux seems to be very stable on his regimen of omeprazole. He is not having a new or worrisome upper GI complaints at this time. As such, I advised him to continue omeprazole and I don't think any further evaluation such as an upper endoscopy is required. Given his history of tubular adenomas and his last colonoscopy being over 5 years ago, I did recommend a followup colonoscopy for further screening purposes. We did review the rationale for that in regard to colon cancer prevention. Full consent is obtained for this, including risks of bleeding and perforation. The procedure will be done with monitored anesthesia care. He was given the below instructions regarding adjustment of his medications for the procedure. Kalpesh was comfortable with this plan. Thank you again for allowing me to participate in Kalpesh's care. I shall continue to keep you advised of his progress. 03/15/2024 Diverticulosis of large intestine without perforation or abscess without bleeding (ICD-10 - K57.30) 11/30/2023 Encounter for screening for malignant neoplasm of colon (ICD-10 - Z12.11) Overall, Kalpesh appears quite well. His reflux seems to be very stable on his regimen of omeprazole. He is not having a new or worrisome upper GI complaints at this time. As such, I advised him to continue omeprazole and I don't think any further evaluation such as an upper endoscopy is required. Given his history of tubular adenomas and his last colonoscopy being over 5 years ago, I did recommend a followup colonoscopy for further screening purposes. We did review the rationale for that in regard to colon cancer prevention. Full consent is obtained for this, including risks of bleeding and perforation. The procedure will be done with monitored anesthesia care. He was given the below instructions regarding adjustment of his medications for the procedure. Kalpesh was comfortable with this plan. Thank you again for allowing me to participate in Kalpesh's care. I shall continue to keep you advised of his progress. 03/15/2024 Other hemorrhoids (ICD-10 - K64.8) 11/30/2023 Preprocedural examination (ICD-10 - Z01.818) Overall, Kalpesh appears quite well. His reflux seems to be very stable on his regimen of omeprazole. He is not having a new or worrisome upper GI complaints at this time. As such, I advised him to continue omeprazole and I don't think any further evaluation such as an upper endoscopy is required. Given his history of tubular adenomas and his last colonoscopy being over 5 years ago, I did recommend a followup colonoscopy for further screening purposes. We did review the rationale for that in regard to colon cancer prevention. Full consent is obtained for this, including risks of bleeding and perforation. The procedure will be done with monitored anesthesia care. He was given the below instructions regarding adjustment of his medications for the procedure. Kalpesh was comfortable with this plan. Thank you again for allowing me to participate in Kalpesh's care. I shall continue to keep you advised of his progress. Plan Of Treatment Pending Test Test Name Order Date Pathology 03/15/2024 Future Test Test Name Order Date COLONOSCOPY 04/09/2013 COLONOSCOPY 08/10/2018 COLONOSCOPY 11/30/2023 Insurance Providers Payer Name Payer Address Payer Phone Subscriber Number Group Number Insured Name Patient Relationship to Insured Coverage Start Date Coverage End Date MEDICARE OF [place] [address] [place] [address] [id number] KALPESH KOHLI Self - patient is the insured MED[employer] ATTN CLAIMS [address] [place] [address] [id number] KALPESH KOHLI Self - patient is the insured Medical (General) History Medical History History ICD Code > 1CM tubular adenoma remove d in 2003, a neg. colonoscopy in 11/2007, colonoscopy in 05/2013 with a small tubular adenoma removed Denies [place],CVA,renal disease HTN Diet-controlled diabetes Detached retina left eye-had laser surge ry Anxiety Hx of bronchitis/asthma GERD--started on omeprazole approx. 2016 Colonoscopy 09/2018 with one tubular tiffany elias removed Surgical History Surgery Date(Month/Year) Skin cancer on back Laser eye surgery-detached retina Left knee replacement--approx 2014 Right knee replacement -approx 2021
--- OUTSIDE RECORDS SUMMARY | 2024-09-27 09:54 | XMS_ITS ---
Author Organization [facility] Address [address] [place] [address] Care Team Providers Care Grades 1 Thru 6 Home Teacher Name Role Phone Lacho Araujo MD Primary Care Provider Nikos Payne [phone] Allergies No Known Allergies REASON FOR VISIT Patient presents today for a screening colon Medications Medication SIG (Take, Route, Frequency, Duration) [...] Once a day for 30 day(s) Active Vital Signs Blood pressure systolic 00 mm Hg 11/30/19 24 Blood pressure diastolic 00 mm Hg 024 Height 67 in 11/30/2023 Weight 233 lbs 11/30/2023 BMI 36.49 kg/m2 11/30/2023 Encounters Encounter Location Date Provider Diagnosis [facility] [address] [place] [address] 11/30/2023 Nikos Gordon History of adenomato us polyp of colon Z86.010 ; Gastroesophageal reflux disease, esophagitis presence not specified K21.9 ; Encounter for screening for malignant neoplasm of colon Z12.11 and Preprocedural examination Z01.818 Assessments Encounter Date Diagnosis (ICD Code) Assessment Notes Treatment Notes Treatment Clinical Notes Section Notes 11/30/2023 History of adenomatous polyp of colon [...] keep you advised of his progress. 11/30/2023 Encounter for screening for malignant neoplasm [...] keep you advised of his progress. 11/30/2023 Preprocedural examination (ICD-10 - Z01.818) Overall, [...] advised of his progress. Plan Of Treatment Treatment Notes Assessment Notes History of adenomatous polyp of colon Stop fish oil for 1 week before the colonoscopy Do not use the Aldactone(Spironolactone) the day before nor on the day of the colonoscopy Future Test Test Name Order Date COLONOSCOPY 11/30/2023 Next Appt Details Follow Up: prn, Reason: Progress Notes * KALPESH KOHLI GDOB:[birth year] (78 yo M)Acc No.[id number]:11/30/2023 Progress Notes Patient:?KALPESH KOHLI Provider:?Nikos Gordon MD :1945???Age:78 Y???Sex:Male Michael e:11/30/2023 Address:[address] [place], [place] [id number] Pcp:Lacho Araujo MD Subjective: * Chief Complaints: * ???Patient presents today fo r a screening colon * HPI: ???incontinence:? I saw Kalpesh in the office today for evaluation of his personal history of tubular adenomas of the colon and need for colorectal cancer screening, as well as for his history of gastroesophageal reflux. ?I last saw Kalpesh in September of 2018, at which time he underwent a followup colonoscopy with removal of a small tubular adenoma. He presently feels well. He does remain on omeprazole for his history of reflux. He denies any significant heartburn, dysphagia, anorexia, early satiety, nausea, nor vomiting. He reports his bowel movements have been regular and without any signs of bleeding. He denies any known family history of colorectal cancer. He denies abdominal pain, jaundice, nor unintentional weight loss. * ROS:?General/Constitutional:?Change in appetite?denies.?Chills?denies.?Fatigue?denies.?Ophthalmologic:?Patient denies? Negative..?ENT:?Patient denies?Negative..?Respiratory:?Patient denies?No coughing/hemoptysis..?Cardiovascular:?Patient denies? No chest pain/orthopnea..?Gastrointestinal:?Comments?See HPI for details.?Genitourinary:?Patient denies? No dysuria/hematuria..?Musculoskeletal:?Patient denies? No specific arthralgias/myalgias..?Skin:?Patient denies?No rash/pruritus..?Neurologic:?Patient denies? No headaches/seizures..?Psychiatric:?Patient denies?Negative..? * Medical History:? * Surgical History:?Skin cance r on back Laser eye surgery-detached retina Left knee replacement--approx 2014 Right knee replacement -approx 2021 * Hospitalization/Major Diagno stic Procedure:?No Hospitalization History. * Family History:?Father: dece ased.?Mother: .? No colorectal cancer. * Social History:?Tobacco Use:?Tobacco Use/Smoking?Are you a: former smoker , How long has it been since you last smoked?: > 10 years.?Drugs/Alcohol:?Alcohol Screen?Points: 1, Interpretation: Negative.?Miscellaneous:?Marital status: single. 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 ???Nonsmoker; no sig alcohol. * Medications:?TakingDoxazosin Mesylate 8 MG Tablet 1 tablet Orally Once a dayVenlafaxine HCl 75 MG Tablet 1 tablet with food Orally Once a dayMetoprolol Succinate 50 MG Tablet Extended Release 1 1/2 capsule Orally dailyOmeprazole 20 MG Capsule Delayed Release 1 capsule Orally Once a dayLosartan Potassium 50 MG Tablet 1 tablet Orally Once a daySpironolactone 50 MG Tablet 1 tablet with food Orally Once a dayDutasteride 0.5 MG Capsule 1 capsule Orally Once a dayVitamin D (Cholecalciferol) 1000 UNIT Capsule 1 capsule Orally Once a dayCalcium + D 600-200 MG-UNIT Tablet 1 tablet Orally once a dayFish Oil 500 MG Capsule 1 capsule Orally Twice a dayTaking Doxazosin Mesylate 8 MG Tablet 1 tablet Orally Once a dayTaking Venlafaxine HCl 75 MG Tablet 1 tablet with food Orally Once a dayTaking Metoprolol Succinate 50 MG Tablet Extended Release 1 1/2 capsule Orally dailyTaking Omeprazole 20 MG Capsule Delayed Release 1 capsule Orally Once a dayTaking Losartan Potassium 50 MG Tablet 1 tablet Orally Once a dayTaking Spironolactone 50 MG Tablet 1 tablet with food Orally Once a dayTaking Dutasteride 0.5 MG Capsule 1 capsule Orally Once a dayTaking Vitamin D (Cholecalciferol) 1000 UNIT Capsule 1 capsule Orally Once a dayTaking Calcium + D 600-200 MG-UNIT Tablet 1 tablet Orally once a dayTaking Fish Oil 500 MG Capsule 1 capsule Orally Twice a dayNot-Taking/PRNProAir HFA 108 (90 Base) MCG/ACT Aerosol Solution 2 puffs as needed Inhalation every 6 hrsNot-Taking/PRN ProAir HFA 108 (90 Base) MCG/ACT Aerosol Solution 2 puffs as needed Inhalation every 6 hrsDiscontinuedCardura 8 MG Tablet 1 tablet Orally Once a dayMagnesium 500 MG Tablet 1 tablet with a meal Orally twice a dayAspir-81 81 MG Tablet Delayed Release 1 tablet Orally Once a dayMedication List reviewed and reconciled with the patientDiscontinued Cardura 8 MG Tablet 1 tablet Orally Once a dayDiscontinued Magnesium 500 MG Tablet 1 tablet with a meal Orally twice a dayDiscontinued Aspir-81 81 MG Tablet Delayed Release 1 tablet Orally Once a dayMedication List reviewed and reconciled with the patient * Allergies:?N.K.D.A.yes[Aller gies Verified] Objective: * Vitals:?Wt: 233 lbs, Ht: 67 in, BMI:36.49 Index, BP: 00/00 mm Hg. * Examination: ???General Examination: ?GENERAL APPEARANCE:?pleasant, well nourished, well developed, in no acute distress.?EYES:?sclera non-icteric.?ORAL CAVITY:?mucosa moist.?NECK/THYROID:?no cervical lymphadenopathy, neck supple.?SKIN:?nonjaundiced, no spider angiomata..?HEART:?S1, S2 normal.?LUNGS:?clear to auscultation bilaterally.?ABDOMEN:?normal bowel sounds, no guarding or rigidity, no hepatosplenomegaly, no masses palpable, soft, nontender, nondistended..?EXTREMITIES:?no edema.?NEUROLOGIC:?alert and oriented.? Assessment: * Assessment: 1.?Gastroesophageal reflux d isease, esophagitis presence not specified - K21.9 (Primary)?2.?History of adenomatous polyp of colon - Z86.010?3.?Encounter for screening for malignant neoplasm of colon - Z12.11?4.?Preprocedural examination - Z01.818? Overall, Kalpesh appears quit e well. His reflux seems to be very [...] to keep you advised of his progress. Plan: * Treatment: Notes: Stop fish oil for 1 week before the colonoscopy Do not use the Aldactone(Spironolactone) the day before nor on the day of the colonoscopy? 2.?Encounter for screening for malignant neoplasm of colon?Procedure: COLONOSCOPY (Ordered for 11/30/2023)* with MAC scheduled colon at [facility] on 03-15-2024 at 8:30 a.m. * Procedure Codes:?1036F TOBAC CO NON-ELNFX0030 BP SCR NOT PRFRM REC REASON NOS * Preventive Medicine:? ??Counseling:?Care goal follow-up plan:?Above Normal BMI Follow-up?Giving encouragement to exercise,?BMI management provided?Yes.? * Follow Up:?prn * * Sign off status: Completed true * Provider:?Nikos Gordon MD Date:? 024 Generated for Shona joaquin/Tom/eTransmitting on:?09/27/2024 09:54 AM EDT History and Physical Notes * HPI (History of Present Illness) Category Sub-Category Detail Notes Category Not es incontinence I saw Kalpesh in the office today for evaluation of his personal history of tubular adenomas of the colon and need for colorectal cancer screening, as well as for his history of gastroesophageal reflux. I last saw Kalpesh in September of 2018, at which time he underwent a followup colonoscopy with removal of a small tubular adenoma. He presently feels well. He does remain on omeprazole for his history of reflux. He denies any significant heartburn, dysphagia, anorexia, early satiety, nausea, nor vomiting. He reports his bowel movements have been regular and without any signs of bleeding. He denies any known family history of colorectal cancer. He denies abdominal pain, jaundice, nor unintentional weight loss. Examination Category Sub-Category Detail Notes Category Not es General Examination GENERAL APPEARANCE: pleasant , well [...]
--- OUTSIDE RECORDS SUMMARY | 2024-09-27 09:55 | XMS_ITS | Data Portability ---
Author Organization [facility] James Duarte AONE [place] Address [address] [place] [address] Care Team Providers Care Cash Applications Representative Name Role Phone DANIEL HOWARD Primary Care Provider [phone] Assessment Encounter Date Assessment Date Assessment LastModified [...] 025 08/15/19 25 [email or web address] 5 [facility], [address], [place], [address], 14:02:23 XR, knee, 3 view 023 11/05/19 23 [email or web address] [facility], [address], [place], [address], 3 12:02:05 Medication Orders None record ed. Patient TargetsNo targets recorded. Patient Instructions Encounter Date Encounter Id Patient Instructions Last Modified By Organization Details Last Modified Time 11/04/2022 [id number] AP, lateral, and patellar views of the right knee taken today demonstrate satisfactory position and alignment of components following right total knee replacement. [email or web address] Not available 11/04/2022 08:46:01 08/15/2024 [id number] 3 views of the r ight wrist [...] Time Carpal tunnel syndrome of right wrist [id number] Active 2024 Kathia sagastume MD [address], [place], [address] , [place] [facility], 17:14:36 Problem Notes None recorded. Medical Equipment [...] active Not Available Not Available Not Available [place] Aspirin 81 mg tablet,delaye d release active [...] Code Diagnosis Note [id number] MD MARCELA Diop [facility] [address] [place] [address] 11/04/2022 08:17:03 11/04/2022 08:46:10 History of right total knee replacement [id number] 606615 Z96.651 Aftercare [id number] Z47. 1 [id number] MD MARCELA Vuong [facility] [address] [facility] [address] [place] [address] 08/15/2024 13:24:16 08/15/2024 14:02:23 Pain of right wrist 8004573144 51391 M25.531 Carpal tutu jr syndrome of right wrist [id number] 77291 G56.01 Health Concerns Section Related Observation LastModified by Organization Detai ls LastModified Time None Recorded Concern Status LastModified by Organization Details LastModified Time None Recorded Advance Directives Directive None Recorded Payers Encounter Date Sequence Insurance Name Policy Number Policy Vance Covered Member ID Vance Member ID Guarantor Name 11/04/2022 1 [place] [employer] Sunny Mccloud [id number] Sunny Mccloud 11/04/2022 2 [place] [id number] Sunny Mccloud [id number] Sunny Mccloud 08/15/2024 1 [place] Sunny Mccloud [id number] Sunny Mccloud 08/15/2024 2 [place] [id number] Sunny Mccloud [id number] Sunny Mccloud Notes Date Note Type [...] pain relief in the knee and satisfactory pentecostal of function in terms of activities of [...] total knee arthroplasty. Continue knee conditioning exercises. Mhsk-vaq-pqxxuhc medications as needed. Ultimate failure may occur due to mechanical wear, loosening or breakage. Follow-up is recommended to assess for the possibility of failure. Patient will follow-up at 1 year from surgery unless there are issues before then. Chad Donnelly MD [address] [place] [address], [address], [place] [facility] 11/04/2022 08:46:18 08/15/2024 text/html This is a 79-year-old opetk-vvbv-jgkgeqrf male who presents with right hand numbness and tingling. He has previously been evaluated and worked up for bilateral carpal tunnel syndrome, seen by a hand surgeon at [facility]. He has undergone left carpal tunnel release [...] does not drink alcohol. Kathia Allen MD [address] [place] [address], [place], [address], [place] [facility] 08/15/2024 17:16:18
--- OUTSIDE RECORDS SUMMARY | 2024-09-27 09:55 | XMS_ITS ---
Author Organization [facility] Address [address] [place] [address] Care Team Providers Care Ingot Header Name Role Phone Po Lacho SANDRA Primary Care Provider Nikos Payne [phone] REASON FOR VISIT screening colon Problems Problem Type SNOMED Code ICD Code Onset Dates Problem Status W/U Status Risk Notes Problem Diverticular disease of colon (814425406) Diverticulosis of large intestine without perforation or abscess without bleeding (K57.30) Active confirmed Encounters Encounter Location Date Provider Diagnosis [facility] Outpatient [address] [place] [phone] 03/15/2024 Nikos Gordon Encounter for scre ening [...] Progress Notes * KALPESH KOHLI GDOB:[birth year] (79 yo M)Acc No.[id number]:03/15/2024 COLON WITH MAC Patient:?KAMILLA KALPESH Marlyn Provider:?Nikos Gordon MD :1945???Age:79 Y???Sex:Male Michael e:03/15/2024 Address:[address] [place], [place] [address] [facility] Pcp:Lacho Araujo MD Subjective: * Chief Complaints: * ???1. Screening colon. * Medical History:? Objective: * Vitals:? Assessment: * Assessment: 1.?Encounter for screening c olonoscopy - Z12.11 (Primary)???2.?Colon polyps - K63.5???3.?Diverticulosis of large intestine without perforation or abscess without bleeding - K57.30???4.?Other hemorrhoids - K64.8??? Plan: * Treatment: * Procedure Codes:?80587 LESIO N REMOVAL COLONOSCOPY, Modifiers: PT , 80220 COLONOSCOPY AND BIOPSY, Modifiers: 59 , PT, 0529F INTRVL 3+YRS PTS CLNSCP DOCD, 0528F RCMND FLW-UP 10 YRS DOCD, Modifiers: 1P * * The named appointment provid er may or may not be the originator of this progress note, and it is not deemed complete until electronically signed by the appointment provider. Sign off status: Pending * Provider:?Nikos Gordon MD Date:? 024 Generated for Shona joaquin/Tom/Helensmitting on:?09/27/2024 09:54 AM EDT
== END 2024-09-27 09:50 | disposition home or self-care (01) ==
LOC: HO.HMCH 09:11
PROVIDERS: PCP Internal Medicine
DX: Z01.818 Encounter for other preprocedural examination (principal)

== ENCOUNTER → 2024-09-27 09:10 | Outpatient (BNVA) | payer MEDICARE, SELFPAY | PROVIDERS: PCP Internal Medicine | DX: Z01.818 Encounter for other preprocedural examination (principal) | CPT/HCPCS: 99212 ==

== ENCOUNTER 2024-10-21 06:46 | Day surgery (SDC) | payer MEDICARE, SELFPAY ==
--- OUTSIDE RECORDS SUMMARY | 2024-09-13 15:37 | XMS_ITS | Clinical Summary ---
Author Organization [facility] Address [address] [place] [address] Care Team Providers Care Behavioral Psychologist Name Role Phone Lacho Araujo MD Primary Care Provider [phone] Allergies No known active allergies Medications Medication Sig Dispensed Refills Start Date End Date Status aspirin 81 MG EC tablet Take 1 tablet by mouth. 0 Active spironolactone (ALDACTONE) tablet 50 mg Take 1 tablet by mouth. 0 12/18/2017 Active losartan (COZAAR) tablet 50 mg 0 10/04/2021 Active metoprolol succinate (TOPROL-XL) 24 hr tablet 50 mg 0 10/04/2021 Active doxazosin (CARDURA) 8 MG tablet 0 09/03/2021 Active dutasteride (AVODART) 0.5 MG capsule 0 10/04/2021 Active omeprazole (PriLOSEC) 20 MG capsule 0 10/04/2021 Active venlafaxine (EFFEXOR) 75 MG tablet 0 10/04/2021 Active Cholecalciferol 25 MCG (1000 UT) capsule Take 1 capsule by mouth. 0 Active Acetaminophen Extra Strength 500 MG tablet 0 11/25/2021 Ac tive albuterol 108 (90 Base) MCG/ACT inhaler INHALE 2 PUFFS BY MOUTH EVERY 4 TO 6 HOURS NEEDED FOR SHORTNESS OF BREATH OR WHEEZING 0 11/12/2021 Active meloxicam (MOBIC) 15 MG tablet 0 11/25/2021 Active methocarbamol (ROBAXIN) 750 MG tablet 0 11/25/2021 Active ondansetron (ZOFRAN-ODT) 8 MG disintegrating tablet 0 11/25/2021 Act segundo oxyCODONE (ROXICODONE) 5 MG immediate release tablet 0 11/25/2021 Active pantoprazole (PROTONIX) 40 MG tablet 0 11/25/2021 Active triamcinolone (KENALOG) 0.1 % lotion APPLY SPARINGLY TOPICALLY TO ITCHY RASH TWICE DAILY NEEDED 0 11/12/2021 Active Active Problems Problem Noted Date Diagnosed Date Osteochondromatosis, 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, right 10/05/2021 Social History Tobacco Use Types Packs/Day Years Used Date Smoking Tobacco: Never Smokeless Tobacco: Never Alcohol Use Standard Drinks/Week Comments Never 0 (1 standard drink = 0.6 oz pur e alcohol) Sex and Gender Information Value Date Recorded Sex Assigned at Not on file Gender Identity Not on file Sexual Orientation Not on file Job Start Date Occupation Industry Not on file Not on file Not on file Last Filed Vital Signs Vital Sign Reading Time Taken Comments Blood Pressure - - Pulse - - Temperature - - Respiratory Rate - - Oxygen Saturation - - Inhaled Oxygen Concentration - - Weight 104.3 kg (230 lb) 10/29/2021 8:33 AM EDT Height 170.2 cm (5' 7 ) 10/29/2021 8:33 AM EDT Body Mass Index 36.02 10/29/2021 8:33 AM EDT Plan of Treatment Health Maintenance Due Date Last Done Comments Hepatitis C Screening 1945 COVID-19 Vaccine (#1) 1945 Depression Screening 1959 BMI Counseling 1965 Preventative Health Evaluation 1965 DTap / Tdap / Td (1 - Tdap) 1966 Shingrix-Zoster Vaccine (1 of 2) 1997 Fall Risk Assessment 01/22/2012 Pneumococcal Vaccine (2 of 2 - PCV) 11/21/2014 11/21/2013 RSV Adult > 60+ Yrs or Pregn ant (1 - 1-dose 75+ series) 2022 Influenza Vaccine (#1) 2024 Hepatitis B Vaccines Aged Out No long er eligible based on patient's age to complete this topic RSV Ped < 20 months Aged Out No longe r eligible based on patient's age to complete this topic Care Teams Behavioral Psychologist Relationship Specialty Start Date End Date Lacho Araujo MD [address] [place] [address] [address] [facility] ALEXEI Mcintosh [phone] PCP - General Internal Medicine 09/28/21
--- OUTSIDE RECORDS SUMMARY | 2024-09-13 15:37 | XMS_ITS | Clinical Summary ---
Author Organization [facility] Address [address] [place] [address] Phone Care Team Providers Care Belt Picker Name Role Phone Lacho Araujo MD Primary Care Provider [phone] Allergies No known active allergies Medications calcium carbonate 1500 (600 Ca) MG tablet Take 1 tablet by mouth 3 (three) times a day Active omega-3 (FISH OIL) 1000 MG capsule Take 1 capsule by mouth 1 (one) time each day Active cholecalciferol (VITAMIN D-3) 25 MCG (1000 UT) capsule Take 1 capsule by mouth 1 (one) time each day Active doxazosin (CARDURA) 8 MG tablet Take 1 tablet by mouth 1 (one) time each day 03/24/2020 Active dutasteride (AVODART) 0.5 MG capsule Take 1 capsule by mouth 1 (one) time each day Active losartan (COZAAR) 50 MG tablet Take 1 tablet by mouth 1 (one) time each day 02/14/2020 Active Magnesium 500 MG capsule Take 1 capsule by mouth 1 (one) time each day Active metoprolol succinate XL (TOPROL-XL) 25 MG 24 hr tablet Take 1 tablet by mouth 1 (one) time each day 03/24/2020 Active omeprazole (PriLOSEC) [address] capsule Take 1 capsule by mouth 1 (one) time each day Active spironolactone (ALDACTONE) 50 MG tablet Take 1 tablet by mouth 1 (one) time each day 12/18/2017 Active venlafaxine (EFFEXOR) 75 MG tablet Take 1 tablet by mouth 1 (one) time each day Active metoprolol succinate XL (TOPROL XL) 50 MG 24 hr tablet Take 1 tablet by mouth 1 (one) time each day 02/20/2023 Active Active Problems Problem Noted Date Diagnosed Date Arthritis of right knee 10/05/2021 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 Hypertension 07/02/2021 Benign essential hypertension 12/23/2020 Immunizations Name Administration Dates Next Due Pneumococcal Polysaccharide 11/21/2013 Family History Relation Status Comments Father Mother Social History Tobacco Use Types Packs/Day Years Used Date Smoking Tobacco: Former Smokeless Tobacco: Never Tobacco Cessation:Counseling Given: Not Answered Alcohol Use Standard Drinks/Week Comments No 0 (1 standard drink = 0.6 oz pur e alcohol) Sex and Gender Information Value Date Recorded Sex Assigned at Not on file Legal Sex Male 5:05 PM EST Gender Identity Not on file Sexual Orientation Not on file Last Filed Vital Signs Vital Sign Reading Time Taken Comments Blood Pressure 120/82 03/01/2023 1:08 PM EDT Pulse 71 03/01/2023 1:08 PM EDT Temperature - - Respiratory Rate - - Oxygen Saturation 96% 07/02/2021 1:05 PM EST Inhaled Oxygen Concentration - - Weight 105 kg (230 lb 12.8 oz) 03/01/2023 1:08 P M EDT Height 172.7 cm (5' 8 ) 01/01/2020 12:00 PM EDT Body Mass Index 35.09 01/01/2020 12:00 PM EDT Plan of Treatment Health Maintenance Due Date Last Done Comments Pneumococcal Vaccine: 65+ Ye ars (2 of 2 - PCV) 11/21/2014 11/21/2013 Influenza Vaccine (#1) 2024 Hepatitis B Vaccine Aged Out No longe r eligible based on patient's age to complete this topic Insurance [facility] MEDICARE [facility] MEDICARE Care Teams Belt Picker Relationship Specialty Start Date End Date Lacho Araujo MD [address] [place], [place] PCP - General 07/27/20
--- OUTSIDE RECORDS SUMMARY | 2024-09-13 15:38 | XMS_ITS ---
Author Name [facility] Organization Unknown History of Medication Use Medication Directions Dispensed Refills Start Date End Date Stat oxycodone 5 mg tablet ac tive [place] Aspirin 81 mg tablet,delayed release active losartan 50 mg tablet ac tive triamcinolone acetonide 0.1 % lotion APPLY SPARINGLY TOPICALLY TO ITCHY RASH TWICE DAILY NEEDED active oxycodone-acetaminophen 5 mg-325 mg tablet TAKE 1 TABLET BY MOUTH EVERY 6 HOURS NEEDED FOR SEVERE PAIN active metoprolol succinate ER 50 mg tablet,extended release 24 hr active acetaminophen 500 mg tablet active dexamethasone 0.75 mg tablet active amoxicillin 875 mg-potassium clavulanate 125 mg tablet TAKE 1 TABLET BY MOUTH TWICE DAILY active betamethasone, augmented 0.05 % topical ointment active omeprazole 20 mg capsule,delayed release a ctive venlafaxine 75 mg tablet active spironolactone 50 mg tablet active ondansetron 8 mg disintegrating tablet act segundo methocarbamol 750 mg tablet active albuterol sulfate HFA 90 mcg/actuation aerosol inhaler INHALE 2 PUFFS BY MOUTH EVERY 4 TO 6 HOURS NEEDED FOR SHORTNESS OF BREATH OR WHEEZING active meloxicam 15 mg tablet a ctive betamethasone, augmented 0.05 % topical cream active pantoprazole 40 mg tablet,delayed release ac tive sulfamethoxazole 800 mg-trimethoprim 160 mg tablet TAKE 1 TABLET BY MOUTH TWICE DAILY FOR 10 DAYS active doxazosin 8 mg tablet ac tive dutasteride 0.5 mg capsule active ketorolac 0.5 % eye drops INSTILL 1 DROP IN LEFT EYE DAILY active prednisolone acetate 1 % eye drops,suspension INSTILL 1 DROP TO THE LEFT EYE DAILY active metoprolol succinate ER 25 mg tablet,extended release 24 hr active Problems Problem Status Onset Date Problem Type Date of Resoluti on Source Carpal tunnel syndrome of right wrist active 2024-08-15 ProblemAct ENS_AONECT
--- OUTSIDE RECORDS SUMMARY | 2024-09-13 15:38 | XMS_ITS | Patient Health Record ---
Author Organization [facility] Address [address] [place] [address] Care Team Providers Care Lawn Service Supervisor Name Role Phone Lacho Araujo MD Primary Care Provider Nikos Payne [phone] ALLERGIES No Known Allergies RESULTS Component Value Reference Range Notes Pathology (Not yet reviewed by provider) Interpretation: Performing Lab:[facility], [address] [place] [id number] Notes/Report: REASON FOR REFERRAL No Information MEDICATIONS [...] malignant neoplasm of colon (Z12.11) Active confirmed 485541436 Problem History of adenomatous polyp of colon (Z86.010) Active confirmed 314124674 Problem Diverticulosis of large intestine without perforation or abscess without bleeding (K57.30) Active confirmed Diverticul ar disease of colon (466354609) Problem Preprocedural examination (Z01.818) Active confirmed 850168747032852 Problem Gastroesophageal reflux disease, esophagitis presence not specified (K21.9) Active confirmed 010851309 Problem Long-term use of aspirin therapy (Z79.82) Active confirmed 588505890 VITAL SIGNS Blood pressure diastolic 00 mm Hg 11/30/2023 Height 67 in 11/30/2023 Blood pressure systolic 00 mm Hg 11/30/2023 Weight 233 lbs 11/30/2023 BMI 36.49 kg/m2 11/30/2023 Encounters Encounter Location Date Provider Diagnosis [facility] [place] [address] [place] [id number] 03/15/2024 Nikos Gordon Encounter for screen ing colonoscopy Z12.11 ; Colon polyps K63.5 ; Diverticulosis of large intestine without perforation or abscess without bleeding K57.30 and Other hemorrhoids K64.8 [facility] [address] [place] [address] 11/30/2023 Nikos Gordon History of adenomato us [...] [place] [address] [place] [address] [id number] KALPESH KOHLI Self - patient is the insured [employer] CLAIMS [address] [place] [phone] [id number] KALPESH KOHLI Self - patient is the insured MEDICAL (GENERAL) HISTORY Medical History History ICD Code > 1CM tubular adenoma remove d in 2003, a neg. colonoscopy in 11/2007, colonoscopy in 05/2013 with a small tubular adenoma removed Denies OH,CVA,renal disease HTN Diet-controlled diabetes Detached retina left eye-had laser surge ry Anxiety Hx of bronchitis/asthma GERD--started on omeprazole approx. 2016 Colonoscopy 09/2018 with one tubular tiffany elias removed Surgical History Surgery Date(Month/Year) Skin cancer on back Laser eye surgery-detached retina Left knee replacement--approx 2014 Right knee replacement -approx 2021
--- OUTSIDE RECORDS SUMMARY | 2024-09-13 15:38 | XMS_ITS ---
Author Organization [facility] Address [address] [place] [address] Care Team Providers Care Auto Body Repairman Name Role Phone Po Lacho SANDRA Primary Care Provider Nikos Payne [phone] REASON FOR VISIT screening colon PROBLEMS Problem Type ICD Code Onset Dates Problem Status W/U Status Risk SNOMED Code Notes Problem Diverticulosis of large intestine without perforation or abscess without bleeding (K57.30) Active confirmed Diverticul ar disease of colon (285491195) Encounters Encounter Location Date Provider Diagnosis [facility] [place] [address] [place] [id number] 03/15/2024 Nikos Gordon Encounter for scre ening [...]
--- OUTSIDE RECORDS SUMMARY | 2024-09-13 15:38 | XMS_ITS | Data Portability ---
Author Organization [place] [facility] [place] Address [address] [facility] [address] [place] [address] Care Team Providers Care Exhibit Electrician Name Role Phone DANIEL HOWARD Primary Care Provider [phone] Assessment Encounter Date Assessment Date Assessment LastModified by Organization Details LastModified Time 08/15/2024 08/15/2024 The above findin gs were discussed in detail today with the patient. He is evidence of clinical and electrodiagnostic right carpal tunnel syndrome. Pathology and expected prognosis were discussed. Treatment options include continued activity modification, nocturnal splinting, cortisone injection, or consideration for carpal tunnel release. He would like to proceed with carpal tunnel release. We discussed this in detail today. He would like to wait until the spring to undergo surgery for adequate recovery. He will return to see me for follow-up at that time at which point we can discuss surgery further and move forward if he plans to do this. In the meantime, he will try nocturnal splinting and activity modification and will continue to monitor his symptoms. All of his questions were answered, he is in agreement the plan. Not available 08/15/2024 17:16:08 Plan of Treatment Reminders Order Date Submit Date Provider Last Modified By Organization Details Last Modified Time Details Appointments None record ed. Lab None record ed. Referral None record ed. Procedures None record ed. Surgeries None record ed. Imaging XR, wrist, 3 or more view 025 08/15/19 25 [email or web address] [facility], [address], [place], [address], 14:02:23 XR, knee, 3 view 023 11/05/19 23 [email or web address] [facility], [address], [place], [address], 3 12:02:05 Medication Orders None record ed. Patient TargetsNo targets recorded. Patient Instructions Encounter Date Encounter Id Patient Instructions Last Modified By Organization Details Last Modified Time 11/04/2022 [id number] AP, lateral, and patellar views of the right knee taken today demonstrate satisfactory position and alignment of components following right total knee replacement. [email or web address] Not available 11/04/2022 08:46:01 08/15/2024 [id number] views of the r ight wrist were ordered and reviewed today, this demonstrates degenerative changes at the thumb CMC joint and at the DRUJ. There is a cyst at the radial styloid. There are degenerative changes at the third metacarpal head at the MCP joint. A nerve conduction study and EMG performed on 05/03/2024 was available for review, this demonstrates a right median sensory latency of 5.3, a right ulnar sensory latency of 1.9. There is a prolonged distal latency at the median motor testing with normal amplitude and normal conduction velocity. The impression is an abnormal study. There is electrodiagnostic evidence of a right moderate severe median neuropathy at the wrist consistent with carpal tunnel syndrome. Note small amplitude on the right ulnar sensory nerve but ulnar motor nerve are within normal limits. Cannot completely rule out chronic ulnar neuropathy. There is no electrodiagnostic evidence for brachial plexopathy or cervical radiculopathy. Not available 08/15/2024 17:14:30 Reason for Referral None Reported. Problems Name Problem SNOMED Code Status Onset Date Resolution Date Notes Provider Name and Address Organization Details Recorded Time Carpal tunnel syndrome of right wrist [id number] Active 2024 Kathia sagastume MD [address] [facility], [place], [address] , [place] [facility], 17:14:36 Problem Notes None recorded. Medical Equipment None Reported. Medications Name Sig [...] Not Available Not Available No t Available oxycodone-gurpreet taminophen 5 mg-325 mg tablet TAKE 1 TABLET BY MOUTH EVERY 6 HOURS NEEDED FOR SEVERE PAIN active Not Available Not Available No t [...] active Not Available Not Available Not Available [place] Aspirin 81 mg tablet,delaye d release active [...] Code Diagnosis Note [id number] MD MARCELA Diop [facility] [address] [facility] [address] [place] [address] 11/04/2022 08:17:03 11/04/2022 08:46:10 History of right total knee replacement [id number] Z96.651 Aftercare [id number] Z47. 1 [id number] MD MARCELA Vuong [facility] [address] [facility] [address] [place] [address] 08/15/2024 13:24:16 08/15/2024 14:02:23 Pain of right wrist [id number] 35219 M25.531 Carpal tutu jr syndrome of right wrist [id number] 84870 G56.01 Health Concerns Section Related Observation LastModified by Organization Detai ls LastModified Time None Recorded Concern Status LastModified by Organization Details LastModified Time None Recorded Advance Directives Directive None Recorded Payers Encounter Date Sequence Insurance Name Policy Number Policy Vance Covered Member ID Vance Member ID Guarantor Name 11/04/2022 1 [place] [employer] [employer] Sunny Mccloud [id number] Sunny Mccloud 11/04/2022 2 [place] [id number] Sunny Mccloud [id number] Sunny Mccloud 08/15/2024 1 [place] Sunny Mccloud [id number] Sunny Mccloud 08/15/2024 2 [place] [id number] Sunny Mccloud [id number] Sunny Mccloud Notes Date Note Type [...] pain relief in the knee and satisfactory christianity of function in terms of activities of [...] total knee arthroplasty. Continue knee conditioning exercises. Cwtq-wsw-upqwdmr medications as needed. Ultimate failure may occur due to mechanical wear, loosening or breakage. Follow-up is recommended to assess for the possibility of failure. Patient will follow-up at 1 year from surgery unless there are issues before then. Chad Donnelly MD [address] [place] [address], [phone], [place] [facility], P 11/04/2022 08:46:18 08/15/2024 text/html This is a 79-year-old hezsg-cmyg-mbfnrjab male who presents with right hand numbness and tingling. He has previously been evaluated and worked up for bilateral carpal tunnel syndrome, seen by a hand surgeon at [facility]. He has undergone left carpal tunnel release in March 2024 and was scheduled for right carpal tunnel release however decided not to go through with the surgery. He describes numbness and tingling in the right thumb index and middle finger which is intermittent during the day. He does not have nocturnal symptoms. He denies any significant pain. The left side was worse than the right prior to surgery. All of his symptoms resolved on the left side after surgery. He feels that the right side is somewhat progressing. He has tried nocturnal braces in the past without significant relief of symptoms. He has undergone nerve conduction studies for bilateral hands and diagnosed with moderate to severe carpal tunnel syndrome bilaterally.Medical history significant for diabetes and hypertension. He denies tobacco or nicotine use, denies illicit drug use, does not drink alcohol. Kathia Allen MD [address] [place] [address], [place], [address], [place] [facility] 08/15/2024 17:16:18
--- OUTSIDE RECORDS SUMMARY | 2024-09-13 15:38 | XMS_ITS | Data Portability ---
Author Organization [facility] [id number] Address [address] [place] [address] Assessment No assessment recorded. Plan of Treatment Reminders Order Date Submit Date Provider Last Modified By Organization Details Last Modified Time Details Appointments None recorded. Lab None recorded. Referral None recorded. Procedures None recorded. Surgeries None recorded. Imaging None recorded. Medication Orders cephalexin 500 mg capsule 2022 023 [id number], [address], [place], [phone], 3 09:31:11 triamcinolo ne acetonide 0.1 % topical cream 2022 023 [id number], [address], [place], [id number], 3 09:31:11 Patient TargetsNo targets recorded. Patient Instructions Encounter Date Encounter Id Patient Instructions Last Modified By Organization Details Last Modified Time 02/07/2023 [id number] insect stings an d bites: care instructions [email or web address] Not available 02/07/2023 09:31:41 Reason for Referral None Reported. Problems Name Problem SNOMED Code Status Onset Date Resolution Date Notes Provider Name and Address Organization Details Recorded Time Hypertensiv e disorder 84598941 Active 2022 [facility] 3 14:23:10 Diabetes mellitus 59409915 Active 2022 [facility] 3 14:23:20 History of hay fever 598241711 Completed 202211/23/2022 Dottie sandoval [facility] 3 14:23:35 Retinal detachment 37915667 Completed 202211/23/2022 Dottie sandoval [facility] 3 14:24:59 Problem Notes None recorded. Procedures Surgical History Date Name Laterality Status Provider Name and Address Organization Details Recorded Time total knee replacement completed Dottie Salmon [facility] 11/23/2022 14:23:50 Imaging Results None recorded. Procedure Notes None recorded. Medical Equipment None Reported. Allergies Allergen ID Allergen Name Allergen Category Reaction Reaction Severity Criticality Documentation Date Start Date Code Code System Note Provider Name and Address Organization Details Recorded Time 482971 grass pollen environme nt,medica tion Not available Not available Not available 11/23/2022 30859 UNK Dottie sandoval [facility] 3 08:56:00 Medications Name Sig Start Date [...] height Body mass index (BMI) Body weight Pain severity - 0-10 verbal numeric rating [Score] - Reported Oxygen saturation Oxygen saturation in Arterial blood by Pulse oximetry Heart rate Respiratory rate Body temperature Systolic blood pressure Diastolic blood pressure Provider Name and Address Organization Details Last Updated DateTime 3 172.72 cm 35 kg/m2 172601. 25 g 0 98 % 98 % 81 /min 18 /min 98.4 [degF] 147 mm[Hg] 99 mm[Hg] Dottie Salmon PA - [facility] 3 14:28:04 Date Recorded Body height Body mass index (BMI) Body weight Pain severity - 0-10 verbal numeric rating [Score] - Reported Respiratory rate Oxygen saturation Oxygen saturation in Arterial blood by Pulse oximetry Heart rate Body temperature Systolic blood pressure Diastolic blood pressure Provider Name and Address Organization Details Last Updated DateTime 3 172.72 cm 33.5 kg/m2 14921.3 2 g 2 18 /min 97 % 97 % 70 /min 97.5 [degF] 130 mm[Hg] 77 mm[Hg] Dottie Salmon PA [facility] 3 09:02:24 Social History Question Answer Notes LastModified by Organizat ion Details LastModified Time Tobacco Smoking Status Former Smoker Dottie sandoval PA [facility] 11/23/2022 14:25:34 What Is Your Level Of Alcohol Consumption? None Information not available 11/23/2022 When Did You Quit Smoking? 18+yearssin celastcidonna sotote Information not available 11/23/2022 Do You [...] mcg/0.3 mL dose, elham-sucrose 2 completed Dottie Monfette null, PA - [facility] 11/23/2022 14:19:22 COVID-19, mRNA, LNP-S, bivalent, PF, 30 mcg/0.3 mL dose 2 completed Dottie Monfette null, PA - [facility] 11/23/2022 14:19:22 pneumococcal polysaccharide PPV23 7 completed Dotite Monfette null, PA - [facility] 11/23/2022 14:19:22 pneumococcal polysaccharide PPV23 7 completed Dottie Monfette null, PA - [facility] 11/23/2022 14:19:22 Pneumococcal conjugate PCV 13 6 completed Dottie Monfette null, PA - [facility] 11/23/2022 14:19:22 Pneumococcal conjugate PCV 13 5 completed Dottie Monfette null, PA - [facility] 11/23/2022 14:19:22 zoster live 3 completed Dottie Monfette null, PA - [facility] 11/23/2022 14:19:22 zoster live 5 completed Dottie Monfette null, PA - [facility] 11/23/2022 14:19:22 Influenza, high-dose, trivalent, PF 8 completed Dottie Monfette null, PA - [facility] 11/23/2022 14:19:22 Influenza, high-dose, trivalent, PF 5 completed Dottie Monfette null, PA - [facility] 11/23/2022 14:19:22 Influenza, high-dose, trivalent, PF 9 completed Dottie Monfette null, PA - [facility] 11/23/2022 14:19:22 Influenza, split virus, quadrivalent, PF 2 completed Dottie Monfette null, PA - [facility] 11/23/2022 14:19:22 Tdap 3 completed Dottie Monfette null, PA - [facility] 02/07/2023 08:55:48 Past Encounters Encounter ID Performer Location Encounter Start Date Encounter Closed Date Diagnosis/Indication Diagnosis SNOMED-CT Code Diagnosis ICD10 Code Diagnosis Note [id number] [address] [place] [address] 02/04/2017 10:29:09 02/04/2017 11:14:31 [id number] [address] [place] [address] 09/26/2015 08:41:39 09/26/2015 09:38:27 [id number] [facility] [address] [place] [address] 12/12/2016 10:43:48 12/12/2016 11:26:08 [id number] Glenis Ceballos MD [address] [place] [address] 11/23/2022 13:44:59 11/23/2022 14:47:01 Left without being seen [id number] 9102 Z53.21 Patient brought to room but I never saw patient. He didn't want to wait and left prior to my Assessment [id number] Glenis Ceballos MD [address] [place] [address] 02/07/2023 08:37:54 02/07/2023 09:32:27 Infected insect bite 356362191 L08.9 Bite of insect 196650140 W57.XXXA Apply Cool compresses .Can take a [...] [place] Sunny Mccloud [id number] Sunny Mccloud 09/26/2015 2 [place] [id number] Sunny Mccloud [id number] Sunny Mccloud 12/12/2016 1 [place] Sunny Mccloud [id number] Sunny Mccloud 12/12/2016 2 [place] [id number] Sunny Mccloud [id number] Sunny Mccloud 02/04/2017 1 [place] Sunny Mccloud [id number] Sunny Mccloud 02/04/2017 2 [place] [id number] Sunny Mccloud [id number] Sunny Mccloud 11/23/2022 1 [place] Sunny Mccloud [id number] Sunny Mccloud 11/23/2022 2 [place] [id number] Sunny Mccloud [id number] Sunny Mccloud 02/07/2023 1 [place] Sunny Mccloud [id number] Sunny Mccloud 02/07/2023 2 [place] [id number] Sunny Mccloud [id number] Sunny Mccloud Notes Date Note Type Note Provider Name and Address Organization Details Recorded Time 02/07/2023 text/html Rash / Skin LesionReported bypatient.Location:[facility]; hands Quality:itchy;painfu l;red;swollen Severity:mild Duration:2 days Alleviating Factors:nothing gives relief Associated Symptoms:no fever; no fatigueNotes:swellin g has increased today which is day 3 Glenis Ceballos MD [address] [place], [address], [place] - [facility] 02/07/2023 17:23:06
--- OUTSIDE RECORDS SUMMARY | 2024-09-13 15:38 | XMS_ITS ---
Author Organization [facility] Address [address] [place] [address] Care Team Providers Care Telephone Order Dispatcher Name Role Phone Lacho Araujo MD Primary Care Provider Nikos Payne [phone] ALLERGIES No Known Allergies REASON FOR VISIT [...] day for 30 day(s) Active VITAL SIGNS Blood pressure systolic 00 mm Hg 11/30/19 24 Blood pressure diastolic 00 mm Hg 024 Height 67 in 11/30/2023 Weight 233 lbs 11/30/2023 BMI 36.49 kg/m2 11/30/2023 Encounters Encounter Location Date Provider Diagnosis [facility] [address] [place] [address] 11/30/2023 Nikos Gordon History of adenomato us [...]
[2024-10-15 08:40] VITALS: BMI 35.5
[2024-10-21] MEDS: Tetracaine HCl/PF 0.5% Oph Sol 4 ML DROPS 1 DROP EYE-RIGHT (06:57)
[2024-10-21] MEDS: Tropicamide 1 % Ophth Sol 3 ML BTL 1 DROP EYE-RIGHT ×3 (06:57→07:11)
[2024-10-21] MEDS: Cyclopentolate 1 % Ophth Sol 2 ML DRPBTL 1 DROP EYE-RIGHT ×3 (06:57→07:11)
[2024-10-21] MEDS: Lactated Ringers 500 ML 50 ML IV (06:57)
[2024-10-21] MEDS: Ketorolac Tromethamine 0.5% Op 5 ML DROPS 1 DROP EYE-RIGHT ×3 (06:57→07:10)
[2024-10-21] MEDS: Phenylephrine HCL 2.5% Oph SoL 2 ML BOTTLE 1 DROP EYE-RIGHT ×3 (06:58→07:11)
[2024-10-21 07:17] VITALS: BP 137/80; PULSE 67; RESP 18; TEMP 36.8; O2SAT 95; BMI 35.5
--- NOTE | 2024-10-21 07:28 | HO.ANESPROP2 ---
Documented by User: Ca Logan NP 10/17/24 14:03 HPI - Anesthesia Eval Consult details Narrative: 79yo M for Right Cataract Extraction IOL Insertion No previous cataract on record [facility] Active Problems Active Problems: All Active Problems Pre-op exam (Acute) Carpal tunnel syndrome of right wrist (Acute) Numbness and tingling in right hand (Acute) Medicare annual wellness visit, subsequent (Acute) Carpal tunnel syndrome of left wrist (Acute) Venous stasis dermatitis (Acute) Peripheral vascular disease (Acute) Generalized anxiety disorder (Acute) Osteoarthritis (Acute) Tubular adenoma of colon (Acute) Anemia (Acute) Type 2 diabetes mellitus with hyperglycemia (Acute) BPH (benign prostatic hyperplasia) (Acute) GERD (gastroesophageal reflux disease) (Acute) Obesity (BMI 30-39.9) (Acute) Asthma (Acute) Hypertension (Acute) Past Medical History Medical History Bronchitis Numbness of left hand Puncture wound of foot, right Cellulitis of left lower extremity Preoperative clearance Allergic contact dermatitis Cataract Retinal detachment Restless leg syndrome Type 2 diabetes mellitus with hyperglycemia BPH (benign prostatic hyperplasia) GERD (gastroesophageal reflux disease) Anemia Anxiety and depression Obesity (BMI 30-39.9) Asthma Hypertension Tubular adenoma of colon Family History Family History Mother No problems noted. Father Prostate cancer Family history of problems with anesthesia: No Surgical History Surgical History History of carpal tunnel release History of bilateral knee replacement Hx of eye surgery Hx of detached retina repair History of colonoscopy History of arthroplasty of left knee Hx of tonsillectomy H/O vitrectomy Melanoma History of Problems with Anesthesia: No Social History Social History Housing: House Housing Other:: duplex Are you a primary cattle care worker to a significant other at home: No Do you presently have visiting nurse or other home services: No Alcohol intake: never Patient Tobacco Use Status: Former Tobacco user Tobacco use type: Cigarette Years Smoked: 1970 quit e-Cigarette/Vaping Use: Never Used Second Hand Smoke Exposure: No Use of substances other than those prescribed or required for medical reasons: No Have you been hit, kicked, punched, or otherwise hurt by someone within the past year? If so, by whom?: No Are you DNR?: No Advance Directives: No Advance Directives Information Provided: Yes Advance Directives on File: No service: No Current occupational status: retired Current occupation: right hand dominant Cognitive needs: Yes Hearing needs: No Vision needs: Yes Meds Allergies Allergy/AdvReac Type Severity Reaction Status Date / Time No Known Allergies Allergy Verified 10/21/24 07:20 Home Medications ?Medication ?Instructions ?Recorded ?Confirmed ?Last Taken ?Type cholecalciferol (vitamin D3) 25 25 mcg PO DAILY 09/24/20 10/15/24 Unknown History mcg (1,000 unit) capsule calcium 600 mg (as 1 tab PO DAILY 03/14/24 10/15/24 Unknown History carbonate)-vitamin D3 5 mcg (200 unit) tablet Exam Height,Weight and Vital Signs: Height 5 ft 8 in Weight 105.8 kg Assessment and Plan Assessment Anesthesia Assessment: Chart Reviewed Final Anesthetic Review Family History of Problems with Anesthesia: No History of Problems with Anesthesia: No Documented by User: Esha Linda DO 10/21/24 07:34 [facility] Past Medical History Medical History Bronchitis Numbness of left hand Puncture wound of foot, right Cellulitis of left lower extremity Preoperative clearance Allergic contact dermatitis Cataract Retinal detachment Restless leg syndrome Type 2 diabetes mellitus with hyperglycemia BPH (benign prostatic hyperplasia) GERD (gastroesophageal reflux disease) Anemia Anxiety and depression Obesity (BMI 30-39.9) Asthma Hypertension Tubular adenoma of colon Family History Family History Mother No problems noted. Father Prostate cancer Family history of problems with anesthesia: No Surgical History Surgical History History of carpal tunnel release History of bilateral knee replacement Hx of eye surgery Hx of detached retina repair History of colonoscopy History of arthroplasty of left knee Hx of tonsillectomy H/O vitrectomy Melanoma History of Problems with Anesthesia: No Social History Social History Housing: House Housing Other:: duplex Are you a primary cattle care worker to a significant other at home: No Do you presently have visiting nurse or other home services: No Alcohol intake: never Patient Tobacco Use Status: Former Tobacco user Tobacco use type: Cigarette Years Smoked: 1969 quit e-Cigarette/Vaping Use: Never Used Second Hand Smoke Exposure: No Use of substances other than those prescribed or required for medical reasons: No Have you been hit, kicked, punched, or otherwise hurt by someone within the past year? If so, by whom?: No Are you DNR?: No Advance Directives: No Advance Directives Information Provided: Yes Advance Directives on File: No service: No Current occupational status: retired Current occupation: right hand dominant Cognitive needs: Yes Hearing needs: No Vision needs: Yes Meds Allergies Allergy/AdvReac Type Severity Reaction Status Date / Time No Known Allergies Allergy Verified 10/21/24 07:20 Home Medications ?Medication ?Instructions ?Recorded ?Confirmed ?Last Taken ?Type cholecalciferol (vitamin D3) 25 25 mcg PO DAILY 09/24/20 10/15/24 Unknown History mcg (1,000 unit) capsule calcium 600 mg (as 1 tab PO DAILY 03/14/24 10/15/24 Unknown History carbonate)-vitamin D3 5 mcg (200 unit) tablet Exam Exam Date and Time: 10/21/24 0728 Height,Weight and Vital Signs: Height 5 ft 8 in Weight 105.8 kg Vital Signs Temperature 98.2 F 10/21/24 07:17 Pulse Rate 67 10/21/24 07:17 Respiratory Rate 18 10/21/24 07:17 Blood Pressure 137/80 10/21/24 07:17 Pulse Oximetry 95 10/21/24 07:17 Oxygen Delivery Method Room Air 10/21/24 07:17 Temperature 98.2 F 10/21/24 07:17 Pulse Rate 67 10/21/24 07:17 Respiratory Rate 18 10/21/24 07:17 Blood Pressure 137/80 10/21/24 07:17 Pulse Oximetry 95 10/21/24 07:17 Oxygen Delivery Method Room Air 10/21/24 07:17 Airway Mallampati Class: II TM Dist: >3cm Neck ROM: Full Loose/Missing/Broken Teeth: Yes (poor dentition - multiple broken and missing teeth) Heart: S1S2 Lungs: CTAB Assessment and Plan Assessment Anesthesia Assessment: Anesthesia Plan Discussed and Chart Reviewed Final Anesthetic Review Family History of Problems with Anesthesia: No History of Problems with Anesthesia: No NPO: Yes ASA Class: II Final Preanesthetic Review: No Changes in Pt Med Stat, Meds/Allgs Chart Reviewed, Consent Obtained/Reviewed and Anes Risks/Benef Reviewed Patient Risk: Low Procedure Risk: Low Anesthetic Plan Anesthetic Plan: MAC: and Agree w/ Assess. and Plan Disposition: Standard PACU
--- NOTE | 2024-10-21 08:16 | MHC.SHP ---
Pre-Procedural Eval Section A - 24 Hr Update-Section A only Date of Service: 10/21/24 The patient is an INPATIENT: No Changes since office visit: No Cold of Flu in the past 2 weeks, No New Medical Problems, No Changes in Medication and No Patient answered all questions The patient has been examined within 24 hours of the surgical procedure. The History & Physical has been completed within 30 days and I have reviewed it.: Yes Section B - Complete if H&P > 30 days Chief Complaint: Age-related nuclear cataract, right eye Allergies: Allergies Allergy/AdvReac Type Severity Reaction Status Date / Time No Known Allergies Allergy Verified 10/21/24 07:20 Plan Diagnosis/Plan: Unchanged I have reviewed the history and physical and performed a pertinent physical examination on my patient. No changes have occurred unless specified. Time Spent With Patient Time: Total time managing care of this patient today ____ minutes.
--- NOTE | 2024-10-21 08:16 | HO.PNOPHT ---
Ophthalmology Procedure Procedure Date of Service: 10/21/24 Ophthalmology Viscoelastic: Praneeth Gallegost Dual Pack Pro Ophthalmology Lenses: TECTUAN HM0206 (16) Procedure Notes: PREOPERATIVE DIAGNOSIS: Decreased visual acuity right eye secondary to cataract POSTOPERATIVE DIAGNOSIS: Same PROCEDURE: Right cataract extraction with intraocular lens insertion SURGEON: Martínez Hairston M.D. ANESTHESIA: Topical/MAC ESTIMATED BLOOD LOSS: None COMPLICATIONS: None After obtaining informed consent, the patient was brought to the operating room suite and placed in the supine position. After adequate sedation per anesthesia, topical drops of Tetracaine were given to the right eye. The eye was then prepped and draped in the usual sterile fashion. The operating room microscope was then positioned over the operative eye and a lid speculum placed. A paracentesis was created. Viscoelastic was then instilled into the anterior chamber. A three plane incision was then created temporally, utilizing a 2.85 mm keratome. Capsulotomy forceps were then utilized to create a circular tear capsulotomy. Hydrodissection and hydrodelineation were carried out until adequate mobilization of the nucleus occurred. Phacoemulsification was then utilized to remove the dense central nucleus followed by removal of the cortical material utilizing the automated aspiration irrigation unit. Viscoelastic was instilled into the posterior capsular bag followed by placement of a posterior chamber intraocular lens without difficulty. The residual Viscoelastic was then removed utilizing the automated IA machine. The wound was checked and found to be watertight. The patient tolerated the procedure well and the lid speculum was removed. Intracameral injection of Vigamox 0.1 mL followed by a subtenon injection of Kenalog-40 0.2 mL were administered. The patient will be seen in the a.m.
[2024-10-21 08:49] VITALS: BP 111/62; PULSE 67; RESP 18; TEMP 36.2; O2SAT 96
== END 2024-10-21 08:52 | disposition home or self-care (01) ==
PROVIDERS: PCP Internal Medicine; Visit Provider Ophthalmology
PROC: (CPT 66985; principal; 2024-10-21 08:30)
DX: H25.11 Age-related nuclear cataract, right eye (principal); H54.7 Unspecified visual loss; H18.413 Arcus senilis, bilateral; H31.003 Unspecified chorioretinal scars, bilateral; E11.65 Type 2 diabetes mellitus with hyperglycemia; I10 Essential (primary) hypertension; F41.1 Generalized anxiety disorder; J45.909 Unspecified asthma, uncomplicated; Z85.820 Personal history of malignant melanoma of skin; Z96.1 Presence of intraocular lens; Z79.899 Other long term (current) drug therapy; Z87.891 Personal history of nicotine dependence; Z98.890 Other specified postprocedural states
CPT/HCPCS: 66984; J2250; J3301; V2632

== ENCOUNTER 2024-12-03 08:01 | Outpatient (REF) | payer MEDICARE, SELFPAY ==
--- OUTSIDE RECORDS SUMMARY | 2024-12-03 08:05 | XMS_ITS | Data Portability ---
Author Organization [facility], [address] [address] Address [address] [place] [address] Assessment No assessment recorded. Plan of Treatment Reminders Order Date Submit Date Provider Last Modified By Organization Details Last Modified Time Details Appointments None recorded. Lab None recorded. Referral None recorded. Procedures None recorded. Surgeries None recorded. Imaging None recorded. Medication Orders cephalexin 500 mg capsule 2022 023 [id number], [address], [place], [id number], 3 09:31:11 triamcinolo ne acetonide 0.1 % topical cream 2022 023 [id number], [address], [place], [id number], 3 09:31:11 Patient TargetsNo targets recorded. Patient Instructions Encounter Date Encounter Id Patient Instructions Last Modified By Organization Details Last Modified Time 02/07/2023 [id number] insect stings an d bites: care instructions [email or web address] Not available 02/07/2023 09:31:41 Reason for Referral None Reported. Problems Name Problem SNOMED Code Status Onset Date Resolution Date Notes Provider Name and Address Organization Details Recorded Time Hypertensiv e disorder 07300954 Active 2022 [facility] 3 14:23:10 Diabetes mellitus 47186199 Active 2022 [facility] 3 14:23:20 History of hay fever 649635521 Completed 202211/23/2022 Dottie sandoval [facility] 3 14:23:35 Retinal detachment 88670574 Completed 202211/23/2022 Dottie sandoval [facility] 3 14:24:59 Problem Notes None recorded. Procedures Surgical History Date Name Laterality Status Provider Name and Address Organization Details Recorded Time total knee replacement completed Dottie Salmon [facility] 11/23/2022 14:23:50 Imaging Results None recorded. Procedure Notes None recorded. Medical Equipment None Reported. Allergies Allergen ID Allergen Name Allergen Category Reaction Reaction Severity Criticality Documentation Date Start Date Code Code System Note Provider Name and Address Organization Details Recorded Time 896984 grass pollen environme nt,medica tion Not available Not available Not available 11/23/2022 95183 UNK Dottie sandoval [facility] 3 08:56:00 Medications Name Sig [...] Updated DateTime 3 172.72 cm 35 kg/m2 406098. 25 g 98 % 98 % 81 [...] Updated DateTime 3 172.72 cm 33.5 kg/m2 68022.3 2 g 18 /min 97 % 97 % 70 /min 97.5 [degF] 130 mm[Hg] 77 mm[Hg] Dottiefroylan Wilsonsondra PA - [facility] 3 09:02:24 Social History Question Answer Notes LastModified by [employer] Details LastModified Time Tobacco Smoking Status Former Smoker Dottie sandoval, PA - [facility] 11/23/2022 14:25:34 When Did You Quit Smoking? 16+yearssinc elastcigaret te Information not available 11/23/2022 Have You Recently Traveled Abroad? No Information not available 11/23/2022 Sex: Unknown Functional Status Question Answer Note LastModified by [employer] Details LastModified Time Do you use any illicit or recreational drugs? No Information not available 11/23/2022 Do you or have you ever used any other forms of tobacco or nicotine? No Information not available 11/23/2022 What is your level of alcohol consumption? None Information not available 11/23/2022 Mental Status None recorded. Family History Relationship Description Onset Age of this Age Resolved Age Notes LastModified by Organization Details LastModified Time Sister Alzheimer's disease emonfette Not available 2022 14:25:15 Medical History No medical history recorded. Immunizations Vaccine Type Date Status Note Provider Nam e and Address Organization Details Recorded Time Influenza, adjuvanted, trivalent, PF 7 completed Dottie Salmon null, PA - [facility] 11/23/2022 14:19:22 Influenza, adjuvanted, trivalent, PF 6 completed Dottie Salmon null, PA - [facility] 11/23/2022 14:19:22 Influenza, high-dose, quadrivalent, PF 1 completed Dottie Salmon null, PA - [facility] 11/23/2022 14:19:22 COVID-19, mRNA, LNP-S, PF, 30 mcg/0.3 mL dose 03/20/202 1 completed Dottie Monfette null, PA - [...] 11/23/2022 14:19:22 pneumococcal polysaccharide PPV23 7 completed Dtotie Monfette null, PA - [facility] 11/23/2022 [...] SNOMED-CT Code Diagnosis ICD10 Code Diagnosis Note [id number] [facility] [address] [place] [address] 02/04/2017 10:29:09 02/04/2017 11:14:31 [id number] [address] [facility] [address] [place] [address] 09/26/2015 08:41:39 09/26/2015 09:38:27 [id number] [facility] [address] [place] [address] 12/12/2016 10:43:48 12/12/2016 11:26:08 [id number] Glenis Ceballos MD [address] [address] [place] [address] 11/23/2022 13:44:59 11/23/2022 14:47:01 Left without being seen [id number] 9102 Z53.21 Patient brought to room but I never saw patient. He didn't want to wait and left prior to my Assessment [id number] Glenis Ceballos MD [address] [place] [address] 02/07/2023 08:37:54 02/07/2023 09:32:27 Infected insect bite 653023695 L08.9 Bite of insect 522439268 W57.XXXA Apply Cool compresses .Can take a [...] Recorded Advance Directives Directive None Recorded Payers Insurance Date Sequence Insurance Name Policy Number Policy Vance Covered Member ID Vance Member ID Guarantor Name 02/07/2023 1 [place] [employer] Sunny Mccloud [id number] Sunny Mccloud 02/07/2023 2 [place]) [id number] Sunny Mccloud [id number] Sunny Mccloud Notes Date Note Type Note Provider Name and Address Organization Details Recorded Time 02/07/2023 text/html Rash / Skin LesionReported bypatient.Location:[facility]; hands Quality:itchy;painfu l;red;swollen Severity:mild Duration:2 days Alleviating Factors:nothing gives relief Associated Symptoms:no fever; no fatigueNotes:swellin g has increased today which is day 3 Glenis Ceballos MD [address] [place], [address], [place] - [facility] 02/07/2023 17:23:06
--- OUTSIDE RECORDS SUMMARY | 2024-12-03 08:05 | XMS_ITS ---
Author Organization [facility] Address [address] [place] [address] Care Team Providers Care Auto Parts Clerk Name Role Phone Lacho Araujo MD Primary Care Provider Nikos Payne [phone] Allergies No Known Allergies REASON FOR VISIT [...] 11/30/2023 Encounters Encounter Location Date Provider Diagnosis [facility] [address] [place] [address] 11/30/2023 Nikos Gordon History of adenomato us [...] KALPESH KOHLI GDOB:[birth year] (78 yo M)Acc No.[id number]:11/30/2023 Progress Notes Patient:?KALPESH KOHLI Provider:?Nikos Gordon MD :1945???Age:78 Y???Sex:Male Michael e:11/30/2023 Address:[address] [place], [place] [id number] Pcp:Lacho Araujo MD Subjective: * Chief Complaints: [...] Negative.?Miscellaneous:?Marital status: single. 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 ???Nonsmoker; no sig alcohol. * Medications:?TakingDoxazosin Mesylate [...] for 11/30/2023)* with MAC scheduled colon at [facility] on 03-15-2024 at 8:30 a.m. * Procedure Codes:?1036F TOBAC CO NON-WEOVP2578 BP SCR NOT PRFRM REC REASON NOS * Preventive Medicine:? ??Counseling:?Care goal follow-up plan:?Above Normal BMI Follow-up?Giving encouragement to exercise,?BMI management provided?Yes.? * Follow Up:?prn * * Sign off status: Completed true * Provider:?Nikos Gordon MD Date:? 024 Generated for Shona joaquin/Tom/eTronnysmitting on:?12/03/2024 08:05 AM EDT History and Physical Notes * [...]
--- OUTSIDE RECORDS SUMMARY | 2024-12-03 08:05 | XMS_ITS | Patient Health Record ---
Author Organization [facility] Address [address] [place] [address] Care Team Providers Care All Around Presser Name Role Phone Lacho Araujo MD Primary Care Provider Nikos Payne [phone] Allergies No Known Allergies Results Component Value Reference Range Notes Pathology (Not yet reviewed by provider) Interpretation: Performing Lab:[facility], [address] [place] [address] Notes/Report: Name: Kalpesh Kohli Age/Sex: 79/M : 1945 Unit#: [id number] Attend Dr: Nikos Gordon MD Re03/15/24 Status : [facility] Location: [facility] Disch: SPEC : [id number] RECD : 08/30/24-1040 STATUS: JACKIE JOSHI NUM: [id number] JENNIFER: 03/15/[address] [facility] [address]: Nikos Gordon MD ENTERED: 03/15/24 60 [...] microscopic examination, 1 piece in cassette [facility] CONTINUED ON NEXT PAGE Name: RogersKalpesh Marlyn Age/Sex: 79/M : 1945 Unit#: [id number] Attend Dr: Nikos Gordon MD Re03/15/24 Statu s: [facility] Location: [facility] Disch: SPEC : [id number] RECD : 03/15/24 STATUS: JACKIE JOSHI NUM: [id number] JENNIFER: 03/15/24-[address] [facility] [address]: Nikos Gordon MD ENTERED: 03/15/24- 58 SP TYPE: Surgical OTHR DR: Lacho Araujo MD ORDERED: FINA Stain/9, Janie Carlos L4/3 Copies To: Lacho Araujo MD [facility],[address] [place] [address] Nikos Gordon MD [facility] [address] [place] [address] Signed (si gnature on file) Volodymyr Haque [...] Problem Status W/U Status Risk Notes Problem 518159617 Encounter for screening for malignant neoplasm of colon (Z12.11) Active confirmed Problem 628568294 History of adenomatous polyp of colon (Z86.010) Active confirmed Problem Diverticulosis o f large intestine without perforation or abscess without bleeding (K57.30) Active confirmed Problem 439899647564453 Preprocedural examination (Z01.818) Active confirmed Problem 383111784 Gastroesophageal reflux disease, esophagitis presence not specified (K21.9) Active confirmed Problem 262659104 Long-term use of aspirin therapy (Z79.82) Active confirmed Encounters Encounter Location Date Provider Diagnosis [facility] [address] [place] [id number] 03/15/2024 Nikos Gordon Encounter for scre ening [...] hemorrhoids (ICD-10 - K64.8) Plan Of Treatment Pending Test Test Name Order Date Pathology 03/15/2024 Future Test Test Name Order Date COLONOSCOPY 04/09/2013 COLONOSCOPY 08/10/2018 COLONOSCOPY 11/30/2023 Insurance Providers Payer Name Payer Address Payer Phone Subscriber Number Group Number Insured Name Patient Relationship to Insured Coverage Start Date Coverage End Date MEDICARE OF [place] [address] [place] [address] [id number] KALPESH KOHLI Self - patient is the insured [employer] ATTN CLAIMS [address] [place] [address] [id number] KALPESH KOHLI Self - patient is the insured Medical (General) History Medical History History ICD Code > 1CM tubular adenoma remove d in 2003, a neg. colonoscopy in 11/2007, colonoscopy in 05/2013 with a small tubular adenoma removed Denies TN,CVA,renal disease HTN Diet-controlled diabetes Detached retina left eye-had laser surge ry Anxiety Hx of bronchitis/asthma GERD--started on omeprazole approx. 2016 Colonoscopy 09/2018 with one tubular tiffany elias removed Surgical History Surgery Date(Month/Year) Skin cancer on back Laser eye surgery-detached retina Left knee replacement--approx 2014 Right knee replacement -approx 2021
--- OUTSIDE RECORDS SUMMARY | 2024-12-03 08:05 | XMS_ITS | Clinical Summary ---
Author Organization [facility] Address [address] [place] [address] Phone Care Team Providers Care Infrastructure Developer Name Role Phone Lacho Araujo MD Primary Care Provider [phone] Allergies No known active allergies Medications calcium [...] Hypertension 07/02/2021 Benign essential hypertension 12/23/2020 Immunizations Immunization Administration Dates Next Due Pneumococcal Polysaccharide 11/21/2013 [...] Due Date Last Done Comments Pneumococcal Vaccine: 50+ Ye ars (2 of 2 - PCV) 11/21/2014 11/21/2013 Influenza Vaccine (Season Ended) 2025 Pneumococcal Vaccine: Peds ( 0 to 5 Years) and At-Risk Patients (6 to 49 Years) Discontinued 11/21/2013 Hepatitis B Vaccine Aged Out No longe r eligible based on patient's age to complete this topic Insurance [facility] [place] [address] [address] [place] [address] Medicare Care Teams Infrastructure Developer Relationship Specialty Start Date End Date Lacho Araujo MD [address] [place] [address] PCP - General 07/27/20
--- OUTSIDE RECORDS SUMMARY | 2024-12-03 08:05 | XMS_ITS | Clinical Summary ---
Author Organization [facility] Address [address] [place] [address] Care Team Providers Care Subsea Engineer Name Role Phone Lacho Araujo MD Primary Care Provider [phone] Allergies No known active allergies Medications Medication [...] age to complete this topic Care Teams Subsea Engineer Relationship Specialty Start Date End Date Lacho Araujo MD [address] [place] [address] [address] [facility] ALEXEI Mcintosh [id number] PCP - General Internal Medicine 09/28/21
--- OUTSIDE RECORDS SUMMARY | 2024-12-03 08:05 | XMS_ITS ---
Author Organization [facility] Address [address] [place] [address] Care Team Providers Care Manager Publishing Name Role Phone Po Lacho SANDRA Primary Care Provider Nikos Payne [phone] REASON FOR VISIT screening colon Problems Problem Type SNOMED Code ICD Code Onset Dates Problem Status W/U Status Risk Notes Problem Diverticular disease of colon (407476951) Diverticulosis of large intestine without perforation or abscess without bleeding (K57.30) Active confirmed Encounters Encounter Location Date Provider Diagnosis [facility] [place] [address] [place] [id number] 03/15/2024 Nikos Gordon Encounter for scre ening [...] KALPESH KOHLI GDOB:[birth year] (79 yo M)Acc No.[id number]:03/15/2024 COLON WITH MAC Patient:?KAMILLA KALPESH Marlyn Provider:?Nikos Gordon MD :1945???Age:79 Y???Sex:Male Michael e:03/15/2024 Address:[address] [place], [place] [address] Pcp:Lacho Araujo MD Subjective: * Chief Complaints: * ???1. Screening colon. * Medical History:? Objective: * Vitals:? Assessment: * Assessment: 1.?Encounter for screening c olonoscopy - Z12.11 (Primary)???2.?Colon polyps - K63.5???3.?Diverticulosis of large intestine without perforation or abscess without bleeding - K57.30???4.?Other hemorrhoids - K64.8??? Plan: * Treatment: * Procedure Codes:?30348 LESIO N REMOVAL COLONOSCOPY, Modifiers: [place] , [address] COLONOSCOPY AND BIOPSY, Modifiers: 59 , PT, [...] MD Date:? 024 Generated for Shona joaquin/Tom/Helensmitting on:?12/03/2024 08:05 AM EDT
[2024-12-03 10:45] LABS: Anion Gap 11 (12-20); Blood Urea Nitrogen 14 mg/dL (9-16); Carbon Dioxide 27 mmol/L (22-29); Chloride 106 mmol/L (96-108); Estimated Glomerular Filt Rate > 60; Potassium 4.5 mmol/L (3.3-5.1); Sodium 139 mmol/L (135-145)
[2024-12-03 11:40] LABS: Creatinine Urine 112.95 mg/dL; Total Protein Urine Random < 7 mg/dL (<12)
== END 2024-12-03 08:02 | disposition home or self-care (01) ==
LOC: HO.HMGCLDS 08:01
PROVIDERS: PCP Internal Medicine; Visit Provider Internal Medicine Nephrology
DX: I10 Essential (primary) hypertension (principal)
CPT/HCPCS: 36415; 80051; 82565; 82570; 84156; 84520

== ENCOUNTER 2024-12-04 09:16 | Outpatient (AMB) | payer MEDICARE, SELFPAY ==
--- NOTE | 2024-12-04 09:27 | HO.NEPHOV_ITS ---
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 He has been on metoprolol 50 mg in the morning 25mg in the evening along with spironolactone 100 mg and losartan 50 mg in the morning and doxazosin 8 mg at night stable renal functions. He is not known to have any orthostatic symptoms or proteinuria. He follows up with Urology for his prostate issues. He is compliant with his medications. He denies chest pain, shortness of breath, proximal nocturnal dyspnea, orthopnea, pedal edema. His hemoglobin A1c has been over 6. He has been having carpal tunnel symptoms. He feels well otherwise [facility] Medical History Bronchitis Numbness of left hand Puncture wound of foot, right Cellulitis of left lower extremity Preoperative clearance Allergic contact dermatitis Cataract Retinal detachment Restless leg syndrome Type 2 diabetes mellitus with hyperglycemia BPH (benign prostatic hyperplasia) GERD (gastroesophageal reflux disease) Anemia Anxiety and depression Obesity (BMI 30-39.9) Asthma Hypertension Tubular adenoma of colon Surgical History (Updated 12/04/24 @ 09:31 by Deepika Mark MA) History of cataract surgery History of carpal tunnel release History of bilateral knee replacement Hx of eye surgery Hx of detached retina repair History of colonoscopy History of arthroplasty of left knee Hx of tonsillectomy H/O vitrectomy Melanoma Family History Mother No problems noted. Father Prostate cancer Social History Housing: House Housing Other:: duplex Are you a primary patient centered care specialist to a significant other at home: No Do you presently have visiting nurse or other home services: No Alcohol intake: never Patient Tobacco Use Status: Former Tobacco user Tobacco use type: Cigarette Years Smoked: 1970 quit e-Cigarette/Vaping Use: Never Used Second Hand Smoke Exposure: No service: No Current occupational status: retired Current occupation: right hand dominant Cognitive needs: Yes Hearing needs: No Vision needs: Yes Review of Systems Const All systems reviewed & are unremarkable except as noted in HPI and below Physical Exam Const General: comfortable and no acute distress Orientation/consciousness: patient oriented x3 HEENT Head: Yes normocephalic Mouth: Normal oral and palatal mucosa present Eyes EOM: EOMs intact bilaterally Neck Neck: Yes supple Resp Auscultation: clear to auscultation bilaterally Cardio Jugular venous distension: no JVD Rate: regular rate GI Palpation (GI): Soft to palpation Auscultation: normal bowel sounds General: Yes no CVA tenderness Back/Spine/Pelvis Back: no CVA tenderness Skin General skin exam: no rashes or lesions noted Neuro General: patient oriented x3 and moves all extremities Extrem General: Yes no pedal edema Results Reviewed Nephrology Results: Sodium 139 mmol/L (135-145) 12/03/24 Potassium 4.5 mmol/L (3.3-5.1) 12/03/24 Chloride 106 mmol/L (96-108) 12/03/24 Carbon Dioxide 27 mmol/L (22-29) 12/03/24 BUN 14 mg/dL (9-16) 12/03/24 Creatinine 0.81 mg/dL (0.5-1.4) 12/03/24 Urine Creatinine 112.95 mg/dL 12/03/24 Protein/Creatinin Ratio TNP 12/03/24 Assessment & Plan Assessment & Plan (1) Hypertension: Code(s): I10 - Essential (primary) hypertension Category: Medical Qualifiers: Hypertension type: essential hypertension Qualified Code(s): I10 - Essential (primary) hypertension Plan Sunny has longstanding hypertension. Ever since his medications have been adjusted his blood pressure has been at goal. He should continue his current medication regimen. He does not have any hyperkalemia, proteinuria and has normal renal function. He denies any orthostatic symptoms. He avoids nonsteroidal anti-inflammatories and maintain good hydration. I did not make any medication changes today. I answered all his questions. Follow-up given. Orders: Orders Creatinine 6 Months I10 - Essential (primary) hypertension Blood Urea Nitrogen 6 Months I10 - Essential (primary) hypertension Electrolytes 6 Months I10 - Essential (primary) hypertension Coding Level of Care Code Est Pt Level 4 (15238) Diagnoses Essential hypertension I10 Hypertension type: essential hypertension
[2024-12-04 09:35] VITALS: BP 134/80; PULSE 63; O2SAT 96; BMI 35.2
--- OUTSIDE RECORDS SUMMARY | 2024-12-04 10:33 | XMS_ITS | Clinical Summary ---
Author Organization [facility] Address [address] [place] [address] Care Team Providers Care Kennel Assistant Name Role Phone Lacho Araujo MD Primary Care Provider [phone] Allergies No known active allergies Medications Medication [...] age to complete this topic Care Teams Kennel Assistant Relationship Specialty Start Date End Date Lacho Araujo MD [address] [place] [address] [address] [facility] ALEXEI Mcintosh [id number] PCP - General Internal Medicine 09/28/21
--- OUTSIDE RECORDS SUMMARY | 2024-12-04 10:33 | XMS_ITS | Clinical Summary ---
Author Organization [facility] Address [address] [place] [address] Phone Care Team Providers Care Blockman Name Role Phone Lacho Araujo MD Primary Care Provider [phone] Allergies No known active allergies Medications calcium [...] patient's age to complete this topic Insurance [facility] [place] [address] [address] Medicare Care Teams Blockman Relationship Specialty Start Date End Date Lacho Araujo MD [address] [place] [address] PCP - General 07/27/20
--- OUTSIDE RECORDS SUMMARY | 2024-12-04 10:33 | XMS_ITS | Data Portability ---
Author Organization [facility], [address] Address [address] [place] [address] Assessment No assessment recorded. Plan of Treatment Reminders Order Date Submit Date Provider Last Modified By Organization Details Last Modified Time Details Appointments None recorded. Lab None recorded. Referral None recorded. Procedures None recorded. Surgeries None recorded. Imaging None recorded. Medication Orders cephalexin 500 mg capsule 2022 023 [id number], [address] [place], [place], [id number], 3 09:31:11 triamcinolo ne acetonide 0.1 % topical cream 2022 023 [id number], [address], [place], [phone], 3 09:31:11 Patient TargetsNo targets recorded. Patient Instructions Encounter Date Encounter Id Patient Instructions Last Modified By Organization Details Last Modified Time 02/07/2023 [id number] insect stings an d bites: care instructions [email or web address] Not available 02/07/2023 09:31:41 Reason for Referral None Reported. Problems Name Problem SNOMED Code Status Onset Date Resolution Date Notes Provider Name and Address Organization Details Recorded Time Hypertensiv e disorder 82710316 Active 2022 [facility] 3 14:23:10 Diabetes mellitus 10979682 Active 2022 [facility] 3 14:23:20 History of hay fever 801304229 Completed 202211/23/2022 Dottie sandoval [facility] 3 14:23:35 Retinal detachment 53801757 Completed 202211/23/2022 Dottie sandoval [facility] 3 14:24:59 Problem Notes None recorded. Procedures Surgical History Date Name Laterality Status Provider Name and Address Organization Details Recorded Time total knee replacement completed Dottie Salmon [facility] 11/23/2022 14:23:50 Imaging Results None recorded. Procedure Notes None recorded. Medical Equipment None Reported. Allergies Allergen ID Allergen Name Allergen Category Reaction Reaction Severity Criticality Documentation Date Start Date Code Code System Note Provider Name and Address Organization Details Recorded Time 384595 grass pollen environme nt,medica tion Not available Not available Not available 11/23/2022 81676 UNK Dottie sandoval [facility] 3 08:56:00 Medications Name Sig [...] Updated DateTime 3 172.72 cm 35 kg/m2 512826. 25 g 98 % 98 % 81 [...] Updated DateTime 3 172.72 cm 33.5 kg/m2 12291.3 2 g 18 /min 97 % 97 % 70 /min 97.5 [degF] 130 mm[Hg] 77 mm[Hg] Dottiefroylan Wilsonsondra PA - [facility] 3 09:02:24 Social History Question Answer Notes LastModified by [place] Details LastModified Time Tobacco Smoking Status Former Smoker Dottie sandoval, [place] - [facility] 11/23/2022 14:25:34 When Did You Quit Smoking? 16+yearssinc elastcigaret te Information not available 11/23/2022 Have You Recently Traveled Abroad? No Information not available 11/23/2022 Sex: Unknown Functional Status Question Answer Note LastModified by [place] Details LastModified Time Do you use any [...] SNOMED-CT Code Diagnosis ICD10 Code Diagnosis Note [id number] [facility] [address] [place] [address] 02/04/2017 10:29:09 02/04/2017 11:14:31 [id number] [address] [address] [place] [address] 09/26/2015 08:41:39 09/26/2015 09:38:27 [id number] [facility] [address] [place] [address] 12/12/2016 10:43:48 12/12/2016 11:26:08 [id number] [place] Ceballos [place] [address] [address] [place] [address] 11/23/2022 13:44:59 11/23/2022 14:47:01 Left without being seen [id number] 9102 Z53.21 Patient brought to room but I never saw patient. He didn't want to wait and left prior to my Assessment [id number] Glenis Ceballos MD [address] [address] [place] [address] 02/07/2023 08:37:54 02/07/2023 09:32:27 Infected insect bite 271521039 L08.9 Bite of insect 056033401 W57.XXXA Apply Cool compresses .Can take a [...] ID Guarantor Name 02/07/2023 1 [place] [employer] Sunny Mccloud [id number] Sunny Mccloud 02/07/2023 2 [place] [id number] Sunny Mccloud [id number] Sunny Mccloud Notes Date Note Type Note Provider Name and Address Organization Details Recorded Time 02/07/2023 text/html Rash / Skin LesionReported bypatient.Location:[facility]; hands Quality:itchy;painfu l;red;swollen Severity:mild Duration:2 days Alleviating Factors:nothing gives relief Associated Symptoms:no fever; no fatigueNotes:swellin g has increased today which is day 3 Glenis Ceballos MD [address] [place], [address], [place] - [facility] 02/07/2023 17:23:06
--- OUTSIDE RECORDS SUMMARY | 2024-12-04 10:34 | XMS_ITS | Patient Health Record ---
Author Organization [facility] Address [address] [place] [address] Care Team Providers Care Metal Can Inspector Name Role Phone Lacho Araujo MD Primary Care Provider Nikos Payne [phone] Allergies No Known Allergies Results Component Value Reference Range Notes Pathology (Not yet reviewed by provider) Interpretation: Performing Lab:[facility], [address] [place] [address] Notes/Report: Name: Kalpesh Kohli Age/Sex: 79/M : 1945 Unit#: [id number] Attend Dr: Nikos Gordon MD Re03/15/24 Status : [facility] Location: [facility] Disch: SPEC : [id number] RECD : 08/30/24-1040 STATUS: JACKIE JOSHI NUM: [id number] JENNIFER: 03/15/[address] [facility] [address]: Nikos Gordon MD ENTERED: 03/15/24 60 [...] microscopic examination, 1 piece in cassette [facility]. [facility] CONTINUED ON NEXT PAGE Name: RogersKalpesh Marlyn Age/Sex: 79/M : 1945 Unit#: [id number] Attend Dr: Nikos Gordon MD Re03/15/24 Statu s: [facility] Location: [facility]Y Disch: SPEC : [id number] RECD : 03/15/24 STATUS: JACKIE JOSHI NUM: [id number] JENNIFER: 03/15/24-[address] [facility] [address]: Nikos Gordon MD ENTERED: 03/15/24- 58 SP TYPE: Surgical OTHR DR: Lacho Araujo MD ORDERED: FINA Stain/9, Janie Carlos L4/3 Copies To: Lacho Araujo MD [facility] Primary Care,[address] [place] [address] Nikos Gordon MD [facility] [address] [place] [address] Signed (si gnature on file) Volodymyr Haque [...] Problem Status W/U Status Risk Notes Problem 383868876 Encounter for screening for malignant neoplasm of colon (Z12.11) Active confirmed Problem 854289506 History of adenomatous polyp of colon (Z86.010) Active confirmed Problem Diverticular disease of colon (064691431) Diverticulosis of large intestine without perforation or abscess without bleeding (K57.30) Active confirmed Problem 344810150734178 Preprocedural examination (Z01.818) Active confirmed Problem 767064719 Gastroesophageal reflux disease, esophagitis presence not specified (K21.9) Active confirmed Problem 214093607 Long-term use of aspirin therapy (Z79.82) Active confirmed Encounters Encounter Location Date Provider Diagnosis [facility] Outpatient [address] [place] [id number] 03/15/2024 Nikos Gordon Encounter for scre ening [...] [place] [address] [place] [address] [id number] KALPESH KOHLI Self - patient is the insured [employer] ATT[employer] CLAIMS [address] [place] [address] [id number] KALPESH KOHLI Self - patient is the insured Medical (General) History Medical History History ICD Code > 1CM tubular adenoma remove d in 2003, a neg. colonoscopy in 11/2007, colonoscopy in 05/2013 with a small tubular adenoma removed Denies NH,CVA,renal disease HTN Diet-controlled diabetes Detached retina left eye-had laser surge ry Anxiety Hx of bronchitis/asthma GERD--started on omeprazole approx. 2016 Colonoscopy 09/2018 with one tubular tiffany elias removed Surgical History Surgery Date(Month/Year) Skin cancer on back Laser eye surgery-detached retina Left knee replacement--approx 2014 Right knee replacement -approx 2021
--- OUTSIDE RECORDS SUMMARY | 2024-12-04 10:34 | XMS_ITS ---
Author Organization [facility] Address [address] [place] [address] Care Team Providers Care Pararescue Manager Name Role Phone Po Lacho SANDRA Primary Care Provider Nikos Payne [phone] REASON FOR VISIT screening colon Problems Problem Type SNOMED Code ICD Code Onset Dates Problem Status W/U Status Risk Notes Problem Diverticulosis o f large intestine without perforation or abscess without bleeding (K57.30) Active confirmed Encounters Encounter Location Date Provider Diagnosis [facility] Outpatient [address] [place] [phone] 03/15/2024 Nikos Gordon Encounter for scre ening [...] KALPESH KOHLI GDOB:[birth year] (79 yo M)Acc No.[id number]:03/15/2024 COLON WITH MAC Patient:?KALPESH KOHLI Provider:?Nikos Gordon MD :1945???Age:79 Y???Sex:Male Michael e:03/15/2024 Address:[address] [place], [place] [address] [facility] Pcp:Lacho Araujo MD Subjective: * Chief Complaints: * ???1. Screening colon. * Medical History:? Objective: * Vitals:? Assessment: * Assessment: 1.?Encounter for screening c olonoscopy - Z12.11 (Primary)???2.?Colon polyps - K63.5???3.?Diverticulosis of large intestine without perforation or abscess without bleeding - K57.30???4.?Other hemorrhoids - K64.8??? Plan: * Treatment: * Procedure Codes:?36096 LESIO N REMOVAL COLONOSCOPY, Modifiers: [place] , [address] COLONOSCOPY AND BIOPSY, Modifiers: 59 , PT, [...] MD Date:? 024 Generated for Shona joaquin/Tom/eTransmitting on:?12/04/2024 10:34 AM EDT
--- OUTSIDE RECORDS SUMMARY | 2024-12-04 10:34 | XMS_ITS ---
Author Organization [facility] Address [address] [place] [address] Care Team Providers Care Scratch Polisher Name Role Phone Lacho Araujo MD Primary Care Provider Nikos Payne [phone] Allergies No Known Allergies REASON FOR VISIT [...] 11/30/2023 Encounters Encounter Location Date Provider Diagnosis [facility] [address] [place] [address] 11/30/2023 Nikos Gordon History of adenomato us [...] KALPESH KOHLI GDOB:[birth year] (78 yo M)Acc No.[id number]:11/30/2023 Progress Notes Patient:?KALPESH KOHLI Provider:?Nikos Gordon MD :1945???Age:78 Y???Sex:Male Michael e:11/30/2023 Address:[address] [place], [place] [id number] Pcp:Lacho Araujo MD Subjective: * Chief Complaints: [...] Negative.?Miscellaneous:?Marital status: single. 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 ???Nonsmoker; no sig alcohol. * Medications:?TakingDoxazosin Mesylate [...] for 11/30/2023)* with MAC [place] [facility] [place]2024 at 8:30 a.m. * Procedure Codes:?1036F TOBAC CO NON-TLOPN5530 BP SCR NOT PRFRM REC REASON NOS * Preventive Medicine:? ??Counseling:?Care goal follow-up plan:?Above Normal BMI Follow-up?Giving encouragement to exercise,?BMI management provided?Yes.? * Follow Up:?prn * * Sign off status: Completed true * Provider:?Nikos Gordon MD Date:? 024 Generated for Shona joaquin/Tom/eTransmitting on:?12/04/2024 10:33 AM EDT History and Physical Notes * [...]
== END 2024-12-04 09:56 | disposition home or self-care (01) ==
LOC: HO.HKA 09:16
PROVIDERS: PCP Internal Medicine; Visit Provider Internal Medicine Nephrology
DX: I10 Essential (primary) hypertension (principal)
CPT/HCPCS: 99214

== ENCOUNTER → 2024-12-04 09:16 | Outpatient (BNVA) | payer MEDICARE, SELFPAY | PROVIDERS: PCP Internal Medicine; Visit Provider Internal Medicine Nephrology | DX: I10 Essential (primary) hypertension (principal) | CPT/HCPCS: 99212 ==

== ENCOUNTER 2024-12-10 08:26 | Outpatient (AMB) | payer MEDICARE, SELFPAY ==
[2024-12-10 08:33] VITALS: BP 128/72; PULSE 65; O2SAT 97; BMI 34.8
--- NOTE | 2024-12-10 08:33 | A.OFFPC_ITS ---
Vital Signs 12/10/24 08:33 Height 5 ft 8 in Weight 229 lb BMI 34.8 BP 128/72 Blood Pressure Location Lt brachial Position Sitting Pulse 65 Pulse Source Pulse Oximeter Pulse Oximetry (%) 97 Oxygen Delivery Method Room Air Intake Visit Reasons: Hypertension Allergies No Known Allergies Allergy (Verified 12/10/24 08:33) Medication List - Last Reconciled 12/10/24 by Lacho Araujo MD ascorbate calcium (vitamin C) 500 mg PO DAILY calcium carbonate-vitamin D3 600 mg-5 mcg (200 unit) 1 tab PO DAILY cholecalciferol (vitamin D3) 25 mcg PO DAILY doxazosin 8 mg PO DAILY dutasteride 0.5 mg PO DAILY 90 days ferrous sulfate (Feosol) 325 mg PO DAILY [L wrist splint As directed] losartan 50 mg PO DAILY 90 days metoprolol succinate ER 50 mg PO DAILY omeprazole 20 mg PO DAILY spironolactone 50 mg PO DAILY 90 days venlafaxine 75 mg PO DAILY Tobacco use date assessed: 09/27/24 Fall risk assessment: No Falls in past year Last assessed Fall Risk: 12/10/24 Dental Screening Dental Screen Date: 09/27/24 HPI Hypertension HPI Details CTS surgery upset with our hospital but will be going to [facility] and awaiting for schedule [facility] Medical History (Updated 12/10/24 @ 08:38 by Lacho Araujo MD) Numbness and tingling in right hand Bronchitis Numbness of left hand Puncture wound of foot, right Cellulitis of left lower extremity Preoperative clearance Allergic contact dermatitis Cataract Retinal detachment Restless leg syndrome Type 2 diabetes mellitus with hyperglycemia BPH (benign prostatic hyperplasia) GERD (gastroesophageal reflux disease) Anemia Anxiety and depression Obesity (BMI 30-39.9) Asthma Hypertension Tubular adenoma of colon Surgical History (Updated 12/04/24 @ 09:31 by Deepika Mark MA) History of cataract surgery History of carpal tunnel release History of bilateral knee replacement Hx of eye surgery Hx of detached retina repair History of colonoscopy History of arthroplasty of left knee Hx of tonsillectomy H/O vitrectomy Melanoma Family History Mother No problems noted. Father Prostate cancer Social History Housing: House Housing Other:: duplex Are you a primary respiratory care practitioner to a significant other at home: No Do you presently have visiting nurse or other home services: No Alcohol intake: never Patient Tobacco Use Status: Former Tobacco user Tobacco use type: Cigarette Years Smoked: 1970 quit e-Cigarette/Vaping Use: Never Used Second Hand Smoke Exposure: No service: No Current occupational status: retired Current occupation: right hand dominant Cognitive needs: Yes Hearing needs: No Vision needs: Yes Questionnaire PHQ-9 Over the last 2 weeks, how often have you been bothered by any of the following problems? 1. Little interest or pleasure in doing things: nearly every day 2. Feeling down, depressed, or hopeless: not at all 3. Trouble falling or staying asleep, or sleeping too much: not at all 4. Feeling tired or having little energy: not at all 5. Poor appetite or overeating: more than half the days 6. Feeling bad about yourself - or that you are a failure or have let yourself or your family down: not at all 7. Trouble concentrating on things, such as reading the newspaper or watching television: not at all 8. Moving or speaking so slowly that other people could have noticed. Or the opposite - being so fidgety or restless that you have been moving around a lot more than usual: not at all 9. Thoughts that you would be better off or of hurting yourself in some way: not at all Total score: 5 Depression Screening Interpretation: Positive Depression Screening Done: Yes Source: Developed by Drs. Nikos Ware, Jennifer Banegas, Daniel Chavez and colleagues, with an educational claritza from [email or web address]. Thrive Questionnaire Date Thrive assessed: 09/27/24 I am a: Patient What is your living situation today?: I have a steady place to live Within the past 12 months, did the food you bought not last and you didn't have the money to get more?: Never true Within the past 12 months, did you worry whether your food would run out before you got money to buy more?: Never true Do you have trouble paying for medicines?: No Do you have trouble getting transportation to medical appointments?: No Do you have trouble paying your heating and electricity bill?: No Do you have trouble taking care of your child, family member or friend?: No Do you have trouble with day-to-day activities such as bathing, preparing meals, shopping, managing finances, etc.?: No Are you currently unemployed and looking for a job?: No Are you interested in more education?: No Please select the resources that you would like help with: None Currently or been in a relationship where the following occur: No concerns reported THRIVE Score: 0 AUDIT C Alcohol Use Questionnaire (AUDIT-C) 1. How often do you have a drink containing alcohol?: Never Total Score: 0 PRETTY-7 AMB Questionnaire PRETTY-7 Date PRETTY - 7 assessed: 09/27/24 Feeling nervous, anxious, or on edge: 0 = Not at all Not being able to stop or control worryin = Not at all Worrying too much about different things: 0 = Not at all Trouble relaxin = Not at all Being so restless that it is hard to sit still: 0 = Not at all Becoming easily annoyed or irritable: 0 = Not at all Feeling afraid as if something awful might happen: 0 = Not at all Total PRETTY-7 score (0-4 normal; 5-9 mild; 10-14 moderate; 15-21 severe): 0 Source: Developed by Drs. Nikos Ware, Jennifer Banegas, Daniel Chavez and colleagues, with an educational claritza from [email or web address]. Physical exam (Primary Care) Vital Signs: Last Vital Signs Pulse 65 12/10/24 08:33 BP 128/72 12/10/24 08:33 Pulse Ox 97 12/10/24 08:33 Oxygen Delivery Method Room Air 12/10/24 08:33 BMI result Body Mass Index 34.8 Tobacco/Smoking Status: Tobacco use Status Tobacco use date assessed 09/27/24 12/10/24 08:34 Patient Tobacco Use Status Former Tobacco user 12/10/24 08:34 Tobacco use type Cigarette 12/10/24 08:34 e-Cigarette/Vaping Use Never Used 12/10/24 08:34 PHQ-9: PHQ-9 Score PHQ-9: Total score 5 12/10/24 08:48 Depression Screening Interpretation: Positive Thrive Assessment: Date of Thrive Assessment Date Thrive assessed 09/27/24 12/10/24 08:34 Currently or been in a relationship where the following occur: No concerns reported Const General: alert; No acute distress Eyes Conjunctivae: conjunctivae normal Resp Auscultation: clear to auscultation bilaterally Cardio Rate: regular rate Rhythm: regular rhythm GI Inspection: Yes normal to inspection Extrem General: Yes normal to inspection and No edema Results AMB Hemoglobin A1c AMB Hemoglobin A1c 6.1 % Last Edit by Oksana Schafer CMA on 12/10/24 08 :48 Results Reviewed Results Reviewed: Laboratory Last Values Hgb A1c (Clinic) 6.1 % (4.0-6.0) H 12/10/24 08:34 Coding Level of Care Code Est Pt Level 4 (94806) Diagnoses Carpal tunnel syndrome of right wrist G56.01 Type 2 diabetes mellitus with hyperglycemia, without long-term current use of insulin E11.65 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: without half-way use Essential hypertension I10 Hypertension type: essential hypertension Obesity (BMI 30-39.9) E66.9 Gastroesophageal reflux disease without esophagitis K21.9 Esophagitis presence: without esophagitis Benign prostatic hyperplasia with urinary frequency N40.1; R35.0 Lower urinary tract symptom detail: urinary frequency Lower urinary tract symptom presence: symptoms present Generalized anxiety disorder F41.1 Assessment & Plan Assessment & Plan (1) Carpal tunnel syndrome of right wrist: Code(s): G56.01 - Carpal tunnel syndrome, right upper limb Category: Medical Plan: This procedure was not done (2) Type 2 diabetes mellitus with hyperglycemia: Comment: Dr. Vargas Code(s): E11.65 - Type 2 diabetes mellitus with hyperglycemia Category: Medical Qualifiers: Diabetes mellitus half-way insulin use: without half-way use Qualified Code(s): E11.65 - Type 2 diabetes mellitus with hyperglycemia Plan: Decrease the amount of carbohydrate intake, pasta, bread, rice and potatoes are all sugar and that is aside from all the sweet stuff, remember that fruits are good but they are Sweet also. Hemoglobin A1c goal of less than 7.0 patient is diet controlled (3) Hypertension: Code(s): I10 - Essential (primary) hypertension Category: Medical Qualifiers: Hypertension type: essential hypertension Qualified Code(s): I10 - Essential (primary) hypertension Plan: Continue with blood pressure medication. Decrease salt intake and exercise continue to follow-up with Nephrology also. Patient is on spironolactone 50 mg once a day metoprolol 50 mg once a day losartan 50 mg once a day (4) Obesity (BMI 30-39.9): Code(s): E66.9 - Obesity, unspecified Category: Medical Plan: Diet and exercise (5) GERD (gastroesophageal reflux disease): Code(s): K21.9 - Gastro-esophageal reflux disease without esophagitis Category: Medical Qualifiers: Esophagitis presence: without esophagitis Qualified Code(s): K21.9 - Gastro-esophageal reflux disease without esophagitis Plan: Avoid the foods that causes that usually spicy foods, tomato products, juices, coffee, soda and foods that your sensitive to. After eating do not lie down, allow 3-4 hours before in lie down. And keep the head of bed above 30 degrees to avoid the acid from going up. (6) BPH (benign prostatic hyperplasia): Comment: Dr. Waite Code(s): N40.0 - Benign prostatic hyperplasia without lower urinary tract symptoms Category: Medical Qualifiers: Lower urinary tract symptom detail: urinary frequency Lower urinary tract symptom presence: symptoms present Qualified Code(s): N40.1 - Benign prostatic hyperplasia with lower urinary tract symptoms; R35.0 - Frequency of micturition Plan: Continue with dutasteride (7) Generalized anxiety disorder: Comment: Decline any referral for counseling Code(s): F41.1 - Generalized anxiety disorder Category: Medical Plan: Stable Plan History of Present Illness The patient is a 79-year-old male presenting with a follow-up for ongoing medical conditions including obesity, diabetes, hypertension, asthma, GERD, BPH, anxiety disorder, and hematological abnormalities. His diabetes management shows an A1c of 6.1, maintaining control through dietary measures. Hypertension management involves spironolactone, metoprolol, and losartan, with regular nephrology assessments. Asthma maintenance primarily involves an albuterol inhaler, which has seen reduced usage, indicating symptom control. GERD is managed with omeprazole, and he continues dutasteride for BPH. Recent blood work from November 2023 showed anemia (hemoglobin 11.4 g/dL), thrombocytopenia (platelets 125,000/mm?), and leukopenia (WBC 4.6 x10?/?L). Skin evaluations in November 2024 confirmed the presence of seborrheic and actinic keratosis. Cardiovascular and morbidity risk conditions, primarily related to obesity, prompt interest in pharmacological weight management. Current considerations include Wegovy for weight management, driven by patient interest in longstanding weight loss strategies due to peer observations and medical consultations. Health Maintenance - Shingles vaccination completed - Tetanus vaccination completed - RSV vaccination completed - Monitoring of LDL cholesterol (last known 52 mg/dL in November 2023) - Consideration for adult weight management interventions Social History - Reports difficulty with weight management - Desires lifestyle modifications for health improvement - Awareness and engagement in peer-effected health behaviors Review of Systems - Constitutional: Reports lightheadedness and fatigue. - Respiratory: Denies recent use of albuterol inhaler, occasional shortness of breath. - Cardiovascular: Denies chest pain. - Gastrointestinal: Denies frequent heartburn. - Musculoskeletal: Denies joint pain, but has deferred carpal tunnel procedure. - Hematologic: Reports stable anemia. - Psychiatric: Reports managed anxiety disorder. Physical Exam Results - Labs: Anemia with hemoglobin 11.4 g/dL, thrombocytopenia at 125,000/mm?, leukopenia at 4.6 x10?/?L (November 2023); normal LDL at 52 mg/dL (November 2023) - Previous evaluations by dermatology for seborrheic keratosis and actinic keratosis Plan 1. 1. The low-grade hematological anomalies will not undergo additional aggressive diagnostics unless values deviate precipitously. For asthma management, albuterol will continue to be used as necessary. A new intervention in obesity management through Wegovy is considered after reviewing patient interest and expected benefits. Dermatology will address the skin lesions through periodical assessments.: Patient was informed and verbally consented to the use of an ambient scribe for clinic note documentation during this visit. Discussion Notes In discussions, I reviewed the likely management pathways for each health condition with the patient, providing detailed insights into the benefits and potential repercussions of chosen interventions. We discussed the ongoing medication regimen for hypertension, with a focus on weight management as a contributing factor. The patient expressed interest in Wegovy for weight reduction, motivated by observational improvements in personal acquaintances. I underscored the limited long-term data on Wegovy, and its approval status primarily for diabetes, with potential benefits in inducing weight loss and lowering blood sugar. We discussed the plan for adjusting medications if required responses are unattained. Future evaluations will incorporate regularly monitored lab results and general health upkeep, including any noted anemia or thrombocytopenia progression. Patient Instructions - Continue current medication regimen for hypertension, asthma, and GERD - Maintain contact with nephrology for blood pressure monitoring - Follow a diet suitable for diabetes management - Report any significant changes in symptoms or adverse effects from new medications, particularly after starting Wegovy - Monitor and maintain adequate hydration levels - Schedule routine laboratory tests as instructed - Proceed with relevant dermatological evaluations for skin health Orders: Orders AMB Hemoglobin A1c Today Z13.9 - Encounter for screening, unspecified Medications: New semaglutide (Ozempic) for 4 weeks 0.25 mg (0.368 mL) subcut QWEEK 3 mL 1RF E11.65 - Type 2 diabetes mellitus with hyperglycemia
--- OUTSIDE RECORDS SUMMARY | 2024-12-10 08:46 | XMS_ITS | Clinical Summary ---
Author Organization [facility] Address [address] [place] [address] Care Team Providers Care Collar Cutter Name Role Phone Lacho Araujo MD Primary Care Provider [phone] Allergies No known active allergies Medications Medication [...] age to complete this topic Care Teams Collar Cutter Relationship Specialty Start Date End Date Lacho Araujo MD [address] [place] [address] [address] [facility] ALEXEI Mcintosh [id number] PCP - General Internal Medicine 09/28/21
== END 2024-12-10 09:07 | disposition home or self-care (01) ==
LOC: HO.HMCH 08:27
PROVIDERS: PCP Internal Medicine; Visit Provider Internal Medicine
DX: G56.01 Carpal tunnel syndrome, right upper limb (principal); E11.65 Type 2 diabetes mellitus with hyperglycemia; E66.9 Obesity, unspecified; Z68.34 Body mass index [BMI] 34.0-34.9, adult; I10 Essential (primary) hypertension; K21.9 Gastro-esophageal reflux disease without esophagitis; N40.1 Benign prostatic hyperplasia with lower urinary tract symptoms; R35.0 Frequency of micturition; F41.1 Generalized anxiety disorder

== ENCOUNTER → 2024-12-10 08:26 | Outpatient (BNVA) | payer MEDICARE, SELFPAY | PROVIDERS: PCP Internal Medicine; Visit Provider Internal Medicine | DX: G56.01 Carpal tunnel syndrome, right upper limb (principal); E11.65 Type 2 diabetes mellitus with hyperglycemia; I10 Essential (primary) hypertension; K21.9 Gastro-esophageal reflux disease without esophagitis; N40.1 Benign prostatic hyperplasia with lower urinary tract symptoms; R35.0 Frequency of micturition; F41.1 Generalized anxiety disorder; E66.9 Obesity, unspecified; Z68.34 Body mass index [BMI] 34.0-34.9, adult; Z71.3 Dietary counseling and surveillance | CPT/HCPCS: 83036; 99212 ==

== ENCOUNTER 2025-03-27 07:37 | Outpatient (REF) | payer MEDICARE, SELFPAY ==
--- OUTSIDE RECORDS SUMMARY | 2024-03-15 05:30 | XMS_ITS ---
Author Organization [facility] Address [address] [place] [id number] Care Team Providers Care Shoe Trimmer Name Role Phone Po Lacho SANDRA Primary Care Provider Nikos Payne [phone] REASON FOR VISIT screening colon Problems Problem Type SNOMED Code ICD Code Onset Dates Problem Status W/U Status Risk Notes Problem Diverticular disease of colon (112347670) Diverticulosis of large intestine without perforation or abscess without bleeding (K57.30) Active confirmed Encounters Encounter Location Date Provider [place] [facility] [place] [address] [place] [phone] 03/15/2024 Nikos Gordon Encounter for scre ening [...] KALPESH KOHLI GDOB:[birth year] (80 yo M)Acc No.[id number]:03/15/2024 COLON WITH MAC Patient: KALPESH CARLOS Provider: Dave Gordon MD :1945 A ge:79 Y S ex:Male Date:03/15/2024 Address:[address] [place], [place] [id number] Pcp:Lacho Araujo MD Subjective: * Chief Complaints: [...] 5385 LESION REMOVAL COLONOSCOPY, Modifiers: PT , 80091 COLONOSCOPY AND BIOPSY, Modifiers: 59 , PT, 0529F INTRVL 3+YRS PTS CLNSCP DOCD, 0528F RCMND FLW-UP 10 YRS DOCD, Modifiers: 1P * * The named appointment provid er may or may not be the originator of this progress note, and it is not deemed complete until electronically signed by the appointment provider. Sign off status: Pending * Provider: Dave Gordon MD Date: 03/15/2024 Generated for Shona joaquin/Tom/eTransmitting on: 0 03/27/2025 07:43 AM EDT
--- OUTSIDE RECORDS SUMMARY | 2025-03-27 07:43 | XMS_ITS | Clinical Summary ---
Author Organization [facility] Address [address] [place] [address] Phone Care Team Providers Care County Coroner Name Role Phone Lacho Araujo MD Primary Care Provider [phone] Allergies No known active allergies Medications calcium [...] - PCV) 11/21/2014 11/21/2013 Influenza Vaccine (#1) 2025 Pneumococcal Vaccine: Peds ( 0 to 5 Years) and At-Risk Patients (6 to 49 Years) Discontinued 11/21/2013 Hepatitis B Vaccine Aged Out No longe r eligible based on patient's age to complete this topic Insurance [facility] [place] [place] [address] Medicare Care Teams County Coroner Relationship Specialty Start Date End Date Lacho Araujo MD [address] [place] [address] PCP - General 07/27/20
--- OUTSIDE RECORDS SUMMARY | 2025-03-27 07:43 | XMS_ITS ---
Author Name [facility] Organization Unknown History of Medication Use Medication Directions Dispensed Refills Start Date End Date Stat acetaminophen 500 mg tablet active albuterol sulfate HFA 90 mcg/actuation aerosol inhaler INHALE 2 PUFFS BY MOUTH EVERY 4 TO 6 HOURS NEEDED FOR SHORTNESS OF BREATH OR WHEEZING active amoxicillin 875 mg-potassium clavulanate 125 mg tablet TAKE 1 TABLET BY MOUTH TWICE DAILY active betamethasone, augmented 0.05 % topical cream active betamethasone, augmented 0.05 % topical ointment active dexamethasone 0.75 mg tablet active doxazosin 8 mg tablet ac tive dutasteride 0.5 mg capsule active ketorolac 0.5 % eye drops INSTILL 1 DROP IN LEFT EYE DAILY active losartan 50 mg tablet ac tive meloxicam 15 mg tablet a ctive methocarbamol 750 mg tablet active metoprolol succinate ER 25 mg tablet,extended release 24 hr active metoprolol succinate ER 50 mg tablet,extended release 24 hr active omeprazole 20 mg capsule,delayed release a ctive ondansetron 8 mg disintegrating tablet act segundo oxycodone 5 mg tablet ac tive oxycodone-acetaminophen 5 mg-325 mg tablet TAKE 1 TABLET BY MOUTH EVERY 6 HOURS NEEDED FOR SEVERE PAIN active pantoprazole 40 mg tablet,delayed release ac tive prednisolone acetate 1 % eye drops,suspension INSTILL 1 DROP TO THE LEFT EYE DAILY active spironolactone 50 mg tablet active Piute Aspirin 81 mg tablet,delayed release active sulfamethoxazole 800 mg-trimethoprim 160 mg tablet TAKE 1 TABLET BY MOUTH TWICE DAILY FOR 10 DAYS active triamcinolone acetonide 0.1 % lotion APPLY SPARINGLY TOPICALLY TO ITCHY RASH TWICE DAILY NEEDED active venlafaxine 75 mg tablet active Problems Problem Status Onset Date Problem Type Date of Resoluti on Source Carpal tunnel syndrome of right wrist active 2024-08-15 ProblemAct ENS_AONECT Encounters Encounter Type Encounter Reason Primary Diagnosis Location Date Ambulatory [facility] 08/15/2024 Ambulatory [facility] 11/04/2022 Ambulatory [facility] 10/07/2022
--- OUTSIDE RECORDS SUMMARY | 2025-03-27 07:43 | XMS_ITS | Patient Health Record ---
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 Name Role Phone Lacho Araujo Primary Care Provider Alexx Serrano Unavailable [phone] Allergies No Known Allergies Results Component Value Reference Range Notes HEMOGLOBIN A1C (GLYCOHEMOGLO BIN) Reviewed date:01/31/2025 10:52:42 AM Interpretation: Performing Lab: Notes/Report: HEMOGLOBIN A1C % (HH) 5.7 Reason For Referral No Information Medications Medication SIG (Take, Route, Frequency, Duration) Notes Start Date End Date Status Ozempic (0.25 or 0.5 MG/DOSE) 2 MG/3ML Subcutaneous; Duration: 28 Days Active Spironolactone 50 MG Oral; Duration: 28 Days Active Venlafaxine HCl 75 MG Oral; Duration: 28 Days Active Dutasteride 0.5 MG Oral; Duration: 28 Days Active Losartan Potassium 50 MG Oral; Duration: 28 Days Active Extra Depth Orthopedic Shoes, (1) Pair With (3) Pair Custom Heat Molded Multidensity Innersoles Dx: NIDDM/PVD(E11.51), Hammertoe Foot Deformity(M20.41,M20.42), Preulcerative Skin Lesion(s)(L85.1) Wear Daily; Duration: 365 days 01/31/2025 Active Doxazosin Mesylate 8 MG Oral; Duration: 28 Days Active Metoprolol Succinate ER 50 MG Oral; Duration: 28 Days Acti ve Omeprazole 20 MG Oral; Duration: 28 Days Active Immunizations Vaccine Route Administration Date Status Comme nts Influenza Unknown 03/18/2024 Administered Social History Tobacco Use: Social History Observation Description Date Details (start date - stop date) Never Smoker NA - NA Tobacco use other than smoking: Question Answer Notes Are you an other tobacco user? No Tobacco Control (Standard) Question Answer Notes Tobacco use: Nonsmoker Additional Findings: Tobacco non-user Current no nsmoker AUDIT-C (Standard) Question Answer Notes Did you have a drink containing alcohol in the p ast year? No Points 0 Interpretation Negative Problems Problem Type SNOMED Code ICD Code Onset Dates Problem Status W/U Status Risk Notes Problem Acquired hammer toe of right foot (5095543669275 105) Other hammer toe(s) (acquired), right foot (M20.41) Active confirmed Problem Acquired hammer toe of left foot (6933046957902 103) Other hammer toe(s) (acquired), left foot (M20.42) Active confirmed Problem Type 2 diabetes mellitus with peripheral angiopathy (888253551) Type 2 diabetes mellitus with diabetic peripheral angiopathy without gangrene (E11.51) Active confirmed Q7(A), Q8(2B), Q9(1B,2C) Vital Signs Blood pressure diastolic 65 mm Hg 01/31/2025 Height 5ft 8in in 01/31/2025 Blood pressure systolic 130 mm Hg 01/31/2025 Weight 220 lbs 01/31/2025 BMI 33.45 kg/m2 01/31/2025 Procedures Procedure Date Ordered Date Performed Result Body Sit e [id number] NAIL, 1-5 01/31/2025 N/A 25823-UBPU SKIN LESIONS, 2 TO 4 01/31/2025 N/A [id number] DYSTROPHIC NAILS ANY # 01/31/2025 N/A Encounters Encounter Location Date Provider Diagnosis [facility] [address] [place] [address] 01/31/2025 Alexx Ballard Type 2 diabetes mellitus with diabetic peripheral angiopathy without gangrene E11.51 ; Other hammer toe(s) (acquired), right foot M20.41 ; Tinea unguium B35.1 ; Pain in right toe(s) M79.674 ; Pain in left toe(s) M79.675 and Other hammer toe(s) (acquired), left foot M20.42 Assessments Encounter Date Diagnosis (ICD Code) Assessment Notes Treatment Notes Treatment Clinical Notes Section Notes 01/31/2025 Other hammer toe(s) (acquired), right foot (ICD-10 - M20.41) Patient Educated with: DIABETIC FOOT CARE INSTRUCTIONS.p df (DIABETIC FOOT CARE INSTRUCTIONS.p df) 01/31/2025 Type 2 diabetes mellitus with diabetic peripheral angiopathy without gangrene (ICD-10 - E11.51) Q7(A), Q8(2B), Q9(1B,2C) 01/31/2025 Tinea unguium (ICD-10 - B35.1) 01/31/2025 Pain in right toe(s) (ICD-10 - M79.674) 01/31/2025 Pain in left toe(s) (ICD-10 - M79.675) 01/31/2025 Other hammer toe(s) (acquired), left foot (ICD-10 - M20.42) Plan Of Treatment Pending Test Test Name Order Date [id number] NAIL, 1-5 01/31/2025 [id number] SKIN LESIONS, 2 TO 4 02/01/20 25 W1162-EIXNHCOW DYSTROPHIC NAILS ANY # Next Appt Details Provider Name:Alexx Ballard , 04/18/2025 08:45:00 AM, [address] [facility], [place], [address], Insurance Providers Payer Name Payer Address Payer Phone Subscriber Number Group Number Insured Name Patient Relationship to Insured Coverage Start Date Coverage End Date Medicare National [employer] [address] [facility] [address] [id number] Sunny Mccloud Self - patient is the insured 2 [employer] [address] [place] [address] [id number] Sunny Mccloud Self - patient is the insured Medical (General) History Medical History History ICD Code Anxiety asthma Back,Hip,and Knee pain Cataracts Diabetic High Blood Pressure Measles Bone implants/screws Reflux Surgical History Surgery Date(Month/Year) knee surgery x2 eye surgery
--- OUTSIDE RECORDS SUMMARY | 2025-03-27 07:43 | XMS_ITS | Clinical Summary ---
Author Organization [facility] Address [address] [place] [address] Care Team Providers Care Operations Asst Name Role Phone Lacho Araujo MD Primary Care Provider [phone] Allergies No known active allergies Medications Medication [...] 1-dose 75+ series) 2022 Influenza Vaccine (#1) 2025 Hepatitis B Vaccines Aged Out No long er eligible based on patient's age to complete this topic RSV Ped < 20 months Aged Out No longe r eligible based on patient's age to complete this topic Care Teams Operations Asst Relationship Specialty Start Date End Date Lacho Araujo MD [address] [place] [address] [address] [facility] ALEXEI Mcintosh [id number] PCP - General Internal Medicine 09/28/21
--- OUTSIDE RECORDS SUMMARY | 2025-03-27 07:44 | XMS_ITS | Patient Health Record ---
Author Organization [facility] Address [address] [place] [address] Care Team Providers Care Clinical Secretary Name Role Phone Lacho Araujo MD Primary Care Provider Nikos Payne [phone] Allergies No Known Allergies Reason For Referral No Information Medications Medication [...] Problem Status W/U Status Risk Notes Problem 417379392 Encounter for screening for malignant neoplasm of colon (Z12.11) Active confirmed Problem 377414053 History of adenomatous polyp of colon (Z86.010) Active confirmed Problem Diverticular disease of colon (636911737) Diverticulosis of large intestine without perforation or abscess without bleeding (K57.30) Active confirmed Problem 446063789756373 Preprocedural examination (Z01.818) Active confirmed Problem 381371822 Gastroesophageal reflux disease, esophagitis presence not specified (K21.9) Active confirmed Problem 720847638 Long-term use of aspirin therapy (Z79.82) Active confirmed Plan Of Treatment Pending Test Test Name Order Date Pathology 03/15/2024 Future Test Test Name Order Date COLONOSCOPY 04/09/2013 COLONOSCOPY 08/10/2018 COLONOSCOPY 11/30/2023 Insurance Providers Payer Name Payer Address Payer Phone Subscriber Number Group Number Insured Name Patient Relationship to Insured Coverage Start Date Coverage End Date MEDICARE OF [place] [address] [facility] [address] [id number] KALPESH KOHLI Self - patient is the insured MEDEX ATTN CLAIMS [address] [place] [address] [phone] [id number] KALPESH KOHLI Self - patient is the insured Medical (General) History Medical History History ICD Code > 1CM tubular adenoma remove d in 2003, a neg. colonoscopy in 11/2007, colonoscopy in 05/2013 with a small tubular adenoma removed Denies [place],CVA,renal disease HTN Diet-controlled diabetes Detached retina left eye-had laser surge ry Anxiety Hx of bronchitis/asthma GERD--started on omeprazole approx. 2016 Colonoscopy 09/2018 with one tubular tiffany elias removed Surgical History Surgery Date(Month/Year) Skin cancer on back Laser eye surgery-detached retina Left knee replacement--approx 2014 Right knee replacement -approx 2021
[2025-03-27 10:16] LABS: MANUAL DIFF FLAG NO
[2025-03-27 10:21] LABS: Hematocrit 32.7 % (42.0-52.0); Hemoglobin 10.7 g/dl (14.0-18.0); Imm Gran Abs Auto 0.02 X10*3/uL (0.00-0.03); Imm Gran Pct Auto 0.5 % (0.0-0.4); Lymphocytes Absolute Auto 1.8 X10*3/uL (1.2-4.9); Mean Corpuscular HGB Conc 32.7 g/dl (31.0-36.0); Mean Corpuscular Hemoglobin 30.4 pg (27.0-33.0); Mean Corpuscular Volume 92.9 fL (80.0-98.0); NRBC Abs Auto 0.000 X10*3/uL (0.0-0.012); NRBC Pct Auto 0.0 /100WBC (0.0-0.2); Platelet Count 112 X10*3/uL (160-400); Red Blood Count 3.52 X10*6/uL (4.60-5.80); Reticulocytes Absolute 0.100 X10*6/uL (0.026-0.095); White Blood Count 4.2 X10*3/uL (4.8-10.8)
[2025-03-27 11:36] LABS: Alanine Aminotransferase 13 U/L (0-40); Albumin Level 4.1 g/dL (3.5-5.0); Alkaline Phosphatase 80 U/L (39-117); Anion Gap 13 (12-20); Aspartate Amino Transferase 22 U/L (5-37); Blood Urea Nitrogen 22 mg/dL (9-16); Calcium 8.8 mg/dL (8.4-10.2); Carbon Dioxide 25 mmol/L (22-29); Chloride 106 mmol/L (96-108); Cholesterol 129 mg/dL (<200); Estimated Glomerular Filt Rate > 60; HDL Cholesterol 30 mg/dL (>40); Iron 66 mcg/dL (45-160); Percent Iron Saturation 35 % (15-50); Potassium 4.8 mmol/L (3.3-5.1); Sodium 139 mmol/L (135-145); Total Iron Binding Capacity 191 mcg/dL (228-428); Total Protein 7.1 g/dL (6.5-8.0); Triglycerides 111 mg/dL (<150); Unsaturated Iron Binding 125 ug/dL
[2025-03-27 11:40] LABS: Ferritin 142 ng/mL (20-250); Free T4 (Free Thyroxine) 0.94 ng/dL (0.71-1.85); Thyroid Stimulating Hormone 3.18 uIU/mL (0.32-4.0)
[2025-03-27 11:51] LABS: Folate 13.0 ng/mL (> or = 4.0); Vitamin B12 419 pg/mL (200-900)
[2025-03-27 11:58] LABS: Microalbum/Creatinine Ratio Ur 6.7 ug/mg cr (<30)
== END 2025-03-27 07:38 | disposition home or self-care (01) ==
LOC: HO.HMGCLDS 07:37
PROVIDERS: PCP Internal Medicine; Visit Provider Internal Medicine
DX: E11.65 Type 2 diabetes mellitus with hyperglycemia (principal); E78.00 Pure hypercholesterolemia, unspecified; Z12.5 Encounter for screening for malignant neoplasm of prostate
CPT/HCPCS: 36415; 80053; 80061; 82043; 82570; 82607; 82728; 82746; 83540; 84153; 84439; 84443; 85025; 85045

== ENCOUNTER 2025-04-08 08:22 | Outpatient (AMB) | payer MEDICARE, SELFPAY ==
--- OUTSIDE RECORDS SUMMARY | 2024-03-15 05:30 | XMS_ITS ---
Author Organization [facility] Address [address] [place] [phone] Care Team Providers Care Mold Inspector Name Role Phone Po Lacho SANDRA Primary Care Provider Nikos Payne [phone] REASON FOR VISIT screening colon Problems Problem Type SNOMED Code ICD Code Onset Dates Problem Status W/U Status Risk Notes Problem Diverticular disease of colon (537110102) Diverticulosis of large intestine without perforation or abscess without bleeding (K57.30) Active confirmed Encounters Encounter Location Date Provider Diagnosis [facility] [place] Outpatient [address] [place] [phone] 03/15/2024 Nikos Gordon Encounter for scre ening [...] KALPESH KOHLI GDOB:[birth year] (80 yo M)Acc No.[id number]:03/15/2024 COLON WITH MAC Patient: KALPESH CARLOS Provider: Dave Gordon MD :1945 A ge:79 Y S ex:Male Date:03/15/2024 Address:[address] [place], [place] [phone] Pcp:Lacho Araujo MD Subjective: * Chief Complaints: * 1 . Screening colon. * Medical History: Objective: * Vitals: Assessment: * Assessment: 1. E ncounter for screening colonoscopy - Z12.11 (Primary) 2 . C olon polyps - K63.5 3 . D iverticulosis of large intestine without perforation or abscess without bleeding - K57.30 4 . O ther hemorrhoids - K64.8 Plan: * Treatment: * Procedure Codes: 4 5385 LESION REMOVAL COLONOSCOPY, Modifiers: [place] , [address] COLONOSCOPY AND BIOPSY, Modifiers: 59 , PT, 0529F INTRVL 3+YRS PTS CLNSCP DOCD, 0528F RCMND FLW-UP 10 YRS DOCD, Modifiers: 1P * * The named appointment provid er may or may not be the originator of this progress note, and it is not deemed complete until electronically signed by the appointment provider. Sign off status: Pending * Provider: Dave Gordon MD Date: 0 03/15/2024 Generated for Shona joaquin/Tom/eTransmitting on: 0 04/08/2025 09:17 AM EDT
[2025-04-08 08:25] VITALS: BP 134/70; PULSE 67; O2SAT 98; BMI 33.8
--- NOTE | 2025-04-08 08:25 | A.OFFPC_ITS ---
Vital Signs 04/08/25 08:25 Height 5 ft 8 in Weight 222 lb BMI 33.8 BP 134/70 Blood Pressure Location Lt brachial Position Sitting Pulse 67 Pulse Source Pulse Oximeter Pulse Oximetry (%) 98 Oxygen Delivery Method Room Air Intake Visit Reasons: DM Allergies semaglutide (From Ozempic) Adverse Reaction (Intermediate, Verified 04/08/25 08:25) gerd , diarrhea Medication List - Last Reconciled 04/08/25 by Lacho Araujo MD ascorbate calcium (vitamin C) 500 mg PO DAILY calcium carbonate-vitamin D3 600 mg-5 mcg (200 unit) 1 tab PO DAILY cholecalciferol (vitamin D3) 25 mcg PO DAILY doxazosin 8 mg PO DAILY dutasteride 0.5 mg PO DAILY 90 days ferrous sulfate (Feosol) 325 mg PO DAILY [L wrist splint As directed] losartan 50 mg PO DAILY 90 days metoprolol succinate ER 50 mg PO DAILY omeprazole 20 mg PO DAILY [Orthopedic shoes with insert As directed] spironolactone 50 mg PO DAILY 90 days venlafaxine 75 mg PO DAILY Tobacco use date assessed: 09/27/24 Fall risk assessment: 1 Fall in past year Last assessed Fall Risk: 04/08/25 Dental Screening Dental Screen Date: 09/27/24 HPI DM 2 HPI Details complains of sob on exertion , few weeks PFSH Medical History (Updated 04/08/25 @ 18:01 by Lacho Araujo MD) Numbness and tingling in right hand Bronchitis Numbness of left hand Puncture wound of foot, right Cellulitis of left lower extremity Preoperative clearance Allergic contact dermatitis Cataract Retinal detachment Restless leg syndrome Type 2 diabetes mellitus with hyperglycemia BPH (benign prostatic hyperplasia) GERD (gastroesophageal reflux disease) Anemia Anxiety and depression Obesity (BMI 30-39.9) Asthma Hypertension Tubular adenoma of colon Surgical History (Updated 12/04/24 @ 09:31 by Deepika Mark MA) History of cataract surgery History of carpal tunnel release History of bilateral knee replacement Hx of eye surgery Hx of detached retina repair History of colonoscopy History of arthroplasty of left knee Hx of tonsillectomy H/O vitrectomy Melanoma Family History Mother No problems noted. Father Prostate cancer Social History Housing: House Housing Other:: duplex Are you a primary district manager primary care sales to a significant other at home: No Do you presently have visiting nurse or other home services: No Alcohol intake: never Patient Tobacco Use Status: Former Tobacco user Tobacco use type: Cigarette Years Smoked: 1970 quit e-Cigarette/Vaping Use: Never Used Second Hand Smoke Exposure: No service: No Current occupational status: retired Current occupation: right hand dominant Cognitive needs: Yes Hearing needs: No Vision needs: Yes Questionnaire Thrive Questionnaire Date Thrive assessed: 12/10/24 I am a: Patient What is your living situation today?: I have a steady place to live Within the past 12 months, did the food you bought not last and you didn't have the money to get more?: Never true Within the past 12 months, did you worry whether your food would run out before you got money to buy more?: Never true Do you have trouble paying for medicines?: No Do you have trouble getting transportation to medical appointments?: No Do you have trouble paying your heating and electricity bill?: No Do you have trouble taking care of your child, family member or friend?: No Do you have trouble with day-to-day activities such as bathing, preparing meals, shopping, managing finances, etc.?: No Are you currently unemployed and looking for a job?: No Are you interested in more education?: No Please select the resources that you would like help with: None Currently or been in a relationship where the following occur: No concerns reported THRIVE Score: 0 PRETTY-7 AMB Questionnaire PRETTY-7 Date PRETTY - 7 assessed: 09/27/24 Source: Developed by Drs. Nikos Ware, Jennifer Banegas, Daniel Chavez and colleagues, with an educational claritza from [employer]. Physical exam (Primary Care) Vital Signs: Last Vital Signs Pulse 67 04/08/25 08:25 BP 134/70 04/08/25 08:25 Pulse Ox 98 04/08/25 08:25 Oxygen Delivery Method Room Air 04/08/25 08:25 BMI result Body Mass Index 33.8 Tobacco/Smoking Status: Tobacco use Status Tobacco use date assessed 09/27/24 04/08/25 08:26 Patient Tobacco Use Status Former Tobacco user 04/08/25 08:26 Tobacco use type Cigarette 04/08/25 08:26 e-Cigarette/Vaping Use Never Used 04/08/25 08:26 Thrive Assessment: Date of Thrive Assessment Date Thrive assessed 12/10/24 04/08/25 08:26 Currently or been in a relationship where the following occur: No concerns reported Const General: alert; No acute distress Eyes Conjunctivae: conjunctivae normal Resp Auscultation: clear to auscultation bilaterally Cardio Rate: regular rate Rhythm: regular rhythm GI Inspection: Yes normal to inspection Extrem General: Yes normal to inspection and No edema Results AMB Hemoglobin A1c AMB Hemoglobin A1c 5.8 % Last Edit by Oksana Schafer CMA on 04/08/25 08 :39 Results Reviewed Results Reviewed: Laboratory Last Values Hgb A1c (Clinic) 5.8 % (4.0-6.0) 04/08/25 08:26 Coding Level of Care Code Est Pt Level 4 (34264) Complex EM visit Add On G2211 Diagnoses Type 2 diabetes mellitus with hyperglycemia, without long-term current use of insulin E11.65 Diabetes mellitus penitentiary insulin use: without penitentiary use Obesity (BMI 30-39.9) E66.9 Essential hypertension I10 Hypertension type: essential hypertension Generalized anxiety disorder F41.1 Hypercholesterolemia E78.00 Benign prostatic hyperplasia with urinary frequency N40.1; R35.0 Lower urinary tract symptom detail: urinary frequency Lower urinary tract symptom presence: symptoms present Mild intermittent asthma without complication J45.20 Asthma complication type: uncomplicated Asthma persistence: intermittent Asthma severity: mild SOB (shortness of breath) on exertion R06.02 Assessment & Plan Assessment & Plan (1) Type 2 diabetes mellitus with hyperglycemia: Comment: Dr. Vargas Code(s): E11.65 - Type 2 diabetes mellitus with hyperglycemia Category: Medical Qualifiers: Diabetes mellitus penitentiary insulin use: without long term care phlebotomist use Qualified Code(s): E11.65 - Type 2 diabetes mellitus with hyperglycemia Plan: Decrease the amount of carbohydrate intake, pasta, bread, rice and potatoes are all sugar and that is aside from all the sweet stuff, remember that fruits are good but they are Sweet also. Hemoglobin A1c goal of less than 7.0 patient takes Ozempic once a week (2) Obesity (BMI 30-39.9): Code(s): E66.9 - Obesity, unspecified Category: Medical Plan: Diet and exercise (3) Hypertension: Code(s): I10 - Essential (primary) hypertension Category: Medical Qualifiers: Hypertension type: essential hypertension Qualified Code(s): I10 - Essential (primary) hypertension Plan: Continue with blood pressure medication. Decrease salt intake and exercise patient on spironolactone 50 mg once a day metoprolol 50 mg once a day losartan 50 mg once a day (4) Generalized anxiety disorder: Comment: Decline any referral for counseling Code(s): F41.1 - Generalized anxiety disorder Category: Medical Plan: On venlafaxine (5) Hypercholesterolemia: Code(s): E78.00 - Pure hypercholesterolemia, unspecified Category: Medical Plan: Avoid fried foods, chicken skin, eggs, butter margarine, pastries and meat. Be it pork or beef they have a lot of cholesterol LDL goal of less than 100 and triglyceride of less than 150 (6) BPH (benign prostatic hyperplasia): Comment: Dr. Waite Code(s): N40.0 - Benign prostatic hyperplasia without lower urinary tract symptoms Category: Medical Qualifiers: Lower urinary tract symptom detail: urinary frequency Lower urinary tract symptom presence: symptoms present Qualified Code(s): N40.1 - Benign prostatic hyperplasia with lower urinary tract symptoms; R35.0 - Frequency of micturition Plan: Continue with follow-up with urology patient on dutasteride, doxazosin (7) Asthma: Code(s): J45.909 - Unspecified asthma, uncomplicated Category: Medical Qualifiers: Asthma complication type: uncomplicated Asthma persistence: intermittent Asthma severity: mild Qualified Code(s): J45.20 - Mild intermittent asthma, uncomplicated (8) SOB (shortness of breath) on exertion: Code(s): R06.02 - Shortness of breath Category: Medical Plan History of Present Illness The patient is a 80-year-old male presenting for a follow-up visit. He has a history of obesity, hypertension, asthma, gastroesophageal reflux disease, benign prostatic hyperplasia, and diabetes mellitus. The patient also has a history of tubular adenoma of the colon, with the last colonoscopy performed in February 2024. The patient reports a 7-pound weight loss since his last visit. He continues to follow up with podiatry and was last seen on January 31. His last blood work in March 2025 showed mild anemia, thrombocytopenia, and pancytopenia. Renal function and electrolytes are normal, with a blood sugar level of 192 mg/dL and a hemoglobin A1c of 6.1% in November. Liver function is normal, with an LDL cholesterol level of 129 mg/dL. PSA, vitamin B12, folic acid, and thyroid levels are within normal limits, and there is no proteinuria. The patient experiences lightheadedness when bending down and standing up, attributed to benign positional vertigo. He denies shortness of breath when lying down but reports heaviness in the chest with phlegm production. The patient also reports allergies, which are managed with medication. Health Maintenance - Colonoscopy performed in February 2024 - Vaccinations discussed: flu, COVID, and pneumonia Social History Review of Systems - Cardiovascular: Denies palpitations, reports heaviness in the chest with phlegm production - Respiratory: Denies shortness of breath when lying down, reports phlegm production - Neurological: Reports lightheadedness when bending down and standing up - Allergies: Reports allergies managed with medication Physical Exam Results - Labs: Mild anemia, thrombocytopenia, pancytopenia, blood sugar 192 mg/dL, hemoglobin A1c 6.1%, LDL cholesterol 129 mg/dL, PSA, vitamin B12, folic acid, and thyroid levels within normal limits, no proteinuria Plan Patient was informed and verbally consented to the use of an ambient scribe for clinic note documentation during this visit. 1. Diabetes Mellitus The patient's diabetes mellitus is managed with a goal of maintaining hemoglobin A1c below 7.0%. He is currently on Ozempic once a week, along with diet and exercise modifications. 2. Hypertension The patient's hypertension is managed with spironolactone, metoprolol, and losartan, each at 50 mg once daily. 3. Hypercholesterolemia The patient's hypercholesterolemia is managed with a target LDL cholesterol level of less than 100 mg/dL and triglycerides less than 150 mg/dL. 4. Benign Prostatic Hyperplasia The patient continues follow-up with urology and is on dutasteride and doxazosin for benign prostatic hyperplasia. 5. Positional Vertigo The patient experiences lightheadedness attributed to benign positional vertigo, and it is advised to ensure adequate hydration. 6. Preventative Care Preventative care includes a scheduled chest X-ray, stress test, and EKG to evaluate cardiac function. Vaccinations for flu, COVID, and pneumonia were discussed, with recommendations to receive them as per schedule. Discussion Notes During the visit, we discussed the management of the patient's diabetes with a target hemoglobin A1c of less than 7.0%, and the continuation of Ozempic, diet, and exercise. We also reviewed the hypertension management plan, which includes spironolactone, metoprolol, and losartan. For hypercholesterolemia, the goal is to maintain LDL cholesterol below 100 mg/dL and triglycerides below 150 mg/dL. We addressed the patient's benign prostatic hyperplasia, with ongoing treatment using dutasteride and doxazosin, and continued follow-up with urology. The patient was advised on managing positional vertigo by ensuring adequate hydration. Preventative care measures, including a chest X-ray, stress test, and EKG, were planned to assess cardiac function. Vaccinations for flu, COVID, and pneumonia were recommended, with instructions to receive them as per schedule. Patient Instructions - Continue taking Ozempic once a week and maintain diet and exercise to manage diabetes. - Take spironolactone, metoprolol, and losartan as prescribed for hypertension. - Follow up with urology for benign prostatic hyperplasia management. - Ensure adequate hydration to manage positional vertigo. - Schedule and attend the chest X-ray, stress test, and EKG as planned. - Receive vaccinations for flu, COVID, and pneumonia as recommended. Orders: Orders US bladder Today N40.1 - Benign prostatic hyperplasia with lower urinary tract symptoms, R35.0 - Frequency of micturition CA stress test Today R06.02 - Shortness of breath UA CC w/rflx Micro + Cult Today R06.02 - Shortness of breath, R30.0 - Dysuria AMB Hemoglobin A1c Today Z13.9 - Encounter for screening, unspecified XR chest 2V Today R06.02 - Shortness of breath ECG 12 lead EKG Today R06.02 - Shortness of breath Medications: Discontinued semaglutide (Ozempic) for 4 weeks Discontinued Reason: Patient Refused 0.5 mg (0.736 mL) subcut QWEEK 30 days 3.68 mL 1RF E11.65 - Type 2 diabetes mellitus with hyperglycemia
--- OUTSIDE RECORDS SUMMARY | 2025-04-08 09:17 | XMS_ITS | Patient Health Record ---
[facility] Address [address] [place] [address] Care Team Providers Care Membership Director Name Role Phone Lacho Araujo Primary Care Provider Alexx Serrano Unavailable [phone] Allergies No Known Allergies Results Component Value [...] Problem Acquired hammer toe of right foot (8691574936026 105) Other hammer toe(s) (acquired), right foot (M20.41) Active confirmed Problem Acquired hammer toe of left foot (1884926128211 103) Other hammer toe(s) (acquired), left foot (M20.42) Active confirmed Problem Type 2 diabetes mellitus with peripheral angiopathy (500218905) Type 2 diabetes mellitus with diabetic peripheral angiopathy without gangrene (E11.51) Active confirmed Q7(A), Q8(2B), Q9(1B,2C) Vital Signs Blood pressure diastolic 65 mm Hg 01/31/2025 Height 5ft 8in in 01/31/2025 Blood pressure systolic 130 mm Hg 01/31/2025 Weight 220 lbs 01/31/2025 BMI 33.45 kg/m2 01/31/2025 Procedures Procedure Date Ordered Date Performed Result Body Sit e 11298-QPFZHRM NAIL, 1-5 01/31/2025 N/A 52325-VBAO SKIN LESIONS, 2 TO 4 01/31/2025 N/A V5132-XYYRYBZE DYSTROPHIC NAILS ANY # 01/31/2025 N/A Encounters Encounter Location Date Provider Diagnosis [facility] [address] [place] [address] 01/31/2025 Alexx Ballard Type 2 diabetes mellitus [...] Treatment Pending Test Test Name Order Date 96398-FTVMBEC NAIL, 1-5 01/31/2025 77081-ERAH SKIN LESIONS, 2 TO 4 02/01/20 25 A0314-LEIDPXDI DYSTROPHIC NAILS ANY # Next Appt Details Provider Name:Alexx Ballard , 04/18/2025 08:45:00 AM, [address], [place], [address], Insurance Providers Payer Name Payer Address Payer Phone Subscriber Number Group Number Insured Name Patient Relationship to Insured Coverage Start Date Coverage End Date Medicare National Govt Sv[employer] [address] [place] [address] [phone] [id number] Sunny Mccloud Self - patient is the insured 2 [employer] [address] [place] [address] [id number] Sunny Mccloud Self - patient is the insured Medical (General) History Medical History History ICD Code Anxiety asthma Back,Hip,and Knee pain Cataracts Diabetic High Blood Pressure Measles Bone implants/screws Reflux Surgical History Surgery Date(Month/Year) knee surgery x2 eye surgery
--- OUTSIDE RECORDS SUMMARY | 2025-04-08 09:17 | XMS_ITS | Clinical Summary ---
Author Organization [facility] Address [address] [place] [address] Care Team Providers Care Tawer Name Role Phone Lacho Araujo MD Primary Care Provider [phone] Allergies No known active allergies Medications Medication [...] age to complete this topic Care Teams Tawer Relationship Specialty Start Date End Date Lacho Araujo MD [address] [place] [address] [address] [facility] ALEXEI Mcintosh [id number] PCP - General Internal Medicine 09/28/21
--- OUTSIDE RECORDS SUMMARY | 2025-04-08 09:17 | XMS_ITS | Clinical Summary ---
Author Organization [facility] Address [address] [place] [address] Phone Care Team Providers Care Pizza Delivery Name Role Phone Lacho Araujo MD Primary Care Provider [phone] Allergies No known active allergies Medications calcium [...] patient's age to complete this topic Insurance [facility] [place] [address] [address] Medicare Care Teams Pizza Delivery Relationship Specialty Start Date End Date Lacho Araujo MD [address] [place] [address] PCP - General 07/27/20
--- OUTSIDE RECORDS SUMMARY | 2025-04-08 09:18 | XMS_ITS | Patient Health Record ---
Author Organization [facility] Address [address] [place] [address] Care Team Providers Care Ergonomist Name Role Phone Lacho Araujo MD Primary Care Provider Nikos Payne [phone] Allergies No Known Allergies Reason For Referral [...] Problem Status W/U Status Risk Notes Problem 624102491 Encounter for screening for malignant neoplasm of colon (Z12.11) Active confirmed Problem 564088590 History of adenomatous polyp of colon (Z86.010) Active confirmed Problem Diverticular disease of colon (622413005) Diverticulosis of large intestine without perforation or abscess without bleeding (K57.30) Active confirmed Problem 418394261702935 Preprocedural examination (Z01.818) Active confirmed Problem 550917113 Gastroesophageal reflux disease, esophagitis presence not specified (K21.9) Active confirmed Problem 471051793 Long-term use of aspirin therapy (Z79.82) Active confirmed Plan Of Treatment Pending Test Test Name Order Date Pathology 03/15/2024 Future Test Test Name Order Date COLONOSCOPY 04/09/2013 COLONOSCOPY 08/10/2018 COLONOSCOPY 11/30/2023 Insurance Providers Payer Name Payer Address Payer Phone Subscriber Number Group Number Insured Name Patient Relationship to Insured Coverage Start Date Coverage End Date MEDICARE OF [place] [address] [place] [address] [id number] KALPESH KOHLI Self - patient is the insured MEDEX ATTN CLAIMS [address] [place] [address] [id number] KALPESH KOHLI Self - patient is the insured Medical (General) History Medical History History ICD Code > 1CM tubular adenoma remove d in 2003, a neg. colonoscopy in 11/2007, colonoscopy in 05/2013 with a small tubular adenoma removed Denies [place],CVA,renal disease HTN Diet-controlled diabetes Detached retina left eye-had laser surge ry Anxiety Hx of bronchitis/asthma GERD--started on omeprazole approx. 2016 Colonoscopy 09/2018 with one tubular tiffany elias removed Surgical History Surgery Date(Month/Year) Skin cancer on back Laser eye surgery-detached retina Left knee replacement--approx 2014 Right knee replacement -approx 2021
== END 2025-04-08 09:05 | disposition home or self-care (01) ==
LOC: HO.HMCH 08:23
PROVIDERS: PCP Internal Medicine; Visit Provider Internal Medicine
DX: E11.65 Type 2 diabetes mellitus with hyperglycemia (principal); E66.9 Obesity, unspecified; Z68.33 Body mass index [BMI] 33.0-33.9, adult; I10 Essential (primary) hypertension; F41.1 Generalized anxiety disorder; E78.00 Pure hypercholesterolemia, unspecified; N40.1 Benign prostatic hyperplasia with lower urinary tract symptoms; R35.0 Frequency of micturition; J45.20 Mild intermittent asthma, uncomplicated; R06.02 Shortness of breath

== ENCOUNTER → 2025-04-08 08:22 | Outpatient (REF) | payer MEDICARE, SELFPAY ==
--- NOTE | ~2025-04-08 | XR_ITS ---
EXAMINATION: XR CHEST CLINICAL INFORMATION: R06.02 - Shortness of breath COMPARISON: May 03, 2012 TECHNIQUE: PA and lateral views FINDINGS: No hyperinflation. No consolidation, pleural effusion or pneumothorax. Cardiomediastinal silhouette size is normal. Multilevel spondylosis. Degenerative changes in the acromioclavicular joints, both shoulders. XR/XR chest 2V IMPRESSION: No acute airspace disease. Multilevel spondylosis. Stable chest. Electronically signed by: Ravi Hahn MD 04/08/2025 10:09 AM EDT
--- NOTE | 2025-04-08 09:40 | ECG_ITS ---
Test Reason : SOB Blood Pressure : */* mmHG Vent. Rate : 66 BPM Atrial Rate : 66 BPM P-R Int : 190 ms QRS Dur : 96 ms QT Int : 414 ms P-R-T Axes : 30 2 14 degrees QTcB Int : 434 ms Normal sinus rhythm Inferior infarct , age undetermined Abnormal ECG When compared with ECG of 12-Nov-2021 09:56, No significant change was found Referred By: Lacho Araujo Electronically Signed By: Earl Luna
== END ==
LOC: HO.CARD 08:22
PROVIDERS: PCP Internal Medicine; Visit Provider Internal Medicine
DX: E11.65 Type 2 diabetes mellitus with hyperglycemia (principal); R06.02 Shortness of breath; R30.0 Dysuria; E66.9 Obesity, unspecified; I10 Essential (primary) hypertension; F41.1 Generalized anxiety disorder; E78.00 Pure hypercholesterolemia, unspecified; N40.1 Benign prostatic hyperplasia with lower urinary tract symptoms; R35.0 Frequency of micturition; J45.20 Mild intermittent asthma, uncomplicated; Z68.33 Body mass index [BMI] 33.0-33.9, adult; Z79.899 Other long term (current) drug therapy
CPT/HCPCS: 71046; 81001; 82570; 83036; 87086; 87088; 87186; 93005; 99212

== ENCOUNTER → 2025-04-08 09:34 | Outpatient (BNV) | payer MEDICARE, SELFPAY | PROVIDERS: PCP Internal Medicine; Visit Provider Radiology Diagnostic Radiology | DX: R06.02 Shortness of breath (principal) | CPT/HCPCS: 71046 ==

== ENCOUNTER → 2025-04-08 09:40 | Outpatient (BNV) | payer MEDICARE, SELFPAY | PROVIDERS: PCP Internal Medicine; Visit Provider Internal Medicine Cardiovascular Disease | DX: R94.31 Abnormal electrocardiogram [ECG] [EKG] (principal); R06.02 Shortness of breath | CPT/HCPCS: 93010 ==

== ENCOUNTER 2025-05-15 14:05 | Outpatient (AMB) | payer MEDICARE, SELFPAY ==
--- OUTSIDE RECORDS SUMMARY | 2024-03-15 05:30 | XMS_ITS ---
Author Organization [facility] Address [address] [place] [phone] Care Team Providers Care Biological Science Aide Name Role Phone Po Lacho SANDRA Primary Care Provider Nikos Payne [phone] REASON FOR VISIT screening colon Problems Problem Type SNOMED Code ICD Code Onset Dates Problem Status W/U Status Risk Notes Problem Diverticular disease of colon (790696328) Diverticulosis of large intestine without perforation or abscess without bleeding (K57.30) Active confirmed Encounters Encounter Location Date Provider Diagnosis [facility] [place] [address] [place] [phone] 03/15/2024 Nikos Gordon Encounter for scre ening [...] KALPESH KOHLI GDOB:[birth year] (80 yo M)Acc No.[id number]:03/15/2024 COLON WITH MAC Patient: KALPESH CARLOS Provider: Dave Gordon MD :1945 A ge:79 Y S ex:Male Date:03/15/2024 Address:[address] [place], [place] [phone] Pcp:Lacho Araujo MD Subjective: * Chief Complaints: [...] 5385 LESION REMOVAL COLONOSCOPY, Modifiers: [place] , [address] COLONOSCOPY AND BIOPSY, Modifiers: 59 , PT, [...] 0 03/15/2024 Generated for Shona joaquin/Tom/eTransmitting on: 05:08 PM EDT
--- NOTE | 2025-05-15 14:13 | MHC.OFFVIS ---
Intake Visit Reasons: dysuria Intake Note: New Patient is present for Dysuria, BPH Urology Med: Vitamin C, Doxazosin, Dutasteride Antibiotic Allergy: None Blood Thinner: None PVR:0ml Executive Creative Director Required: No Accompanied by: Self / Same As Patient Allergies semaglutide (From Ozempic) Adverse Reaction (Intermediate, Verified 05/15/25 14:16) gerd , diarrhea HPI Comments Details: Sunny is a pleasant male. He is a patient of Dr. Araujo. He is seen for the following urologic conditions - lower urinary tract symptoms Previously longstanding care with [facility] Has been on combination doxazosin and dutasteride at maximum doses Still reports significant frequency Discussed potential prostate procedures He is interested in evaluation We will plan for bladder ultrasound measured prostate and office cystoscopy [facility] Medical History Nocturia Numbness and tingling in right hand Bronchitis Numbness of left hand Puncture wound of foot, right Cellulitis of left lower extremity Preoperative clearance Allergic contact dermatitis Cataract Retinal detachment Restless leg syndrome Type 2 diabetes mellitus with hyperglycemia BPH (benign prostatic hyperplasia) GERD (gastroesophageal reflux disease) Anemia Anxiety and depression Obesity (BMI 30-39.9) Asthma Hypertension Tubular adenoma of colon Surgical History History of cataract surgery History of carpal tunnel release History of bilateral knee replacement Hx of eye surgery Hx of detached retina repair History of colonoscopy History of arthroplasty of left knee Hx of tonsillectomy H/O vitrectomy Melanoma Family History Mother No problems noted. Father Prostate cancer Social History Housing: House Housing Other:: duplex Are you a primary healthcare social worker to a significant other at home: No Do you presently have visiting nurse or other home services: No Alcohol intake: never Patient Tobacco Use Status: Former Tobacco user Tobacco use type: Cigarette Years Smoked: 1969 quit e-Cigarette/Vaping Use: Never Used Second Hand Smoke Exposure: No service: No Current occupational status: retired Current occupation: right hand dominant Cognitive needs: Yes Hearing needs: No Vision needs: Yes Review of Systems Const Denies chills and Denies fever(s) Card Reports no additional complaints and Denies syncope Resp Denies cough GI Denies abdominal pain and Denies heartburn Reports as per HPI and Denies change in libido Neuro Denies syncope Psych Denies change in libido Endo Denies change in libido Physical Exam Const General: cooperative, healthy appearing, comfortable and no acute distress Orientation/consciousness: patient oriented x3 HEENT Face and sinus: Yes normal facial exam Mouth: moist mucous membranes Neck Neck: Yes normal visual inspection, Yes full ROM and Yes trachea midline Chest Chest palpation & inspection: normal inspection of the chest Resp Effort & Inspection: normal respiratory effort, able to speak in complete sentences and no respiratory distress GI Inspection: Yes normal to inspection Back/Spine/Pelvis Cervical Spine: normal cervical lordosis Thoracic/Lumbar Spine: thoracic and lumbar spine normal to inspection Skin General skin exam: no rashes or lesions noted Neuro General: patient oriented x3, gait normal, tone normal and moves all extremities Extrem General: Yes normal to inspection and Yes capillary refill normal Office Procedures Post Void Residual Post Residual Void Post Void Residual (PVR): 0 01404-Ymhw Void Residual by ultrasound Results AMB Urinalysis, Automated UA Leukoctes 0 Ben/uL Last Edit by Lanie Serra [facility] on 05/15/25 14:27 UA Nitrite Negative Last Edit by Lanie Serra [facility] on 05/15/25 14:27 UA Urobilinogen 0.2 mg/dL Last Edit by Lanie Serra [facility] on 05/15/25 14:27 UA Protein 0 mg/dL Last Edit by Lanie Serra [facility] on 05/15/25 14:27 UA pH 6.0 Last Edit by Lanie Serra [facility] on 05/15/25 14:27 UA Blood 0 Rodney/uL Last Edit by Lanie Serra [facility] on 05/15/25 14:27 UA Specific [place] 1.010 Last Edit by Lanie Serra [facility] on 05/15/25 14:27 UA Ketone Negative Last Edit by Lanie Serra [facility] on 05/15/25 14:27 UA Bilirubin 0 mg/dL Last Edit by Lanie Serra [facility] on 05/15/25 14:27 UA Glucose 0 mg/dL Last Edit by AYUSH Macdonald on 05/15/25 14:27 Results Reviewed Results Reviewed: Laboratory Last Values Urine pH (Auto) 6.0 05/15/25 14:26 Specific [place] (Auto) 1.010 05/15/25 14:26 Urine Protein (Auto) 0 mg/dL 05/15/25 14:26 Glucose (UA)(Auto) 0 mg/dL 05/15/25 14:26 Urine Ketones (Auto) Negative 05/15/25 14:26 Urine Blood (Auto) 0 Rodney/uL 05/15/25 14:26 Urine Nitrite (Auto) Negative 05/15/25 14:26 Urine Bilirubin (Auto) 0 mg/dL 05/15/25 14:26 Urine Urobilinogen (Auto) 0.2 mg/dL 05/15/25 14:26 Leukocyte Esterase (Auto) 0 Ben/uL 05/15/25 14:26 Assessment & Plan Assessment & Plan (1) BPH (benign prostatic hyperplasia): Comment: Dr. Waite Code(s): N40.0 - Benign prostatic hyperplasia without lower urinary tract symptoms Category: Medical Qualifiers: Lower urinary tract symptom presence: symptoms present Lower urinary tract symptom detail: urinary frequency Qualified Code(s): N40.1 - Benign prostatic hyperplasia with lower urinary tract symptoms; R35.0 - Frequency of micturition (2) Urinary frequency: Code(s): R35.0 - Frequency of micturition Category: Medical Plan Plan office cystoscopy Orders: Orders US bladder Today N40.1 - Benign prostatic hyperplasia with lower urinary tract symptoms, R35.0 - Frequency of micturition AMB Urinalysis Automated Today Z13.9 - Encounter for screening, unspecified AMB Post Void Residual by ultrasound Today N40.1 - Benign prostatic hyperplasia with lower urinary tract symptoms, R35.0 - Frequency of micturition Patient Instructions: This note is constructed using voice recognition software. While every effort has been made to ensure accuracy internal controls specialist errors may have been included. Imaging studies, laboratory and physical exam results were discussed and reviewed in detail. No major barriers to patient understanding were identified. An opportunity to ask questions regarding the treatment plan was provided. All questions were answered. The patient expressed understanding and agreement with the above treatment plan. The patient is aware they should contact our office by phone for worsening of their current condition or the appearance of new urologic symptoms. Compliance is encouraged with any medications and followup testing that is ordered. It is a privilege to participate in the urologic care of your patient. If you have any questions or concerns regarding treatment for the above conditions, or other urologic issues, please do not hesitate to contact me. The office telephone contact is [phone]. Sincerely, Dr Haile Banks MD, [facility] - Urology Compassionate Specialist Care for the Genitourinary System Coding Level of Care Code New Pt Level 3 (57434) Diagnoses Benign prostatic hyperplasia with urinary frequency N40.1; R35.0 Lower urinary tract symptom presence: symptoms present Lower urinary tract symptom detail: urinary frequency Urinary frequency R35.0 CPT Codes Post Residual Void - PVR CPT Code: 68861-Gfzj Void Residual by ultrasound ([id number])
--- OUTSIDE RECORDS SUMMARY | 2025-05-15 17:09 | XMS_ITS | Patient Health Record ---
Author [facility] Address [address] [place] [address] Care Team Providers Care Mattress Packer Name Role Phone Lacho Araujo Primary Care Provider Alexx Serrano Unavailable [phone] Allergies No Known Allergies Results Component Value Reference Range Notes HEMOGLOBIN A1C (GLYCOHEMOGLO BIN) Reviewed date:01/31/2025 10:52:42 AM Interpretation: Performing Lab: Notes/Report: HEMOGLOBIN A1C % (HH) 5.7 HEMOGLOBIN A1C (GLYCOHEMOGLO BIN) Reviewed date:04/18/2025 08:43:22 AM Interpretation: Performing Lab: Notes/Report: HEMOGLOBIN A1C % (HH) 5.7 Reason For Referral No Information Medications Medication SIG (Take, Route, Frequency, Duration) Notes Start Date End Date Status Metoprolol Succinate ER 50 MG Oral; Duration: 28 Days Acti ve Omeprazole 20 MG Oral; Duration: 28 Days Active Extra Depth Orthopedic Shoes, (1) Pair With (3) Pair Custom Heat Molded Multidensity Innersoles Dx: NIDDM/PVD(E11.51), Hammertoe Foot Deformity(M20.41,M20.42 ), Preulcerative Skin Lesion(s)(L85.1) Wear Daily; Duration: 365 days 01/31/2025 Active Dutasteride 0.5 MG Oral; Duration: 28 Days Active Losartan Potassium 50 MG Oral; Duration: 28 Days Active Doxazosin Mesylate 8 MG Oral; Duration: 28 Days Active Venlafaxine HCl 75 MG Oral; Duration: 28 Days Active Ozempic (0.25 or 0.5 MG/DOSE) 2 MG/3ML Subcutaneous; Duration: 28 Days Not-Taking Spironolactone 50 MG Oral; Duration: 28 Days Active Immunizations Vaccine Route Administration Date Status Comme nts Influenza Unknown 03/18/2024 Administered Influenza Unknown 03/17/2025 Administered Social History Tobacco Use: Social History [...] Problem Acquired hammer toe of right foot (4535647683286 105) Other hammer toe(s) (acquired), right foot (M20.41) Active confirmed Problem Acquired hammer toe of left foot (3818946852307 103) Other hammer toe(s) (acquired), left foot (M20.42) Active confirmed Problem Type 2 diabetes mellitus with peripheral angiopathy (554884226) Type 2 diabetes mellitus with diabetic peripheral angiopathy without gangrene (E11.51) Active confirmed Q7(A), Q8(2B), Q9(1B,2C) Vital Signs Blood pressure diastolic 70 mm Hg 04/18/2025 Height 5ft 8in in 04/18/2025 Blood pressure systolic 130 mm Hg 04/18/2025 Weight 220 lbs 04/18/2025 BMI 33.45 kg/m2 04/18/2025 Procedures Procedure Date Ordered Date Performed Result Body Sit e 00243-XWPTZCL NAIL, 1-5 01/31/2025 N/A 72749-OAAO SKIN LESIONS, 2 TO 4 01/31/2025 N/A I5826-APZXKOSU DYSTROPHIC NAILS ANY # 01/31/2025 N/A 05580-EQFAEFR NAIL, 1-5 04/18/2025 N/A 72914-EGOX SKIN LESIONS, 2 TO 4 04/18/2025 N/A M0155-STHGSCPF DYSTROPHIC NAILS ANY # 04/18/2025 N/A Encounters Encounter Location Date Provider Diagnosis [facility] [address] [place] [address] 01/31/2025 Alexx Ballard Type 2 diabetes mellitus with diabetic peripheral angiopathy without gangrene E11.51 ; Other hammer toe(s) (acquired), right foot M20.41 ; Tinea unguium B35.1 ; Pain in right toe(s) M79.674 ; Pain in left toe(s) M79.675 and Other hammer toe(s) (acquired), left foot M20.42 [facility] [address] [address] 04/18/2025 Alexx Ballard Type 2 diabetes mellitus with diabetic peripheral angiopathy without gangrene E11.51 ; Tinea unguium B35.1 ; Pain in right toe(s) M79.674 and Pain in left toe(s) M79.675 Assessments Encounter Date Diagnosis (ICD Code) Assessment Notes Treatment Notes Treatment Clinical Notes Section Notes 01/31/2025 Other hammer toe(s) (acquired), right foot (ICD-10 - M20.41) Patient Educated with: DIABETIC FOOT CARE INSTRUCTIONS.p df (DIABETIC FOOT CARE INSTRUCTIONS.p df) 01/31/2025 Type 2 diabetes mellitus with diabetic peripheral angiopathy without gangrene (ICD-10 - E11.51) Q7(A), Q8(2B), Q9(1B,2C) 04/18/2025 Type 2 diabetes mellitus with diabetic peripheral angiopathy without gangrene (ICD-10 - E11.51) Q7(A), Q8(2B), Q9(1B,2C) 04/18/2025 Tinea unguium (ICD-10 - B35.1) 01/31/2025 Tinea unguium (ICD-10 - B35.1) 01/31/2025 Pain in right toe(s) (ICD-10 - M79.674) 04/18/2025 Pain in right toe(s) (ICD-10 - M79.674) 04/18/2025 Pain in left toe(s) (ICD-10 - M79.675) 01/31/2025 Pain in left toe(s) (ICD-10 - M79.675) 01/31/2025 Other hammer toe(s) (acquired), left foot (ICD-10 - M20.42) Plan Of Treatment Pending Test Test Name Order Date 03821-YUNPTEP NAIL, 1-5 01/31/2025 60284-FMIAOZY NAIL, 1-5 04/18/2025 65195-OVOR SKIN LESIONS, 2 TO 4 04/18/20 57724-JNDX SKIN LESIONS, 2 TO 4 02/01/20 D0144-OIXLVFJQ DYSTROPHIC NAILS ANY # Z9412-NOZHETPL DYSTROPHIC NAILS ANY # Next Appt Details Provider Name:Alexx Ballard , 08/07/2025 08:45:00 AM, [address] [facility], [address], [place], [address], Insurance Providers Payer Name Payer Address Payer Phone Subscriber Number Group Number Insured Name Patient Relationship to Insured Coverage Start Date Coverage End Date Medicare National [employer] [address] [place] [address] [id number] Sunny Mccloud Self - patient is the insured 2 [employer] [address] [place] [address] [id number] Sunny Mccloud Self - patient is the insured Medical (General) History Medical History History ICD Code Anxiety asthma Back,Hip,and Knee pain Cataracts Diabetic High Blood Pressure Measles Bone implants/screws Reflux Surgical History Surgery Date(Month/Year) knee surgery x2 eye surgery
--- OUTSIDE RECORDS SUMMARY | 2025-05-15 17:09 | XMS_ITS | Clinical Summary ---
Author Organization [facility] Address [address] [place] [address] Phone Care Team Providers Care Wood Turner Name Role Phone Lacho Araujo MD Primary Care Provider [phone] Allergies No known active allergies Medications calcium [...] patient's age to complete this topic Insurance [facility] [place] [address] [address] Medicare Care Teams Wood Turner Relationship Specialty Start Date End Date Lacho Araujo MD [address] [place] [address] PCP - General 07/27/20
--- OUTSIDE RECORDS SUMMARY | 2025-05-15 17:09 | XMS_ITS | Data Portability ---
Author Organization [facility] [place] Address [address] [place] [address] Care Team Providers Care Lead Worker Of Housekeeping And Laundry Name Role Phone ANITADANIEL Primary Care Provider Assessment Encounter Date Assessment Date Assessment LastModified [...] 025 08/15/19 25 [email or web address] 5 [facility], [address], [place], [address], 14:02:23 XR, knee, 3 view 04/21/2 023 11/05/19 23 [email or web address] [facility], [address], [place], [address], 12:02:05 Medication Orders None record ed. Patient TargetsNo targets recorded. Patient Instructions Encounter Date Encounter Id Patient Instructions Last Modified By Organization Details Last Modified Time 11/04/2022 [id number] AP, lateral, and patellar views of the right knee taken today demonstrate satisfactory position and alignment of components following right total knee replacement. 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 Medical Equipment [...] Available Not Available meloxicam 15 mg tablet 2021 active Not Available Not Available Not Avai lable betamethaso ne, augmented 0.05 % topical cream active Not Available Not Available Not Available sulfamethox azole 800 mg-trimetho prim 160 mg tablet Take 1 tablet (160 mg of trimethop rim total) by mouth 2 (two) times a day for 10 days. 12/26 completed Not Available Not Available Not Available aspirin 81 mg tablet,juve yed release Take 1 tablet by mouth. active Not Available Not Available No t Available acetaminoph en 500 mg tablet 2021 active Not Available Not Available Not Avai lable ondansetron 8 mg disintegrat ing tablet 2021 active Not Available Not Available Not Avai lable ketorolac 0.5 % eye drops INSTILL 1 DROP IN LEFT EYE DAILY active Not Available Not Available No t Available oxycodone-a cetaminophe n 5 mg-325 mg tablet TAKE 1 TABLET BY MOUTH EVERY 6 HOURS NEEDED FOR SEVERE PAIN active Not Available Not Available No t Available doxazosin 8 mg tablet active Not Available Not Available No t Available prednisolon e acetate 1 % eye drops,suspe nsion INSTILL 1 DROP TO THE LEFT EYE DAILY active Not Available Not Available No t Available methocarbam ol 750 mg tablet 2021 active Not Available Not Available Not Avai lable pantoprazol e 40 mg tablet,juve yed release 2021 active Not Available Not Available Not Avai lable dexamethaso ne 0.75 mg tablet active Not Available Not Available Not Available betamethaso ne, augmented 0.05 % topical ointment active Not Available Not Available Not Available omeprazole 20 mg capsule,del ayed release active Not Available Not Available Not Available metoprolol succinate ER 25 mg tablet,exte nded release 24 hr active Not Available Not Available Not Available triamcinolo ne acetonide 0.1 % lotion APPLY SPARINGLY TOPICALLY TO ITCHY RASH TWICE DAILY NEEDED 2021 active Not Available Not Available Not Avai lable albuterol sulfate HFA 90 mcg/actuati on aerosol inhaler INHALE 2 PUFFS BY MOUTH EVERY 4 TO 6 HOURS NEEDED FOR SHORTNESS OF BREATH OR WHEEZING active Not Available Not Available No t Available spironolact one 50 mg tablet Take 1 tablet by mouth. active Not Available Not Available No t Available amoxicillin 875 mg-potassiu m clavulanate 125 mg tablet TAKE 1 TABLET BY MOUTH TWICE DAILY active Not Available Not Available No t Available oxycodone 5 mg tablet 2021 active Not Available Not Available Not Avai lable cholecalcif erma (vitamin D3) 25 mcg (1,000 unit) capsule Take 1 capsule by mouth. active Not Available Not Available No t Available dutasteride 0.5 mg capsule active Not Available Not Available Not Available Vitals None Recorded Social History None recorded. Functional Status None recorded. Mental Status None recorded. Family History Nothing Reported. Medical History No medical history recorded. Past Encounters Encounter ID Performer Location Encounter Start Date Encounter Closed Date Diagnosis/Indication Diagnosis SNOMED-CT Code Diagnosis ICD10 Code Diagnosis IMO Codes Diagnosis Note [id number] MD MARCELA Diop [facility] [address] [address] 11/04/2022 08:17:03 11/04/2022 08:46:10 History of right total knee replacement [id number] 665271 Z96.651 Aftercare 847835384 Z47. 1 [id number] MD MARCELA Vuong [facility] [address] [facility] [address] [place] [address] 08/15/2024 13:24:16 08/15/2024 14:02:23 Pain of right wrist 5659796296 19322 M25.531 [id number] Carpal tutu jr syndrome of right wrist 0459296108 46229 G56.01 [id number] Health Concerns Section Related Observation LastModified by Organization Detai ls LastModified Time None Recorded Concern Status LastModified by Organization Details LastModified Time None Recorded Advance Directives Directive None Recorded Payers Insurance Date Sequence Insurance Name Policy Number Policy Vance Covered Member ID Vance Member ID Guarantor Name 08/12/2024 1 [place] [email or web address] Sunny Mccloud [id number] Sunny Mccloud 08/12/2024 2 [place] [id number] Sunny Mccloud [id number] Sunny Mccloud Notes Date Note Type Note Provider Name and Address Organization Details Recorded Time 11/04/2022 text/html HPI: Patient is here for 1 year follow-up for a RIGHT total knee replacement. he is recovering very well. He walks [...] pain relief in the knee and satisfactory congregational of function in terms of activities of [...] stability, and strength. The knee moves from 0-125 degrees. The alignment of the knee is neutral. Muscle strength is normal. Pedal pulses are palpable. Hip examination, including flexion and internal rotation, was negative in that groin pain was not produced. Assessment/Plan: This patient is functioning well 1 year after RIGHT total knee arthroplasty. Continue knee conditioning exercises. Chfo-voa-blezdyk medications as needed. Ultimate failure may occur due to mechanical wear, loosening or breakage. Follow-up is recommended to assess for the possibility of failure. Patient will follow-up at 1 year from surgery unless there are issues before then. Chad Donnelly MD [address] [place] [address], [phone], [place] [facility] 11/04/2022 08:46:18 08/15/2024 text/html ROS as noted in the HPI This is a 79-year-old eexgb-ebcv-ohomcsju male who presents with right hand numbness and tingling. He has previously been evaluated and worked up for bilateral carpal tunnel syndrome, seen by a hand surgeon at [facility]. He has undergone left carpal tunnel release [...] does not drink alcohol. Kathia Allen MD [address] [place] [address], [address], [place] [facility] 08/15/2024 17:16:18
--- OUTSIDE RECORDS SUMMARY | 2025-05-15 17:09 | XMS_ITS | Data Portability ---
Author Organization [facility] [address] Address [address] [place] [address] Assessment No assessment recorded. Plan of Treatment Reminders Order Date Submit Date Provider Last Modified By Organization Details Last Modified Time Details Appointments None recorded. Lab None recorded. Referral None recorded. Procedures None recorded. Surgeries None recorded. Imaging None recorded. Medication Orders cephalexin 500 mg capsule 2022 023 [id number], [address] [place], [place], [id number], 3 09:31:11 triamcinolo ne acetonide 0.1 % topical cream 2022 023 [facility]07099, [address], [place], [id number], 3 09:31:11 Patient TargetsNo targets recorded. Patient Instructions Encounter Date Encounter Id Patient Instructions Last Modified By Organization Details Last Modified Time 02/07/2023 [id number] insect stings an d bites: care instructions [email or web address] Not available 02/07/2023 09:31:41 Reason for Referral None Reported. Problems Name Problem SNOMED Code Status Onset Date Resolution Date Notes Provider Name and Address Organization Details Recorded Time Hypertensiv e disorder 07700041 Active 2022 [facility] 3 14:23:10 Diabetes mellitus 67526196 Active 2022 [facility] 3 14:23:20 History of hay fever 216653274 Completed 202211/23/2022 Dottie Wilsonsondra sandoval [facility] 14:23:35 Retinal detachment 26851450 Completed 202211/23/2022 Dottie Salmon lori [facility] 14:24:59 Problem Notes None recorded. Procedures Surgical History Date Name Laterality Status Provider Name and Address Organization Details Recorded Time total knee replacement completed Dottie Suazojessica [facility] 11/23/2022 14:23:50 Imaging Results None recorded. Procedure Notes None recorded. Medical Equipment None Reported. Allergies Allergen ID Allergen Name Allergen Category Reaction Reaction Severity Criticality Documentation Date Start Date Code Code System Note Provider Name and Address Organization Details Recorded Time 265053 grass pollen environme nt,medica tion Not available Not available Not available 11/23/2022 Dottie Griffinalvin sandoval [facility] 08:56:00 Medications Name Sig Start Date Stop [...] Heart rate Respiratory rate Body temperature Systolic And Diastolic Provider Name and Address Organization Details Last Updated DateTime 3 172.72 cm 35 kg/m2 130606. 25 g 0 98 % 98 % 81 /min 18 /min 98.4 [degF] 147/99 mm[Hg] Dottie Salmon PA - [facility] 3 14:28:04 Date Recorded Body height Body mass index (BMI) Body weight Pain severity - 0-10 verbal numeric rating [Score] - Reported Respiratory rate Oxygen saturation Oxygen saturation in Arterial blood by Pulse oximetry Heart rate Body temperature Systolic And Diastolic Provider Name and Address Organization Details Last Updated DateTime 3 172.72 cm 33.5 kg/m2 89932.3 2 g 2 18 /min 97 % 97 % 70 /min 97.5 [degF] 130/77 mm[Hg] Dottie Salmon PA - [facility] 3 09:02:24 Social History Question Answer Notes LastModified by [employer] Details LastModified Time Tobacco Smoking Status Former Smoker Dottie sandoval [place] - [facility] 11/23/2022 14:25:34 When Did You Quit Smoking? 16+yearssinc elastcigaret te Information not available 11/23/2022 Have You Recently Traveled Abroad? No Information not available 11/23/2022 Sex: Unknown Functional Status Question Answer Note LastModified by [employer] Details LastModified Time Do you use any [...] ICD10 Code Diagnosis IMO Codes Diagnosis Note [id number] [address] [place] [address] 02/04/2017 10:29:09 02/04/2017 11:14:31 [id number] [address] [place] [address] 09/26/2015 08:41:39 09/26/2015 09:38:27 [id number] [address] [place] [address] 12/12/2016 10:43:48 12/12/2016 11:26:08 [id number] Glenis Ceballos MD [address] [place] [address] 11/23/2022 13:44:59 11/23/2022 14:47:01 Left without being seen 1142611297 9102 Z53.21 Patient brought to room but I never saw patient. He didn't want to wait and left prior to my Assessment [id number] Glenis Ceballos MD [address] [place] [address] 02/07/2023 08:37:54 02/07/2023 09:32:27 Infected insect bite 620485481 L08.9 Bite of insect 204215069 W57.XXXA Apply Cool compresses .Can take a [...] ID Guarantor Name 02/07/2023 1 [place] Sunny Mccloud [id number] Sunny Cline Rogers 02/07/2023 2 [place]) [id number] Sunny Mccloud [id number] Sunnyboris Mccloud Notes Date Note Type Note Provider Name and Address Organization Details Recorded Time 02/07/2023 text/html Rash / Skin LesionReported by PatientHPIFor quality, patient reportsitchy,painful ,red, andswollen. For location, patient reportsfaceandhands. For severity, patient reportsmild. For duration, patient reports2 days. For alleviating factors, patient reportsnothing gives relief. For associated symptoms, patient reportsno feverandno fatigue.swelling has increased today which is day 3 Glenis Ceballos MD [address] [place], [address], [place] - [facility] 02/07/2023 17:23:06
--- OUTSIDE RECORDS SUMMARY | 2025-05-15 17:09 | XMS_ITS | Clinical Summary ---
Author Organization [facility] Address [address] [place] [address] Care Team Providers Care Equipment Specialist Name Role Phone Lacho Araujo MD Primary Care Provider [phone] Allergies No known active allergies Medications Medication [...] age to complete this topic Care Teams Equipment Specialist Relationship Specialty Start Date End Date Lacho Araujo MD [address] [place] [address] [address] [facility] ALEXEI Mcintosh [id number] PCP - General Internal Medicine 09/28/21
--- OUTSIDE RECORDS SUMMARY | 2025-05-15 17:09 | XMS_ITS | Patient Health Record ---
Author Organization [facility] Address [address] [place] [address] Care Team Providers Care Grove Superintendent Name Role Phone Lacho Araujo MD Primary Care Provider Nikos Payne [phone] Allergies No Known Allergies Reason For Referral No Information Medications Medication SIG (Take, Route, Frequency, Duration) Notes Start Date End Date Status Losartan Potassium 50 MG 1 tablet Orally Once a day; Duration: 30 day(s) Active Omeprazole 20 MG 1 capsule Orally Onc e a day; Duration: 30 day(s) Active Metoprolol Succinate 50 MG 1 1/2 capsule Orally daily Active Venlafaxine HCl 75 MG 1 tablet with food Orally Once a day Active Fish Oil 500 MG 1 capsule Orally Twi ce a day; Duration: 30 day(s) Active ProAir HFA 108 (90 Base) MCG/ACT 2 puffs as needed Inhalation every 6 hrs Not-Taksandoval g Vitamin D (Cholecalciferol) 1000 UNIT 1 capsule Orally Once a day Active Dutasteride 0.5 MG 1 capsule Orally Onc e a day; Duration: 30 day(s) Active Spironolactone 50 MG 1 tablet with food Orally Once a day; Duration: 30 day(s) Active Doxazosin Mesylate 8 MG 1 tablet Orally Once a day; Duration: 30 day(s) Active Calcium + D 600-200 MG-UNIT 1 tablet Orally once a day Active Immunizations Vaccine Route Administration Date Status Comme nts Influenza Unknown 03/17/2018 Administered Problems Problem Type SNOMED Code ICD Code Onset Dates Problem Status W/U Status Risk Notes Problem Screening for malignant neoplasm of colon (961479772) Encounter for screening for malignant neoplasm of colon (Z12.11) Active confirmed Problem History of adenomatous polyp of colon (155454497) History of adenomatous polyp of colon (Z86.010) Active confirmed Problem Diverticular disease of colon (703414922) Diverticulosis of large intestine without perforation or abscess without bleeding (K57.30) Active confirmed Problem Preprocedural examination (632831390072744) Preprocedural examination (Z01.818) Active confirmed Problem Gastroesophageal reflux disease (542055021) Gastroesophageal reflux disease, esophagitis presence not specified (K21.9) Active confirmed Problem Long-term current use of antiplatelet drug (140547843301572) Long-term use of aspirin therapy (Z79.82) Active confirmed Plan Of Treatment Pending Test Test Name Order Date Pathology 03/15/2024 Future Test Test Name Order Date COLONOSCOPY 04/09/2013 COLONOSCOPY 08/10/2018 COLONOSCOPY 11/30/2023 Insurance Providers Payer Name Payer Address Payer Phone Subscriber Number Group Number Insured Name Patient Relationship to Insured Coverage Start Date Coverage End Date MEDICARE OF [place] [address] [place] [address] [id number] KALPESH KOHLI Self - patient is the insured MEDEX ATTN CLAIMS [address] [place] [address] [id number] KALPESH KOHLI Self - patient is the insured Medical (General) History Medical History History ICD Code > 1CM tubular adenoma remove d in 2003, a neg. colonoscopy in 11/2007, colonoscopy in 05/2013 with a small tubular adenoma removed Denies OK,CVA,renal disease HTN Diet-controlled diabetes Detached retina left eye-had laser surge ry Anxiety Hx of bronchitis/asthma GERD--started on omeprazole approx. 2016 Colonoscopy 09/2018 with one tubular tiffany elias removed Surgical History Surgery Date(Month/Year) Skin cancer on back Laser eye surgery-detached retina Left knee replacement--approx 2014 Right knee replacement -approx 2021
== END 2025-05-15 14:40 | disposition home or self-care (01) ==
LOC: HO.HUSH 14:06
PROVIDERS: PCP Internal Medicine; Visit Provider Urology
DX: N40.1 Benign prostatic hyperplasia with lower urinary tract symptoms (principal); R35.0 Frequency of micturition; Z13.9 Encounter for screening, unspecified
CPT/HCPCS: 99203

== ENCOUNTER → 2025-05-15 14:05 | Outpatient (BNVA) | payer MEDICARE, SELFPAY | PROVIDERS: PCP Internal Medicine; Visit Provider Urology | DX: N40.1 Benign prostatic hyperplasia with lower urinary tract symptoms (principal); R35.0 Frequency of micturition; Z13.9 Encounter for screening, unspecified | CPT/HCPCS: 51798; 81003; 99202 ==

== ENCOUNTER → 2025-06-02 07:42 | Outpatient (REF) | payer MEDICARE, SELFPAY ==
--- NOTE | 2025-06-02 07:44 | CA_ITS ---
Acquisition Time: 2025-06-02 07:52:09 Total Exercise Time: 00:02:46 Test Indications: sob Medications: see h&p Protocol: SHONNA Max HR: 150 BPM 105% of Pred: 142 BPM Max BP: 130/80 mmHG Max Work Load: 4.6 METS Exercise stress test with exercise 2 mins 46 secs of Shonna Protocol, achieving 104% MPHR, with reports of 5/10 mid chest pressure and SOB, requesting to stop, with isolated PVCs, with normotensive response to exercise. Without any EKG changes at achieved workload. Recommend nuclear stress test for further eval. Test reviewed with Dr. Boogie. Referred By: Lacho Araujo Electronically Signed By: Damian Thompson
--- OUTSIDE RECORDS SUMMARY | 2025-06-02 08:03 | XMS_ITS | Data Portability ---
Author Organization [facility] James [facility] [address] [place] Address [address] [place] [address] Care Team Providers Care Juice Bar Team Member Name Role Phone ANITADANIEL Primary Care Provider [...] 025 08/15/19 25 [email or web address] 5 [facility], [address], [address], [place], [address], 14:02:23 XR, knee, 3 view 04/21/2 023 11/05/19 23 [email or web address] [facility], [address], [address], [place], [address], 12:02:05 Medication Orders None record ed. Patient TargetsNo targets recorded. Patient Instructions Encounter Date Encounter Id Patient Instructions Last Modified By Organization Details Last Modified Time 11/04/2022 [id number] AP, lateral, and patellar views of the right knee taken today demonstrate satisfactory position and alignment of components following right total knee replacement. 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 [...] Codes Diagnosis Note [id number] MD MARCELA Diop [facility] [address] [address] 11/04/2022 08:17:03 11/04/2022 08:46:10 History of right total knee replacement 7162090362 752979 Z96.651 Aftercare 410559048 Z47. 1 [id number] MD MARCELA Vuong [facility] 299 [facility] [address] [place] [address] 08/15/2024 13:24:16 08/15/2024 14:02:23 Pain of right wrist 9447398018 87577 M25.531 543084 Carpal tutu jr syndrome of right wrist 3672194252 32826 G56.01 412306 Health Concerns Section Related Observation LastModified by Organization Detai ls LastModified Time None Recorded Concern Status LastModified by Organization Details LastModified Time None Recorded Advance Directives Directive None Recorded Payers Insurance Date Sequence Insurance Name Policy Number Policy Vance Covered Member ID Vance Member ID Guarantor Name 08/12/2024 1 [place] [employer] Sunny Mccloud [id number] Sunny Mccloud 08/12/2024 2 [place] [id number] Sunny Mccloud [id number] Sunny Mccloud Notes Date Note Type [...] total knee arthroplasty. Continue knee conditioning exercises. Oovm-fzy-dtxsjkb medications as needed. Ultimate failure may occur due to mechanical wear, loosening or breakage. Follow-up is recommended to assess for the possibility of failure. Patient will follow-up at 1 year from surgery unless there are issues before then. Chad Donnelly MD [address] [place] [address], [address], [place] [facility] 11/04/2022 08:46:18 08/15/2024 text/html ROS as noted in the HPI This is a 79-year-old kixzt-zhjm-uafdtolu male who presents with right hand numbness and tingling. He has previously been evaluated and worked up for bilateral carpal tunnel syndrome, seen by a hand surgeon at [facility]. He has undergone left carpal tunnel release [...] does not drink alcohol. Kathia Allen MD [address] [place] [address], [address], [place] [facility] 08/15/2024 17:16:18
--- OUTSIDE RECORDS SUMMARY | 2025-06-02 08:03 | XMS_ITS | Data Portability ---
Author Organization [facility] [address] Address [address] [place] [address] Assessment No assessment recorded. Plan of Treatment Reminders Order Date Submit Date Provider Last Modified By Organization Details Last Modified Time Details Appointments None recorded. Lab None recorded. Referral None recorded. Procedures None recorded. Surgeries None recorded. Imaging None recorded. Medication Orders cephalexin 500 mg capsule 2022 023 [facility]04886, [address] [place], [place], [phone], 3 09:31:11 triamcinolo ne acetonide 0.1 % topical cream 2022 023 [facility]06028, [address] [place], [place], [id number], 3 09:31:11 Patient TargetsNo targets recorded. Patient Instructions Encounter Date Encounter Id Patient Instructions Last Modified By Organization Details Last Modified Time 02/07/2023 [id number] insect stings an d bites: care instructions [email or web address] Not available 02/07/2023 09:31:41 Reason for Referral None Reported. Problems Name Problem SNOMED Code Status Onset Date Resolution Date Notes Provider Name and Address Organization Details Recorded Time Hypertensiv e disorder 32751447 Active 2022 [facility] 3 14:23:10 Diabetes mellitus 31166139 Active 2022 [facility] 3 14:23:20 History of hay fever 790027602 Completed 202211/23/2022 Dottie Wilsonsondra sandoval [facility] 14:23:35 Retinal detachment 04791690 Completed 202211/23/2022 Dottie Salmon lori [facility] 14:24:59 Problem Notes None recorded. Procedures Surgical History Date Name Laterality Status Provider Name and Address Organization Details Recorded Time total knee replacement completed Dottie Suazojessica [facility] 11/23/2022 14:23:50 Imaging Results None recorded. Procedure Notes None recorded. Medical Equipment None Reported. Allergies Allergen ID Allergen Name Allergen Category Reaction Reaction Severity Criticality Documentation Date Start Date Code Code System Note Provider Name and Address Organization Details Recorded Time 992346 grass pollen environme nt,medica tion Not available Not available Not available 11/23/2022 Dottie Griffinalvin sandoval [facility] 08:56:00 Medications Name Sig Start Date [...] Updated DateTime 3 172.72 cm 35 kg/m2 107529. 25 g 0 98 % 98 % [...] Updated DateTime 3 172.72 cm 33.5 kg/m2 09129.3 2 g 2 18 /min 97 % 97 % 70 /min 97.5 [degF] 130/77 mm[Hg] Dottie Salmon PA - [facility] 3 09:02:24 Social History Question Answer Notes LastModified by [employer] Details LastModified Time Tobacco Smoking Status Former Smoker Dottie sandoval [place] - [facility] 11/23/2022 14:25:34 When Did You Quit Smoking? 16+yearssinc elastcigaret te Information not available 11/23/2022 Have You Recently Traveled Abroad? No Information not available 11/23/2022 Sex: Unknown Functional Status Question Answer Note LastModified by [employer] Details LastModified Time Do you use any [...] ICD10 Code Diagnosis IMO Codes Diagnosis Note [id number] [address] [place] [address] 02/04/2017 10:29:09 02/04/2017 11:14:31 [id number] [address] [place] [address] 09/26/2015 08:41:39 09/26/2015 09:38:27 [id number] [address] [place] [address] 12/12/2016 10:43:48 12/12/2016 11:26:08 [id number] Glenis Ceballos MD [address] [place] [address] 11/23/2022 13:44:59 11/23/2022 14:47:01 Left without being seen 5435943872 9102 Z53.21 Patient brought to room but I never saw patient. He didn't want to wait and left prior to my Assessment [id number] Glenis Ceballos MD [address] [place] [address] 02/07/2023 08:37:54 02/07/2023 09:32:27 Infected insect bite 122482974 L08.9 Bite of insect 197900477 W57.XXXA Apply Cool compresses .Can take a [...] MED[place]MENT [place] Sunny Mccloud [id number] Sunny Cline Rogers 02/07/2023 2 [place]) [id number] Sunny Mccloud [id number] Sunnyboris Mccloud Notes Date Note Type [...] Glenis Ceballos MD [address] [place], [address], [place] - [facility] 02/07/2023 17:23:06
== END ==
LOC: HO.CARD 07:42
PROVIDERS: PCP Internal Medicine; Visit Provider Internal Medicine
DX: R06.02 Shortness of breath (principal)
CPT/HCPCS: 93017

== ENCOUNTER → 2025-06-02 07:44 | Outpatient (BNV) | payer MEDICARE, SELFPAY | PROVIDERS: PCP Internal Medicine | DX: R07.89 Other chest pain (principal); R06.02 Shortness of breath | CPT/HCPCS: 93016; 93018 ==

== ENCOUNTER 2025-06-05 11:14 | Outpatient (REF) | payer MEDICARE, SELFPAY ==
--- OUTSIDE RECORDS SUMMARY | 2024-03-15 04:30 | XMS_ITS ---
Author Organization [facility] Address [address] [place] [phone] Care Team Providers Care Paperboard Box Maker Name Role Phone Po Lacho SANDRA Primary Care Provider Nikos Payne [phone] REASON FOR VISIT screening colon Problems Problem Type SNOMED Code ICD Code Onset Dates Problem Status W/U Status Risk Notes Problem Diverticular disease of colon (173230451) Diverticulosis of large intestine without perforation or abscess without bleeding (K57.30) Active confirmed Encounters Encounter Location Date Provider Diagnosis [facility] [place] Outpatient [address] [place] [phone] 03/15/2024 Nikos Gordon Encounter for scre ening [...] KALPESH KOHLI GDOB:[birth year] (80 yo M)Acc No.[id number]:03/15/2024 COLON WITH MAC Patient: KALPESH CARLOS Provider: Dave Gordon MD :1945 A ge:79 Y S ex:Male Date:03/15/2024 Address:[address] [place], [place] [phone] Pcp:Lacho Araujo MD Subjective: * Chief Complaints: * S creening colon Assessment: * Assessment: 1. E ncounter for screening colonoscopy - Z12.11 (Primary) 2 . C olon polyps - K63.5 3 . D iverticulosis of large intestine without perforation or abscess without bleeding - K57.30 4 . O ther hemorrhoids - K64.8 Plan: * Procedure Codes: 4 5385 LESION REMOVAL COLONOSCOPY, Modifiers: [place] [address] COLONOSCOPY AND BIOPSY, Modifiers: 59 , [id number] INTRVL 3+YRS PTS CLNSCP [id number] RCMND FLW-UP 10 YRS DOCD, Modifiers: 1P Billing Information: * Procedure Codes: 25032 LESION REMOVAL COLONOSCOPY. [place]: [place] [address] COLONOSCOPY AND BIOPSY. Modifiers: 59, PT 0529F [...] 0 03/15/2024 Generated for Shona joaquin/Tom/Helensmitting on: 08/05/2024 05:29 PM EST
[2025-06-05 13:33] LABS: Anion Gap 10 (12-20); Blood Urea Nitrogen 18 mg/dL (9-16); Carbon Dioxide 28 mmol/L (22-29); Chloride 108 mmol/L (96-108); Estimated Glomerular Filt Rate > 60; Potassium 4.5 mmol/L (3.3-5.1); Sodium 141 mmol/L (135-145)
--- OUTSIDE RECORDS SUMMARY | 2025-06-05 17:28 | XMS_ITS | Clinical Summary ---
Author Organization [facility] Address [address] [place] [address] Care Team Providers Care Consulting Analyst Name Role Phone Lacho Araujo MD Primary Care Provider [phone] Allergies No known active allergies Medications Medication [...] age to complete this topic Care Teams Consulting Analyst Relationship Specialty Start Date End Date Lacho Araujo MD [address] [place] [address] [address] [facility] ALEXEI Mcintosh [id number] PCP - General Internal Medicine 09/28/21
--- OUTSIDE RECORDS SUMMARY | 2025-06-05 17:28 | XMS_ITS | Clinical Summary ---
Author Organization [facility] Address [address] [place] [address] Phone Care Team Providers Care Pencil Sorter Name Role Phone Lacho Araujo MD Primary Care Provider [phone] Allergies No known active allergies Medications calcium [...] topic Insurance [facility] [place] [address] [place] [address] Medicare Care Teams Pencil Sorter Relationship Specialty Start Date End Date Lacho Araujo MD [address] [place] [address] PCP - General 07/27/20
--- OUTSIDE RECORDS SUMMARY | 2025-06-05 17:29 | XMS_ITS | Data Portability ---
Author Organization [facility] James Duarte [facility] [place] Address [address] [place] [address] Care Team Providers Care Alligator Trapper Name Role Phone ANITADANIEL Primary Care Provider [...] 3 or more view 025 08/15/19 25 [email or web address] 5 [facility], [address], [place], [address], 14:02:23 XR, knee, 3 view 04/21/2 023 11/05/19 23 [email or web address] [facility], [address], [address], [place], [address], 12:02:05 Medication Orders None record ed. Patient TargetsNo targets recorded. Patient Instructions Encounter Date Encounter Id Patient Instructions Last Modified By Organization Details Last Modified Time 11/04/2022 [id number] AP, lateral, and patellar views of the right knee taken today demonstrate satisfactory position and alignment of components following right total knee replacement. [email or web address] Not available 11/04/2022 08:46:01 08/15/2024 [id number] views of the r ight wrist [...] Details Recorded Time Synovial osteochon dromatosi s 432220893 Active 2021 Osteochon dromatosi s, synovial Not Available [facility] 23:12:11 Arthritis of right knee joint 32105475309 54955 Active 2021 Arthritis of knee, right Not Available [facility] 5 23:12:11 Carpal tunnel syndrome of right wrist 93819777902 9108 Active 2024 Kathia Allen MD [address] [facility], [place], [address] , [place] [facility] 5 17:14:36 Problem Notes None recorded. [...] Codes Diagnosis Note [id number] MD MARCELA Diop [facility] [address] [address] 11/04/2022 08:17:03 11/04/2022 08:46:10 History of right total knee replacement 5477134360 835701 Z96.651 Aftercare 973144968 Z47. 1 [id number] MD MARCELA Vuong [facility] 299 [facility] [address] [place] [address] 08/15/2024 13:24:16 08/15/2024 14:02:23 Pain of right wrist 5689982004 85308 M25.531 412299 Carpal tutu jr syndrome of right wrist 9953709880 99178 G56.01 331429 Health Concerns Section Related Observation LastModified by Organization Detai ls LastModified Time None Recorded Concern Status LastModified by Organization Details LastModified Time None Recorded Advance Directives Directive None Recorded Payers Insurance Date Sequence Insurance Name Policy Number Policy Vance Covered Member ID Vance Member ID Guarantor Name 08/12/2024 1 [place] [employer] Sunny Mccloud [id number] Sunny Mccloud 08/12/2024 2 [place]) [id number] Sunny Mccloud [id number] Sunny Mccloud Notes Date Note Type [...] pain relief in the knee and satisfactory moravian of function in terms of activities of [...] total knee arthroplasty. Continue knee conditioning exercises. Inqu-ovt-kavroet medications as needed. Ultimate failure may occur due to mechanical wear, loosening or breakage. Follow-up is recommended to assess for the possibility of failure. Patient will follow-up at 1 year from surgery unless there are issues before then. Chad Donnelly MD [address] [place] [address], [address], [place] [facility] 11/04/2022 08:46:18 08/15/2024 text/html ROS as noted in the HPI This is a 79-year-old zekxp-cosg-vukokvqp male who presents with right hand numbness and tingling. He has previously been evaluated and worked up for bilateral carpal tunnel syndrome, seen by a hand surgeon at [facility]. He has undergone left carpal tunnel [...] does not drink alcohol. Kathia Allen MD [address] [place] [address], [address], [place] [facility] 08/15/2024 17:16:18
--- OUTSIDE RECORDS SUMMARY | 2025-06-05 17:29 | XMS_ITS | Patient Health Record ---
Author Organization [facility] Address [address] [place] [address] Care Team Providers Care Will Call Clerk Name Role Phone Lacho Araujo MD Primary Care Provider Nikos Payne [phone] Allergies No Known Allergies Reason For Referral No Information Medications Medication SIG (Take, Route, Frequency, Duration) Notes Start Date End Date Status Losartan Potassium 50 MG Tablet 1 tablet Orally Once a day; Duration: 30 day(s) Active Omeprazole 20 MG Capsule Delayed Release 1 capsule Orally Once a day; Duration: 30 day(s) Active Metoprolol Succinate 50 MG Tablet Extended Release 1 1/2 capsule Orally daily Active Venlafaxine HCl 75 MG Tablet 1 tablet with food Orally Once a day Active Fish Oil 500 MG Capsule 1 capsule Orally Twice a day; Duration: 30 day(s) Active ProAir HFA 108 (90 Base) MCG/ACT Aerosol Solution 2 puffs as needed Inhalation every 6 hrs Not-Taking/PRN Vitamin D (Cholecalciferol) 1000 UNIT Capsule 1 capsule Orally Once a day Active Dutasteride 0.5 MG Capsule 1 capsule Orally Once a day; Duration: 30 day(s) Active Spironolactone 50 MG Tablet 1 tablet with food Orally Once a day; Duration: 30 day(s) Active Doxazosin Mesylate 8 MG Tablet 1 tablet Orally Once a day; Duration: 30 day(s) Active Calcium + D 600-200 MG-UNIT Tablet 1 tablet Orally once a day Active Immunizations Vaccine Route Administration Date Status Comme nts Influenza Unknown 03/17/2018 Administered Social History Social History Additional Details Category Social Info Options Details Miscellaneous: Marital status: single 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 Section Notes: Nonsmoker; no sig alcohol Nonsmoker; no sig alcohol Nonsmoker; no sig alcohol Problems Problem Type SNOMED Code ICD Code Onset Dates Problem Status W/U Status Risk Notes Problem Screening for malignant neoplasm of colon (478487566) Encounter for screening for malignant neoplasm of colon (Z12.11) Active confirmed Problem History of adenomatous polyp of colon (700871642) History of adenomatous polyp of colon (Z86.010) Active confirmed Problem Diverticular disease of colon (472409094) Diverticulosis of large intestine without perforation or abscess without bleeding (K57.30) Active confirmed Problem Preprocedural examination (414483265517875) Preprocedural examination (Z01.818) Active confirmed Problem Gastroesophageal reflux disease (141299977) Gastroesophageal reflux disease, esophagitis presence not specified (K21.9) Active confirmed Problem Long-term current use of antiplatelet drug (348194437512148) Long-term use of aspirin therapy (Z79.82) Active confirmed Plan Of Treatment Pending Test Test Name Order Date Pathology 03/15/2024 Future Test Test Name Order Date COLONOSCOPY 04/09/2013 COLONOSCOPY 08/10/2018 COLONOSCOPY 11/30/2023 Insurance Providers Payer Name Payer Address Payer Phone Subscriber Number Group Number Insured Name Patient Relationship to Insured Coverage Start Date Coverage End Date MEDICARE OF [place] [address] [place] [address] [id number] KALPESH KOHLI Self - patient is the insured MEDEX ATTN CLAIMS [address] [place] [address] [id number] KALPESH KOHLI Self - patient is the insured Medical (General) History Medical History History ICD Code > 1CM tubular adenoma remov ed in 2003, a neg. colonoscopy in 11/2007, colonoscopy in 05/2013 with a small tubular adenoma removed Denies PA,CVA,renal disease HTN Diet-controlled diabetes Detached retina left eye-had laser surge ry Anxiety Hx of bronchitis/asthma GERD--started on omeprazole approx. 2016 Colonoscopy 09/2018 with one tubular tiffany elias removed Surgical History Surgery Date(Month/Year) Skin cancer on back Laser eye surgery-detached retina Left knee replacement--approx 2014 Right knee replacement -approx 2021
--- OUTSIDE RECORDS SUMMARY | 2025-06-05 17:29 | XMS_ITS | Patient Health Record ---
Author Organization [facility] Address [address] [place] [address] Care Team Providers Care Ice Cream Freezer Name Role Phone Lacho Araujo Primary Care Provider Alexx Serrano Unavailable [phone] Allergies No Known Allergies Results Component Value [...] Problem Acquired hammer toe of right foot (5186640415964 105) Other hammer toe(s) (acquired), right foot (M20.41) Active confirmed Problem Acquired hammer toe of left foot (1401819872256 103) Other hammer toe(s) (acquired), left foot (M20.42) Active confirmed Problem Type 2 diabetes mellitus with peripheral angiopathy (432987864) Type 2 diabetes mellitus with diabetic peripheral angiopathy without gangrene (E11.51) Active confirmed Q7(A), Q8(2B), Q9(1B,2C) Vital Signs Blood pressure diastolic 70 mm Hg 04/18/2025 Height 5ft 8in in 04/18/2025 Blood pressure systolic 130 mm Hg 04/18/2025 Weight 220 lbs 04/18/2025 BMI 33.45 kg/m2 04/18/2025 Procedures Procedure Date Ordered Date Performed Result Body Sit e 58526-MUBOVAL NAIL, 1-5 01/31/2025 N/A 98363-JBAN SKIN LESIONS, 2 TO 4 01/31/2025 N/A D7124-QENFCVLY DYSTROPHIC NAILS ANY # 01/31/2025 N/A 77879-YCXKXME NAIL, 1-5 04/18/2025 N/A 64222-OVDR SKIN LESIONS, 2 TO 4 04/18/2025 N/A Y0188-NHOZRSLZ DYSTROPHIC NAILS ANY # 04/18/2025 N/A Encounters Encounter Location Date Provider Diagnosis [facility] [place] [address] [place] [address] 01/31/2025 Alexx Ballard Type 2 diabetes mellitus with diabetic peripheral angiopathy without gangrene E11.51 ; Other hammer toe(s) (acquired), right foot M20.41 ; Tinea unguium B35.1 ; Pain in right toe(s) M79.674 ; Pain in left toe(s) M79.675 and Other hammer toe(s) (acquired), left foot M20.42 [facility] [address] [address] 04/18/2025 Alexx Ballard Type 2 diabetes mellitus [...] Treatment Pending Test Test Name Order Date 52120-KASWWMU NAIL, 1-5 01/31/2025 50297-XVOHEPH NAIL, 1-5 04/18/2025 90265-JXFJ SKIN LESIONS, 2 TO 4 04/18/20 93675-XFII SKIN LESIONS, 2 TO 4 02/01/20 D0662-IJTHTSKX DYSTROPHIC NAILS ANY # I5360-POXPBHQM DYSTROPHIC NAILS ANY # Next Appt Details Provider Name:Alexx Ballard , 08/07/2025 08:45:00 AM, [address], [address], [place], [address], Insurance Providers Payer Name Payer Address Payer Phone Subscriber Number Group Number Insured Name Patient Relationship to Insured Coverage Start Date Coverage End Date Medicare National Govt Svcs [employer] [address] [place] [address] [id number] Sunny Mccloud Self - patient is the insured 2 [employer]ex Blue Shield [address] [place] [address] [id number] Sunny Mccloud Self - patient is the insured Medical (General) History Medical History History ICD Code Anxiety asthma Back,Hip,and Knee pain Cataracts Diabetic High Blood Pressure Measles Bone implants/screws Reflux Surgical History Surgery Date(Month/Year) knee surgery x2 eye surgery
--- OUTSIDE RECORDS SUMMARY | 2025-06-05 17:29 | XMS_ITS | Data Portability ---
Author Organization [facility] [address] Address [address] [place] [address] Assessment No assessment recorded. Plan of Treatment Reminders Order Date Submit Date Provider Last Modified By Organization Details Last Modified Time Details Appointments None recorded. Lab None recorded. Referral None recorded. Procedures None recorded. Surgeries None recorded. Imaging None recorded. Medication Orders cephalexin 500 mg capsule 2022 023 [facility], [address] [place], [place], [id number], 3 09:31:11 triamcinolo ne acetonide 0.1 % topical cream 2022 023 [facility] [address]86352, [address] [place], [place], [id number], 3 09:31:11 Patient TargetsNo targets recorded. Patient Instructions Encounter Date Encounter Id Patient Instructions Last Modified By Organization Details Last Modified Time 02/07/2023 [id number] insect stings an d bites: care instructions [email or web address] Not available 02/07/2023 09:31:41 Reason for Referral None Reported. Problems Name Problem SNOMED Code Status Onset Date Resolution Date Notes Provider Name and Address Organization Details Recorded Time Hypertensiv e disorder 57216950 Active 2022 [facility] 3 14:23:10 Diabetes mellitus 37869406 Active 2022 [facility] 3 14:23:20 History of hay fever 443435964 Completed 202211/23/2022 Dottie Wilsonsondra sandoval [facility] 14:23:35 Retinal detachment 16686027 Completed 202211/23/2022 Dottie Salmon lori [facility] 14:24:59 Problem Notes None recorded. Procedures Surgical History Date Name Laterality Status Provider Name and Address Organization Details Recorded Time total knee replacement completed Dottie Suazojessica [facility] 11/23/2022 14:23:50 Imaging Results None recorded. Procedure Notes None recorded. Medical Equipment None Reported. Allergies Allergen ID Allergen Name Allergen Category Reaction Reaction Severity Criticality Documentation Date Start Date Code Code System Note Provider Name and Address Organization Details Recorded Time 440351 grass pollen environme nt,medica tion Not available Not available Not available 11/23/2022 Dottie Griffinalvin sandoval [facility] 08:56:00 Medications Name Sig Start Date [...] numeric rating [Score] - Reported Oxygen saturation Heart rate Respiratory rate Body temperature Systolic And Diastolic Provider Name and Address Organization Details Last Updated DateTime 3 172.72 cm 35 kg/m2 250002. 25 g 0 98 % 81 /min 18 /min 98.4 [degF] 147/99 mm[Hg] Dottie Salmon PA - [facility] 3 14:28:04 Date Recorded Body height Body mass index (BMI) Body weight Pain severity - 0-10 verbal numeric rating [Score] - Reported Respiratory rate Oxygen saturation Heart rate Body temperature Systolic And Diastolic Provider Name and Address Organization Details Last Updated DateTime 3 172.72 cm 33.5 kg/m2 48295.3 2 g 2 18 /min 97 % 70 /min 97.5 [degF] 130/77 mm[Hg] Dottiefroylan Wilsonsondra PA - [facility] 3 09:02:24 Social History Question Answer Notes LastModified by [employer] Details LastModified Time Tobacco Smoking Status Former Smoker Dottie sandoval, PA - [facility] 11/23/2022 14:25:34 When Did You Quit Smoking? 16+yearssinc elastcigaret te Information not available 11/23/2022 Have You Recently Traveled Abroad? No Information not available 11/23/2022 Sex: Unknown Functional Status Question Answer Note LastModified by [employer] Details LastModified Time Do you use any [...] ICD10 Code Diagnosis IMO Codes Diagnosis Note [id number] [facility] [place] [address] 02/04/2017 10:29:09 02/04/2017 11:14:31 [id number] [address] [place] [address] 09/26/2015 08:41:39 09/26/2015 09:38:27 [id number] [facility] [address] [place] [address] 12/12/2016 10:43:48 12/12/2016 11:26:08 [id number] Glenis Ceballos [place] [address] [place] [address] 11/23/2022 13:44:59 11/23/2022 14:47:01 Left without being seen [id number] 9102 Z53.21 Patient brought to room but I never saw patient. He didn't want to wait and left prior to my Assessment [id number] [place]is Ceballos [place] [address] [place] [address] 02/07/2023 08:37:54 02/07/2023 09:32:27 Infected insect bite 108505906 L08.9 Bite of insect 418926225 W57.XXXA Apply Cool compresses .Can take a [...] ID Guarantor Name 02/07/2023 1 [place] [employer] G[employer]ERNMENT [employer] Sunny Marlyn Rogers [id number] Sunny Mccloud 02/07/2023 2 [place] [id number] Sunny Mccloud [id number] Sunny Mccloud Notes Date Note Type [...] Glenis Ceballos MD [address] [place], [address], [place] - [facility] 02/07/2023 17:23:06
== END 2025-06-05 11:15 | disposition home or self-care (01) ==
LOC: HO.HMGCLDS 11:14
PROVIDERS: PCP Internal Medicine; Visit Provider Internal Medicine Nephrology
DX: I10 Essential (primary) hypertension (principal)
CPT/HCPCS: 36415; 80051; 82565; 84520

== ENCOUNTER 2025-06-11 09:52 | Outpatient (AMB) | payer MEDICARE, SELFPAY ==
--- OUTSIDE RECORDS SUMMARY | 2023-04-21 06:13 | XMS_ITS | Continuity of Care Document ---
Author Organization [facility] Address [address] [place] [id number] Phone Care Team Providers Care Seo Expert Name Role Phone Claudio SANDRA FACS RVT Augustine DENNIS Unavailable Unavailable Allergies, Adverse Reactions, Alerts Substance Reaction Status Criticality No Known Allergies Active No Inform ation Medications Medication Instructions Dosage Effective Dates (start - stop) Status Comments cephalexin 500 mg capsule take 2 capsule by mouth 2 hours prior to procedures and 1 capsule every 6 hours after procedure. for prophylactic knee replacement - Active doxycycline monohydrate 100 mg capsule take 1 capsule by oral route 2 times every day 100 MG - Active dutasteride 0.5 mg capsule - Active omeprazole 20 mg capsule,delayed release - Active metoprolol tartrate 50 mg tablet take 1 tablet by oral route 2 times every day with meals 50 MG - Active spironolactone 50 mg tablet take 1 tablet by oral route every day 50 MG - Active losartan 50 mg tablet - Active doxazosin 8 mg tablet take 1 tablet by o ral route every day 8 MG - Active Procedures Procedure Date Office/Outpt E&M Established 15 Mins Mar Duplex Scan-extrem Veins; / Endovenous Laser, 1st Vein Endovenous Laser, 1st Vein Endovenous laser vein addon Duplex Scan-extrem Veins; Uni/ Endovenous Laser, 1st Vein Endovenous Laser, 1st Vein Endovenous laser vein addon Office/Outpt E&M Established 15 Mins Dec Office/Outpt E&M Established 10 Mins Dec Office/Outpt E&M Established 25 Mins Dec Offic/outpt E&m Estab 5 Min Trial - Tele medicine Office/Outpt E&M Established 15 Mins Oct Duplex Scan-extrem Veins; Comp Office/Oupt E&M New Pt 30 Mins Advance Directives Directive Yes / No Effective Date File Name No Information Encounters Encounter Description Practice Location Reason(s) For Visit Diagnoses Date Provider Providers Copied on Encounter [facility], [address] [place] [address] Dr [address], [place], [id number], [place] tel:[phone] CVR - [facility] No Information 3 Claudio SANDRA FACS T GUIDO [employer]. [address] [address], [place], [address], [place]. tel:[phone] Referring Provider: Lacho Araujo MD, [address] [place] [address] Dr [address] [facility], [address]. tel:[phone] Office/Outpt E&M Established 15 Mins [facility], [address] [place] [address] Dr Day [address], [id number], [place] tel:[phone] CVR - [facility] Chronic venous htn w oth comp of bilateral low extrmLymphede ma, not elsewhere classified 3 Claudio SANDRA FACS RVT SONNY [facility]. [address] [address], [place], [address], [place]. tel:[phone] Referring Provider: Lacho Araujo MD, [address] [place], [address]. tel:[phone] [facility], [address] [place] [address] Dr Day [address], [id number], [place] tel:[phone] CVR - [facility] Encntr for f/u exam aft trtmt for cond oth than malig neoplmVaricos e veins of right lower extremities with pain 3 Claudio Gilbert. [address] [place] [address], Suite [facility], [place], [address], [place]. [phone] Referring Provider: Lacho Araujo MD, [address] [facility] [address] [place] [address] [place], [address]. tel:[phone] [facility], [address] [place] [address] Dr [address], [id number], [place] tel:[phone] [facility] - [place] [facility] Chronic venous hypertension w inflammation of r low extrem 3 Claudio Gilbert. [address] [place] [address], [address] [address], [place], [address], [place]. [phone] Referring Provider: Lacho Araujo MD, [address] [facility] [address] [place] [address] [place], [address]. tel:[phone] Jennifer 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 [address] [place] [address], Suite [facility], [place], [address], [place]. [phone] Referring Provider: Lacho Araujo MD, [address] [facility], [address]. tel:[phone] Jennifer [facility]on [facility], [address] [place] [address] Dr [address], [id number], [place] tel:[phone] CVR - [place] [facility] Encntr for f/u exam aft trtmt for cond oth than malig neoplmChronic venous hypertension w oth comp of l low extrem 3 Claudio MD FACS RVT SONNY Gilbert. [address] [facility], [address], [place], [address], [place]. tel:[phone] Referring Provider: Lacho Araujo MD, [address] [place], [address]. tel:[phone] [facility], [address] [place] [address] Dr [address]ally [place], [id number], [place] tel:[phone] CVR - [facility] Varicose veins of left lower extremity with inflammation 3 Claudio SANDRA FACS RVT RPVI Augustine Gilbert. [address] [facility], Suite [facility], [place], [address], [place]. tel:[phone] Referring Provider: Lacho Araujo MD, [address] [place] [address], [address]. tel:[phone] [facility], [address] [place] [address] Dr [address], [place], [id number], [place] tel:[phone] CVR - [facility] Chronic venous hypertension w inflammation of l low extrem 3 Claudio SANDRA FACS RVT RPGUIDO Gilbert. [address] [facility], [address], [place], [address], [place]. tel:[phone] Referring Provider: Lacho Araujo MD, [address] [facility] [address] [place] [address], [address]. tel:[phone] [facility], [address] [place] [address] Dr [address]Sally [place], [id number], [place] tel:[phone] CVR - [facility] No Information 3 Claudio SANDRA FACS RVT RPVI Augustine Gilbert. [address] [facility], [address], [place], [address], [place]. [phone] Referring Provider: Lacho Araujo MD, [address] [place] [address] [place], [address]. tel:[phone] Office/Outpt E&M Established 15 Mins [facility], [address] [place] [address] [address], [id number], [place] tel:[phone] [facility]R - [place] [facility] Venous insufficiency (chronic) (peripheral) 3 Claudio SANDRA FACS T SONNY Gilbert. [address] [place] [address], [place], [address], [place]. tel: [phone] Referring Provider: Lacho Araujo MD, [address] [facility] [address] [place] [address], [address]. tel:[phone] Office/Outpt E&M Established 10 Mins [facility], [address] [place] [address] Dr [address]ally [place], [id number], [place] tel:[phone] [facility] [facility] [place] Xerosis cutisVenous insufficiency (chronic) (peripheral) 3 Claudio SANDRA FACS T SONNY Gilbert. [address] [place] [address], [place], [address], [place]. tel: [phone] Referring Provider: Lacho Araujo MD, [address] [facility] [address] [place] [address], [address]. tel:[phone] Office/Outpt E&M Established 25 Mins [facility], [address] [place] [address] [address] [place], [id number], [place] tel:[phone] CVR - [place] [facility] Cellulitis of left lower limb 3 Claudio SANDRA FACS T SONNY Gilbert. [address] [place] [address], [place], [address], [place]. tel:[phone] Referring Provider: Lacho Araujo MD, [address] [facility] [address] [place] [address], [address]. tel:[phone] Offic/outpt E&m Estab 5 Min Trial - Telemedicine [facility], [address] [place] [address] [address]ally [place], [id number], [place] tel:[phone] CVR - [facility] Chronic venous hypertension w/o comp of bilateral low extrm 3 Claudio SANDRA FACS Nicole Gilbert. [address] [place] [address], [address], . tel:[phone] Referring Provider: Lacho Araujo MD, [address] [facility] [place], [address]. tel:[phone] Office/Outpt E&M Established 15 Mins [facility], [address] [place] [address] [address]Sally [place], [id number], [place] tel:[phone] CVR - [facility] Chronic venous hypertension w/o comp of bilateral low extrm 3 Claudio SANDRA FACS Nicole Gilbert. [address] [place] [address], [address], [place]. tel:[phone] Referring Provider: Lacho Araujo MD, [address] [place], [address]. tel:[phone] [facility], [address] [place] [address] [address]ally [place], [id number], [place] tel:[phone] [facility] ([facility]ronic) (peripheral) Sep-3 3 Claudio SANDRA FACS Nicole Gilbert. [address] [place] [address], [place], [address], [place]. tel:[phone] Referring Provider: Augustine Snyder MD, FACS Nicole [facility], [address] [place] [address], [address]. tel:[phone] Office/Oupt E&M New Pt 30 Mins [facility], [address] [place] [address] [address]ally [place], [id number], [place] tel:[phone] CVR - [facility] Chronic venous hypertension w/o comp of bilateral low extrmLocalize d edemaEssentia l (primary) hypertensionD isorder of pigmentation, unspecifiedFl ail joint, unspecified joint 3 Claudio SANDRA FACS RVT SONNY Gilbert. [address] [facility], [address], [place], [address], [place]. [phone] Referring Provider: Lacho Araujo MD, [address] [place] [address] [address] [facility], [place], [address]. tel:[phone] Family History Family Member Type Diagnosis Age At Onset No Information Payers Payer name Insurance type Covered constitution party ID Authoriza tion(s) Medicare ALEXEI ALONZO [id number] BCBS ALEXEI [id number] Social History Type Description Quantity Date Captured Comments Sex Male Smoking Status No Information Chief Complaint And Reason For Visit No Information Reason For Referral Reason For Referral No Information Plan Of Treatment Date Type Action Status Goal Tobacco cessation counseling completed Goal Tobacco cessation counseling completed Goal Tobacco cessation counseling completed Goal Tobacco cessation counseling completed Goal Tobacco cessation counseling completed Goal Diet education completed Referral Ordered: Weight management: Referral to physician timeframe: 3 Months (related to Body mass index (BMI) 36.0-36.9, adult) ordered History Of Present Illness Encounter Date Complaint History Of Prese nt Illness No Information Functional Status Date Functional Assessmen t No Information Instructions Date Instruction Additional Infor mation Patient education booklet given Related to Chrn Vns Hypertnsn w/o Compl; BILAT Compression stocking usage as conservative measure Related to Chronic venous hypertension w/o comp of bilateral low extrm Patient education booklet given Related to Chronic venous hypertension w/o comp of bilateral low extrm Lifestyle education Related to B kevin mass index (BMI) 36.0-36.9, adult Giving Encouragement to exercise Related to Body mass index (BMI) 36.0-36.9, adult Diet education Related to Body mass index (BMI) 36.0-36.9, adult Assessments Type Assessment Date No Information Patient Care Teams Name Effective Dates (start - stop) Status Members No Information
--- NOTE | 2025-06-11 09:57 | HO.NEPHOV ---
Vital Signs 06/11/25 09:59 Height 5 ft 8 in Weight 229 lb 6 oz BMI 34.9 BP 122/64 Blood Pressure Location Rt brachial Position Sitting Pulse 64 Pulse Source Pulse Oximeter Pulse Oximetry (%) 98 Oxygen Delivery Method Room Air Intake Visit Reasons: 6 [place] FU-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 He has been on metoprolol 50 mg in the morning 25mg in the evening along with spironolactone 100 mg and losartan 50 mg in the morning and doxazosin 8 mg at night stable renal functions. He is not known to have any orthostatic symptoms or proteinuria. He follows up with Urology for his prostate issues. He is compliant with his medications. He denies chest pain, shortness of breath, proximal nocturnal dyspnea, orthopnea, pedal edema. His hemoglobin A1c has been over 6. He has been having carpal tunnel symptoms. He feels well otherwise [facility] Medical History Nocturia Numbness and tingling in right hand Bronchitis Numbness of left hand Puncture wound of foot, right Cellulitis of left lower extremity Preoperative clearance Allergic contact dermatitis Cataract Retinal detachment Restless leg syndrome Type 2 diabetes mellitus with hyperglycemia BPH (benign prostatic hyperplasia) GERD (gastroesophageal reflux disease) Anemia Anxiety and depression Obesity (BMI 30-39.9) Asthma Hypertension Tubular adenoma of colon Surgical History History of cataract surgery History of carpal tunnel release History of bilateral knee replacement Hx of eye surgery Hx of detached retina repair History of colonoscopy History of arthroplasty of left knee Hx of tonsillectomy H/O vitrectomy Melanoma Family History Mother No problems noted. Father Prostate cancer Social History Housing: House Housing Other:: duplex Are you a primary skin care specialist to a significant other at home: No Do you presently have visiting nurse or other home services: No Alcohol intake: never Patient Tobacco Use Status: Former Tobacco user Tobacco use type: Cigarette Years Smoked: 1970 quit e-Cigarette/Vaping Use: Never Used Second Hand Smoke Exposure: No service: No Current occupational status: retired Current occupation: right hand dominant Cognitive needs: Yes Hearing needs: No Vision needs: Yes Review of Systems Const All systems reviewed & are unremarkable except as noted in HPI and below Physical Exam Const General: comfortable and no acute distress Orientation/consciousness: patient oriented x3 HEENT Head: Yes normocephalic Mouth: Normal oral and palatal mucosa present Eyes EOM: EOMs intact bilaterally Neck Neck: Yes supple Resp Auscultation: clear to auscultation bilaterally Cardio Jugular venous distension: no JVD Rate: regular rate GI Palpation (GI): Soft to palpation Auscultation: normal bowel sounds General: Yes no CVA tenderness Back/Spine/Pelvis Back: no CVA tenderness Skin General skin exam: no rashes or lesions noted Neuro General: patient oriented x3 and moves all extremities Extrem General: Yes no pedal edema Results Reviewed Nephrology Results: Sodium, (135-145) 141 mmol/L 06/05/25 Potassium, (3.3-5.1) 4.5 mmol/L 06/05/25 Chloride, (96-108) 108 mmol/L 06/05/25 Carbon Dioxide, (22-29) 28 mmol/L 06/05/25 BUN, (9-16) 18 mg/dL H 06/05/25 Creatinine, (0.5-1.4) 0.92 mg/dL 06/05/25 Assessment & Plan Assessment & Plan (1) Hypertension: Code(s): I10 - Essential (primary) hypertension Category: Medical Qualifiers: Hypertension type: essential hypertension Qualified Code(s): I10 - Essential (primary) hypertension Plan Sunny has longstanding hypertension. Ever since his medications have been adjusted his blood pressure has been at goal. He should continue his current medication regimen. He does not have any hyperkalemia, proteinuria and has normal renal function. He denies any orthostatic symptoms. He avoids nonsteroidal anti-inflammatories and maintain good hydration. I did not make any medication changes today. I answered all his questions. Follow-up given. Coding Level of Care Code Est Pt Level 4 (05747) Diagnoses Essential hypertension I10 Hypertension type: essential hypertension
[2025-06-11 09:59] VITALS: BP 122/64; PULSE 64; O2SAT 98; BMI 34.9
--- OUTSIDE RECORDS SUMMARY | 2025-06-11 11:27 | XMS_ITS | Data Portability ---
Author Organization [facility] [address] Address [address] [place] [address] Assessment No assessment recorded. Plan of Treatment Reminders Order Date Submit Date Provider Last Modified By Organization Details Last Modified Time Details Appointments None recorded. Lab None recorded. Referral None recorded. Procedures None recorded. Surgeries None recorded. Imaging None recorded. Medication Orders cephalexin [address] [facility]77015, [address] [place], [place], [id number], 3 09:31:11 triamcinolo ne acetonide 0.1 % topical cream [address] [facility]13893, [address] [place], [place], [phone], 3 09:31:11 Patient TargetsNo targets recorded. Patient Instructions Encounter Date Encounter Id Patient Instructions Last Modified By Organization Details Last Modified Time 02/07/2023 [id number] insect stings an d bites: care instructions [email or web address] Not available 02/07/2023 09:31:41 Reason for Referral None Reported. Problems Name Problem SNOMED Code Status Onset Date Resolution Date Notes Provider Name and Address Organization Details Recorded Time Hypertensiv e disorder 49898380 Active 2022 [facility] 3 14:23:10 Diabetes mellitus 58688613 Active 2022 [facility] 3 14:23:20 History of hay fever 559553042 Completed 202211/23/2022 Dottie Wilsonsondra sandoval [facility] 14:23:35 Retinal detachment 32771492 Completed 202211/23/2022 Dottie Salmon lori [facility] 14:24:59 Problem Notes None recorded. Procedures Surgical History Date Name Laterality Status Provider Name and Address Organization Details Recorded Time total knee replacement completed Dottie Suazojessica [facility] 11/23/2022 14:23:50 Imaging Results None recorded. Procedure Notes None recorded. Medical Equipment None Reported. Allergies Allergen ID Allergen Name Allergen Category Reaction Reaction Severity Criticality Documentation Date Start Date Code Code System Note Provider Name and Address Organization Details Recorded Time 296297 grass pollen environme nt,medica tion Not available Not available Not available 11/23/2022 Dottei Griffinalvin sandoval [facility] 08:56:00 Medications Name Sig [...] Updated DateTime 3 172.72 cm 35 kg/m2 788641. 25 g 0 98 % 81 /min [...] Updated DateTime 3 172.72 cm 33.5 kg/m2 70943.3 2 g 2 18 /min 97 % 70 /min 97.5 [degF] 130/77 mm[Hg] Dottiefroylan Wilsonsondra PA - [facility] 3 09:02:24 Social History Question Answer Notes LastModified by [employer] Details LastModified Time Tobacco Smoking Status Former Smoker Dottie sandoval, PA - [facility] 11/23/2022 14:25:34 When Did You Quit Smoking? 16+yearssinc elastcigaret te Information not available 11/23/2022 Have You Recently Traveled Abroad? No Information not available 11/23/2022 Sex: Unknown Functional Status Question Answer Note LastModified by [employer] Details LastModified Time Do you use any [...] ICD10 Code Diagnosis IMO Codes Diagnosis Note [id number] [facility] [address] [place] [address] 02/04/2017 10:29:09 02/04/2017 11:14:31 [id number] [address] [place] [address] 09/26/2015 08:41:39 09/26/2015 09:38:27 [id number] [facility] [facility] [address] [place] [address] 12/12/2016 10:43:48 12/12/2016 11:26:08 [id number] Glenis Ceballos MD [address] [place] [address] 11/23/2022 13:44:59 11/23/2022 14:47:01 Left without being seen [id number] 9102 Z53.21 Patient brought to room but I never saw patient. He didn't want to wait and left prior to my Assessment [id number] Glenis Ceballos MD [address] [place] [address] 02/07/2023 08:37:54 02/07/2023 09:32:27 Infected insect bite 340489112 L08.9 Bite of insect 469789666 W57.XXXA Apply Cool compresses .Can take a [...] ID Guarantor Name 02/07/2023 1 [place] [employer] GOVERNMENT SERVICES Sunny Marlyn Rogers [id number] Sunny Mccloud 02/07/2023 2 [place] [id number] Sunny Mccloud [id number] Sunny Mccloud Notes Date Note Type [...] Glenis Ceballos MD [address] [place], [address], [place] - [facility] 02/07/2023 17:23:06
--- OUTSIDE RECORDS SUMMARY | 2025-06-11 11:27 | XMS_ITS | Clinical Summary ---
Author Organization [facility] Address [address] [place] [address] Phone Care Team Providers Care Service Dog Trainer Name Role Phone Lacho Araujo MD Primary Care Provider [phone] Allergies No known active allergies Medications calcium [...] patient's age to complete this topic Insurance [facility] [place] [address] [place] [address] Medicare Care Teams Service Dog Trainer Relationship Specialty Start Date End Date Lacho Araujo MD [address] [place] [address] PCP - General 07/27/20
--- OUTSIDE RECORDS SUMMARY | 2025-06-11 11:27 | XMS_ITS | Clinical Summary ---
Author Organization [facility] Address [address] [place] [address] Care Team Providers Care Immunology Specialist Name Role Phone Lacho Araujo MD Primary Care Provider [phone] Allergies No known active allergies Medications Medication [...] age to complete this topic Care Teams Immunology Specialist Relationship Specialty Start Date End Date Lacho Araujo MD [address] [place] [address] [address] [facility] ALEXEI Mcintosh [id number] PCP - General Internal Medicine 09/28/21
--- OUTSIDE RECORDS SUMMARY | 2025-06-11 11:27 | XMS_ITS | Data Portability ---
Author Organization [facility] James Duarte [facility]ONE [place] Address [address] [place] [address] Care Team Providers Care Benchroom Shop Optician Name Role Phone ANITADANIEL Primary Care Provider [...] 025 08/15/19 25 [email or web address] 5 [facility], [address], [place], [address], 14:02:23 XR, knee, 3 view 04/21/2 023 11/05/19 23 [email or web address] [facility], [address], [place], [address], 12:02:05 Medication Orders None record ed. Patient TargetsNo targets recorded. Patient Instructions Encounter Date Encounter Id Patient Instructions Last Modified By Organization Details Last Modified Time 11/04/2022 [id number] AP, lateral, and patellar views of the right knee taken today demonstrate satisfactory position and alignment of components following right total knee replacement. [email or web address] Not available 11/04/2022 08:46:01 08/15/2024 [id number] 3 views of the r ight wrist [...] Details Recorded Time Synovial osteochon dromatosi s 315502758 Active 2021 Osteochon dromatosi s, synovial Not Available [facility] 23:12:11 Arthritis of right knee joint 80761697410 90552 Active 2021 Arthritis of knee, right Not Available [facility] 5 23:12:11 Carpal tunnel syndrome of right wrist 74912556033 9108 Active 2024 Kathia Allen MD [address] [facility], [facility] [place], [address] , [place] [facility] 5 17:14:36 Problem Notes None recorded. [...] [facility] [address] [address] 11/04/2022 08:17:03 11/04/2022 08:46:10 History of right total knee replacement 3642589602 257601 Z96.651 Aftercare 068575332 Z47. 1 [id number] MD MARCELA Vuong [facility] 299 [facility] [address] [place] [address] 08/15/2024 13:24:16 08/15/2024 14:02:23 Pain of right wrist 6099801909 76078 M25.531 845960 Carpal tutu jr syndrome of right wrist 3092086131 54100 G56.01 788354 Health Concerns Section Related Observation LastModified by Organization Detai ls LastModified Time None Recorded Concern Status LastModified by Organization Details LastModified Time None Recorded Advance Directives Directive None Recorded Payers Insurance Date Sequence Insurance Name Policy Number Policy Vance Covered Member ID Vance Member ID Guarantor Name 08/12/2024 1 [place] B[place] [employer] Sunny Mccloud [id number] Sunny Mccloud 08/12/2024 2 [place]) [id number] Sunny Mccloud [id number] Sunny Mccloud Notes Date Note Type [...] pain relief in the knee and satisfactory oriental orthodox of function in terms of activities of [...] total knee arthroplasty. Continue knee conditioning exercises. Apil-mrt-vgxkwka medications as needed. Ultimate failure may occur due to mechanical wear, loosening or breakage. Follow-up is recommended to assess for the possibility of failure. Patient will follow-up at 1 year from surgery unless there are issues before then. Chad Donnelly MD [address] [place] [address], [phone], [place] [facility] 11/04/2022 08:46:18 08/15/2024 text/html ROS as noted in the HPI This is a 79-year-old kuhps-emmq-qwuqnnuo male who presents with right hand numbness and tingling. He has previously been evaluated and worked up for bilateral carpal tunnel syndrome, seen by a hand surgeon at [facility]. He has undergone left carpal tunnel [...] does not drink alcohol. Kathia Allen MD [address] [place] [address], [phone], [place] [facility] 08/15/2024 17:16:18
== END 2025-06-11 10:23 | disposition home or self-care (01) ==
LOC: HO.HKA 09:53
PROVIDERS: PCP Internal Medicine; Visit Provider Internal Medicine Nephrology
DX: I10 Essential (primary) hypertension (principal)
CPT/HCPCS: 99214

== ENCOUNTER → 2025-06-11 09:52 | Outpatient (BNVA) | payer MEDICARE, SELFPAY | PROVIDERS: PCP Internal Medicine; Visit Provider Internal Medicine Nephrology | DX: I10 Essential (primary) hypertension (principal) | CPT/HCPCS: 99212 ==

== ENCOUNTER 2025-06-18 10:19 | Outpatient (REF) | payer MEDICARE, SELFPAY ==
--- OUTSIDE RECORDS SUMMARY | 2024-03-15 04:30 | XMS_ITS ---
Author Organization [facility] Address [address] [place] [phone] Care Team Providers Care Composition Worker Name Role Phone Po Lacho SANDRA Primary Care Provider Nikos Payne [phone] REASON FOR VISIT screening colon Problems Problem Type SNOMED Code ICD Code Onset Dates Problem Status W/U Status Risk Notes Problem Diverticular disease of colon (313676291) Diverticulosis of large intestine without perforation or abscess without bleeding (K57.30) Active confirmed Encounters Encounter Location Date Provider [place] [facility] [place] [address] [place] [phone] 03/15/2024 Nikos Gordon Encounter for scre ening [...] KALPESH KOHLI GDOB:[birth year] (80 yo M)Acc No.[id number]:03/15/2024 COLON WITH MAC Patient: KALPESH CARLOS Provider: Dave Gordon MD :1945 A ge:79 Y S ex:Male Date:03/15/2024 Address:[address] [place], [place] [phone] Pcp:Lacho Araujo MD Subjective: * Chief Complaints: * S creening colon Assessment: * Assessment: 1. E ncounter for screening colonoscopy - Z12.11 (Primary) 2 . C olon polyps - K63.5 3 . D iverticulosis of large intestine without perforation or abscess without bleeding - K57.30 4 . O ther hemorrhoids - K64.8 Plan: * Procedure Codes: 4 5385 LESION REMOVAL COLONOSCOPY, Modifiers: [place] [address] COLONOSCOPY AND BIOPSY, Modifiers: 59 , [id number] INTRVL 3+YRS PTS CLNSCP [id number] RCMND FLW-UP 10 YRS DOCD, Modifiers: 1P Billing Information: * Procedure Codes: 73526 LESION REMOVAL [place]ONOSCOPY[place]: [place] [address] COLONOSCOPY AND BIOPSY. Modifiers: 59, PT 0529F [...] 0 03/15/2024 Generated for Shona joaquin/Tom/Helensmitting on: 1 08/19/2024 11:49 AM EST
--- NOTE | ~2025-06-18 | US_ITS ---
CLINICAL HISTORY: N40.1 - Benign prostatic hyperplasia with lower urinary tract symptoms US urinary bladder Comparison: None provided Findings: The urinary bladder is well distended, no calculus, mass or wall thickening. Prevoid volume 392 mL. Postvoid volume 21.2 mL. Bilateral ureteral jets are not visualized, non-specific. Impression: Small postvoid bladder residual volume 21 mL. This document has been electronically signed by: Virginia Hart MD on 06/18/2025 14:58:31
--- OUTSIDE RECORDS SUMMARY | 2025-06-18 11:48 | XMS_ITS | Clinical Summary ---
Author Organization [facility] Address [address] [place] [address] Care Team Providers Care Insect Control Aide Name Role Phone Lacho Araujo MD Primary Care Provider [phone] Allergies No known active allergies Medications Medication [...] age to complete this topic Care Teams Insect Control Aide Relationship Specialty Start Date End Date Lacho Araujo MD [address] [place] [address] [address] [facility] ALEXEI Mcintosh [id number] PCP - General Internal Medicine 09/28/21
--- OUTSIDE RECORDS SUMMARY | 2025-06-18 11:48 | XMS_ITS | Patient Health Record ---
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 Section Notes: Nonsmoker; no sig alcohol Nonsmoker; no sig alcohol Nonsmoker; no sig alcohol Problems Problem Type SNOMED Code ICD Code Onset Dates Problem Status W/U Status Risk Notes Problem Screening for malignant neoplasm of colon (780363116) Encounter for screening for malignant neoplasm of colon (Z12.11) Active confirmed Problem History of adenomatous polyp of colon (396906684) History of adenomatous polyp of colon (Z86.010) Active confirmed Problem Diverticular disease of colon (407956077) Diverticulosis of large intestine without perforation or abscess without bleeding (K57.30) Active confirmed Problem Preprocedural examination (106901150710313) Preprocedural examination (Z01.818) Active confirmed Problem Gastroesophageal reflux disease (628041479) Gastroesophageal reflux disease, esophagitis presence not specified (K21.9) Active confirmed Problem Long-term current use of antiplatelet drug (171905710383107) Long-term use of aspirin therapy (Z79.82) Active confirmed Plan Of Treatment Pending Test Test Name Order Date Pathology 03/15/2024 Future Test Test Name Order Date COLONOSCOPY 04/09/2013 COLONOSCOPY 08/10/2018 COLONOSCOPY 11/30/2023 Insurance Providers Payer Name Payer Address Payer Phone Subscriber Number Group Number Insured Name Patient Relationship to Insured Coverage Start Date Coverage End Date MEDICARE OF [place] [address] [place] [address] [id number] KALEPSH KOHLI Self - patient is the insured MEDEX ATTN CLAIMS [address] [place] [address] [id number] KALPESH KOHLI Self - patient is the insured Medical (General) History Medical History History ICD Code > 1CM tubular adenoma remov ed in 2003, a neg. colonoscopy in 11/2007, colonoscopy in 05/2013 with a small tubular adenoma removed Denies [place],CVA,renal disease HTN Diet-controlled diabetes Detached retina left eye-had laser surge ry Anxiety Hx of bronchitis/asthma GERD--started on omeprazole approx. 2016 Colonoscopy 09/2018 with one tubular tiffany elias removed Surgical History Surgery Date(Month/Year) Skin cancer on back Laser eye surgery-detached retina Left knee replacement--approx 2014 Right knee replacement -approx 2021
--- OUTSIDE RECORDS SUMMARY | 2025-06-18 11:49 | XMS_ITS | Data Portability ---
Author Organization [facility] James Duarte AONE [place] Address [address] [place] [address] Care Team Providers Care Payloader Machine Operator Name Role Phone ANITADANIEL Primary Care Provider [...] 025 08/15/19 25 [email or web address] 5 [facility], [address], [place], [address], 14:02:23 XR, knee, 3 view 04/21/2 023 11/05/19 23 [email or web address] [facility], [address], [address], [place], [address], 12:02:05 Medication Orders None record ed. Patient TargetsNo targets recorded. Patient Instructions Encounter Date Encounter Id Patient Instructions Last Modified By Organization Details Last Modified Time 11/04/2022 [id number] AP, lateral, and patellar views of the right knee taken today demonstrate satisfactory position and alignment of components following right total knee replacement. 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 [...] Codes Diagnosis Note [id number] MD MARCELA Diop [facility] [address] [address] 11/04/2022 08:17:03 11/04/2022 08:46:10 History of right total knee replacement 9987361004 153339 Z96.651 Aftercare 443871105 Z47. 1 [id number] MD MARCELA Vuong [facility] 299 [facility] [address] [place] [address] 08/15/2024 13:24:16 08/15/2024 14:02:23 Pain of right wrist 1798764630 63301 M25.531 641533 Carpal tutu jr syndrome of right wrist 1692129410 83528 G56.01 475289 Health Concerns Section Related Observation LastModified by Organization Detai ls LastModified Time None Recorded Concern Status LastModified by Organization Details LastModified Time None Recorded Advance Directives Directive None Recorded Payers Insurance Date Sequence Insurance Name Policy Number Policy Vance Covered Member ID Vance Member ID Guarantor Name 08/12/2024 1 [place] [employer] SERVICES Sunny Mccloud [id number] Sunny Mccloud 08/12/2024 2 [place]) [id number] Sunny Mccloud [id number] Sunny Mccloud Notes Date Note Type [...] pain relief in the knee and satisfactory tenriism of function in terms of activities of [...] total knee arthroplasty. Continue knee conditioning exercises. Yafn-pnw-zdafflj medications as needed. Ultimate failure may occur due to mechanical wear, loosening or breakage. Follow-up is recommended to assess for the possibility of failure. Patient will follow-up at 1 year from surgery unless there are issues before then. Chad Donnelly MD [address] [place] [address], [address], [place] [facility] 11/04/2022 08:46:18 08/15/2024 text/html ROS as noted in the HPI This is a 79-year-old soikh-omcp-jyaroxmo male who presents with right hand numbness and tingling. He has previously been evaluated and worked up for bilateral carpal tunnel syndrome, seen by a hand surgeon at [facility]. He has undergone left carpal tunnel [...] does not drink alcohol. Kathia Allen MD [address] [place] [address], [phone], [place] [facility] 08/15/2024 17:16:18
--- OUTSIDE RECORDS SUMMARY | 2025-06-18 11:49 | XMS_ITS | Data Portability ---
Author Organization [facility] [address] Address [address] [place] [address] Assessment No assessment recorded. Plan of Treatment Reminders Order Date Submit Date Provider Last Modified By Organization Details Last Modified Time Details Appointments None recorded. Lab None recorded. Referral None recorded. Procedures None recorded. Surgeries None recorded. Imaging None recorded. Medication Orders cephalexin 500 mg capsule 2022 023 [id number], [address], [place], [id number], 3 09:31:11 triamcinolo ne acetonide 0.1 % topical cream 2022 023 [id number], [address], [place], [phone], 3 09:31:11 Patient TargetsNo targets recorded. Patient Instructions Encounter Date Encounter Id Patient Instructions Last Modified By Organization Details Last Modified Time 02/07/2023 [id number] insect stings an d bites: care instructions [email or web address] Not available 02/07/2023 09:31:41 Reason for Referral None Reported. Problems Name Problem SNOMED Code Status Onset Date Resolution Date Notes Provider Name and Address Organization Details Recorded Time Hypertensiv e disorder 55347381 Active 2022 [facility] 3 14:23:10 Diabetes mellitus 99405025 Active 2022 [facility] 3 14:23:20 History of hay fever 035834953 Completed 202211/23/2022 Dottie Wilsonsondra sandoval [facility] 14:23:35 Retinal detachment 18985996 Completed 202211/23/[address] [facility] 14:24:59 Problem Notes None recorded. Procedures Surgical History Date Name Laterality Status Provider Name and Address Organization Details Recorded Time total knee replacement completed Dottie Suazojessica BETANCOURT [facility] 11/23/2022 14:23:50 Imaging Results None recorded. Procedure Notes None recorded. Medical Equipment None Reported. Allergies Allergen ID Allergen Name Allergen Category Reaction Reaction Severity Criticality Documentation Date Start Date Code Code System Note Provider Name and Address Organization Details Recorded Time 561817 grass pollen environme nt,medica tion Not available Not available Not available 11/23/2022 Dottie Griffinalvin sandoval [facility] 08:56:00 Medications Name Sig Start Date [...] Updated DateTime 3 172.72 cm 35 kg/m2 998438. 25 g 0 98 % 81 /min [...] Updated DateTime 3 172.72 cm 33.5 kg/m2 22593.3 2 g 2 18 /min 97 % 70 /min 97.5 [degF] 130/77 mm[Hg] Dottiefroylan Wilsonsondra [place] - [facility] 3 09:02:24 Social History Question Answer Notes LastModified by Dianwoba Details LastModified Time Tobacco Smoking Status Former Smoker Dottie sandoval, [place] - [facility] 11/23/2022 14:25:34 When Did You Quit Smoking? 16+yearssinc elastcigaret te Information not available 11/23/2022 Have You Recently Traveled Abroad? No Information not available 11/23/2022 Sex: Unknown Functional Status Question Answer Note LastModified by Dianwoba Details LastModified Time Do you use any [...] ICD10 Code Diagnosis IMO Codes Diagnosis Note [id number] [facility] [address] [place] [address] 02/04/2017 10:29:09 02/04/2017 11:14:31 [id number] [address] [address] [facility] [address] [place] [address] 09/26/2015 08:41:39 09/26/2015 09:38:27 [id number] [facility] [address] [place] [address] 12/12/2016 10:43:48 12/12/2016 11:26:08 [id number] Glenis Ceballos MD [address] [place] [address] 11/23/2022 13:44:59 11/23/2022 14:47:01 Left without being seen 0526074428 9102 Z53.21 Patient brought to room but I never saw patient. He didn't want to wait and left prior to my Assessment [id number] Glenis Ceballos MD [address] [place] [address] 02/07/2023 08:37:54 02/07/2023 09:32:27 Infected insect bite 485072993 L08.9 Bite of insect 197737430 W57.XXXA Apply Cool compresses .Can take a [...] ID Guarantor Name 02/07/2023 1 [place]IC[place] [employer] GOVERNMENT SERVICES Sunny Marlyn Rogers [id number] Sunny Mccloud 02/07/2023 2 [place]) [id number] Sunny Mccluod [id number] Sunny Mccloud Notes Date Note Type [...] Glenis Ceballos MD [address] [place], [address], [place] - [facility] 02/07/2023 17:23:06
--- OUTSIDE RECORDS SUMMARY | 2025-06-18 11:49 | XMS_ITS | Patient Health Record ---
Author Organization [facility] Address [address] [place] [address] Care Team Providers Care Change Manager Name Role Phone Lacho Araujo Primary Care Provider Alexx Serrano Unavailable [phone] Allergies No Known Allergies Results Component Value [...] Problem Acquired hammer toe of right foot (1936892191961 105) Other hammer toe(s) (acquired), right foot (M20.41) Active confirmed Problem Acquired hammer toe of left foot (1600318003930 103) Other hammer toe(s) (acquired), left foot (M20.42) Active confirmed Problem Type 2 diabetes mellitus with peripheral angiopathy (414494580) Type 2 diabetes mellitus with diabetic peripheral angiopathy without gangrene (E11.51) Active confirmed Q7(A), Q8(2B), Q9(1B,2C) Vital Signs Blood pressure diastolic 70 mm Hg 04/18/2025 Height 5ft 8in in 04/18/2025 Blood pressure systolic 130 mm Hg 04/18/2025 Weight 220 lbs 04/18/2025 BMI 33.45 kg/m2 04/18/2025 Procedures Procedure Date Ordered Date Performed Result Body Sit e 67779-ANSMNDX NAIL, 1-5 01/31/2025 N/A 67721-KIQE SKIN LESIONS, 2 TO 4 01/31/2025 N/A Z8394-YPKGCHOU DYSTROPHIC NAILS ANY # 01/31/2025 N/A 79695-NSTIKST NAIL, 1-5 04/18/2025 N/A 12899-ASQY SKIN LESIONS, 2 TO 4 04/18/2025 N/A A9388-DXKYFXNU DYSTROPHIC NAILS ANY # 04/18/2025 N/A Encounters Encounter Location Date Provider Diagnosis [facility] [place] [address] [place] [address] 01/31/2025 Alexx Ballard Type 2 diabetes mellitus with diabetic peripheral angiopathy without gangrene E11.51 ; Other hammer toe(s) (acquired), right foot M20.41 ; Tinea unguium B35.1 ; Pain in right toe(s) M79.674 ; Pain in left toe(s) M79.675 and Other hammer toe(s) (acquired), left foot M20.42 [facility] [address] [address] 04/18/2025 Alexx Ballard Type 2 diabetes mellitus [...] Treatment Pending Test Test Name Order Date 75877-CMEHOIQ NAIL, 1-5 01/31/2025 60292-WSTLYFZ NAIL, 1-5 04/18/2025 12896-GNHF SKIN LESIONS, 2 TO 4 04/18/20 65181-KJNH SKIN LESIONS, 2 TO 4 02/01/20 V9803-LOBZAVSE DYSTROPHIC NAILS ANY # V3201-ILCZVZZU DYSTROPHIC NAILS ANY # Next Appt Details Provider Name:Alexx Ballard , 08/07/2025 08:45:00 AM, [address] [facility], [address], [place], [address], Insurance Providers Payer Name Payer Address Payer Phone Subscriber Number Group Number Insured Name Patient Relationship to Insured Coverage Start Date Coverage End Date Medicare National Govt Svcs Inc [address] [place] [address] [id number] Sunny Mccloud Self - patient is the insured 2 Medex Blue Shield [address] [place] [address] [phone] [id number] Sunny Mccloud Self - patient is the insured Medical (General) History Medical History History ICD Code Anxiety asthma Back,Hip,and Knee pain Cataracts Diabetic High Blood Pressure Measles Bone implants/screws Reflux Surgical History Surgery Date(Month/Year) knee surgery x2 eye surgery
== END 2025-06-18 10:20 | disposition home or self-care (01) ==
LOC: HO.HMGCX 10:19
PROVIDERS: Referring Provider Urology; Visit Provider Internal Medicine
DX: N40.1 Benign prostatic hyperplasia with lower urinary tract symptoms (principal); R35.0 Frequency of micturition
CPT/HCPCS: 76857

== ENCOUNTER → 2025-06-18 10:21 | Outpatient (BNV) | payer MEDICARE, SELFPAY | PROVIDERS: Referring Provider Urology; Visit Provider Radiology Diagnostic Radiology | DX: N40.1 Benign prostatic hyperplasia with lower urinary tract symptoms (principal) | CPT/HCPCS: 76857 ==

== ENCOUNTER 2025-07-09 08:24 | Outpatient (AMB) | payer MEDICARE, SELFPAY ==
--- OUTSIDE RECORDS SUMMARY | 2024-03-15 04:30 | XMS_ITS ---
Author Organization [facility] Address [address] [place] [phone] Care Team Providers Care Die Cast Technician Name Role Phone Po Lacho SANDRA Primary Care Provider Nikos Payne [phone] REASON FOR VISIT screening colon Problems Problem Type SNOMED Code ICD Code Onset Dates Problem Status W/U Status Risk Notes Problem Diverticular disease of colon (754665192) Diverticulosis of large intestine without perforation or abscess without bleeding (K57.30) Active confirmed Encounters Encounter Location Date Provider Diagnosis [facility] [place] Out[place] [address] [place] [phone] 03/15/2024 Nikos Gordon Encounter for scre ening colonoscopy Z12.11 ; Colon polyps K63.5 ; Diverticulosis of large intestine without perforation or abscess without bleeding K57.30 and Other hemorrhoids K64.8 Assessments Encounter Date Diagnosis (ICD Code) Assessment Notes Treatment Notes Treatment Clinical Notes Section Notes 03/15/2024 Encounter for screening colonoscopy (ICD-10 - Z12.11) 03/15/2024 Colon polyps (ICD-10 - K63.5) 03/15/2024 Diverticulosis of large intestine without perforation or abscess without bleeding (ICD-10 - K57.30) 03/15/2024 Other hemorrhoids (ICD-10 - K64.8) Plan Of Treatment No Information Progress Notes * KALPESH KOHLI GDOB:[birth year] (80 yo M)Acc No.[id number]:03/15/2024 COLON WITH MAC Patient: KALPESH CARLOS Provider: Dave Gordon MD :1945 A ge:79 Y S ex:Male Date:03/15/2024 Address:[address] [place], [place] [phone] Pcp:Lacho Araujo MD Subjective: * Chief Complaints: * S creening colon Assessment: * Assessment: 1. E ncounter for screening colonoscopy - Z12.11 (Primary) 2 . C olon polyps - K63.5 3 . D iverticulosis of large intestine without perforation or abscess without bleeding - K57.30 4 . O ther hemorrhoids - K64.8 Plan: * Procedure Codes: 4 5385 LESION REMOVAL COLONOSCOPY, Modifiers: [place] [address] COLONOSCOPY AND BIOPSY, Modifiers: 59 , [id number] INTRVL 3+YRS PTS CLNSCP [id number] RCMND FLW-UP 10 YRS DOCD, Modifiers: 1P Billing Information: * Procedure Codes: 63331 LESION REMOVAL COLONOSCOPY. [place]: [place] [address] COLONOSCOPY AND BIOPSY. Modifiers: 59, PT 0529F INTRVL 3+YRS PTS CLNSCP DOCD. 0528F RCMND FLW-UP 10 YRS DOCD. Modifiers: 1P * The named appointment provid er may or may not be the originator of this progress note, and it is not deemed complete until electronically signed by the appointment provider. Sign off status: Pending * Provider: Dave Gordon MD Date: 0 03/15/2024 Generated for Shona joaquin/Tom/Helensmitting on: 09/09/2024 08:27 AM EST
--- OUTSIDE RECORDS SUMMARY | 2025-07-09 08:27 | XMS_ITS | Patient Health Record ---
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 Section Notes: Nonsmoker; no sig alcohol Nonsmoker; no sig alcohol Nonsmoker; no sig alcohol Problems Problem Type SNOMED Code ICD Code Onset Dates Problem Status W/U Status Risk Notes Problem Screening for malignant neoplasm of colon (675492122) Encounter for screening for malignant neoplasm of colon (Z12.11) Active confirmed Problem History of adenomatous polyp of colon (182494152) History of adenomatous polyp of colon (Z86.010) Active confirmed Problem Diverticular disease of colon (177425193) Diverticulosis of large intestine without perforation or abscess without bleeding (K57.30) Active confirmed Problem Preprocedural examination (824551574557678) Preprocedural examination (Z01.818) Active confirmed Problem Gastroesophageal reflux disease (324558398) Gastroesophageal reflux disease, esophagitis presence not specified (K21.9) Active confirmed Problem Long-term current use of antiplatelet drug (881188913480788) Long-term use of aspirin therapy (Z79.82) Active confirmed Plan Of Treatment Pending Test Test Name Order Date Pathology 03/15/2024 Future Test Test Name Order Date COLONOSCOPY 04/09/2013 COLONOSCOPY 08/10/2018 COLONOSCOPY 11/30/2023 Insurance Providers Payer Name Payer Address Payer Phone Subscriber Number Group Number Insured Name Patient Relationship to Insured Coverage Start Date Coverage End Date MEDICARE OF [place] [address] [place] [address] [id number] KALPESH KOHLI Self - patient is the insured MEDEX ATTN CLAIMS [address] [place] [address] [id number] KALPESH KOHLI Self - patient is the insured Medical (General) History Medical History History ICD Code > 1CM tubular adenoma remov ed in 2003, a neg. colonoscopy in 11/2007, colonoscopy in 05/2013 with a small tubular adenoma removed Denies [place],CVA,renal disease HTN Diet-controlled diabetes Detached retina left eye-had laser surge ry Anxiety Hx of bronchitis/asthma GERD--started on omeprazole approx. 2016 Colonoscopy 09/2018 with one tubular tiffany elias removed Surgical History Surgery Date(Month/Year) Skin cancer on back Laser eye surgery-detached retina Left knee replacement--approx 2014 Right knee replacement -approx 2021
--- OUTSIDE RECORDS SUMMARY | 2025-07-09 08:27 | XMS_ITS | Data Portability ---
Author Organization [facility] [address] Address [address] [place] [address] Assessment No assessment recorded. Plan of Treatment Reminders Order Date Submit Date Provider Last Modified By Organization Details Last Modified Time Details Appointments None recorded. Lab None recorded. Referral None recorded. Procedures None recorded. Surgeries None recorded. Imaging None recorded. Medication Orders cephalexin 500 mg capsule 2022 023 [id number], [address] [place] [address], [place], [id number], 3 09:31:11 triamcinolo ne acetonide 0.1 % topical cream 2022 023 [id number], [address] [place] [address], [place], [phone], 3 09:31:11 Patient TargetsNo targets recorded. Patient Instructions Encounter Date Encounter Id Patient Instructions Last Modified By Organization Details Last Modified Time 02/07/2023 [id number] insect stings an d bites: care instructions [email or web address] Not available 02/07/2023 09:31:41 Reason for Referral None Reported. Problems Name Problem SNOMED Code Status Onset Date Resolution Date Notes Provider Name and Address Organization Details Recorded Time Hypertensiv e disorder 97503907 Active 2022 [facility] 3 14:23:10 Diabetes mellitus 29746281 Active 2022 [facility] 3 14:23:20 History of hay fever 610471518 Completed 202211/23/2022 Dottie Wilsonsondra sandoval [facility] 14:23:35 Retinal detachment 44267513 Completed 202211/23/2022 Dottie Salmon lori [facility] 14:24:59 Problem Notes None recorded. Procedures Surgical History Date Name Laterality Status Provider Name and Address Organization Details Recorded Time total knee replacement completed Dottie Suazojessica BETANCOURT [facility] 11/23/2022 14:23:50 Imaging Results None recorded. Procedure Notes None recorded. Medical Equipment None Reported. Allergies Allergen ID Allergen Name Allergen Category Reaction Reaction Severity Criticality Documentation Date Start Date Code Code System Note Provider Name and Address Organization Details Recorded Time 817743 grass pollen environme nt,medica tion Not available Not available Not available 11/23/2022 Dottie Griffinalvin sandoval [facility] 08:56:00 Medications Name Sig Start [...] Updated DateTime 3 172.72 cm 35 kg/m2 011307. 25 g 0 98 % 81 /min [...] Updated DateTime 3 172.72 cm 33.5 kg/m2 66707.3 2 g 2 18 /min 97 % 70 /min 97.5 [degF] 130/77 mm[Hg] Dottiefroylan Wilsonsondra PA - [facility] 3 09:02:24 Social History Question Answer Notes LastModified by [employer] Details LastModified Time Tobacco Smoking Status Former Smoker Dottie sandoval, PA - [facility] 11/23/2022 14:25:34 When Did You Quit Smoking? 16+yearssinc elastcigaret te Information not available 11/23/2022 Have You Recently Traveled Abroad? No Information not available 11/23/2022 Sex: Unknown Functional Status Question Answer Note LastModified by [employer] Details LastModified Time Do you use any [...] ICD10 Code Diagnosis IMO Codes Diagnosis Note [id number] [facility] [address] [place] [address] 02/04/2017 10:29:09 02/04/2017 11:14:31 [id number] [address] [place] [address] 09/26/2015 08:41:39 09/26/2015 09:38:27 [id number] [facility] [address] [place] [address] 12/12/2016 10:43:48 12/12/2016 11:26:08 [id number] Glenis Ceballos MD [address] [place] [address] 11/23/2022 13:44:59 11/23/2022 14:47:01 Left without being seen [id number] 9102 Z53.21 Patient brought to room but I never saw patient. He didn't want to wait and left prior to my Assessment [id number] Glenis Ceballos [place] [address] [place] [address] 02/07/2023 08:37:54 02/07/2023 09:32:27 Infected insect bite 922667130 L08.9 Bite of insect 311683192 W57.XXXA Apply Cool compresses .Can take a [...] ID Guarantor Name 02/07/2023 1 [place] [employer] Sunny Marlyn Rogers [id number] Sunny Mccloud 02/07/2023 2 [place] [id number] Sunny Mccloud [id number] Sunny Mccloud Notes Date Note Type [...] Glenis Ceballos MD [address] [place], [address], [place] - [facility] 02/07/2023 17:23:06
--- OUTSIDE RECORDS SUMMARY | 2025-07-09 08:27 | XMS_ITS | Clinical Summary ---
Author Organization [facility] Prior to 12/14/24 Address [address] [place] [address] Care Team Providers Care Knuckle Bender Name Role Phone Lacho Araujo MD Primary Care Provider [phone] Allergies No known active allergies Medications Medication [...] age to complete this topic Care Teams Knuckle Bender Relationship Specialty Start Date End Date Lacho Araujo MD [address] [place] [address] [address] [facility] ALEXEI Mcintosh [address] PCP - General Internal Medicine 09/28/21
--- OUTSIDE RECORDS SUMMARY | 2025-07-09 08:28 | XMS_ITS | Patient Health Record ---
[facility] Address [address] [place] [address] Care Team Providers Care Corporate Licensed Broker Name Role Phone Lacho Araujo Primary Care Provider Alexx Serrano Unavailable [phone] Allergies No Known Allergies Results Component Value [...] Problem Acquired hammer toe of right foot (2661822513096 105) Other hammer toe(s) (acquired), right foot (M20.41) Active confirmed Problem Acquired hammer toe of left foot (0468914417845 103) Other hammer toe(s) (acquired), left foot (M20.42) Active confirmed Problem Type 2 diabetes mellitus with peripheral angiopathy (478000285) Type 2 diabetes mellitus with diabetic peripheral angiopathy without gangrene (E11.51) Active confirmed Q7(A), Q8(2B), Q9(1B,2C) Vital Signs Blood pressure diastolic 70 mm Hg 04/18/2025 Height 5ft 8in in 04/18/2025 Blood pressure systolic 130 mm Hg 04/18/2025 Weight 220 lbs 04/18/2025 BMI 33.45 kg/m2 04/18/2025 Procedures Procedure Date Ordered Date Performed Result Body Sit e 51024-VRZNMGY NAIL, 1-5 01/31/2025 N/A 82458-HFXR SKIN LESIONS, 2 TO 4 01/31/2025 N/A B1375-BFVJJNYT DYSTROPHIC NAILS ANY # 01/31/2025 N/A 48526-NATXIKC NAIL, 1-5 04/18/2025 N/A 17368-BJKP SKIN LESIONS, 2 TO 4 04/18/2025 N/A D0669-KNUFXBYX DYSTROPHIC NAILS ANY # 04/18/2025 N/A Encounters Encounter Location Date Provider Diagnosis [facility] [address] [place] [address] 01/31/2025 Alexx Ballard Type 2 diabetes mellitus with diabetic peripheral angiopathy without gangrene E11.51 ; Other hammer toe(s) (acquired), right foot M20.41 ; Tinea unguium B35.1 ; Pain in right toe(s) M79.674 ; Pain in left toe(s) M79.675 and Other hammer toe(s) (acquired), left foot M20.42 [facility] [address] [address] 04/18/2025 Alexx Ballard Type 2 diabetes mellitus [...] Treatment Pending Test Test Name Order Date 05303-TWJKWDS NAIL, 1-5 01/31/2025 04017-VTXVDQP NAIL, 1-5 04/18/2025 57742-IBTU SKIN LESIONS, 2 TO 4 04/18/20 08296-DEWJ SKIN LESIONS, 2 TO 4 02/01/20 B4965-OHFSGPKL DYSTROPHIC NAILS ANY # T8842-UBDDVSDN DYSTROPHIC NAILS ANY # Next Appt Details Provider Name:Alexx Ballard , 08/07/2025 08:45:00 AM, [address] [facility], [address], [place], [address], Insurance Providers Payer Name Payer Address Payer Phone Subscriber Number Group Number Insured Name Patient Relationship to Insured Coverage Start Date Coverage End Date Medicare National Govt Sv[employer] Inc [address] [place] [address] [id number] Sunny Mccloud Self - patient is the insured 2 [employer] Blue Shield [address] [place] [address] [id number] Sunny Mccloud Self - patient is the insured Medical (General) History Medical History History ICD Code Anxiety asthma Back,Hip,and Knee pain Cataracts Diabetic High Blood Pressure Measles Bone implants/screws Reflux Surgical History Surgery Date(Month/Year) knee surgery x2 eye surgery
--- OUTSIDE RECORDS SUMMARY | 2025-07-09 08:28 | XMS_ITS | Data Portability ---
Author Organization [place] [facility] James Duarte [facility] [place] Address [address] [place] [address] Care Team Providers Care Rn Hemodialysis Charge Name Role Phone ANITADANIEL Primary Care Provider [...] 025 08/15/19 25 [email or web address] 5 [facility], [address], [place], [address], 14:02:23 XR, knee, 3 view 04/21/2 023 11/05/19 23 [email or web address] [facility], [address], [address], [place], [address], 12:02:05 Medication Orders None record ed. Patient TargetsNo targets recorded. Patient Instructions Encounter Date Encounter Id Patient Instructions Last Modified By Organization Details Last Modified Time 11/04/2022 [id number] AP, lateral, and patellar views of the right knee taken today demonstrate satisfactory position and alignment of components following right total knee replacement. 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 [...] Codes Diagnosis Note [id number] MD MARCELA Diop [facility] [address] [address] 11/04/2022 08:17:03 11/04/2022 08:46:10 History of right total knee replacement 0674225706 347513 Z96.651 Aftercare 180370791 Z47. 1 [id number] MD MARCELA Vuong [facility] [address] [facility] [address] [place] [address] 08/15/2024 13:24:16 08/15/2024 14:02:23 Pain of right wrist 0897588524 66698 M25.531 026564 Carpal tutu jr syndrome of right wrist 2692596999 79579 G56.01 [id number] Health Concerns Section Related Observation LastModified by Organization Detai ls LastModified Time None Recorded Concern Status LastModified by Organization Details LastModified Time None Recorded Advance Directives Directive None Recorded Payers Insurance Date Sequence Insurance Name Policy Number Policy Vance Covered Member ID Vance Member ID Guarantor Name 08/12/2024 1 [place] [employer] Sunny Mccloud [id number] Sunny Mccloud 08/12/2024 2 [place] [id number] Sunny Mccloud [id number] Sunny Mccloud Notes Date Note Type [...] pain relief in the knee and satisfactory catholic of function in terms of activities of [...] total knee arthroplasty. Continue knee conditioning exercises. Brgd-eqz-ydqasrs medications as needed. Ultimate failure may occur due to mechanical wear, loosening or breakage. Follow-up is recommended to assess for the possibility of failure. Patient will follow-up at 1 year from surgery unless there are issues before then. Chad Donnelly MD [address] [place] [address], [address], [place] [facility] 11/04/2022 08:46:18 08/15/2024 text/html ROS as noted in the HPI This is a 79-year-old blupg-dklz-szidjsgf male who presents with right hand numbness and tingling. He has previously been evaluated and worked up for bilateral carpal tunnel syndrome, seen by a hand surgeon at [facility]. He has undergone left carpal tunnel [...] does not drink alcohol. Kathia Allen MD [address] [place] [address], [address], [place] [facility] 08/15/2024 17:16:18
--- NOTE | 2025-07-09 08:30 | MHC.OFFVIS ---
Intake Visit Reasons: Cystoscopy/Bladder US(set)BPH Intake Note: Reason for Visit: Cystoscopy/Bladder US Follow Up Urology Meds: Dutasteride, Doxazosin, Blood Thinners: None Labs: PSA- 2.64(03/27/2025) Imaging: Bladder Ultrasound- 06/18/2025 Last PVR: 0ML URO G-HD Cystoscope LOT [id number] EXP 12/24/2027 Allergies semaglutide (From Ozempic) Adverse Reaction (Intermediate, Verified 06/11/25 09:59) gerd , diarrhea HPI Comments Details: Sunny is a pleasant male. He is a patient of Dr. Araujo. He is seen for the following urologic conditions - lower urinary tract symptoms Follow-up cystoscopy Crowding with high lip bladder Discussed GreenLight laser Would like to proceed Previously longstanding care with [facility] Has been on combination doxazosin 8 mg and dutasteride 0.5 mg at maximum doses Still reports significant frequency Discussed potential prostate procedures Evaluation - imaging effective bladder emptying PFSH Medical History Nocturia Numbness and tingling in right hand Bronchitis Numbness of left hand Puncture wound of foot, right Cellulitis of left lower extremity Preoperative clearance Allergic contact dermatitis Cataract Retinal detachment Restless leg syndrome Type 2 diabetes mellitus with hyperglycemia BPH (benign prostatic hyperplasia) GERD (gastroesophageal reflux disease) Anemia Anxiety and depression Obesity (BMI 30-39.9) Asthma Hypertension Tubular adenoma of colon Surgical History History of cataract surgery History of carpal tunnel release History of bilateral knee replacement Hx of eye surgery Hx of detached retina repair History of colonoscopy History of arthroplasty of left knee Hx of tonsillectomy H/O vitrectomy Melanoma Family History Mother No problems noted. Father Prostate cancer Social History Housing: House Housing Other:: duplex Are you a primary after school caregiver to a significant other at home: No Do you presently have visiting nurse or other home services: No Alcohol intake: never Patient Tobacco Use Status: Former Tobacco user Tobacco use type: Cigarette Years Smoked: 1970 quit e-Cigarette/Vaping Use: Never Used Second Hand Smoke Exposure: No service: No Current occupational status: retired Current occupation: right hand dominant Cognitive needs: Yes Hearing needs: No Vision needs: Yes Review of Systems Const Denies chills and Denies fever(s) Card Reports no additional complaints and Denies syncope Resp Denies cough GI Denies abdominal pain and Denies heartburn Reports as per HPI and Denies change in libido Neuro Denies syncope Psych Denies change in libido Endo Denies change in libido Physical Exam Const General: cooperative, healthy appearing, comfortable and no acute distress Orientation/consciousness: patient oriented x3 HEENT Face and sinus: Yes normal facial exam Mouth: moist mucous membranes Neck Neck: Yes normal visual inspection, Yes full ROM and Yes trachea midline Chest Chest palpation & inspection: normal inspection of the chest Resp Effort & Inspection: normal respiratory effort, able to speak in complete sentences and no respiratory distress GI Inspection: Yes normal to inspection Back/Spine/Pelvis Cervical Spine: normal cervical lordosis Thoracic/Lumbar Spine: thoracic and lumbar spine normal to inspection Skin General skin exam: no rashes or lesions noted Neuro General: patient oriented x3, gait normal, tone normal and moves all extremities Extrem General: Yes normal to inspection and Yes capillary refill normal Office Procedures Cystoscopy Consent Discussed risk and benefit or proposed procedure with the patient. Information consent for procedure given to the patient. Discussed technical aspects, risks, benefits and alternatives in full. Addressed all of the patient's questions and concerns regarding the procedure. The patient demonstrated knowledge and understanding. They wish to proceed with this procedure. Preparation The patient was prepped in the usual manner. A transportation security officer was present and in the room. Genitalia was prepped with betadine solution in a sterile manner. Lidocaine Jelly 2% was placed into the urethra and 16Fr flexible Olympus cystoscope was inserted into the meatus after adequate lubrication. Procedure Consent confirmed Genitalia prepped and draped using topical antiseptic and lidocaine jelly Clamp placed on penile glans to allow adequate dwell contact time with anesthetic Cystoscopy performed using a sterile disposable Urovue digital 16 Setswana cystoscope Meatus circumcised Urethra anterior and posterior urethra normal Prostatic Urethra prominent median bar Bladder examination with retroflexion of cystoscope Bladder Orifices normal shape and position Bladder Capacity Normal Trabeculations grade 1 Cellule Formation None Diverticulum Formation None Mucosal Erythema irritated bladder mucosa dome Bladder Tumor None Patient tolerated procedure 50591-Yhwrleayaj DISPOSABLE SCOPE URO-G FLEXIBLE SCOPE Procedure code (CPT) selection complete Office Meds lidocaine HCl 2 % mucosal jelly in applicator Performing Provider: Haile Banks MD Performing Location[facility] Administered by: Celestina Mcallister RN on 07/09/25 08:53 Dose Route Admin Location Dispensed Lot Number Expiration Date ND Sprinkler Truck Driver 10 mL intra-urethral 10 mL nitrofurantoin monohydrate/macrocrystals 100 mg capsule Performing Provider: Haile Banks MD Performing Location: [facility] Administered by: Celestina Mcallister RN on 07/09/25 08:53 Dose Route Admin Location Dispensed Lot Number Expiration Date ND [employer] 100 mg PO 1 cap Results AMB Urinalysis, Automated UA Leukoctes 0 Ben/uL Last Edit by Lanie Serra [facility] on 07/09/25 08:48 UA Nitrite Negative Last Edit by Lanie Serra [facility] on 07/09/25 08:48 UA Urobilinogen 0.2 mg/dL Last Edit by Lanie Serra [facility] on 07/09/25 08:48 UA Protein 15 mg/dL Last Edit by Lanie Serra [facility] on 07/09/25 08:48 UA pH 6.0 Last Edit by Lanie Serra [facility] on 07/09/25 08:48 UA Blood 10 Rodney/uL Last Edit by Lanie Serra [facility] on 07/09/25 08:48 UA Specific Frederick 1.020 Last Edit by AYUSH Macdonald on 07/09/25 08:48 UA Ketone Negative Last Edit by Lanie Serra [facility] on 07/09/25 08:48 UA Bilirubin 0 mg/dL Last Edit by Lanie Serra [facility] on 07/09/25 08:48 UA Glucose 0 mg/dL Last Edit by Lanie Serra [facility] on 07/09/25 08:48 Results Reviewed Results Reviewed: Laboratory Last Values Urine pH (Auto) 6.0 07/09/25 08:47 Specific Frederick (Auto) 1.020 07/09/25 08:47 Urine Protein (Auto) 15 mg/dL 07/09/25 08:47 Glucose (UA)(Auto) 0 mg/dL 07/09/25 08:47 Urine Ketones (Auto) Negative 07/09/25 08:47 Urine Blood (Auto) 10 Rodney/uL 07/09/25 08:47 Urine Nitrite (Auto) Negative 07/09/25 08:47 Urine Bilirubin (Auto) 0 mg/dL 07/09/25 08:47 Urine Urobilinogen (Auto) 0.2 mg/dL 07/09/25 08:47 Leukocyte Esterase (Auto) 0 Ben/uL 07/09/25 08:47 Assessment & Plan Assessment & Plan (1) BPH (benign prostatic hyperplasia): Comment: Dr. Waite Code(s): N40.0 - Benign prostatic hyperplasia without lower urinary tract symptoms Category: Medical Qualifiers: Lower urinary tract symptom presence: symptoms present Lower urinary tract symptom detail: urinary frequency Qualified Code(s): N40.1 - Benign prostatic hyperplasia with lower urinary tract symptoms; R35.0 - Frequency of micturition (2) Dysuria: Code(s): R30.0 - Dysuria Category: Medical (3) Urinary frequency: Code(s): R35.0 - Frequency of micturition Category: Medical Plan We discussed the nature of the decision and reasonable options for performing a prostate intervention. Interventions include TURP, GreenLight laser enucleation of the prostate, GreenLight laser ablation of the prostate, transurethral incision of the prostate, and I-Tend prostate procedure. Options such as medical therapy were discussed. The relative uncertainties and benefits related to each alternate procedure were adequately discussed. General surgical risks including, but not limited to, pain, bleeding, infection, myocardial infarction, pulmonary embolus, deep vein thrombosis and cerebrovascular accident which may result in further hospitalization were discussed. Full disclosure of the procedure as well as all major risks, benefits and complications were discussed including but not limited to damage to the urethra or bladder neck, recurrent BPH, retrograde ejaculation, bladder infection, urge, de iban frequency, incomplete emptying, dysuria, remote chance of erectile dysfunction, epididymitis, and meatal stenosis. The success rate of the procedure was discussed. Success of the procedure in the short-term does not necessarily guarantee that long-term success will be maintained. Suitable follow up will need to be maintained. The patient showed understanding of discussion. An opportunity was provided for questions to be answered and wishes to proceed with the following procedure. - GreenLight laser Orders: Orders AMB Cystoscopy Today N40.1 - Benign prostatic hyperplasia with lower urinary tract symptoms, R30.0 - Dysuria, R35.0 - Frequency of micturition AMB Urinalysis Automated Today Z13.9 - Encounter for screening, unspecified Patient Instructions: This note is constructed using voice recognition software. While every effort has been made to ensure accuracy transplant nurse errors may have been included. Imaging studies, laboratory and physical exam results were discussed and reviewed in detail. No major barriers to patient understanding were identified. An opportunity to ask questions regarding the treatment plan was provided. All questions were answered. The patient expressed understanding and agreement with the above treatment plan. The patient is aware they should contact our office by phone for worsening of their current condition or the appearance of new urologic symptoms. Compliance is encouraged with any medications and followup testing that is ordered. It is a privilege to participate in the urologic care of your patient. If you have any questions or concerns regarding treatment for the above conditions, or other urologic issues, please do not hesitate to contact me. The office telephone contact is [phone]. Sincerely, Dr Haile Banks MD, [facility] Compassionate Specialist Care for the Genitourinary System Coding Level of Care Code Est Pt Level 4 (44715) Add On Problem Visit Only Diagnoses Benign prostatic hyperplasia with urinary frequency N40.1; R35.0 Lower urinary tract symptom presence: symptoms present Lower urinary tract symptom detail: urinary frequency Dysuria R30.0 Urinary frequency R35.0 CPT Codes Cystoscopy - CPT: 35943-Kdckjftbde ([id number])
== END 2025-07-09 09:28 | disposition home or self-care (01) ==
LOC: HO.HUSH 08:25
PROVIDERS: PCP Internal Medicine; Visit Provider Urology
DX: N40.1 Benign prostatic hyperplasia with lower urinary tract symptoms (principal); R35.0 Frequency of micturition; R30.0 Dysuria; Z13.9 Encounter for screening, unspecified
CPT/HCPCS: 52000; 99214

== ENCOUNTER → 2025-07-09 08:24 | Outpatient (BNVA) | payer MEDICARE, SELFPAY | PROVIDERS: PCP Internal Medicine; Visit Provider Urology | DX: N40.1 Benign prostatic hyperplasia with lower urinary tract symptoms (principal); R35.0 Frequency of micturition; R30.0 Dysuria | CPT/HCPCS: 52000; 81003; 99212 ==